=== PATIENT | male | born 1970 | race Caucasian/White ===

== ENCOUNTER 2016-08-21 10:51 | Emergency (ER) | payer BC ==
[~2016-08-21] VITALS: Ht 182.9 cm; Wt 85.3 kg
[~2016-08-21 10:51] MED LIST: CYCL5TAB PO
[2016-08-21 10:57] VITALS: TEMP 36.9; Ht 182.9 cm; Wt 85.3 kg
[2016-08-21] MEDS ORDERED: DiphenhydrAMINE HCL 50 MG/ML VIAL IV STA (11:17)
[2016-08-21] MEDS ORDERED: PROCHLORPERAZINE 5 MG/ML 2 ML VIAL IV STA (11:17)
[2016-08-21] MEDS ORDERED: KETOROLAC TROMETHAMINE 30 MG/ML VIAL IV STA (11:17)
[2016-08-21] MEDS ORDERED: SODIUM CHLORIDE 0.9% 1000ML 1,000 ML IV STA (11:17)
--- NOTE | 2016-08-21 11:20 | EMERGENCY ROOM VISIT NOTE ---
History Report prepared by Jeseibdeepika: Lindsay Garcia Under the Supervision of: Dr. Douglas Sethi M.D. First contact with patient: 11:06 Chief Complaint: HEADACHE Stated Complaint: HEADACHE, DIZZY History of Present Illness The patient is a 45 year old male who presents to the Emergency Room with complaints of a persistent headache that began yesterday. He currently rates his discomfort as a 5/10 in severity. The patient states that last evening he developed a mild headache. He states that this morning he woke feeling okay, but still noted the headache. The patient additionally associates dizziness with his symptoms today. He states that he tried drinking caffeine and water and tried ibuprofen all without relief of his symptoms. The patient denies ever having a headache like this in the past and states that he typically doesn' t get headaches. He states that the headache is located to his temples. The patient denies any neck pain, recent illness, or abdominal pain. He denies seeing any recent tick bites. The patient states that he is a smoker, stating that he smokes 1/2-3/4 a pack per day. Source of History: patient Onset: yesterday Position: head Symptom Intensity: 5/10 Quality: ache Timing: other (persistent) Associated Symptoms: No abdominal pain, No neck pain Note: Associated Symptoms: dizziness Review of Systems See HPI for pertinent positives & negatives. A total of 10 systems reviewed and were otherwise negative. Past Medical & Surgical Medical Problems: (1) No active medical problems Family History Patient reports no known family medical history. Social History Smoking Status: Current Every Day Smoker Alcohol Use: occasionally Marital Status: Housing Status: lives with significant other Occupation Status: employed Current/Historical Medications No Active Prescriptions or Reported Meds Allergies Coded Allergies: No Known Allergies (Unverified , 03/14/16) Physical Exam Vital Signs Date Time Temp Pulse Resp B/P Pulse Ox O2 Delivery O2 Flow Rate FiO2 08/21/16 12:51 73 18 113/71 96 Room Air 08/21/16 11:16 84 08/21/16 10:57 36.9 83 18 134/95 97 Room Air Physical Exam GENERAL: Patient is a healthy-appearing well-nourished HEAD: Normocephalic atraumatic EYES: Ocular movements intact pupils equal and react to light OROPHARYNX mucous membranes are moist no exudates present no erythema or edema present NECK: Supple no nuchal rigidity. No evidence of meningitis or encephalitis on exam. CHEST: Good equal expansion LUNGS: Clear and equal to auscultation CARDIAC: Normal S1 and S2 ABDOMEN: Soft nontender no guarding BACK: No CVA tenderness EXTREMITIES: No pain upon palpation normal muscle strength in all groups no clubbing cyanosis or edema NEURO: Patient is following commands is answering questions appropriately. Alert and oriented x3 Cranial Nerves 2-12 grossly intact Medical Decision & Procedures ER Provider Diagnostic Interpretation: CT results as stated below per my review and radiologist interpretation: HEAD CT NONCONTRAST CT DOSE: 537.48 mGy.cm HISTORY: Pt c/o headache TECHNIQUE: Multiaxial CT images of the head were performed without the use of intravenous contrast. Automated exposure control was utilized for this study. Comparison: None. Findings: The paranasal sinuses and mastoid air cells are clear. The calvarium and skull base are intact. The ventricles and sulci are within normal limits. There is no mass, hematoma, midline shift, or acute infarct. Impression: No acute intracranial abnormality. Electronically signed by: Dean Fernandez M.D. 08/21/2016 11:58 AM Dictated Date/Time: 08/21/2016 11:56 AM Laboratory Results 08/21/16 11:30 Red Blood Count 4.59, Mean Corpuscular Volume 91.1, Mean Corpuscular Hemoglobin 31.2, Mean Corpuscular Hemoglobin Concent 34.2, Mean Platelet Volume 10.1, Neutrophils (%) (Auto) 64.5, Lymphocytes (%) (Auto) 25.4, Monocytes (%) (Auto) 5.7, Eosinophils (%) (Auto) 3.4, Basophils (%) (Auto) 0.6, Neutrophils # (Auto) 8.10, Lymphocytes # (Auto) 3.19, Monocytes # (Auto) 0.72, Eosinophils # (Auto) 0.43, Basophils # (Auto) 0.08 08/21/16 11:30 Test 08/21/16 11:30 White Blood Count 12.57 K/uL (4.8-10.8) Red Blood Count 4.59 M/uL (4.7-6.1) Hemoglobin 14.3 g/dL (14.0-18.0) Hematocrit 41.8 % (42-52) Mean Corpuscular Volume 91.1 fL (80-100) Mean Corpuscular Hemoglobin 31.2 pg (25-34) Mean Corpuscular Hemoglobin Concent 34.2 g/dl (32-36) Platelet Count 316 K/uL (130-400) Mean Platelet Volume 10.1 fL (7.4-10.4) Neutrophils (%) (Auto) 64.5 % Lymphocytes (%) (Auto) 25.4 % Monocytes (%) (Auto) 5.7 % Eosinophils (%) (Auto) 3.4 % Basophils (%) (Auto) 0.6 % Neutrophils # (Auto) 8.10 K/uL (1.4-6.5) Lymphocytes # (Auto) 3.19 K/uL (1.2-3.4) Monocytes # (Auto) 0.72 K/uL (0.11-0.59) Eosinophils # (Auto) 0.43 K/uL (0-0.5) Basophils # (Auto) 0.08 K/uL (0-0.2) RDW Standard Deviation 45.5 fL (36.4-46.3) RDW Coefficient of Variation 13.8 % (11.5-14.5) Immature Granulocyte % (Auto) 0.4 % Immature Granulocyte # (Auto) 0.05 K/uL (0.00-0.02) Anion Gap 7.0 mmol/L (3-11) Est Creatinine Clear Calc Drug Dose 85.3 ml/min Estimated GFR () 84.1 Estimated GFR (Non- 72.6 BUN/Creatinine Ratio 17.5 (10-20) Calcium Level 9.6 mg/dl (8.5-10.1) Total Bilirubin 0.3 mg/dl (0.2-1) Direct Bilirubin < 0.1 mg/dl (0-0.2) Aspartate Amino Transf (AST/SGOT) 20 U/L (15-37) Alanine Aminotransferase (ALT/SGPT) 29 U/L (12-78) Alkaline Phosphatase 78 U/L (45-117) Total Protein 7.8 gm/dl (6.4-8.2) Albumin 4.0 gm/dl (3.4-5.0) Lipase 68 U/L (73-393) Lyme Disease IgG Antibody NEG (NEG) Lyme Disease IgM Antibody NEG (NEG) Labs reviewed by ED physician. Medications Administered Medications (Trade) Dose Ordered Sig/Ra Route Start Time Stop Time Status Last Admin Dose Admin Sodium Chloride (Nss 1000ml) 1,000 ml @ 999 mls/hr Q1H1M STAT IV 08/21/16 11:17 08/21/16 12:17 DC 08/21/16 11:36 999 MLS/HR Prochlorperazine Edisylate (Compazine Inj) 10 mg NOW STAT IV 08/21/16 11:17 08/21/16 11:19 DC 08/21/16 11:37 10 MG Diphenhydramine HCl (Benadryl Inj) 50 mg NOW STAT IV 08/21/16 11:17 08/21/16 11:20 DC 08/21/16 11:36 50 MG Ketorolac Tromethamine (Toradol Inj) 30 mg NOW STAT IV 08/21/16 11:17 08/21/16 11:20 DC 08/21/16 11:36 30 MG Dexamethasone Sodium Phosphate (Decadron Inj) 10 mg NOW ONCE IV 08/21/16 11:30 08/21/16 11:31 DC 08/21/16 11:37 10 MG ECG Indication: other (dizzy) Rate (beats per minute): 92 Rhythm: normal sinus Findings: RBBB, no acute ischemic change, no ectopy ED Course 1109: Past medical records reviewed. The patient was evaluated in room C8. A complete history and physical examination was performed. 1117: Ordered Toradol Inj 30 mg IV, Benadryl Inj 50 mg IV, Compazine Inj 10 mg IV, Sodium Chloride 1000 ml @ 999 mls/hr IV. 1130: Ordered Decadron Inj 10 mg IV. 1230: I reevaluated the patient and he is resting comfortably. I discussed the exam findings with him and I discussed the treatment plan. He verbalized complete understanding and agreement. He is ready to go home. Medical Decision Differential diagnosis: Etiologies such as migraine headache, meningitis, sinusitis, CO exposure, ICH, SAH, infection, tumor, headache, sinus thrombosis, arterial dissection, as well as others were entertained. This is a 45-year-old male who presents emergency department complaining of headache. The patient has no evidence of meningitis encephalitis on examination. He was given a CT of the head as he is had no had imaging in the past. Addition IV was established, patient given normal saline bolus, Toradol, Compazine, Benadryl. Repeat examination revealed improvement patient's symptoms. I do feel that the patient as well as to be discharged home however I stressed the need to return to the emergency department if he develops severe headache and neck pain. Impression Primary Impression: Headache Scribe Attestation The scribe's documentation has been prepared under my direction and personally reviewed by me in its entirety. I confirm that the note above accurately reflects all work, treatment, procedures, and medical decision making performed by me. Departure Information Dispostion Home / Self-Care Prescriptions No Active Prescriptions or Reported Meds Referrals iGgi Scott M.D. (PCP) Forms HOME CARE DOCUMENTATION FORM, IMPORTANT VISIT INFORMATION, School Instructions, Work Instructions Patient Instructions Headaches Self Care, Headaches Tension, My [facility] Additional Instructions You have been examined and treated today on an emergency basis only. This is not a substitute for, or an effort to provide, complete comprehensive medical care. It is impossible to recognize and treat all injuries or illnesses in a single emergency department visit. It is therefore important that you follow up closely with Dr Scott. Call as soon as possible for an appointment. Thank you for your time and consideration. I look forward to speaking with you again soon. Please don't hesitate to call us if you have any questions. Problem Qualifiers Primary Impression: Headache Headache type: unspecified Headache chronicity pattern: acute headache Intractability: not intractable Qualified Codes: R51 - Headache
[2016-08-21] MEDS ORDERED: DEXAMETHASONE SOD INJ 10 MG/ML VIAL IV ONE (11:30)
[2016-08-21 11:47] LABS: BASO % 0.6 %; BASO ABS # 0.08 K/uL (0-0.2); COMPLETE YES; EOS % 3.4 %; HEMATOCRIT 41.8 % (42-52); IG% 0.4 %; LYMPH % 25.4 %; LYMPH ABS # 3.19 K/uL (1.2-3.4); MEAN CELL VOLUME 91.1 fL (80-100); MEAN CORPUSCULAR HEMOGLOBIN 31.2 pg (25-34); MEAN CORPUSCULAR HGB CONC 34.2 g/dl (32-36); MEAN PLATELET VOLUME 10.1 fL (7.4-10.4); MONO % 5.7 %; NEUT % 64.5 %; PLATELET COUNT 316 K/uL (130-400); RED BLOOD COUNT 4.59 M/uL (4.7-6.1); WHITE BLOOD COUNT 12.57 K/uL (4.8-10.8)
--- NOTE | 2016-08-21 11:59 | DIAGNOSTIC IMAGING REPORT ---
HEAD CT NONCONTRAST CT DOSE: 537.48 mGy.cm HISTORY: Pt c/o headache TECHNIQUE: Multiaxial CT images of the head were performed without the use of intravenous contrast. Automated exposure control was utilized for this study. Comparison: None. Findings: The paranasal sinuses and mastoid air cells are clear. The calvarium and skull base are intact. The ventricles and sulci are within normal limits. There is no mass, hematoma, midline shift, or acute infarct. Impression: No acute intracranial abnormality. Electronically signed by: Dean Fernandez M.D. 08/21/2016 11:58 AM Dictated Date/Time: 08/21/2016 11:56 AM
[2016-08-21 12:03] LABS: BLOOD UREA NITROGEN 21 mg/dl (7-18); BUN/CREATININE RATIO 17.5 (10-20); CALCIUM 9.6 mg/dl (8.5-10.1); CARBON DIOXIDE 27 mmol/L (21-32); CHLORIDE 107 mmol/L (98-107); GLUCOSE 96 mg/dl (70-99); SODIUM 141 mmol/L (136-145)
[2016-08-21 12:12] LABS: ALKALINE PHOSPHATASE 78 U/L (45-117); ALT/SGPT 29 U/L (12-78); AST/SGOT 20 U/L (15-37)
[2016-08-21 12:51] VITALS: BP 113/71; PULSE 73; O2SAT 96
[2016-08-21 13:20] LABS: LYME DISEASE AB IGG NEG (NEG)
[2016-08-21 13:23] LABS: LYME DISEASE AB IGM NEG (NEG)
== END 2016-08-21 12:52 | disposition home or self-care (01) ==
LOC: C.EDB 10:52 → C.EDC 12:52
DX: R51 Headache (principal); F17.200 Nicotine dependence, unspecified, uncomplicated

== ENCOUNTER 2024-03-16 20:45 | Inpatient (IN) ==
[2024-03-16] MEDS: SODIUM CHLORIDE 0.9% 500 ML IV ONE (21:05)
--- NOTE | 2024-03-16 21:08 | Emergency Department Note ---
Impression & Plan Headache, AMS (altered mental status), Pneumonia ED Provider Note HISTORY OF PRESENT ILLNESS: Patient is a 53-year-old male presenting with headache and nausea. History is difficult to obtain from patient, secondary to him falling asleep through the exam and trailing off midsentence. He was seen recently in the emergency department for headache and back pain. He denies any back pain at this time. He recently had a laminectomy performed 2 weeks ago. He states that his headache started 5 days ago. He was seen in the emergency department and the headache initially improved, but then came back worse. He currently rates his pain a 9 out of 10. He states that he took two 5 mg oxycodone prior to calling 911. He reports nausea. Locates pain diffusely across his head. He states he has had a fever but is unable to say when his fever was. He denies any chest pain or shortness of breath. Denies any changes in vision, numbness or tingling or weakness in his extremities. Denies any abdominal pain. He denies any recent sick contact exposures. He has not taken any Tylenol or Motrin today. presents later (around 21:15) and supplies more history. States that the patient has been acting confused and "doing weird things" throughout the day today, which had her concerned. Reports that he took oxycodone at around 1400. States that he has not had a fever, despite the patient stating he had. States that the patient is having excessive clear drainage from the wound in his lower lumbar region. Reports that they have been soaking through dressings and he has been having to put hand towels back there to collect the excess fluid. reports that there has been no drainage today. ROS: as above PHYSICAL EXAM: Constitutional: Patient appears in no acute distress. HENT: Head: Normocephalic and atraumatic. Eyes: EOMI, PERRL Mouth/Throat: Mucous membranes moist. Neck: Trachea midline. Neck supple. Full range of motion of the neck without meningismus. Cardiovascular: RRR, No murmurs, rubs or gallops. Intact distal pulses. Pulmonary/Chest: No respiratory distress. Breath sounds clear and equal bilaterally. No wheezes or rales. Abdominal: Abdomen soft, no tenderness, rebound or guarding. Back: Lower lumbar surgical incision with steri strips in place. Incision is clean/dry/intact. No drainage expressed from wound with palpation. No tenderness reproduced with palpation and no appreciable fluctuance. Musculoskeletal: No edema, tenderness or deformity noted. Skin: Warm and dry. No rash, erythema, pallor or cyanosis Neurological: Alert and keenly responsive. CN II-XII grossly intact, moving all extremities equally and fully. Patient is alert and oriented x 3. He does trail off mid-sentence but arouses to physical and verbal stimuli. He answers yes/no questions appropriately. MDM: - Vitals signs showed hypertension and tachycardia. - History obtained via patient. History as above. - Chronic conditions affecting care: none - Differential diagnoses include, but are not limited to: encephalopathy; meningitis; UTI; pneumonia; viral syndrome; intracranial hemorrhage; CVA - Order placed for continuous cardiac monitoring. At this time, monitor showed rate of 91 bpm with normal sinus rhythm, per my interpretation. - External medical records reviewed. - Laboratory workup interpreted by myself showed leukocytosis (WBC 15.40); slight hyponatremia (Na 134); hypomagnesemia (Mg 1.5); normal lactate; normal procalcitonin - Blood cultures obtained - Patient given 500 cc NS and 4 mg IV zofran. Given 1g IV tylenol for pain control. - CT head wo contrast negative for acute pathology - Patient given IV rocephin for empiric coverage for any intracranial infection. - CXR showed what looks like a right sided opacity, per my interpretation. Radiology notes questionable mild bibasilar pneumonia. - PO doxycycline added to antibiotic regimen. On reassessment, the does not report the patient having any cough. Bio fire was also added to workup. - Given 1g IV magnesium for electrolyte replacement. - Considered possible meningitis as source for patient's headache and confusion, patient has no meningeal findings on physical examination. Considered obtaining a lumbar puncture, but given patient's recent lumbar spinal surgery, will defer LP at this time. Patient empirically covered with rocephin. - Discussion was had with case specialist about patient's case and need for admission - Hospitalist, Dr. Ross, consulted for admission - [facility] ASSESSMENT AND PLAN: Diagnosis: headache; altered mental status; pneumonia Plan: admit Past Med/Surg History Problem List (Updated 03/16/24 @ 23:26 by Yamileth Hinton MD) Pneumonia (Acute) AMS (altered mental status) (Acute) Seroma of musculoskeletal structure after musculoskeletal system procedure (Acute) Headache (Acute) Low back pain (Acute) Medical History Low back pain Social History Smoking Status: Current every day smoker Tobacco Type: Cigarettes Preferred Language: Sinhala Feels Safe at Home: Yes Allergies Allergies Allergy/AdvReac Type Severity Reaction Status Date / Time No Known Allergies Allergy Unverified 03/14/16 15:10 Home Meds Home Medications Medication Instructions Recorded Confirmed diazepam 5 mg tablet 5 mg PO Q8 PRN DIRECTED 03/16/24 03/16/24 hydrocodone 5 mg-acetaminophen 325 1 tab PO .EVERY 6-8 HOURS PRN POST 03/16/24 03/16/24 mg tablet OP PAIN methocarbamol 750 mg tablet 1,500 mg PO Q8 PRN MUSCLE SPASM 03/16/24 03/16/24 AFTER SURGERY pantoprazole 40 mg tablet,delayed 40 mg PO DAILY 03/16/24 03/16/24 release Results & Data (ED) Vital Signs Vital Signs - 24 hr 03/16/24 20:49 03/16/24 20:54 03/16/24 20:58 Temperature 36.8 C Temperature Source Oral Pulse Rate 94 H 87 94 H Pulse Rate [Apical] Pulse Rate from SpO2 Sensor Respiratory Rate 16 18 Respiratory Effort / Characteristics Non-Labored Spontaneous Respiratory Depth Normal Respiratory Pattern Regular Blood Pressure 159/75 H Blood Pressure [Right Arm] Blood Pressure Mean 103 Blood Pressure Mean [Right Arm] Blood Pressure Position Lying Blood Pressure Position [Right Arm] Pulse Oximetry 95 94 Oxygen Delivery Method Room Air Room Air Sepsis Recent Fever Within 48 Hours No Sepsis New/Unexplained Change in Mental Status N/A Sepsis Action Taken by Nursing No Action Required 03/16/24 21:00 03/16/24 21:00 03/16/24 22:00 Temperature Temperature Source Pulse Rate 86 Pulse Rate [Apical] Pulse Rate from SpO2 Sensor Respiratory Rate 19 Respiratory Effort / Characteristics Respiratory Depth Respiratory Pattern Blood Pressure 154/76 H 125/71 Blood Pressure [Right Arm] Blood Pressure Mean 92 101 Blood Pressure Mean [Right Arm] Blood Pressure Position Blood Pressure Position [Right Arm] Pulse Oximetry Oxygen Delivery Method Sepsis Recent Fever Within 48 Hours Sepsis New/Unexplained Change in Mental Status Sepsis Action Taken by Nursing 03/16/24 22:09 03/16/24 22:35 Temperature Temperature Source Pulse Rate 92 H Pulse Rate [Apical] 91 H Pulse Rate from SpO2 Sensor 93 H Respiratory Rate 17 16 Respiratory Effort / Characteristics Non-Labored Spontaneous Respiratory Depth Normal Respiratory Pattern Regular Blood Pressure Blood Pressure [Right Arm] 124/75 Blood Pressure Mean Blood Pressure Mean [Right Arm] 91 Blood Pressure Position Blood Pressure Position [Right Arm] Lying Pulse Oximetry 91 92 Oxygen Delivery Method Room Air Room Air Sepsis Recent Fever Within 48 Hours Sepsis New/Unexplained Change in Mental Status Sepsis Action Taken by Nursing Laboratory Data 03/16/24 20:56 03/16/24 20:56 Lab Results 03/16/24 03/16/24 Range/Units 20:56 22:22 WBC 15.40 H (4.8-10.8) K/ul RBC 4.84 (4.70-6.10) M/uL Hgb 14.9 (14.0-18.0) g/dl Hct 44.0 (42.0-52.0) % MCV 90.9 (80.0-100.0) fL MCH 30.8 (25.0-34.0) pg MCHC 33.9 (32.0-36.0) g/dL RDW Std Deviation 43.5 (36.4-46.3) fL RDW Coeff of Ning 13.1 (11.5-14.5) % Plt Count 313 (130-400) K/uL MPV 10.3 (9.4-12.4) fL Immature Gran % (Auto) 0.5 % Neut % (Auto) 87.6 % Lymph % (Auto) 5.5 % [place] % (Auto) 5.8 % Eos % (Auto) 0.2 % Baso % (Auto) 0.4 % Neut # (Auto) 13.50 H (1.40-6.50) K/uL Lymph # (Auto) 0.84 L (1.20-3.40) K/uL [place] # (Auto) 0.90 H (0.11-0.59) K/uL Eos # (Auto) 0.03 (0.00-0.50) K/uL Baso # (Auto) 0.06 (0.00-0.20) K/uL Immature Gran # (Auto) 0.07 (0.01-0.20) K/uL Sodium 134 L (136-145) mmol/L Potassium 3.9 (3.5-5.1) mmol/L Chloride 103 (98-107) mmol/L Carbon Dioxide 23 (21-32) mmol/L Anion Gap 8 (3-11) BUN 19 (6-23) mg/dl Creatinine 1.07 (0.6-1.4) mg/dl Est Cr Clr Drug Dosing 87.6 ml/min eGFR 82.98 BUN/Creatinine Ratio 17.8 (10-20) Glucose 124 H (70-99(Fasting)) mg/dl Lactate 0.7 (0.4-2.0) mmol/L Calcium 10.0 (8.6-10.3) mg/dl Magnesium 1.5 L (1.7-2.4) mg/dl Total Bilirubin 0.7 (0.2-1.0) mg/dl AST 15 (13-39) U/L ALT 16 (7-52) U/L Alkaline Phosphatase 71 (34-104) U/L Total Protein 7.6 (6.0-8.3) gm/dl Albumin 4.4 (3.4-5.0) gm/dl Globulin 3.2 (2.5-4.0) gm/dl Albumin/Globulin Ratio 1.4 (0.9-2) Procalcitonin 0.11 (0-0.5) ng/ml Administered Medications Magnesium Sulfate/Dextrose (Magnesium Sulfate / D5w) 1 gm in 100 mls @ 50 mls/hr IV Q2H [facility] Stop: 03/17/24 03:14 Last Admin: 03/16/24 23:19 Dose: 50 mls/hr Documented By: Discontinued Medications Azithromycin (Azithromycin 250 Mg Tab) 500 mg PO NOW ONE Stop: 03/16/24 23:01 Last Admin: 03/16/24 23:11 Dose: Not Given Documented By: Diphenhydramine HCl (Diphenhydramine 50 Mg/Ml Vial) 50 mg IV NOW STA Stop: 03/16/24 20:54 Last Admin: 03/16/24 21:38 Dose: Not Given Documented By: Sodium Chloride (Nss) 500 mls @ 999 mls/hr IV .Q31M ONE Stop: 03/16/24 21:23 Last Infusion: 03/16/24 21:37 Dose: Infused Documented By: Admin: 03/16/24 21:05 Dose: 999 mls/hr Documented By: Prochlorperazine (Compazine) 2 mls @ 1 mls/min IV ONE ONE Stop: 03/16/24 20:54 Last Admin: 03/16/24 21:37 Dose: Not Given Documented By: Acetaminophen (Ofirmev) 1,000 mg in 100 mls @ 400 mls/hr IV NOW STA Stop: 03/16/24 21:20 Last Infusion: 03/16/24 21:58 Dose: Infused Documented By: Admin: 03/16/24 21:36 Dose: 400 mls/hr Documented By: Ceftriaxone Sodium (Rocephin) 2,000 mg in 50 mls @ 100 mls/hr IV NOW STA Stop: 03/16/24 22:06 Last Infusion: 03/16/24 23:12 Dose: Infused Documented By: Admin: 03/16/24 22:06 Dose: 100 mls/hr Documented By: Ioversol (Optiray 320 100ml) 94 ml IV ONCE ONE Stop: 03/16/24 21:53 Last Admin: 03/16/24 21:52 Dose: 94 ml Documented By: ALYCIA Ondansetron HCl (Ondansetron Inj 2 Mg/Ml 2 Ml Vial) 4 mg IV NOW STA Stop: 03/16/24 21:07 Last Admin: 03/16/24 21:33 Dose: 4 mg Documented By: Imaging Data Radiologist's Impression: Head CT 03/16/24 20:53 Exam(s): CT HEAD Without Contrast EXAM: CT Head Without Intravenous Contrast CLINICAL HISTORY: Reason for exam: headache. TECHNIQUE: Axial computed tomography images of the head/brain without intravenous contrast. CTDI is 36 mGy and DLP is 546 mGy-cm. Automated exposure control was utilized for the study. A dose lowering technique was utilized adhering to the principles of ALARA. COMPARISON: Head CT 03/14/24. FINDINGS: Brain: No mass effect or acute infarct. No acute hemorrhage. No abnormal density in the brain parenchyma. No significant interval change. Ventricles: No hydrocephalus or midline shift. Bones/joints: No skull fracture. Soft tissues: No scalp hematoma. Visualized Sinuses: Clear. Mastoid air cells: No mastoid effusion. IMPRESSION: 1. No acute intracranial abnormality, and no change. Electronically signed by: Mabel Hernández M.D. 03/16/24 21:47 PM Chest X-Ray 03/16/24 20:54 Exam(s): XR CXR 1 VIEW EXAM: XR Chest, 1 View CLINICAL HISTORY: Reason for exam: fever. TECHNIQUE: Frontal view of the chest. Mild low lung volumes, patient rotation and motion. COMPARISON: Chest x-ray 04/15/23. FINDINGS: Lungs: New, mild bibasilar atelectasis or infiltrate, nonspecific, cannot rule out pneumonia. No consolidation. Pleural space: No pneumothorax. Heart: Stable, mild to moderate cardiomegaly. Mediastinum: Unremarkable. Bones/Soft Tissues: No acute abnormality. IMPRESSION: 1. Question mild bibasilar pneumonia. Electronically signed by: Mabel Hernández M.D. 03/16/24 22:[address] 03/16/24 21:37 Exam(s): CT L SPINE With Contrast IV Amt: optiray 320 94ml EXAM: CT Lumbar Spine With Intravenous Contrast CLINICAL HISTORY: Reason for exam: drainage from surgical incision; AMS. TECHNIQUE: Axial computed tomography images of the lumbar spine with intravenous contrast. CTDI is 37.47 mGy and DLP is 1059.7 mGy-cm. Automated exposure control was utilized for the study. A dose lowering technique was utilized adhering to the principles of ALARA. CONTRAST: Patient received optiray 320 94ml of IV contrast COMPARISON: None. FINDINGS: Vertebrae: Bilateral L4 laminectomy. No acute fracture. Discs/spinal canal/neural foramina: Moderate degenerative disc disease L4-5 and L5-S1. Soft tissues: Postoperative change L4-5 with hypodensity in the subcutaneous fat into the laminectomy bed. No abnormal enhancement. IMPRESSION: 1. Degenerative and postsurgical change L4-5. 2. No abnormal enhancement, fracture or acute bony abnormality. Electronically signed by: Mabel Hernández M.D. 03/16/24 22:23 PM Discharge Plan Visit Data Chief Complaint: Headache Stated Complaint: Headache, Nausea, Recent Surgery ED Provider: Yamileth Hinton Discharge Problem: Headache, AMS (altered mental status), Pneumonia Forms Stand Alone Forms: [facility] Prescriptions Prescriptions: No Action hydrocodone-acetaminophen 5-325 mg tablet 1 tab PO .EVERY 6-8 HOURS PRN (Reason: POST OP PAIN) pantoprazole 40 mg tablet,delayed release (DR/EC) 40 mg PO DAILY diazepam 5 mg tablet 5 mg PO Q8 PRN (Reason: DIRECTED) methocarbamol 750 mg tablet 1,500 mg PO Q8 PRN (Reason: MUSCLE SPASM AFTER SURGERY) Referrals Referrals: Melissa Fritz DO [Primary Care Provider] -
[2024-03-16 21:21] LABS: Basophils # (auto) 0.06 K/uL (0.00-0.20); Basophils % (auto) 0.4 %; Eosinophils # (auto) 0.03 K/uL (0.00-0.50); Eosinophils % (auto) 0.2 %; Hemoglobin 14.9 g/dl (14.0-18.0); Immature Granulocytes # (auto) 0.07 K/uL (0.01-0.20); Immature Granulocytes % (auto) 0.5 %; Lymphocytes # (auto) 0.84 K/uL (1.20-3.40); Lymphocytes % (auto) 5.5 %; Mean Corpuscular Hemoglobin 30.8 pg (25.0-34.0); Mean Corpuscular Hgb Conc 33.9 g/dL (32.0-36.0); Mean Corpuscular Volume 90.9 fL (80.0-100.0); Mean Platelet Volume 10.3 fL (9.4-12.4); Monocytes % (auto) 5.8 %; Neutrophils % (auto) 87.6 %; Platelet Count 313 K/uL (130-400); RDW Coefficient of Variation 13.1 % (11.5-14.5); RDW Standard Deviation 43.5 fL (36.4-46.3); Red Blood Count 4.84 M/uL (4.70-6.10)
[2024-03-16 21:29] LABS: Albumin Globulin Ratio 1.4 (0.9-2); Albumin Level 4.4 gm/dl (3.4-5.0); BUN Creatinine Ratio 17.8 (10-20); Bilirubin,Total 0.7 mg/dl (0.2-1.0); Creatinine Clr Calc Pharmacy 87.6 ml/min; Globulin 3.2 gm/dl (2.5-4.0); Magnesium 1.5 mg/dl (1.7-2.4); Potassium 3.9 mmol/L (3.5-5.1); Total Protein 7.6 gm/dl (6.0-8.3)
[2024-03-16] MEDS: ONDANSETRON INJ 2 MG/ML 2 ML VIAL IV STA (21:33)
[2024-03-16] MEDS: ACETAMINOPHEN 1,000 MG/100 ML VIAL IV STA (21:36)
[2024-03-16] MEDS: PROCHLORPERAZINE 2 ML IV ONE (21:37)
[2024-03-16] MEDS: diphenhydrAMINE 50 MG/ML VIAL IV STA (21:38)
--- NOTE | 2024-03-16 21:48 | CT Scan Report ---
Exam(s): CT HEAD Without Contrast EXAM: CT Head Without Intravenous Contrast CLINICAL HISTORY: Reason for exam: headache. TECHNIQUE: Axial computed tomography images of the head/brain without intravenous contrast. CTDI is 36 mGy and DLP is 546 mGy-cm. Automated exposure control was utilized for the study. A dose lowering technique was utilized adhering to the principles of ALARA. COMPARISON: Head CT 03/14/24. FINDINGS: Brain: No mass effect or acute infarct. No acute hemorrhage. No abnormal density in the brain parenchyma. No significant interval change. Ventricles: No hydrocephalus or midline shift. Bones/joints: No skull fracture. Soft tissues: No scalp hematoma. Visualized Sinuses: Clear. Mastoid air cells: No mastoid effusion. IMPRESSION: 1. No acute intracranial abnormality, and no change. Electronically signed by: Mabel Hernández M.D. 03/16/24 21:47 PM
[2024-03-16] MEDS: OPTIRAY 320 100ml IV ONE (21:52)
[2024-03-16] MEDS: cefTRIAXone SODIUM 2,000 MG/50 ML BAG IV STA (22:06)
--- NOTE | 2024-03-16 22:25 | CT Scan Report ---
Exam(s): CT L SPINE With Contrast IV Amt: optiray 320 94ml EXAM: CT Lumbar Spine With Intravenous Contrast CLINICAL HISTORY: Reason for exam: drainage from surgical incision; AMS. TECHNIQUE: Axial computed tomography images of the lumbar spine with intravenous contrast. CTDI is 37.47 mGy and DLP is 1059.7 mGy-cm. Automated exposure control was utilized for the study. A dose lowering technique was utilized adhering to the principles of ALARA. CONTRAST: Patient received optiray 320 94ml of IV contrast COMPARISON: None. FINDINGS: Vertebrae: Bilateral L4 laminectomy. No acute fracture. Discs/spinal canal/neural foramina: Moderate degenerative disc disease L4-5 and L5-S1. Soft tissues: Postoperative change L4-5 with hypodensity in the subcutaneous fat into the laminectomy bed. No abnormal enhancement. IMPRESSION: 1. Degenerative and postsurgical change L4-5. 2. No abnormal enhancement, fracture or acute bony abnormality. Electronically signed by: Mabel Hernández M.D. 03/16/24 22:23 PM
--- NOTE | 2024-03-16 22:51 | XRay Report ---
Exam(s): XR CXR 1 VIEW EXAM: XR Chest, 1 View CLINICAL HISTORY: Reason for exam: fever. TECHNIQUE: Frontal view of the chest. Mild low lung volumes, patient rotation and motion. COMPARISON: Chest x-ray 04/15/23. FINDINGS: Lungs: New, mild bibasilar atelectasis or infiltrate, nonspecific, cannot rule out pneumonia. No consolidation. Pleural space: No pneumothorax. Heart: Stable, mild to moderate cardiomegaly. Mediastinum: Unremarkable. Bones/Soft Tissues: No acute abnormality. IMPRESSION: 1. Question mild bibasilar pneumonia. Electronically signed by: Mabel Hernández M.D. 03/16/24 22:51 PM
[2024-03-16] MEDS: AZITHROMYCIN 250 MG TAB PO ONE (23:11)
--- NOTE | 2024-03-16 23:16 | History & Physical Report ---
Date of Service March 16, 2024 Assessment & Plan (1) Encephalopathy: Plan: Encephalopathy Marked improvement following initial intervention at the ER Multifactorial: Muscle relaxants, home narcotics Mild dehydration Headache, possible spinal headache, recent lumbar decompression surgery at [facility] (rule out brain abscess, postop back abscess given fluid collection on recent MRI) Atypical pneumonia, patient not septic Hypomagnesemia Hyperglycemia, hemoglobin A1c of 5.5 from February 2024 GERD on PPI ongoing tobacco abuse Medical telemetry Hold parameters for muscle relaxants and narcotics for sedation confusion IVF Doxycycline for possible atypical pneumonia MRI brain, MRI lumbar spine Replace electrolytes Nicotine patch as needed DVT prophylaxis. SCDs re: recent back procedure Full code Patient requesting updates providers. Ms. Yakelin Hawk, contact #[phone]. Text document was generated using [employer] voice recognition software. It may contain grammatical or spelling errors. Kindly contact undersigned for clarification of any documentation item in question. History of Present Illness Chief Complaint: Headache, confusion Primary Care Provider: Melissa Fritz DO History obtained from patient, family, and records. Medical history significant for lumbar radiculopathy status post recent laminectomy/decompression surgery, GERD, ongoing tobacco abuse. Patient underwent elective lumbar decompression surgery/laminectomy at [facility] same-day surgery in [place] 2 weeks ago. Clear postop drainage from back wound after procedure. No fever, no chills. Patient told on follow-up visit with surgeon last week that drainage was normal postprocedure. Achy headache symptoms 5 days ago. Does not seem related to position as per patient. No neck pain, no fever, no chills. No chest pain, no SOB, no cough symptoms. Back pain not as bad with fluid drainage from the back. Patient consulted [facility] ER 2 days ago. Clear fluid drainage noted from surgical site without erythema. CT head: No abnormality Lumbar spine MRI: 1. L4-L5 laminectomy with non-enhancing extra thecal seroma. L4 surgical site skin and subcutaneous fluid collection with enhancement indicating possible infection/inflammation advised lab and clinical evaluation. 2. Suspected non-enhancing well-coapted sinus tract connecting the previously mentioned fluid collections. 3. L4-L5 central and right paracentral disc protrusion/fibrosis indenting the thecal sac and causing the narrowing of the right neural exit foramina. 4. L5-S1 diffuse disc bulge causing bilateral mild to moderate stenosis of the neural exit. 5. There is a suspected faintly enhancing granulation tissue seen at the lower end of the L4 vertebral body encroaching upon the L4-L5 left neural exit foramen compressing the thecal sac and causing mild narrowing of the neural exit foramina and central canal. Advised follow-up if clinically warranted. 6. No evidence of acute abscess formation or intraspinal extension of the inflammatory process. Patient discharged home from the ER. Worsening headache symptoms at home with some confusion. No fever, no chills. Nausea symptoms without abdominal pain, poor appetite. Postop clear drainage actually improving as per . IVF, ceftriaxone administered at the ER. Patient mentation back to baseline after initial intervention at the ER as per . 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 Allergies Allergy/AdvReac Type Severity Reaction Status Date / Time No Known Allergies Allergy Unverified 03/14/16 15:10 Home Medications Medication Instructions Recorded Confirmed Type diazepam 5 mg tablet 5 mg PO Q8 PRN DIRECTED 03/16/24 03/16/24 History hydrocodone 5 mg-acetaminophen 325 1 tab PO .EVERY 6-8 HOURS PRN POST 03/16/24 03/16/24 History mg tablet OP PAIN methocarbamol 750 mg tablet 1,500 mg PO Q8 PRN MUSCLE SPASM 03/16/24 03/16/24 History AFTER SURGERY pantoprazole 40 mg tablet,delayed 40 mg PO DAILY 03/16/24 03/16/24 History release Past Med/Surg History Problem List (Updated 03/17/24 @ 06:05 by Morris Ross MD) Encephalopathy Pneumonia (Acute) AMS (altered mental status) (Acute) Seroma of musculoskeletal structure after musculoskeletal system procedure (Acute) Headache (Acute) Low back pain (Acute) Medical History Low back pain Social History Smoking Status: Current every day smoker Tobacco Type: Cigarettes Cigarettes Per Day: 1/2 pack; Second Hand Exposure: Yes; Do You Dip or Chew Tobacco: No; Hx Alcohol Use: Yes Hx Substance Use: Yes Last Used Substance: Hours (ago) Substance Use Type Other:: prescribed after back surgery Preferred Language: Kazakh Communication Ability: Effective Lining Feller Blindstitch Required: No Beliefs That Will Affect Care: None Current Living Situation: Family Current Living Situation Comment: lives at home with and daughter Feels Safe at Home: Yes Assistive Devices: Cane Review of Systems Review of Systems: As per HPI, all other systems reviewed and negative Physical Exam Physical Exam: GENERAL: Comfortable, pleasant, no respiratory distress SKIN: Normal color, warm HEENT: [place] palpebral conjunctivae, no ptosis, dry buccal mucosa NECK : Supple, no tenderness CHEST : Decreased breath sounds, no tenderness HEART : RRR, no obvious murmurs ABDOMEN: Some distention, nontender BACK : Dressing over low back with minimal tenderness, negative straight leg raise test EXTREMITIES : No LE swelling/tenderness, no other conspicuous deformities noted NEUROLOGIC : Coherent, no facial asymmetry, no other gross focality Results & Data Results & Data Vital Signs (Past 12 Hours) Vital Signs Temp Pulse Pulse Resp BP BP Pulse Ox 03/16/24 22:35 91 H 16 124/75 92 03/16/24 22:09 92 H 17 91 03/16/24 22:00 125/71 03/16/24 21:00 154/76 H 03/16/24 21:00 86 19 03/16/24 20:58 94 H 18 94 03/16/24 20:54 87 03/16/24 20:49 36.8 C 94 H 16 159/75 H 95 O2 Del Method 03/16/24 22:35 Room Air 03/16/24 22:09 Room Air 03/16/24 22:00 03/16/24 21:00 03/16/24 21:00 03/16/24 20:58 Room Air 03/16/24 20:54 03/16/24 20:49 Room Air Laboratory Results Laboratory Results WBC 15.40 K/ul (4.8-10.8) H 03/16/24 20:56 RBC 4.84 M/uL (4.70-6.10) 03/16/24 20:56 Hgb 14.9 g/dl (14.0-18.0) 03/16/24 20:56 Hct 44.0 % (42.0-52.0) 03/16/24 20:56 MCV 90.9 fL (80.0-100.0) 03/16/24 20:56 MCH 30.8 pg (25.0-34.0) 03/16/24 20:56 MCHC 33.9 g/dL (32.0-36.0) 03/16/24 20:56 RDW Std Deviation 43.5 fL (36.4-46.3) 03/16/24 20:56 RDW Coeff of Ning 13.1 % (11.5-14.5) 03/16/24 20:56 Plt Count 313 K/uL (130-400) 03/16/24 20:56 MPV 10.3 fL (9.4-12.4) 03/16/24 20:56 Immature Gran % (Auto) 0.5 % 03/16/24 20:56 Neut % (Auto) 87.6 % 03/16/24 20:56 Lymph % (Auto) 5.5 % 03/16/24 20:56 [place] % (Auto) 5.8 % 03/16/24 20:56 Eos % (Auto) 0.2 % 03/16/24 20:56 Baso % (Auto) 0.4 % 03/16/24 20:56 Neut # (Auto) 13.50 K/uL (1.40-6.50) H 03/16/24 20:56 Lymph # (Auto) 0.84 K/uL (1.20-3.40) L 03/16/24 20:56 [place] # (Auto) 0.90 K/uL (0.11-0.59) H 03/16/24 20:56 Eos # (Auto) 0.03 K/uL (0.00-0.50) 03/16/24 20:56 Baso # (Auto) 0.06 K/uL (0.00-0.20) 03/16/24 20:56 Immature Gran # (Auto) 0.07 K/uL (0.01-0.20) 03/16/24 20:56 Sodium 134 mmol/L (136-145) L 03/16/24 20:56 Potassium 3.9 mmol/L (3.5-5.1) 03/16/24 20:56 Chloride 103 mmol/L (98-107) 03/16/24 20:56 Carbon Dioxide 23 mmol/L (21-32) 03/16/24 20:56 Anion Gap 8 (3-11) 03/16/24 20:56 BUN 19 mg/dl (6-23) 03/16/24 20:56 Creatinine 1.07 mg/dl (0.6-1.4) 03/16/24 20:56 Est Cr Clr Drug Dosing 87.6 ml/min 03/16/24 20:56 eGFR 82.98 03/16/24 20:56 BUN/Creatinine Ratio 17.8 (10-20) 03/16/24 20:56 Glucose 124 mg/dl (70-99(Fasting)) H 03/16/24 20:56 Lactate 0.7 mmol/L (0.4-2.0) 03/16/24 22:22 Calcium 10.0 mg/dl (8.6-10.3) 03/16/24 20:56 Magnesium 1.5 mg/dl (1.7-2.4) L 03/16/24 20:56 Total Bilirubin 0.7 mg/dl (0.2-1.0) 03/16/24 20:56 AST 15 U/L (13-39) 03/16/24 20:56 ALT 16 U/L (7-52) 03/16/24 20:56 Alkaline Phosphatase 71 U/L (34-104) 03/16/24 20:56 Total Protein 7.6 gm/dl (6.0-8.3) 03/16/24 20:56 Albumin 4.4 gm/dl (3.4-5.0) 03/16/24 20:56 Globulin 3.2 gm/dl (2.5-4.0) 03/16/24 20:56 Albumin/Globulin Ratio 1.4 (0.9-2) 03/16/24 20:56 Procalcitonin 0.11 ng/ml (0-0.5) 03/16/24 22:[address] 03/16/24 20:53 Exam(s): CT HEAD Without Contrast EXAM: CT Head Without Intravenous Contrast CLINICAL HISTORY: Reason for exam: headache. TECHNIQUE: Axial computed tomography images of the head/brain without intravenous contrast. CTDI is 36 mGy and DLP is 546 mGy-cm. Automated exposure control was utilized for the study. A dose lowering technique was utilized adhering to the principles of ALARA. COMPARISON: Head CT 03/14/24. FINDINGS: Brain: No mass effect or acute infarct. No acute hemorrhage. No abnormal density in the brain parenchyma. No significant interval change. Ventricles: No hydrocephalus or midline shift. Bones/joints: No skull fracture. Soft tissues: No scalp hematoma. Visualized Sinuses: Clear. Mastoid air cells: No mastoid effusion. IMPRESSION: 1. No acute intracranial abnormality, and no change. Electronically signed by: Mabel Hernández M.D. 03/16/24 21:47 PM Chest X-Ray 03/16/24 20:54 Exam(s): XR CXR 1 VIEW EXAM: XR Chest, 1 View CLINICAL HISTORY: Reason for exam: fever. TECHNIQUE: Frontal view of the chest. Mild low lung volumes, patient rotation and motion. COMPARISON: Chest x-ray 04/15/23. FINDINGS: Lungs: New, mild bibasilar atelectasis or infiltrate, nonspecific, cannot rule out pneumonia. No consolidation. Pleural space: No pneumothorax. Heart: Stable, mild to moderate cardiomegaly. Mediastinum: Unremarkable. Bones/Soft Tissues: No acute abnormality. IMPRESSION: 1. Question mild bibasilar pneumonia. Electronically signed by: Mabel Hernández M.D. 03/16/24 22:[address] 03/16/24 21:37 Exam(s): CT L SPINE With Contrast IV Amt: optiray 320 94ml EXAM: CT Lumbar Spine With Intravenous Contrast CLINICAL HISTORY: Reason for exam: drainage from surgical incision; AMS. TECHNIQUE: Axial computed tomography images of the lumbar spine with intravenous contrast. CTDI is 37.47 mGy and DLP is 1059.7 mGy-cm. Automated exposure control was utilized for the study. A dose lowering technique was utilized adhering to the principles of ALARA. CONTRAST: Patient received optiray 320 94ml of IV contrast COMPARISON: None. FINDINGS: Vertebrae: Bilateral L4 laminectomy. No acute fracture. Discs/spinal canal/neural foramina: Moderate degenerative disc disease L4-5 and L5-S1. Soft tissues: Postoperative change L4-5 with hypodensity in the subcutaneous fat into the laminectomy bed. No abnormal enhancement. IMPRESSION: 1. Degenerative and postsurgical change L4-5. 2. No abnormal enhancement, fracture or acute bony abnormality. Electronically signed by: Mabel Hernández M.D. 03/16/24 22:23 PM
[2024-03-16] MEDS: MAGNESIUM SULFATE / D5W 1 GM/100 ML BAG IV SCH (23:19)
[2024-03-16] MEDS: DOXYCYCLINE HYCLATE 100 MG in DEXTROSE 5% MINI-B 100 ML IV STA (23:52)
[2024-03-17 00:23] LABS: Adenovirus PCR Not Detected (NotDetected); Bordetella parapertussis PCR Not Detected (NotDetected); Bordetella pertussis PCR Not Detected (NotDetected); Chlamydia pneumoniae PCR Not Detected (NotDetected); Coronavirus 229E PCR Not Detected (NotDetected); Coronavirus CoV-2 (COVID19)PCR Not Detected (NotDetected); Coronavirus HKU1 PCR Not Detected (NotDetected); Coronavirus NL63 PCR Not Detected (NotDetected); Coronavirus OC43PCR Not Detected (NotDetected); Human Metapneumovirus PCR Not Detected (NotDetected); Influenza A PCR Not Detected (NotDetected); Influenza B PCR Not Detected (NotDetected); Mycoplasma pneumoniae PCR Not Detected (NotDetected); Parainfluenza Virus 1 PCR Not Detected (NotDetected); Parainfluenza Virus 2 PCR Not Detected (NotDetected); Parainfluenza Virus 3 PCR Not Detected (NotDetected); Parainfluenza Virus 4 PCR Not Detected (NotDetected); Respiratory Syncytial VirusPCR Not Detected (NotDetected); Rhinovirus/Enterovirus PCR Not Detected (NotDetected)
[2024-03-17] MEDS: KETOROLAC TROMETHAMINE 15 MG/ML VIAL IV STA (00:57)
[2024-03-17] MEDS ORDERED: ONDANSETRON INJ 2 MG/ML 2 ML VIAL IV PRN (01:02)
[2024-03-17 01:18] LABS: Appearance Urine Clear (Clear); Bacteria Urine Automated None Seen (None Seen); Bilirubin Urine Negative (Negative); Blood Urine 1+ (Negative); Cast Urine Automated 0-2 /lpf (0-2); Color Urine Yellow; Epithelial Cell Urine Auto 0-2 /hpf (0-2); Glucose Urine UA Negative (Negative); Ketones Urine Negative (Negative); Leukocyte Esterase Urine Negative (Negative); Nitrite Urine Negative (Negative); Protein Urine Negative (Negative); RBC Urine Automated 0-2 /hpf (0-2); Specific Gravity Urine > 1.045 (1.000-1.030); Urobilinogen Urine Negative (Negative); WBC Urine Automated 0-5 /hpf (0-5)
[2024-03-17 01:40] LABS: Amphetamines+Metham, Urine Neg (Neg); Barbiturates, Urine Neg (Neg); Benzodiazepine, Urine Pos (Neg); Cocaine, Urine Neg (Neg); Fentanyl, Urine Neg (Neg); MDMA (Ecstacy), Urine Neg (Neg); Marijuana, Urine Neg (Neg); Methadone, Urine Neg (Neg); Opiate, Urine Pos (Neg); Phencyclidine, Urine Neg (Neg)
[2024-03-17] MEDS: GADOBUTROL 10ML VIAL IV ONE (02:36)
[2024-03-17] MEDS: NSS + 20MEQ KCL 20 MEQ/1,000 ML BAG IV ONE (03:05)
--- NOTE | 2024-03-17 03:58 | Magnetic Resonance Report ---
EXAM: MR brain wo/w con CLINICAL HISTORY: headache. nausea. denies back pain at this time. lumbar decompression the day before Thanksgi. states patient was acting strangely on 03/16. used propeller scans to compensate for patient motion. injected 9cc gadavist through existing iv left arm uneventful at 0230. room 262-2. MRI lumbar spine 03/14/24. CT head 03/14/24 and 03/16/24. TECHNIQUE: Multisequential and multiplanar images of the brain were submitted for review without and with contrast. COMPARISON: None. FINDINGS: The brain shows normal morphology, signal intensity, and volume for age. No focal parenchymal lesions are seen. No intracranial hemorrhage, mass effect, midline shift, extra-axial collection, or hydrocephalus is identified. Ventricles, sulci, and basal cisterns are symmetric and normal in size and configuration. Diffusion-weighted sequences show no evidence of acute ischemic infarction.Midline structures including the pituitary gland, corpus callosum, pineal region, and brainstem are unremarkable. The craniovertebral junction is within normal limits. No calvarial abnormalities are identified. The paranasal sinuses and mastoid air cells are clear. Right inferior turbinate hypertrophy noted. Orbital structures are unremarkable. 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 Appropriate flow voids are present in the rest of the visualized intracranial vessels. IMPRESSION: 1. No acute ischemia, space occupying mass, or other acute intracranial pathology is demonstrated. Electronically signed by Jos Dorsey 03-17-2024 03:57 AM
--- NOTE | 2024-03-17 04:12 | Magnetic Resonance Report ---
EXAM: MR lumbar spine wo/w con CLINICAL HISTORY: headache. nausea. denies back pain at this time. lumbar decompression the day before Thanksgiving. states patient was acting strangely on 03/16. injected 9cc gadavist through existing iv left arm uneventful at 0230. room 262-2. MRI lumbar spine 03/14/24. CT head 03/14/24 and 03/16/24. images 167 TECHNIQUE: Multisequential and multiplanar images of the lumbar spine were submitted for review without and with contrast. COMPARISON: 03/14/2024 14:37:41 ANCHOR TACK PULLER FINDINGS: The conus terminates at approximately L1. Alignment of the lumbar spine is normal. Rest of the bone marrow signal is normal. No evidence of compression fracture. SI joints are within normal limits. Limited evaluation of the sacrum is normal. The visualized paravertebral soft tissues are unremarkable. T11-T12: Evaluated on sagittal images only. No disc bulge, canal stenosis or neuroforaminal narrowing. Subarticular recesses are patent. T12-L1: Evaluated on sagittal images only. No disc bulge, canal stenosis or neuroforaminal narrowing. Subarticular recesses are patent. L1-L2: No disc bulge, canal stenosis or neuroforaminal narrowing. Subarticular recesses are patent. L2-L3: No disc bulge, canal stenosis or neuroforaminal narrowing. Subarticular recesses are patent. L3-L4: No disc bulge, canal stenosis or neuroforaminal narrowing. Subarticular recesses are patent. L4-L5: Post decompression changes noted. CSF intensity collection is noted at the postoperative site measuring 58 x 34 x 56 mm which is extending till the level of subcutaneous plane and abutting the skin. Type I modic endplate changes noted. Moderate subcutaneous post contrast enhancement. L5-S1: Mild diffuse disc bulge, bilateral facet arthropathy is noted causing mild canal and bilateral mild neural foraminal narrowing with indentation of bilateral exiting nerve roots. Type II modic endplate changes noted. Mild marrow edema is noted at endplate of L4 vertebra with post-contrast enhancement IMPRESSION: 1. Post decompression changes at L4-L5 with CSF intensity collection at the postoperative site - likely postoperative collection / possibility of pseudomeningocele cannot be excluded - new finding as compared to previous study 2. Mild marrow edema at endplate of L4 vertebra with post-contrast enhancement - likely postoperative change/modic endplate changes - unlikely to be infective etiology - suggested follow up/clinical correlation. Electronically signed by Jos Dorsey 03-17-2024 04:11 AM
--- NOTE | 2024-03-17 07:21 | Communication Note ---
Date of Service: March 17, 2024 Brain MRI 1. No acute ischemia, space occupying mass, or other acute intracranial pathology is demonstrated. Lumbar spine MRI 1. Post decompression changes at L4-L5 with CSF intensity collection at the postoperative site - likely postoperative collection / possibility of pseudomeningocele cannot be excluded - new finding as compared to previous study 2. Mild marrow edema at endplate of L4 vertebra with post-contrast enhancement - likely postoperative change/modic endplate changes - unlikely to be infective etiology - suggested follow up/clinical correlation. 7 AM Concern for dural tear as per discussion with Dr. Triana (Orthopedics spine). He recommends transfer to [facility] for management of postop compli cation. Transfer center notified of request Awaiting callback from patient's surgeon (Dr. Hallman). 740 AM Patient noted to be febrile, 38.8. 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 N.p.o. for now 9 AM Awaiting callback from [facility]. [facility] (Dr[facility] Greene[facility] and Orthopedics spine service to discuss disposition and will get back to [facility] transfer center..
[2024-03-17] MEDS: ACETAMINOPHEN 325 MG TAB PO PRN (07:22)
[2024-03-17 07:49] LABS: Basophils # (auto) 0.05 K/uL (0.00-0.20); Basophils % (auto) 0.4 %; Eosinophils # (auto) 0.05 K/uL (0.00-0.50); Eosinophils % (auto) 0.4 %; Hematocrit (blood only) 39.5 % (42.0-52.0); Hemoglobin 13.5 g/dl (14.0-18.0); Immature Granulocytes # (auto) 0.05 K/uL (0.01-0.20); Immature Granulocytes % (auto) 0.4 %; Lymphocytes # (auto) 0.52 K/uL (1.20-3.40); Lymphocytes % (auto) 4.3 %; Mean Corpuscular Hemoglobin 31.1 pg (25.0-34.0); Mean Corpuscular Hgb Conc 34.2 g/dL (32.0-36.0); Mean Platelet Volume 10.6 fL (9.4-12.4); Monocytes % (auto) 7.4 %; Neutrophils # (auto) 10.66 K/uL (1.40-6.50); Neutrophils % (auto) 87.1 %; Platelet Count 278 K/uL (130-400); RDW Standard Deviation 43.8 fL (36.4-46.3); Red Blood Count 4.34 M/uL (4.70-6.10); White Blood Count 12.23 K/ul (4.8-10.8)
[2024-03-17] MEDS: PANTOprazole 40 MG TAB PO SCH (08:00)
[2024-03-17] MEDS ORDERED: VANCOMYCIN HCL 1,000 MG/270 ML BAG IV ONE (08:01)
[2024-03-17] MEDS ORDERED: VANCOMYCIN CONSULT ACTIVE PRN (08:01)
[2024-03-17] MEDS ORDERED: VANCOMYCIN CONSULT ACTIVE STA (08:01)
[2024-03-17 08:04] LABS: BUN Creatinine Ratio 19.2 (10-20); Calcium 9.3 mg/dl (8.6-10.3); Creatinine Clr Calc Pharmacy 93.6 ml/min; Magnesium 1.9 mg/dl (1.7-2.4); Potassium 3.7 mmol/L (3.5-5.1)
[2024-03-17] MEDS: oxyCODONE HCL IR 5 MG TAB (IMMEDIATE RELEASE) PO PRN (09:00)
[2024-03-17] MEDS: tiZANidine HCL 4 MG TABLET PO PRN (09:00)
[2024-03-17] MEDS: VANCOMYCIN HCL 2,250 MG in SODIUM CHLORIDE 0.9% 500 ML IV ONE (09:01)
[2024-03-17] MEDS: CEFEPIME 2000MG 2,000 MG/20 ML SYR IV SCH (09:49)
[2024-03-17] MEDS ORDERED: oxyCODONE HCL IR 5 MG TAB (IMMEDIATE RELEASE) PO PRN (10:09)
[2024-03-17] MEDS: KETOROLAC TROMETHAMINE 15 MG/ML VIAL IV PRN (10:19)
[2024-03-17] MEDS: MoRPHine SULFATE 4 MG/ML 1 ML CARP\\VIAL IV STA (10:20)
--- NOTE | 2024-03-17 10:21 | Discharge Summary ---
Discharge Summary Date of Service March 17, 2024 Principal Dx & Hospital Course #1 = Principal Diagnosis (1) Severe sepsis with acute organ dysfunction: Suspect due to infected lumbar seroma from recent surgery (2) Acute metabolic encephalopathy: (3) Deep incisional surgical site infection: (4) Lumbar surgical wound fluid collection: (5) Bilateral pneumonia: Suspect more likely atelectasis bibasilar due to poor inspiration due to pain (6) Status post lumbar spine surgery for decompression of spinal cord: Plan Patient is a 53-year-old gentleman who underwent elective lumbar decompressive surgery at [facility] in [place] approximately 2 weeks ago. At his postop visit chan were removed but did have some clear serous drainage from the wound which he was told is to be expected. However the last 24 hours patient had severe increase in his back pain. He is also getting quite confused and disoriented. Came to the emergency room for evaluation. In the emergency room noted to have an elevated white blood cell count. Imaging revealed a continued fluid collection at the surgical site. On exam and also was in severe amounts of pain and had evidence of encephalopathy. Imaging also question some bilateral lower lobe pneumonia versus atelectasis. While here in the hospital being treated he spiked a fever 101.8. His pain was difficult to control. He was referred to our service for further care and evaluation. We recommended evaluation in the spine surgeon. Our spine surgeon reviewed his case and images and recommended the patient be transferred back to the surgeon who performed the initial surgery and transfer to [facility]. Transfer center was contacted. Conversations ensued with Dr. Maldonado and the hospital medicine team there. After coordinating between their services patient was accepted to Dr. Maldonado service for ongoing care and evaluation. While here at [facility] patient received cefepime and vancomycin for concern of surgical site wound infection and his sepsis. Also received various medications for his pain control. His confusion wax and wane. His is at the bedside throughout his entire stay and has been in conversation with the primary surgeons office as well. Both the patient and are agreement to transfer understand the need for transfer to have continuity care with the surgeon of record for his back surgery. Patient reports that his last bowel movement was on Sunday. Last time he urinated was late last night. Believes he can use the urinal at the time of my exam. Notes For Next Care Provider Medication Changes From Visit Cefepime and vancomycin for sepsis Morphine and oxycodone for pain control Admission HPI Per Admitting Provider History obtained from patient, family, and records. Medical history significant for lumbar radiculopathy status post recent laminectomy/decompression surgery, GERD, ongoing tobacco abuse. Patient underwent elective lumbar decompression surgery/laminectomy at [facility] same-day surgery in [place] 2 weeks ago. Clear postop drainage from back wound after procedure. No fever, no chills. Patient told on follow-up visit with surgeon last week that drainage was normal postprocedure. Achy headache symptoms 5 days ago. Does not seem related to position as per patient. No neck pain, no fever, no chills. No chest pain, no SOB, no cough symptoms. Back pain not as bad with fluid drainage from the back. Patient consulted [facility] ER 2 days ago. Clear fluid drainage noted from surgical site without erythema. CT head: No abnormality Lumbar spine MRI: 1. L4-L5 laminectomy with non-enhancing extra thecal seroma. L4 surgical site skin and subcutaneous fluid collection with enhancement indicating possible infection/inflammation advised lab and clinical evaluation. 2. Suspected non-enhancing well-coapted sinus tract connecting the previously mentioned fluid collections. 3. L4-L5 central and right paracentral disc protrusion/fibrosis indenting the thecal sac and causing the narrowing of the right neural exit foramina. 4. L5-S1 diffuse disc bulge causing bilateral mild to moderate stenosis of the neural exit. 5. There is a suspected faintly enhancing granulation tissue seen at the lower end of the L4 vertebral body encroaching upon the L4-L5 left neural exit foramen compressing the thecal sac and causing mild narrowing of the neural exit foramina and central canal. Advised follow-up if clinically warranted. 6. No evidence of acute abscess formation or intraspinal extension of the inflammatory process. Patient discharged home from the ER. Worsening headache symptoms at home with some confusion. No fever, no chills. Nausea symptoms without abdominal pain, poor appetite. Postop clear drainage actually improving as per . IVF, ceftriaxone administered at the ER. Patient mentation back to baseline after initial intervention at the ER as per . 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 Lungs: Decreased breath sounds at bases with few crackles CV: S1-S2, regular, no murmur Abdomen: Soft, normal active bowel sounds, cannot appreciate an overly distended bladder Extremities: No significant edema Neuro: No focal deficits, moving all 4 extremities. Psych: Cooperative, extremely anxious, intermittently confused Updated Medication List Medication Instructions Recorded Confirmed Type diazepam 5 mg tablet 5 mg PO Q8 PRN DIRECTED 03/16/24 03/16/24 History hydrocodone 5 mg-acetaminophen 325 1 tab PO .EVERY 6-8 HOURS PRN POST 03/16/24 03/16/24 History mg tablet OP PAIN methocarbamol 750 mg tablet 1,500 mg PO Q8 PRN MUSCLE SPASM 03/16/24 03/16/24 History AFTER SURGERY pantoprazole 40 mg tablet,delayed 40 mg PO DAILY 03/16/24 03/16/24 History release Hospital Stay Data Consultations 03/16/24 23:07 ED Decision to Admit Stat 03/17/24 06:19 Consult Orthopedic Spine Surgery Routine 03/17/24 10:03 Burn CD for patient Routine Diagnostic Imagining Performed 03/16/24 20:53 CT head/brain wo con Stat 03/16/24 21:37 CT lumbar spine w con Stat 03/17/24 00:51 MRI Brain [MR brain wo/w con] Routine MRI Lumbar Spine [MR lumbar spine wo/w con] Routine Reviewed imaging, laboratory and diagnostic studies. Pertinent findings as below. WBCs 12.2 Hemoglobin 13.5 Platelets 278 Neutrophils 10.6 Sodium 134 Potassium 3.7 Chloride 104 Bicarb 22 BUN 20 Creatinine 1.04 Lactate 0.7 LFTs within normal range Procalcitonin 0.11 Urinalysis unremarkable for infection Respiratory viral panel negative Lumbar spine MRI shows decompressive changes L4-L5 with CSF intensity collection at the postoperative site Brain MRI shows no acute ischemia or space-occupying lesion or other acute findings Chest x-ray is questioning mild bibasilar pneumonia, suspect more consistent with atelectasis due to poor inspiration due to pain Blood cultures pending Pending Results Patient Have Any Pending Studies at Discharge: Yes Discharge Instructions Given to Patient (Per Discharging Provider) You are being transferred to [facility] where you can be evaluated by the surgeon who performed your back surgery Dr. Maldonado. Total Time Total Time Spent Total Time Spent (In Minutes): 62
--- NOTE | 2024-03-17 10:28 | Pharmacy Report ---
Pharmacy PK ABX Note - Date of Service March 17, 2024 - Assessment and Plan Assessment 53 year old M receiving VANCOMYCIN for treatment of meningitis. Plan Vancomycin * Loading dose: 2250 mg IV x 1 * Maintenance dose: 1250 mg IV every 12 hours * Regimen is predicted to achieve target AUC/PROSPER of 400-600 mg/L.hr * patient might be transferred to another hospital. Pharmacy will continue to follow and will adjust dose/frequency as necessary. Thank you. Pharmacy has transitioned to AUC monitoring for vancomycin. AUC/PROSPER is the preferred PK/PD target and is associated with decreased risk of nephrotoxicity compared to traditional trough targets.
--- NOTE | 2024-03-17 11:27 | Orthopedic Consultation ---
Date of Service March 17, 2024 Assessment & Plan (1) Lumbar surgical wound fluid collection: Plan I discussed the fluid findings with the patient and his , concerned that he has had a dural tear during his surgery with subsequent postop CSF leak. He has had 1 episode of an elevated temperature here, he and his report that there has been no recent drainage from the incision site for the last day or so. Elevated white count. Given the recent elevated temperature I agree with starting broad spectrum antibiotics to cover for possible postoperative wound infection, there was also some concern of possible pneumonia on admission however possible atelectasis as well. Overall the patient is stable, he is alert and able to answer questions appropriately, transfer has already been arranged to his treating surgeon Dr. Maldonado. Other than elevated temperature his vital signs are within normal limits, no hypotension. Cover with broad-spectrum antibiotics, would recommend evaluation by infectious disease and his treating surgeon. Unsure if he had a dural tear during his surgery however if he would require revision repair this is not something I would be comfortable doing here as we do not have any neurosurgery assistance if revision of dura is required. Should he become unstable could consider emergent wound washout however at this time his symptoms have been relatively stable for several days and he has already scheduled for transfer to his treating surgeon. History of Present Illness Reason for Consultation: Postop drainage Attending Physician: Dylon Murray DO Patient was admitted overnight for headaches status post spinal surgery. Patient recently had spinal surgery in the form of a lumbar decompression with Dr. Maldonado near [place]. He was discharged, he was evaluated in the office several days ago for clear fluid draining from his wound and headaches. Apparently he was told this was a normal finding. I discussed with the patient today and he reports that the drainage has stopped 1 or 2 days ago now, continues with headaches when he stands. He also does describe back pain which has become slightly worse overnight. Allergies Allergy/AdvReac Type Severity Reaction Status Date / Time No Known Allergies Allergy Unverified 03/14/16 15:10 Home Medications Medication Instructions Recorded Confirmed Type diazepam 5 mg tablet 5 mg PO Q8 PRN DIRECTED 03/16/24 03/16/24 History hydrocodone 5 mg-acetaminophen 325 1 tab PO .EVERY 6-8 HOURS PRN POST 03/16/24 03/16/24 History mg tablet OP PAIN methocarbamol 750 mg tablet 1,500 mg PO Q8 PRN MUSCLE SPASM 03/16/24 03/16/24 History AFTER SURGERY pantoprazole 40 mg tablet,delayed 40 mg PO DAILY 03/16/24 03/16/24 History release Past Med/Surg History Problem List (Updated 03/17/24 @ 11:19 by Adalid Triana MD) Lumbar surgical wound fluid collection Status post lumbar spine surgery for decompression of spinal cord Bilateral pneumonia Deep incisional surgical site infection Acute metabolic encephalopathy Severe sepsis with acute organ dysfunction Encephalopathy Pneumonia (Acute) AMS (altered mental status) (Acute) Seroma of musculoskeletal structure after musculoskeletal system procedure (Acute) Headache (Acute) Low back pain (Acute) Medical History Low back pain Social History Smoking Status: Current every day smoker Tobacco Type: Cigarettes Cigarettes Per Day: 1/2 pack; Second Hand Exposure: Yes; Do You Dip or Chew Tobacco: No; Hx Alcohol Use: Yes Hx Substance Use: Yes Last Used Substance: Hours (ago) Substance Use Type Other:: prescribed after back surgery Preferred Language: Vietnamese Communication Ability: Effective Clinical Laboratory Aides Teacher Required: No Beliefs That Will Affect Care: None Current Living Situation: Family Current Living Situation Comment: lives at home with and daughter Feels Safe at Home: Yes Assistive Devices: Walker Review of Systems All systems reviewed & are unremarkable except as noted in HPI & below. Physical Exam Patient is alert and oriented, he is able to answer questions appropriately No drainage on bandage, patient reports this stopped 1 or 2 days ago Neurologically no deficits, able to move bilateral lower extremities quadriceps hip flexors tibialis anterior gastrocsoleus Results & Data Results & Data Laboratory Results . Diagnostic Findings Signs of recent laminectomy at L4, postoperative fluid collection overlying the L4 disc space, does not appear to be any opening into the skin on MRI, no definitive signs of abscess on contrast views, fluid is isointense with spinal fluid PG Care Time/CCT Total # of Minutes Spent Total Time Spent with Patient: Total time spent is greater than 50% in coordination of care (as documented) at patient's floor/unit and/or counseling patient: Coding Level of Care Code 81393 IN/OBS CONSULT LVL 3,45M Diagnoses Lumbar surgical wound fluid collection, initial encounter T81.89XA Encounter type: initial encounter (1) Lumbar surgical wound fluid collection Encounter type: initial encounter Qualified Code(s): T81.89XA - Other complications of procedures, not elsewhere classified, initial encounter
[2024-03-17 12:19] VITALS: BP 116/64; RESP 20; TEMP 99.5; O2SAT 97
[2024-03-17 12:37] LABS: A calco-baum cmplx NotReported Not Detected (NotDetected); Bact fragilis Not Reported Not Detected (NotDetected); Blood Culture Id Panel See PCR Comment (NotDetected); C auris Not Reported Not Detected (NotDetected); Calbicans Not Reported Not Detected (NotDetected); Candida glabrata Not Reported Not Detected (NotDetected); Candida krusei Not Reported Not Detected (NotDetected); Cneoformans/gatti Not Reported Not Detected (NotDetected); Cparapsilosis Not Reported Not Detected (NotDetected); E cloacae compx Not Reported Not Detected (NotDetected); Efaecalis Not Reported Not Detected (NotDetected); Efaecium Not Reported Not Detected (NotDetected); Enterobacterales Not Reported Not Detected (NotDetected); Escherichia coli Not Reported Not Detected (NotDetected); H influenzae Not Reported Not Detected (NotDetected); K aerogenes Not Reported Not Detected (NotDetected); Koxytoca Not Reported Not Detected (NotDetected); Kpneumoniae grp Not Reported Not Detected (NotDetected); Lmonocyt Not Reported Not Detected (NotDetected); N meningitidis Not Reported Not Detected (NotDetected); P aeruginosa Not Reported Not Detected (NotDetected); Proteus spp Not Reported Not Detected (NotDetected); Salmonella spp Not Reported Not Detected (NotDetected); Staph lugdunensis Not Reported Not Detected (NotDetected); Staph spp. Not Reported DETECTED (NotDetected); Staphaureus Not Reported DETECTED (NotDetected); Staphepi Not Reported Not Detected (NotDetected); Stenmaltophilia Not Reported Not Detected (NotDetected); Strep agal(GrpB) Not Reported Not Detected (NotDetected); Strep pneum Not Reported Not Detected (NotDetected); Strep pyog (GrpA) Not Reported Not Detected (NotDetected); Strep spp Not Reported Not Detected (NotDetected)
[2024-03-17 13:27] VITALS: PULSE 91
[2024-03-17] MEDS: MoRPHine SULFATE 4 MG/ML 1 ML CARP\\VIAL ONE (13:47)
[2024-03-17] MEDS: MoRPHine SULFATE 10 MG/ML CARP/VIAL IV ONE (13:47)
[2024-03-17] MEDS: SODIUM CHLORIDE 0.9% 1,000 ML IV SCH (13:47)
[2024-03-17 13:52] LABS: Staphylococcus spp. DETECTED (NotDetected); mecAC+MREJ Resistant Gene MRSA DETECTED (NotDetected)
[2024-03-17] MEDS ORDERED: VANCOMYCIN HCL 1,250 MG in SODIUM CHLORIDE 0.9% 250 ML IV SCH (21:00)
[2024-03-17] MEDS ORDERED: DOXYCYCLINE HYCLATE 100 MG CAP PO SCH (21:00)
[2024-03-21 15:23] LABS: 7-Aminoclonaz, Confirm NEGATIVE ng/mL (<25); Codeine Urine NEGATIVE ng/mL (<50); Hydro-Alp Ur, GC/MS NEGATIVE ng/mL (<25); Hydrocodone Urine 647 ng/mL (<50); Hydromor Urine 551 ng/mL (<50); Hydroxyethylflurazepam, Conf NEGATIVE ng/mL (<50); Hydroxymidazolam Ur, GC/MS NEGATIVE ng/mL (<50); Hydroxytriazolam NEGATIVE ng/mL (<50); Lorazepam, Ur GC/MS NEGATIVE ng/mL (<50); Morphine Urine NEGATIVE ng/mL (<50); Nordiazepam, Confirm 236 ng/mL (<50); Norhydrocodone Conf Ur 1610 ng/mL (<50); Noroxycodone Urine NEGATIVE ng/mL (<50); Oxazepam Ur, GC/MS 477 ng/mL (<50); Oxycodone Urine NEGATIVE ng/mL (<50); Oxymorph Urine NEGATIVE ng/mL (<50); Temazepam, Confirm 340 ng/mL (<50)
== END 2024-03-17 14:43 | disposition short-term general hospital (02) | DRG 862 ==
LOC: ED 20:45 → 2W 23:17

== ENCOUNTER 2024-03-31 12:12 | Inpatient (IN) ==
[2024-03-31 12:38] LABS: Basophils # (auto) 0.17 K/uL (0.00-0.20); Basophils % (auto) 1.3 %; Eosinophils # (auto) 0.22 K/uL (0.00-0.50); Eosinophils % (auto) 1.7 %; Hematocrit (blood only) 43.8 % (42.0-52.0); Immature Granulocytes # (auto) 0.05 K/uL (0.01-0.20); Immature Granulocytes % (auto) 0.4 %; Lymphocytes # (auto) 3.17 K/uL (1.20-3.40); Lymphocytes % (auto) 24.1 %; Mean Corpuscular Hemoglobin 30.2 pg (25.0-34.0); Mean Corpuscular Hgb Conc 34.2 g/dL (32.0-36.0); Mean Corpuscular Volume 88.3 fL (80.0-100.0); Mean Platelet Volume 9.8 fL (9.4-12.4); Monocytes # (auto) 0.84 K/uL (0.11-0.59); Monocytes % (auto) 6.4 %; Neutrophils # (auto) 8.72 K/uL (1.40-6.50); Neutrophils % (auto) 66.1 %; Platelet Count 395 K/uL (130-400); RDW Coefficient of Variation 12.9 % (11.5-14.5); RDW Standard Deviation 41.8 fL (36.4-46.3); Red Blood Count 4.96 M/uL (4.70-6.10); White Blood Count 13.17 K/ul (4.8-10.8)
[2024-03-31 13:18] LABS: Partial Thromboplastin Time 28 Seconds (21-31); Prothrombin Time 10.9 Seconds (9.0-12.0)
[2024-03-31 13:20] LABS: Albumin Level 4.3 gm/dl (3.4-5.0); BUN Creatinine Ratio 24.1 (10-20); Bilirubin,Total 0.6 mg/dl (0.2-1.0); Calcium 10.3 mg/dl (8.6-10.3); Globulin 4.5 gm/dl (2.5-4.0); Total Protein 8.8 gm/dl (6.0-8.3)
--- NOTE | 2024-03-31 16:09 | Emergency Department Note ---
Impression & Plan Cerebrospinal fluid leak due to lumbar surgery, Positional headache, Leukocytosis, Hx MRSA infection ED Provider Note NAME: JACOBO HERNANDEZ AGE: 53 SEX: Male INFORMANT: Patient and ED PROVIDER(S): Hilario August MD CHIEF COMPLAINT: Headache PLAN: Disposition: Admitting pending transfer Outpatient prescription management: none [facility] MEDICAL DECISION MAKING: Patient presented to the emergency department because of headache that was positional since having spinal surgery. He clinically has findings consistent with a spinal leak as he has no headache or symptoms laying flat but then becomes symptomatic with standing up. He has a slight leukocytosis on CBC which is improved from prior. Chemistry panel was unremarkable. Patient has no neurologic deficits at this time. He and were initially not pleased with his care at [facility] and requested transfer elsewhere. [facility], and spoke with her system triage officer Dr. Garcia. Unfortunately [facility] had no bed availability and recommended pursuing another facility. and patient were amenable to [facility]. I did call and consult with Dr. Salgado. He would not accept the patient for transfer and recommended sending him back to his original facility. After discussion with the patient and again they asked for a consult/transfer to [facility]. I did discuss the case with the on-call neurosurgery PA Ebony and after reviewing the situation she did consult with the attending staff. Patient was declined for transfer. I did discuss this with the patient and again. Given the difficult situation we went through multiple options. Patient was due for his afternoon daptomycin dose. I did discuss with the ED pharmacist and this was administered. Patient was reassessed frequently as we are trying to figure out a disposition. Patient states that his did contact [facility]. I also contacted the [facility] to discuss the situation. The medical education coordinator noted that the on- call orthopedic PA would not speak with me regarding this patient as he had already spoke with the patient's and has no need to further discuss the situation. [facility] also noted to my licensed real estate broker that they do not have any bed availability. The patient, his and I discussed the situation. The patient's states that she was told by the on-call PA for the group that he would not be accepted for transfer. The patient and are very frustrated the situation. I did offer to contact [facility] again to see if they can provide any assistance as there original surgical group cannot assist in the situation. I was able to speak with Dr. Menjivar of [facility] neurosurgery. Case was discussed and diagnostics were reviewed. I outlined the patient's surgical course and events leading up to tonight. He agreed the patient needs help and graciously accepted the case with the utmost professionalism. Unfortunately, they do not have bed availability at this time. The patient will be admitted here prior to his transfer. [facility] medical command was done by me. Patient did consent to transfer. Patient and his were extremely pleased with the outcome of this situation. Patient did request his evening Flexeril and this was done. Patient was reassessed multiple times in between each subsequent attempt at transfer. He remained hemodynamically stable without any neurologic complaints. In fact, the patient had no pain medication requirement and was asymptomatic as long as he was lying flat. Patient was maintained in the bed. I gave my usual and customary discussion regarding this issue. Consultation was made with Dr. Ender Wolfe of the [facility] service. Patient was evaluated in the ER for further management. Care/management discussed with: mri manager, ED licensed real estate broker, medical education coordinator at [facility], [facility]. Level of care consideration(s): After review of the information above and other included data, I feel the patient requires escalation of care to admission and subsequent transfer Triage Nursing notes: reviewed and agree them. Vital Signs: reviewed and remarkable for no significant abnormalities Additional History obtained from: Patient's regarding his postsurgical care and their interactions with their outside providers. Chronic Medical/Social Conditions affecting care: Postoperative infection Prior/ Outside/ External records reviewed: Hospital admission and discharge summary as well as orthopedic consultation reviewed from admission here on . Differential Diagnosis: CSF leak, migraine headache, meningitis, sinusitis, ICH, SAH, infection, tumor, headache, sinus thrombosis, arterial dissection, as well as other pathologies. Diagnostics, independently interpreted by me: ECG: none Cardiac Monitoring: None. Medical decision rules: none Imaging studies: Deferred HPI: 53 year old Male arrives for evaluation of positional headache. This started 5 days ago and is persisting. It resolves completely with lying down. No fevers or neck stiffness. The patient also notes the following associated symptoms, drainage from his lumbar wound. Originally had a L4-L5 decompression discectomy by Dr. Maldonado at [facility] on February 27, 2024. Patient states he had chan removed on March 10. He presented to department here on March 14 and again on March 16. He was admitted. He was transferred to [facility] on March 17. Patient states that he had repeat surgery on March 18 and there was found to have a dural tear this was repaired. Patient states he was discharged home on March 24. The patient has used occasional hydrocodone for relieving factors. Current pain is rated as 0/10. Pain with standing is 7/10. Pt also getting daptomycin due to MRSA wound infection. Pt denies LOC, headache, fevers, chills, diaphoresis, visual changes, neck pain, chest pain, breathing difficulties, nausea, vomiting, abdominal pain, back pain, melena, hematochezia, saddle anesthesia, urinary symptoms, numbness, weakness, lymphadenopathy, rash, or other complaints. PAST MEDICAL HISTORY: See Below, lumbar back pain PAST SURGICAL HISTORY: See Below, lumbar decompression SOCIAL HISTORY: See Below, HOME MEDICATIONS: See Below ALLERGIES: See Below VITALS: See Below PHYSICAL EXAMINATION: GENERAL: Awake, alert, well-appearing, in no distress HENT: Normocephalic, atraumatic. Oropharynx unremarkable. EYES: Normal conjunctiva. Sclera non-icteric. NECK: Inspection normal. Non-tender. Supple. No nuchal rigidity. FROM. No masses. RESPIRATORY: Clear to auscultation. No wheezes. No rales. Normal respiratory effort. CARDIAC: Normal rate. Normal rhythm. No murmurs. No rubs. Extremities warm and well perfused. Pulses equal. No JVD. GI: Soft, non-distended. No tenderness to palpation. No rebound or guarding. No masses. RECTAL: Deferred. MUSCULOSKELETAL: Atraumatic. Chest examination reveals no tenderness. The back is symmetrical on inspection without obvious abnormality. There is no CVA tenderness to palpation. No joint edema. There is no significant erythema or drainage at this time from the surgical incision. Surgical chan are in place. No fluctuance or crepitus. LOWER EXTREMITIES: Calves are equal size bilaterally and non-tender. No edema. NEURO: Normal sensorium. No sensory or motor deficits noted. No saddle anesthesia SKIN: No rash or jaundice noted. PROCEDURES: none CRITICAL CARE: I have personally spent 60 minutes of critical care time in the direct management of this patient. This includes bedside care, interpretation of diagnostic studies, and testing, discussion with consultants, patient, and family members, coordination of transfer, interfacility medical command, and other required patient management activities. These minutes are in excess of all separately billable procedures. OBSERVATION NOTE: none Past Med/Surg History Problem List (Updated 04/01/24 @ 00:22 by Hilario August MD) Hx MRSA infection (Acute) Leukocytosis (Acute) Cerebrospinal fluid leak due to lumbar surgery (Acute) Positional headache (Acute) Lumbar surgical wound fluid collection Status post lumbar spine surgery for decompression of spinal cord Bilateral pneumonia Deep incisional surgical site infection Acute metabolic encephalopathy Severe sepsis with acute organ dysfunction Encephalopathy Pneumonia (Acute) AMS (altered mental status) (Acute) Headache (Acute) Low back pain (Acute) Medical History (Updated 04/01/24 @ 00:22 by Hilario August MD) Frequent headaches Surgical History History of lumbar surgery Social History Smoking Status: Former smoker Tobacco Type: Cigarettes Cigarettes Per Day: 1/2 pack; Second Hand Exposure: Yes; Do You Dip or Chew Tobacco: No; Hx Alcohol Use: Yes Hx Substance Use: Yes Last Used Substance: Hours (ago) Substance Use Type Other:: prescribed after back surgery Preferred Language: Malay Communication Ability: Effective Senior Product Consultant Required: No Beliefs That Will Affect Care: None Current Living Situation: Family Current Living Situation Comment: lives at home with and daughter Feels Safe at Home: Yes Assistive Devices: Walker Allergies Allergies Allergy/AdvReac Type Severity Reaction Status Date / Time No Known Allergies Allergy Verified 03/29/24 08:41 Home Meds Home Medications Medication Instructions Recorded Confirmed pantoprazole 40 mg tablet,delayed 40 mg PO DAILY 03/16/24 03/31/24 release cyclobenzaprine 10 mg tablet 10 mg PO TID PRN Muscle Spasm 03/31/24 03/31/24 Results & Data (ED) Vital Signs Vital Signs - 24 hr 03/31/24 12:15 03/31/24 15:54 03/31/24 17:27 Temperature 36.5 C Temperature Source Oral Pulse Rate 78 75 Pulse Rate [Finger] 75 Respiratory Rate 18 18 Respiratory Effort / Characteristics Non-Labored Spontaneous Respiratory Depth Normal Blood Pressure 140/76 Blood Pressure [Left Arm] 132/88 Blood Pressure Mean 97 Blood Pressure Mean [Left Arm] 102 Blood Pressure Position [Left Arm] Lying Pulse Oximetry 98 95 Oxygen Delivery Method Room Air Room Air Sepsis Recent Fever Within 48 Hours No Sepsis New/Unexplained Change in Mental Status No Sepsis Action Taken by Nursing No Action Required 03/31/24 19:00 03/31/24 20:00 03/31/24 21:00 Temperature Temperature Source Pulse Rate Pulse Rate [Finger] 72 80 78 Respiratory Rate 14 16 16 Respiratory Effort / Characteristics Respiratory Depth Blood Pressure Blood Pressure [Left Arm] 132/86 133/83 128/93 Blood Pressure Mean Blood Pressure Mean [Left Arm] 101 99 104 Blood Pressure Position [Left Arm] Pulse Oximetry 95 98 97 Oxygen Delivery Method Room Air Room Air Room Air Sepsis Recent Fever Within 48 Hours Sepsis New/Unexplained Change in Mental Status Sepsis Action Taken by Nursing 03/31/24 21:20 03/31/24 22:09 Temperature Temperature Source Pulse Rate 78 87 Pulse Rate [Finger] Respiratory Rate 23 Respiratory Effort / Characteristics Respiratory Depth Blood Pressure Blood Pressure [Left Arm] Blood Pressure Mean Blood Pressure Mean [Left Arm] Blood Pressure Position [Left Arm] Pulse Oximetry Oxygen Delivery Method Sepsis Recent Fever Within 48 Hours Sepsis New/Unexplained Change in Mental Status Sepsis Action Taken by Nursing Laboratory Data 03/31/24 12:20 03/31/24 12:20 Lab Results 03/31/24 Range/Units 12:20 WBC 13.17 H (4.8-10.8) K/ul RBC 4.96 (4.70-6.10) M/uL Hgb 15.0 (14.0-18.0) g/dl Hct 43.8 (42.0-52.0) % MCV 88.3 (80.0-100.0) fL MCH 30.2 (25.0-34.0) pg MCHC 34.2 (32.0-36.0) g/dL RDW Std Deviation 41.8 (36.4-46.3) fL RDW Coeff of Ning 12.9 (11.5-14.5) % Plt Count 395 (130-400) K/uL MPV 9.8 (9.4-12.4) fL Immature Gran % (Auto) 0.4 % Neut % (Auto) 66.1 % Lymph % (Auto) 24.1 % Zavala % (Auto) 6.4 % Eos % (Auto) 1.7 % Baso % (Auto) 1.3 % Neut # (Auto) 8.72 H (1.40-6.50) K/uL Lymph # (Auto) 3.17 (1.20-3.40) K/uL Zavala # (Auto) 0.84 H (0.11-0.59) K/uL Eos # (Auto) 0.22 (0.00-0.50) K/uL Baso # (Auto) 0.17 (0.00-0.20) K/uL Immature Gran # (Auto) 0.05 (0.01-0.20) K/uL PT 10.9 (9.0-12.0) Seconds INR 1.0 (0.9-1.1) APTT 28 (21-31) Seconds PTT Ratio 1.0 Sodium 137 (136-145) mmol/L Potassium 4.0 (3.5-5.1) mmol/L Chloride 105 (98-107) mmol/L Carbon Dioxide 20 L (21-32) mmol/L Anion Gap 12 H (3-11) BUN 28 H (6-23) mg/dl Creatinine 1.16 (0.6-1.4) mg/dl Est Cr Clr Drug Dosing 76.0 ml/min eGFR 75.31 BUN/Creatinine Ratio 24.1 H (10-20) Glucose 118 H (70-99(Fasting)) mg/dl Calcium 10.3 (8.6-10.3) mg/dl Total Bilirubin 0.6 (0.2-1.0) mg/dl AST 18 (13-39) U/L ALT 35 (7-52) U/L Alkaline Phosphatase 71 (34-104) U/L Total Protein 8.8 H (6.0-8.3) gm/dl Albumin 4.3 (3.4-5.0) gm/dl Globulin 4.5 H (2.5-4.0) gm/dl Albumin/Globulin Ratio 1.0 (0.9-2) Administered Medications Discontinued Medications Daptomycin 700 mg/ Syringe 14 mls @ 7 mls/min IV NOW ONE; Protocol Stop: 03/31/24 17:01 Last Admin: 03/31/24 17:03 Dose: 7 mls/min Documented By: TNK Discharge Plan Visit Data Chief Complaint: Headache Stated Complaint: HEADACHES FROM SURGERY/2WKS AGO ED Provider: Hilario August Discharge Problem: Cerebrospinal fluid leak due to lumbar surgery, Positional headache, Leukocytosis, Hx MRSA infection Forms Stand Alone Forms: [facility] Prescriptions Prescriptions: No Action pantoprazole 40 mg tablet,delayed release (DR/EC) 40 mg PO DAILY cyclobenzaprine 10 mg tablet 10 mg PO TID PRN (Reason: Muscle Spasm) Referrals Referrals: Melissa Fritz DO [Primary Care Provider] -
[2024-03-31] MEDS: DAPTOmycin 700 MG in SYRINGE 0 ML IV ONE (17:03)
--- OUTSIDE RECORDS SUMMARY | 2024-03-31 17:10 | External Medical Summary | Summary of Care ---
Author Name Unknown Organization [facility] Address [address] [place] [address] Phone [phone] Care Team Providers Care Sports Instructor Name Role Phone Melissa Fritz DO Primary Care Provider [phone] Reason for Visit * Reason Onset Date Comments Advice 03/21/2024 Encounter Details Date Type Department Care Team (Late st Contact Info) Description 03/21/2024 Telephone Family Practice [facility] [address] [place] [address] Melissa Fritz DO [address] [place] [address] Advice Allergies No known active allergiesdocumented as of this encounter (statuses as of 03/21/2024) Medications Meclizine HCl 25 MG Oral Tablet (Antivert) ONLY NEEDED 4 Active Pantoprazole Sodium 40 MG Oral Tablet Delayed Release (Protonix) Take 1 Tablet by mouth every evening. 4 Active Cyclobenzaprine HCl 5 MG Oral Tablet (Flexeril) Take 1 Tablet by mouth in the morning and 1 Tablet at noon and 1 Tablet before bedtime. NEEDED . Active Celecoxib 100 MG Oral Capsule (CeleBREX)Indic ations:DDD (degenerative disc disease), lumbar,Chronic radicular lumbar pain Take 1-2 capsules by mouth daily as needed for pain. Take lowest dose necessary for relief of pain. Take WF and water. 60 Capsule 2 Active Ibuprofen 600 MG Oral Tablet (Motrin) Take 1 Tablet by mouth every 6 hours as needed. Active Hospital, Clinic, or Other Facility Administered Medication Ordered Dose Route Frequency Start Date End Date Status Albuterol Sulfate (Proventil) (2.5 MG/3ML) 0.083% inhalation solution 2.5 mgIndications:Tobacco abuse 2.5 mg NEBULIZER ONCE PRN 09/13/2023 09/12/2024 Active documented as of this encounter (statuses as of 03/21/2024) Active Problems No known active problems documented as of this encounter (statuses as of 03/21/2024) Immunizations Name Administration Dates Next Due Seasonal Influenza Virus Vac cine, Unspecified Formulation 02/13/2022,01/01/2020 TDAP, Age 7 and older, IM (Adacel) 04/18/2017 Zoster Vaccine Recombinant (Shingrix) 04/11/2021 ,10/23/2020 documented as of this encounter Social History Tobacco Use Types Packs/Day Years Used Date Smoking Tobacco: Every Day Cigarettes 1 30.5 Started: 09/18/1993 Smokeless Tobacco: Never Comments:Currently 1/2 ppd. Alcohol Use Standard Drinks/Week Comments Yes 0 (1 standard drink = 0.6 oz pur e alcohol) rarely Sex and Gender Information Value Date Recorded Sex Assigned at Male 07/21/2023 5:19 PM EDT Legal Sex Male 5:04 AM EST Gender Identity Male 07/21/2023 5:19 PM EDT Sexual Orientation Straight 07/21/2023 5: 19 PM EDT documented as of this encounter Miscellaneous Notes * Telephone Encounter - Ayala Uribe OSA - 03/21/2024 1:57 PM EST Reason for patient's call: Returning dropped call Caller was transferred to [facility] at the nurse line. * Telephone Encounter - Debbie Boyle OSA - 03/21/2024 1:54 PM EST Reason for patient's call: return Caller was transferred to /A at the nurse line. Tried transferring call dropped * Telephone Encounter - Keli Montero LPN - 03/21/2024 1:37 PM EST Left message on vm to return call. * Telephone Encounter - Steve Ramirez OSA - 03/21/2024 1:13 PM EST Pts called in stating that post op recovery and treatment for infection is needed for the pt. Looking for doctor to accept transfer back to [facility]. Currently in [place] 3 hours away, pt is away from home care. Please call back logan: documented in this encounter Plan of Treatment Upcoming Encounters Date Type Department Care Team (Late st Contact Info) Description 04/14/2024 11:20 AM EST Office Visit [facility] [address] [place] [address] Lindsay Wen CRNP [address] [place] [address] Scheduled Procedures Name Priority Associated Diagnoses Date/Ti me COLONOSCOPY FLEXIBLE PROXIMA L DIAGNOSTIC Recall History of colonic polyps Health Maintenance Due Date Last Done Comments Depression Screening 1982 HIV Screening 1985 Hepatitis C Screening 1988 Hepatitis B Vaccine (1 of 3 - 19+ 3-dose series) 1989 Pneumococcal Vaccine: Pediatrics (0 to 5 Years) and At-Risk Patients (6 to 64 Years) (1 of 2 - PCV) 1989 Cologuard 10/16/2015 Fecal Occult Blood Test 10/16/2015 Sigmoidoscopy 10/16/2015 Lung Cancer Screening 2020 Influenza Vaccine (FLU shot) (#1) 2023 02/13/2022, 01/01/2020 Colonoscopy 02/05/2027 02/06/2024, 02/06/2024 Colorectal Cancer Screening 02/05/2027 Diabetes Screening 02/07/2027 02/08/2024, 1 , 09/07/2023, Additional history exists DTap/Tdap Vaccines (2 - Td or Tdap) 04/18/2027 04/18/2017 Lipid Panel 09/06/2028 09/07/2023 COVID-19 Vaccine Discontinued 03/19/2021, 09/2020, 06/16/2020 Zoster Vaccines Completed 04/11/2021, 10/23/2020 HPV (Gardasil) Vaccine Aged Out No lo nger eligible based on patient's age to complete this topic MENINGOCOCCAL (MENACTRA/MENVEO) Aged Out No longer eligible based on patient's age to complete this topic documented as of this encounter Medical Devices Not on filedocumented as of this encounter Care Teams Sports Instructor Relationship Specialty Start Date End Date Melissa Fritz DO [address] [place] [address] PCP - General Family Medicine 07/18/23 documented as of this encounter
--- OUTSIDE RECORDS SUMMARY | 2024-03-31 17:10 | External Medical Summary | Summary of Care ---
Author Name Unknown Organization [facility] Address [address] [place] [address] Phone [phone] Care Team Providers Care Academic Coach Name Role Phone Melissa Fritz DO Primary Care Provider [phone] Reason for Visit * Reason Onset Date Comments Advice 03/21/2024 Encounter Details Date Type Department Care Team (Late st Contact Info) Description 03/21/2024 Telephone Family Practice [facility] [address] [place] [address] Melissa Fritz DO [address] [place] [address] Advice Allergies No known active allergiesdocumented as [...] Take WF and water. 60 Capsule 2 4 Active Ibuprofen 600 MG Oral Tablet (Motrin) [...] encounter Miscellaneous Notes * Telephone Encounter - Olive Miller RN - 03/21/2024 3:01 PM EST Provider to address: Reason for Call: Advice Contact: Telephone Call Contact Type: Advice Provider In-Basket: Yes Outcome: Spoke with patients spouse and patient in the background, relayed that communication to transfer patients care to a more local hospital would need coordinated within and between those facilities and that our OP providers do not have these ordering privileges. I suggested they ask for a upper caser while at the [facility] to try to coordinate any transfer to a different facility- also mentioned they can ask for a hospital liasion at the facility they are at if they have further concerns/feel as if they aren't getting the care/help needed. discussed rehab hospital such as [facility] may be helpful as well. Yakelin verbalized understanding and will ask for a CM at facility to try to help facilitate transfer. Face to face time spent with Patient (minutes): 0 Total Time including non face to face (minutes): 10 * Telephone Encounter - Nupur Coughlin CRNP - 03/21/2024 2:36 PM EST Inboxologist Covering Provider COVERING FOR KATELYNN- THAT WOULD NEED TO BE DIRECT TRANSFER BACK TO [facility] All replies or additional communication must be routed to the PCP * Telephone Encounter - Mirta Yo LPN - 03/21/2024 1:59 PM EST Patients is calling. Her had decomp[facility] of the [facility] cord [facility] [place] [facility]. He developed severe headaches and back pain Sunday patient became confused. They sent him to [facility] by ambulance. They admitted him and was treating him for infection. They transferred him back to [facility] in [place] Sunday afternoon. He had surgery Sunday night. He had a 1 mm dural tear. He has MRSA He is 3 hours away. They want to bring him home. The need a doctor in place to take over his care at [facility]. They want to know if his doctor will take over his care so they can bring him home? He is done with all the surgery and is recovering. Please advise. Records from [facility] on 03/17/24 scanned into chart. 1) severe sepsis with acute organ dysfunction: Suspect due to infected lumbar seroma from recent surgery. 2) acute metabolic encephalopathy 3) Deep incisional surgical site infection: 4) Lumbar surgical wound fluid collection: 5) bilateral pneumonia: suspect more likely atelectasis bibasilar due to poor inspiration due to pain 6) Status post lumbar spine surgery for decompression of spinal cord. * Telephone Encounter - Ayala Uribe OSA - 03/21/2024 1:57 PM EST Reason for patient's call: Returning dropped call Caller was transferred to [place] at the nurse line. * Telephone Encounter - Debbie Boyle OSA - 03/21/2024 1:54 PM EST Reason for patient's call: return Caller was transferred to N/A at the nurse line. Tried transferring call [...] for doctor to accept transfer back to [facility]. Currently in [place] 3 hours away, pt is away from home care. Please call back logan: documented in this encounter Plan of Treatment Upcoming Encounters Date Type Department Care Team (Late st Contact Info) Description 04/14/2024 11:20 AM EST Office Visit [facility] [address] [facility] [place] [address] Lindsay Wen CRNP [address] [place] [address] Scheduled Procedures Name Priority Associated Diagnoses Date/Ti [...] filedocumented as of this encounter Care Teams Academic Coach Relationship Specialty Start Date End Date Melissa Fritz DO [address] [place] [address] PCP - General Family Medicine 07/18/23 documented as of this encounter
--- OUTSIDE RECORDS SUMMARY | 2024-03-31 17:10 | External Medical Summary | Summary of Care ---
Author Name Unknown Organization [facility] Address [address] [place] [address] Phone [phone] Care Team Providers Care Objects Conservator Name Role Phone Melissa Fritz DO Primary Care Provider [phone] Reason for Visit * Reason Onset Date Comments Advice 03/21/2024 Encounter Details Date Type Department Care Team (Late st Contact Info) Description 03/21/2024 Telephone Family Practice [facility] [address] [place] [address] Melissa Fritz DO [address] [place] [address] Advice Allergies No known active allergiesdocumented as [...] encounter Miscellaneous Notes * Telephone Encounter - Nupur Coughlin CRNP - 03/21/2024 2:36 PM EST Inboxologist Covering Provider COVERING FOR KATELYNN- THAT WOULD NEED TO BE DIRECT TRANSFER BACK TO [facility] All replies or additional communication must be routed to the PCP * Telephone Encounter - Mirta Yo LPN - 03/21/2024 1:59 PM EST Patients is calling. Her had decompression of the spinal cord right after Thanksgiving in [place] at [facility]. He developed severe headaches and back pain Sunday patient became confused. They sent him to [facility] by ambulance. They admitted him and was treating him for infection. They transferred him back to [facility] in [place] Sunday afternoon. He had surgery Sunday night. He had a 1 mm dural tear. He has MRSA He is 3 hours away. They want to bring him home. The need a doctor in place to take over his care at [facility]. They want to know if his doctor will take over his care so they can bring him home? He is done with all the surgery and is recovering. Please advise. Records from [facility] on 03/17/24 scanned into chart. 1) severe [...] Returning dropped call Caller was transferred to [facility] at the nurse line. * Telephone Encounter - Debbie Boyle OSA - 03/21/2024 1:54 PM EST Reason for patient's call: return Caller was transferred to N/A at the nurse line. Tried transferring call dropped * Telephone Encounter - Keli Montero LPN - 03/21/2024 1:37 PM EST Left message on to return call. * Telephone Encounter - Steve Ramirez OSA - 03/21/2024 1:13 PM EST Pts called in stating that post op recovery and treatment for infection is needed for the pt. Looking for doctor to accept transfer back to [facility]. Currently in [place] 3 hours away, pt is away from home care. Please call back logan: documented in this encounter Plan of Treatment Upcoming Encounters Date Type Department Care Team (Late st Contact Info) Description 04/14/2024 11:20 AM EST Office Visit Family Practice [facility] [address] [place] [address] Lindsay Wen CRNP [address] [place] [address] Scheduled Procedures Name Priority Associated Diagnoses Date/Ti [...] filedocumented as of this encounter Care Teams Objects Conservator Relationship Specialty Start Date End Date Melissa Fritz DO [address] [place] [address] PCP - General Family Medicine 07/18/23 documented as of this encounter
--- OUTSIDE RECORDS SUMMARY | 2024-03-31 17:10 | External Medical Summary | Summary of Care ---
Author Name Unknown Organization [facility] Address [address] [place] [address] Phone [phone] Care Team Providers Care Copy Editor Name Role Phone Melissa Fritz DO Primary Care Provider [phone] Reason for Visit * Reason Onset Date Comments Advice 03/21/2024 Encounter Details Date Type Department Care Team (Late st Contact Info) Description 03/21/2024 Telephone Family Practice [facility] [address] [place] [address] Melissa Fritz DO [address] [place] [address] Advice Allergies No known active allergiesdocumented as [...] encounter Miscellaneous Notes * Telephone Encounter - Mirta Yo LPN - 03/21/2024 1:59 PM EST Patients is calling. Her had decompression of the spinal cord right after Thanksgiving in [place] at [facility]. He developed severe headaches and back pain Sunday patient became confused. They sent him to [facility] by ambulance. They admitted him and was treating him for infection. They transferred him back to [facility] in [place] Sunday afternoon. He had surgery Sunday night. He had a 1 mm dural tear. He has MRSA He is 3 hours away. They want to bring him home. The need a doctor in place to take over his care at [facility]. They want to know if his doctor will take over his care so they can bring him home? He is done with all the surgery and is recovering. Please advise. Records from [facility] on 03/17/24 scanned into chart. 1) severe [...] Returning dropped call Caller was transferred to [facility] at the nurse line. * Telephone Encounter [...] for doctor to accept transfer back to [facility]. Currently in [place] 3 hours away, pt is away from home care. Please call back logan: documented in this encounter Plan of Treatment Upcoming Encounters Date Type Department Care Team (Late st Contact Info) Description 04/14/2024 11:20 AM EST Office Visit Family [facility] [address] [place] [address] Lindsay Wen CRNP [address] [place] [address] Scheduled Procedures Name Priority Associated Diagnoses Date/Ti [...] filedocumented as of this encounter Care Teams Copy Editor Relationship Specialty Start Date End Date Melissa Fritz DO [address] [place] [address] PCP - General Family Medicine 07/18/23 documented as of this encounter
--- OUTSIDE RECORDS SUMMARY | 2024-03-31 17:10 | External Medical Summary | Summary of Care ---
Author Name Unknown Organization [facility] Address [address] [place] [address] Phone [phone] Care Team Providers Care Production Grip Name Role Phone Melissa Fritz DO Primary Care Provider [phone] Reason for Visit * Reason Onset Date Comments Advice 03/21/2024 Encounter Details Date Type Department Care Team (Late st Contact Info) Description 03/21/2024 Telephone Family Practice [facility] [address] [place] [address] Melissa Fritz DO [address] [place] [address] Advice Allergies No known active allergiesdocumented as [...] for doctor to accept transfer back to [facility]. Currently in [place] 3 hours away, pt is away from home care. Please call back logan: documented in this encounter Plan of Treatment Upcoming Encounters Date Type Department Care Team (Late st Contact Info) Description 04/14/2024 11:20 AM EST Office Visit Family [facility] [address] [facility] [place] [address] Lindsay Wen CRNP [address] [place] [address] Scheduled Procedures Name Priority Associated Diagnoses Date/Ti [...] filedocumented as of this encounter Care Teams Production Grip Relationship Specialty Start Date End Date Melissa Fritz DO [address] [place] [address] PCP - General Family Medicine 07/18/23 documented as of this encounter
[2024-04-01] MEDS: CYCLOBENZAPRINE HCL 10 MG TAB PO STA (00:16)
--- NOTE | 2024-04-01 01:58 | History & Physical Report ---
Date of Service April 01, 2024 Assessment & Plan (1) Cerebrospinal fluid leak due to lumbar surgery: Plan: Persistent postop CSF leak MRSA postop infection/dural tear/CSF leak status postsurgery ongoing daptomycin Rx ([facility], 03/2024) hx lumbar radiculopathy status post recent laminectomy/decompression surgery ([facility], 02/2024) GERD on PPI ongoing tobacco abuse [facility] transfer for spine surgery evaluation once bed available. (Patient kindly accepted for transfer by Dr. Smith. No other recommendations from surgeon other than continuing daily IV daptomycin while waiting for transfer as per ED provider. Transfer paperwork already completed at the ER by ED provider.) Retrieve records of recent admission at [facility] and incorporate in discharge packet if available at time of transfer. Nicotine patch as needed DVT prophylaxis. SCDs re: possible procedure Full code Patient requesting updates providers. Ms. Yakelin Hawk, contact #[phone]. Text document was generated using [employer] voice recognition software. It may contain grammatical or spelling errors. Kindly contact undersigned for clarification of any documentation item in question. History of Present Illness Chief Complaint: Headache, persistent fluid drainage from back operation Primary Care Provider: Melissa Fritz DO History obtained from patient and records. Medical history significant for lumbar radiculopathy status post recent laminectomy/decompression surgery (02/2024), MRSA postop infection/dural tear/CSF leak status postsurgery ongoing daptomycin Rx (03/2024), GERD, ongoing tobacco abuse. 02/26 Patient underwent elective lumbar decompression surgery/laminectomy (same-day surgery) at [facility] in [place]. 03/16-03/17 Overnight [facility] confinement for her persistent headache and postop back drainage postprocedure. MRSA septicemia from possible infected postop lumbar seroma secondary to CSF leak from dural tear. IV daptomycin initiated during confinement. Brain MRI negative for lesions. Lumbar MRI showed 1. Post decompression changes at L4-L5 with CSF intensity collection at the postoperative site - likely postoperative collection / possibility of pseudomeningocele cannot be excluded - new finding as compared to previous study 2. Mild marrow edema at endplate of L4 vertebra with post-contrast enhancement - likely postoperative change/modic endplate changes - unlikely to be infective etiology - suggested follow up/clinical correlation. Patient transferred to [facility]. 03/17-03/24 Patient underwent another procedure by surgeon. Headache symptoms resolved postprocedure. Patient told persistent drainage from the back was normal and would get better. Patient discharged with the instructions to complete 8-week course of daptomycin. Patient achy headache symptoms similar to episode from few weeks ago recurred at home a few days later. Persistent clear fluid drainage from the back. Back pain about the same. No unusual weakness in the legs. Some chills. Denies cough, chest pain, SOB. Patient instructed by outpatient provider to go to [facility] ER for evaluation. Patient and refused to transfer back to [facility]. Requesting for another opinion from another tertiary center. Patient accepted for transfer by [facility] pending bed availability. 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 Allergies Allergy/AdvReac Type Severity Reaction Status Date / Time No Known Allergies Allergy Verified 03/29/24 08:41 Home Medications Medication Instructions Recorded Confirmed Type pantoprazole 40 mg tablet,delayed 40 mg PO DAILY 03/16/24 03/31/24 History release cyclobenzaprine 10 mg tablet 10 mg PO TID PRN Muscle Spasm 03/31/24 03/31/24 History Past Med/Surg History Problem List (Updated 04/01/24 @ 00:22 by Hilario August MD) Hx MRSA infection (Acute) Leukocytosis (Acute) Cerebrospinal fluid leak due to lumbar surgery (Acute) Positional headache (Acute) Lumbar surgical wound fluid collection Status post lumbar spine surgery for decompression of spinal cord Bilateral pneumonia Deep incisional surgical site infection Acute metabolic encephalopathy Severe sepsis with acute organ dysfunction Encephalopathy Pneumonia (Acute) AMS (altered mental status) (Acute) Headache (Acute) Low back pain (Acute) Medical History (Updated 04/01/24 @ 00:22 by Hilario August MD) Frequent headaches Surgical History History of lumbar surgery Social History Smoking Status: Former smoker Tobacco Type: Cigarettes Cigarettes Per Day: 1/2 pack; Second Hand Exposure: Yes; Do You Dip or Chew Tobacco: No; Hx Alcohol Use: Yes Alcohol type: beer, wine and hard liquor Hx Substance Use: No Preferred Language: Tunisian Communication Ability: Effective Hospital Product Specialist Required: No Beliefs That Will Affect Care: None Current Living Situation: Spouse Current Living Situation Comment: lives at home with and daughter Feels Safe at Home: Yes Assistive Devices: Walker Review of Systems Review of Systems: As per HPI, all other systems reviewed and negative Physical Exam Physical Exam: GENERAL: Comfortable, pleasant, no respiratory distress SKIN: Normal color, warm HEENT: [place] palpebral conjunctivae, no ptosis, dry buccal mucosa NECK : Supple, no nuchal rigidity, no tenderness CHEST : Decreased breath sounds, no tenderness HEART : RRR, no obvious murmurs ABDOMEN: Some distention, nontender BACK : Dressing over low back with minimal tenderness, negative straight leg raise test EXTREMITIES : No LE swelling/tenderness, no other conspicuous deformities noted NEUROLOGIC : Coherent, no facial asymmetry, no other gross focality Results & Data Results & Data Vital Signs (Past 12 Hours) Vital Signs Pulse Pulse Resp BP Pulse Ox O2 Del Method 04/01/24 01:08 68 04/01/24 00:18 86 18 130/94 97 Room Air 03/31/24 22:09 87 23 03/31/24 21:20 78 03/31/24 21:00 78 16 128/93 97 Room Air 03/31/24 20:00 80 16 133/83 98 Room Air 03/31/24 19:00 72 14 132/86 95 Room Air 03/31/24 17:27 75 03/31/24 15:54 75 18 132/88 95 Room Air Laboratory Results Laboratory Results WBC 13.17 K/ul (4.8-10.8) H 03/31/24 12:20 RBC 4.96 M/uL (4.70-6.10) 03/31/24 12:20 Hgb 15.0 g/dl (14.0-18.0) 03/31/24 12:20 Hct 43.8 % (42.0-52.0) 03/31/24 12:20 MCV 88.3 fL (80.0-100.0) 03/31/24 12:20 MCH 30.2 pg (25.0-34.0) 03/31/24 12:20 MCHC 34.2 g/dL (32.0-36.0) 03/31/24 12:20 RDW Std Deviation 41.8 fL (36.4-46.3) 03/31/24 12:20 RDW Coeff of Ning 12.9 % (11.5-14.5) 03/31/24 12:20 Plt Count 395 K/uL (130-400) 03/31/24 12:20 MPV 9.8 fL (9.4-12.4) 03/31/24 12:20 Immature Gran % (Auto) 0.4 % 03/31/24 12:20 Neut % (Auto) 66.1 % 03/31/24 12:20 Lymph % (Auto) 24.1 % 03/31/24 12:20 [place] % (Auto) 6.4 % 03/31/24 12:20 Eos % (Auto) 1.7 % 03/31/24 12:20 Baso % (Auto) 1.3 % 03/31/24 12:20 Neut # (Auto) 8.72 K/uL (1.40-6.50) H 03/31/24 12:20 Lymph # (Auto) 3.17 K/uL (1.20-3.40) 03/31/24 12:20 [place] # (Auto) 0.84 K/uL (0.11-0.59) H 03/31/24 12:20 Eos # (Auto) 0.22 K/uL (0.00-0.50) 03/31/24 12:20 Baso # (Auto) 0.17 K/uL (0.00-0.20) 03/31/24 12:20 Immature Gran # (Auto) 0.05 K/uL (0.01-0.20) 03/31/24 12:20 PT 10.9 Seconds (9.0-12.0) 03/31/24 12:20 INR 1.0 (0.9-1.1) 03/31/24 12:20 APTT 28 Seconds (21-31) 03/31/24 12:20 PTT Ratio 1.0 03/31/24 12:20 Sodium 137 mmol/L (136-145) 03/31/24 12:20 Potassium 4.0 mmol/L (3.5-5.1) 03/31/24 12:20 Chloride 105 mmol/L (98-107) 03/31/24 12:20 Carbon Dioxide 20 mmol/L (21-32) L 03/31/24 12:20 Anion Gap 12 (3-11) H 03/31/24 12:20 BUN 28 mg/dl (6-23) H 03/31/24 12:20 Creatinine 1.16 mg/dl (0.6-1.4) 03/31/24 12:20 Est Cr Clr Drug Dosing 76.0 ml/min 03/31/24 12:20 eGFR 75.31 03/31/24 12:20 BUN/Creatinine Ratio 24.1 (10-20) H 03/31/24 12:20 Glucose 118 mg/dl (70-99(Fasting)) H 03/31/24 12:20 Calcium 10.3 mg/dl (8.6-10.3) 03/31/24 12:20 Total Bilirubin 0.6 mg/dl (0.2-1.0) 03/31/24 12:20 AST 18 U/L (13-39) 03/31/24 12:20 ALT 35 U/L (7-52) 03/31/24 12:20 Alkaline Phosphatase 71 U/L (34-104) 03/31/24 12:20 Total Protein 8.8 gm/dl (6.0-8.3) H 03/31/24 12:20 Albumin 4.3 gm/dl (3.4-5.0) 03/31/24 12:20 Globulin 4.5 gm/dl (2.5-4.0) H 03/31/24 12:20 Albumin/Globulin Ratio 1.0 (0.9-2) 03/31/24 12:20
[2024-04-01] MEDS ORDERED: KETOROLAC TROMETHAMINE 15 MG/ML VIAL IV PRN (02:23)
[2024-04-01] MEDS ORDERED: LORazepam 0.5 MG TAB PO PRN (02:23)
[2024-04-01] MEDS ORDERED: PROMETHAZINE 6.25 MG/50.25 ML BAG IV PRN (02:23)
[2024-04-01 04:05] LABS: HCO3 VBG 26 mmol/L; Oxygen Saturation VBG 92.6 %; PCO2 VBG 36 mmHg (38-50); PO2 VBG 63 mmHg; pH VBG 7.46 (7.36-7.41)
[2024-04-01 04:10] LABS: Basophils # (auto) 0.15 K/uL (0.00-0.20); Basophils % (auto) 1.5 %; Eosinophils # (auto) 0.21 K/uL (0.00-0.50); Eosinophils % (auto) 2.1 %; Hematocrit (blood only) 41.3 % (42.0-52.0); Hemoglobin 14.1 g/dl (14.0-18.0); Immature Granulocytes # (auto) 0.04 K/uL (0.01-0.20); Immature Granulocytes % (auto) 0.4 %; Lymphocytes # (auto) 2.52 K/uL (1.20-3.40); Lymphocytes % (auto) 25.5 %; Mean Corpuscular Hemoglobin 30.3 pg (25.0-34.0); Mean Corpuscular Hgb Conc 34.1 g/dL (32.0-36.0); Mean Corpuscular Volume 88.6 fL (80.0-100.0); Mean Platelet Volume 9.5 fL (9.4-12.4); Monocytes # (auto) 0.77 K/uL (0.11-0.59); Monocytes % (auto) 7.8 %; Neutrophils # (auto) 6.21 K/uL (1.40-6.50); Neutrophils % (auto) 62.7 %; Platelet Count 336 K/uL (130-400); RDW Coefficient of Variation 12.7 % (11.5-14.5); RDW Standard Deviation 41.7 fL (36.4-46.3); Red Blood Count 4.66 M/uL (4.70-6.10)
[2024-04-01 04:26] LABS: BUN Creatinine Ratio 28.7 (10-20); Calcium 10.4 mg/dl (8.6-10.3); Creatinine Clr Calc Pharmacy 81.7 ml/min; Potassium 3.8 mmol/L (3.5-5.1)
[2024-04-01] MEDS: PLASMA-LYTE A 1,000 ML IV ONE (06:30)
[2024-04-01] MEDS: PANTOprazole 40 MG TAB PO SCH (08:54)
--- NOTE | 2024-04-01 13:40 | Discharge Summary ---
Discharge Summary Date of Service April 01, 2024 Principal Dx & Hospital Course #1 = Principal Diagnosis (1) Cerebrospinal fluid leak due to lumbar surgery: (2) Headache due to low cerebrospinal fluid pressure: (3) Hx MRSA infection: On IV daptomycin (4) Deep incisional surgical site infection: (5) Status post lumbar spine surgery for decompression of spinal cord: Plan Patient presented to the emergency room after recent be being discharged from [facility] in [place] for deep incisional wound infection and MRSA bacteremia. He was home for approximately 3 days when he started experiencing severe headache. He presented to the emergency room for evaluation. Patient's headache was definitively positional and consistent with a CSF leak. Extensive efforts were made by the ED physician to coordinate a transfer to higher level of care. Patient did not want to return to [facility]. Ultimately patient was accepted by [facility] in [place] and accepted by Dr. Menjivar, neurosurgery. While here at [facility], patient continued to receive his IV daptomycin for his MRSA bacteremia and wound infection. Also his pain was managed and controlled. He will be discharged to [facility] when a bed is available. Notes For Next Care Provider Continue daptomycin at previous dosing throughout his hospitalization and postdischarge Medication Changes From Visit None Admission HPI Per Admitting Provider History obtained from patient and records. Medical history significant for lumbar radiculopathy status post recent laminectomy/decompression surgery (02/2024), MRSA postop infection/dural tear/CSF leak status postsurgery ongoing daptomycin Rx (03/2024), GERD, ongoing tobacco abuse. 02/26 Patient underwent elective lumbar decompression surgery/laminectomy (same-day surgery) at [facility] in [place]. 03/16-03/17 Overnight [facility] confinement for her persistent headache and postop back drainage postprocedure. MRSA septicemia from possible infected postop lumbar seroma secondary to CSF leak from dural tear. IV daptomycin initiated during confinement. Brain MRI negative for lesions. Lumbar MRI showed 1. Post decompression changes at L4-L5 with CSF intensity collection at the postoperative site - likely postoperative collection / possibility of pseudomeningocele cannot be excluded - new finding as compared to previous study 2. Mild marrow edema at endplate of L4 vertebra with post-contrast enhancement - likely postoperative change/modic endplate changes - unlikely to be infective etiology - suggested follow up/clinical correlation. Patient transferred to [facility]. 03/17-03/24 Patient underwent another procedure by surgeon. Headache symptoms resolved postprocedure. Patient told persistent drainage from the back was normal and would get better. Patient discharged with the instructions to complete 8-week course of daptomycin. Patient achy headache symptoms similar to episode from few weeks ago recurred at home a few days later. Persistent clear fluid drainage from the back. Back pain about the same. No unusual weakness in the legs. Some chills. Denies cough, chest pain, SOB. Patient instructed by outpatient provider to go to [facility] ER for evaluation. Patient and refused to transfer back to [facility]. Requesting for another opinion from another tertiary center. Patient accepted for transfer by [facility] pending bed availability. 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 Lungs: Clear to auscultation, decreased, no wheezes rales or rhonchi CV: S1-S2, regular Abdomen: Soft, nontender, nondistended Extremities: No significant edema Neuro: No focal deficits Psych: Cooperative, normal mood Updated Medication List Medication Instructions Recorded Confirmed Type pantoprazole 40 mg tablet,delayed 40 mg PO DAILY 03/16/24 03/31/24 History release cyclobenzaprine 10 mg tablet 10 mg PO TID PRN Muscle Spasm 03/31/24 03/31/24 History Hospital Stay Data Consultations 03/31/24 23:42 ED Decision to Admit Stat 04/01/24 08:43 HIM [Consult Health Information Management] Stat Diagnostic Imagining Performed Reviewed imaging, laboratory and diagnostic studies. Pertinent findings as below. WBCs 9.9 Hemoglobin 14.1 Electrolytes stable and within normal range Creatinine 1.0 Pending Results Patient Have Any Pending Studies at Discharge: No Discharge Instructions Given to Patient (Per Discharging Provider) You will be transferred to [facility] for specialty surgical evaluation Continue daptomycin as previously ordered Total Time Total Time Spent Total Time Spent (In Minutes): 25
[2024-04-01] MEDS: DAPTOmycin 450 MG in SYRINGE 0 ML IV SCH (18:11)
[2024-04-01] MEDS: CYCLOBENZAPRINE HCL 10 MG TAB PO PRN (21:17)
[2024-04-02] MEDS: ACETAMINOPHEN 325 MG TAB PO PRN (11:31)
--- NOTE | 2024-04-02 19:30 | Hospitalist Progress Note ---
Date of Service April 02, 2024 Assessment & Plan (1) Cerebrospinal fluid leak due to lumbar surgery: (2) Headache due to low cerebrospinal fluid pressure: (3) Hx MRSA infection: Plan: On IV daptomycin (4) Deep incisional surgical site infection: (5) Status post lumbar spine surgery for decompression of spinal cord: Plan Patient presented to the emergency room after recent be being discharged from [facility] in [place] for deep incisional wound infection and MRSA bacteremia. He was home for approximately 3 days when he started experiencing severe headache. He presented to the emergency room for evaluation. Patient's headache was definitively positional and consistent with a CSF leak. Extensive efforts were made by the ED physician to coordinate a transfer to higher level of care. Patient did not want to return to [facility]. Ultimately patient was accepted by [facility] in [place] and accepted by Dr. Menjivar, neurosurgery. While here at [facility], patient continued to receive his IV daptomycin for his MRSA bacteremia and wound infection. Also his pain was managed and controlled. He will be discharged to [facility] when a bed is available. Admission and Anticipated Discharge Date Admission Date: April 01, 2024 Subjective Pt seen in follow up, CSF leak - plan to transfer to [facility] however beds not available yet Per RN, a lot of leakage, changed pt's dressings Pt is laying in bed i n NAD, pt's present at the bedside Continues to have headache No fever, chills, chest pain, shortness of breath Review of Systems 2 Review of Systems: All systems reviewed & are unremarkable except as noted in Subjective Physical Exam Physical Exam: Constitutional: Alert, nontoxic HEENT: Mucous membranes moist. Lungs: Clear to auscultation, decreased, no wheezes rales or rhonchi CV: S1-S2, regular Abdomen: Soft, nontender, nondistended Extremities: No significant edema Neuro: No focal deficits Psych: Cooperative, normal mood Results & Data Results & Data Vital Signs (Past 12 Hours) Vital Signs Temp Pulse Pulse Resp BP BP Pulse Ox 04/02/24 19:20 36.8 C 73 16 120/76 98 04/02/24 14:23 36.7 C 70 16 120/84 99 04/02/24 13:17 72 10 L 110/79 97 04/02/24 11:00 36.9 C 73 16 134/97 100 01/01/25 10:03 91 H 17 98 04/02/24 09:03 66 5 L 98 04/02/24 08:03 62 19 113/64 96 O2 Del Method 04/02/24 19:20 Room Air 04/02/24 14:23 Room Air 04/02/24 13:17 Room Air 04/02/24 11:00 Room Air 04/02/24 10:03 04/02/24 09:03 04/02/24 08:03 Room Air Medications Administered Current Inpatient Medications Acetaminophen (Acetaminophen 325 Mg Tab) 650 mg PO QID PRN PRN Reason: pain/fever Stop: 05/01/24 02:22 Last Admin: 04/02/24 11:31 Dose: 650 mg Cyclobenzaprine HCl (Cyclobenzaprine Hcl 10 Mg Tab) 10 mg PO TID PRN PRN Reason: Muscle Spasm Stop: 05/01/24 02:20 Last Admin: 04/01/24 21:17 Dose: 10 mg Heparin Sodium (Beef Lung) (Heparin 10 Unit/Ml 5 Ml Flush) 5 ml FLUSH PRN PRN PRN Reason: Flush Stop: 05/02/24 14:44 Last Admin: 04/02/24 15:18 Dose: 5 ml Daptomycin 450 mg/ Syringe 9 mls @ 4.5 mls/min IV Q24H [facility]; Protocol Stop: 04/11/24 16:59 Last Admin: 04/02/24 17:54 Dose: 4.5 mls/min Promethazine HCl (Phenergan) 6.25 mg in 50.25 mls @ 201 mls/hr IV Q6H PRN PRN Reason: Nausea And Vomiting Stop: 05/01/24 02:22 Ketorolac Tromethamine (Ketorolac Tromethamine 15 Mg/Ml Vial) 15 mg IV Q6H PRN PRN Reason: Pain Stop: 04/06/24 02:22 Lorazepam (Lorazepam 0.5 Mg Tab) 0.5 mg PO TID PRN PRN Reason: Anxiety Stop: 05/01/24 02:22 Oxycodone HCl (Oxycodone Hcl Ir 5 Mg Tab (Immediate Release)) 5 mg PO Q4H PRN PRN Reason: Pain Stop: 04/15/24 02:22 Pantoprazole Sodium (Pantoprazole 40 Mg Tab) 40 mg PO DAILY KRYSTIN Stop: 05/01/24 08:59 Last Admin: 04/02/24 08:56 Dose: 40 mg
[2024-04-03 06:38] LABS: Hematocrit (blood only) 40.9 % (42.0-52.0); Hemoglobin 13.9 g/dl (14.0-18.0); Mean Corpuscular Hemoglobin 30.3 pg (25.0-34.0); Mean Corpuscular Volume 89.3 fL (80.0-100.0); Mean Platelet Volume 10.2 fL (9.4-12.4); Platelet Count 341 K/uL (130-400); RDW Coefficient of Variation 12.6 % (11.5-14.5); RDW Standard Deviation 41.3 fL (36.4-46.3); Red Blood Count 4.58 M/uL (4.70-6.10); White Blood Count 8.23 K/ul (4.8-10.8)
[2024-04-03 07:00] VITALS: TEMP 97.9
[2024-04-03 07:01] LABS: Calcium 9.7 mg/dl (8.6-10.3); Creatinine Clr Calc Pharmacy 80.2 ml/min; Magnesium 2.2 mg/dl (1.7-2.4); Phosphorus 4.1 mg/dl (2.5-4.9)
[2024-04-03] MEDS: oxyCODONE HCL IR 5 MG TAB (IMMEDIATE RELEASE) PO PRN (09:20)
--- NOTE | 2024-04-03 14:39 | Hospitalist Progress Note ---
Date of Service April 03, 2024 Assessment & Plan (1) Cerebrospinal fluid leak due to lumbar surgery: (2) Headache due to low cerebrospinal fluid pressure: (3) Hx MRSA infection: Plan: On IV daptomycin (4) Deep incisional surgical site infection: (5) Status post lumbar spine surgery for decompression of spinal cord: Plan Patient presented to the emergency room after recently being discharged from [facility] in [place] for deep incisional wound infection and MRSA bacteremia. He was home for approximately 3 days when he started experiencing severe headache. He presented to the emergency room for evaluation. Patient's headache was positional and consistent with a CSF leak. Extensive efforts were made by the ED physician to coordinate a transfer to higher level of care. Ultimately patient was accepted by [facility] in [place] and accepted by Dr. Menjivar, neurosurgery. While here at [facility], patient continued to receive his IV daptomycin for his MRSA bacteremia and wound infection. Also his pain was managed and controlled. He will be discharged to [facility] when a bed is available. Admission and Anticipated Discharge Date Admission Date: April 01, 2024 Subjective Pt seen in follow up, CSF leak - plan to transfer to [facility] however beds not available yet Pt is laying in bed in [facility], pt's present at the bedside + headache No fever, chills, chest pain, shortness of breath Review of Systems Review of Systems: All systems reviewed & are unremarkable except as noted in Subjective Physical Exam Physical Exam: Constitutional: WD/WN M in NAD HEENT: Mucous membranes moist. Lungs: Clear to auscultation, decreased, no wheezes rales or rhonchi CV: regular Abdomen: Soft, nontender, nondistended Extremities: No significant edema Neuro: awake, alert, oriented, answers appropriately, no facial asymmetry, speech fluent, moves extremities Results & Data Results & Data Vital Signs (Past 12 Hours) Vital Signs Temp Pulse Resp BP Pulse Ox O2 Del Method 04/03/24 06:59 36.6 C 65 16 114/74 97 Room Air Laboratory Results 04/03/24 Range/Units 05:56 WBC 8.23 (4.8-10.8) K/ul RBC 4.58 L (4.70-6.10) M/uL Hgb 13.9 L (14.0-18.0) g/dl Hct 40.9 L (42.0-52.0) % MCV 89.3 (80.0-100.0) fL MCH 30.3 (25.0-34.0) pg MCHC 34.0 (32.0-36.0) g/dL RDW Std Deviation 41.3 (36.4-46.3) fL RDW Coeff of Ning 12.6 (11.5-14.5) % Plt Count 341 (130-400) K/uL MPV 10.2 (9.4-12.4) fL Sodium 138 (136-145) mmol/L Potassium 4.0 (3.5-5.1) mmol/L Chloride 105 (98-107) mmol/L Carbon Dioxide 24 (21-32) mmol/L Anion Gap 9 (3-11) BUN 22 (6-23) mg/dl Creatinine 1.10 (0.6-1.4) mg/dl Est Cr Clr Drug Dosing 80.2 ml/min eGFR 80.27 BUN/Creatinine Ratio 20.0 (10-20) Glucose 99 (70-99(Fasting)) mg/dl Calcium 9.7 (8.6-10.3) mg/dl Phosphorus 4.1 (2.5-4.9) mg/dl Magnesium 2.2 (1.7-2.4) mg/dl Medications Administered Current Inpatient Medications Acetaminophen (Acetaminophen 325 Mg Tab) 650 mg PO QID PRN PRN Reason: pain/fever Stop: 05/01/24 02:22 Last Admin: 04/02/24 11:31 Dose: 650 mg Cyclobenzaprine HCl (Cyclobenzaprine Hcl 10 Mg Tab) 10 mg PO TID PRN PRN Reason: Muscle Spasm Stop: 05/01/24 02:20 Last Admin: 04/02/24 21:01 Dose: 10 mg Heparin Sodium (Beef Lung) (Heparin 10 Unit/Ml 5 Ml Flush) 5 ml FLUSH PRN PRN PRN Reason: Flush Stop: 05/02/24 14:44 Last Admin: 04/02/24 15:18 Dose: 5 ml Daptomycin 450 mg/ Syringe 9 mls @ 4.5 mls/min IV Q24H [facility]RYSTIN; Protocol Stop: 04/11/24 16:59 Last Admin: 04/02/24 17:54 Dose: 4.5 mls/min Promethazine HCl (Phenergan) 6.25 mg in 50.25 mls @ 201 mls/hr IV Q6H PRN PRN Reason: Nausea And Vomiting Stop: 05/01/24 02:22 Ketorolac Tromethamine (Ketorolac Tromethamine 15 Mg/Ml Vial) 15 mg IV Q6H PRN PRN Reason: Pain Stop: 04/06/24 02:22 Lorazepam (Lorazepam 0.5 Mg Tab) 0.5 mg PO TID PRN PRN Reason: Anxiety Stop: 05/01/24 02:22 Oxycodone HCl (Oxycodone Hcl Ir 5 Mg Tab (Immediate Release)) 5 mg PO Q4H PRN PRN Reason: Pain Stop: 04/15/24 02:22 Last Admin: 04/03/24 09:20 Dose: 5 mg Pantoprazole Sodium (Pantoprazole 40 Mg Tab) 40 mg PO DAILY KRYSTIN Stop: 05/01/24 08:59 Last Admin: 04/03/24 07:41 Dose: 40 mg
[2024-04-03 19:42] VITALS: BP 116/71; PULSE 80; RESP 20; O2SAT 97
--- NOTE | 2024-04-07 10:27 | Communication Note ---
Pt transferred on 04/04/2023 to [facility], when bed became available. Pls refer to DC Summary already done - no changes while pt was here waiting for bed. Randall Dumont MD
== END 2024-04-04 04:13 | disposition short-term general hospital (02) | DRG 92 ==
LOC: ED 12:12 → EDINP 04-01 01:59 → SUATTDRO 04-01 01:59 → EDINP 04-01 03:13 → 3E 04-02 14:18

== ENCOUNTER 2024-05-23 12:46 | Inpatient (IN) ==
--- NOTE | 2024-05-23 13:06 | ED Triage Note ---
Date of Service May 23, 2024 Provider in Triage Author: Enrique Lainez History of Present Illness This patient was briefly evaluated while in triage. An abbreviated physical exam was performed. This patient is a 53-year-old Male who presents to the ED for evaluation of an i nfection. The patient has a history of MRSA and sepsis after spinal surgery with PICC line in place for IV antibiotics. He did not have any fevers at that time either. Now has headache and chills. Feels like he might have a fever, but no measured fever. There is some redness around where the PICC line was recently removed on the right side. He was sent by his PCP to evaluate for possible infection of the PICC line site or sepsis. Physical Exam GENERAL: Non-toxic and in no acute distress. HEENT: Pupils equal. No obvious scleral icterus. HEART: Regular rate and rhythm. LUNGS: Clear to auscultation. No accessory muscle use. ABDOMEN: Soft, non-tender to palpation NEURO: Alert and oriented. No obvious neurological deficits on quick neuro exam. MUSCULOSKELETAL/SKIN: Tender to palpation around the previous PICC line site in the right upper arm. There is surrounding erythema as well. No fluctuance. Initial orders for labs and / or imaging were placed and patient was placed in the waiting area until a bed is available. Please see further documentation for the full ED course. MDM / Impression Impression Impression: Cellulitis Impression: Cellulitis Qualifiers: Site of cellulitis: extremity Site of cellulitis of extremity: upper extremity Laterality: right Qualified Code(s): L03.113 - Cellulitis of right upper limb
--- NOTE | 2024-05-23 13:52 | CT Scan Report ---
CT head/brain wo con CLINICAL HISTORY: Headache, infectious symptoms. TECHNIQUE: Multiple axial CT images of the head were obtained without contrast. Sagittal and coronal reconstructions were done. A dose lowering technique was utilized adhering to the principles of GEOVANNI Vleásquez. CT DOSE: 625.8 mGy.cm COMPARISON: 03/16/2024 FINDINGS: CT findings are stable. There continues to be no intra-axial or extra-axial fluid collectio n, hemorrhage, or mass. The ventricles and sulci are age-appropriate with no midline shift. Bone wind ows are negative. IMPRESSION: Stable exam; no acute intracranial process identified. ACT 112: Negative or not required by law. The above report was generated using voice recognition software. It may contain grammatical, syntax o r spelling errors. Electronically signed by: Lillie Rao M.D. 05/23/2024 1:51 PM
[2024-05-23] MEDS: SODIUM CHLORIDE 0.9% 1,000 ML IV ONE (14:09)
[2024-05-23] MEDS: ACETAMINOPHEN 1,000 MG/100 ML VIAL IV STA (14:09)
[2024-05-23 14:12] LABS: Basophils # (auto) 0.09 K/uL (0.00-0.20); Basophils % (auto) 0.5 %; Eosinophils # (auto) 0.29 K/uL (0.00-0.50); Eosinophils % (auto) 1.6 %; Hemoglobin 13.5 g/dl (14.0-18.0); Immature Granulocytes # (auto) 0.09 K/uL (0.01-0.20); Immature Granulocytes % (auto) 0.5 %; Lymphocytes # (auto) 2.79 K/uL (1.20-3.40); Lymphocytes % (auto) 15.9 %; Mean Corpuscular Hemoglobin 29.5 pg (25.0-34.0); Mean Corpuscular Hgb Conc 33.8 g/dL (32.0-36.0); Mean Corpuscular Volume 87.5 fL (80.0-100.0); Mean Platelet Volume 10.1 fL (9.4-12.4); Monocytes # (auto) 1.07 K/uL (0.11-0.59); Monocytes % (auto) 6.1 %; Neutrophils # (auto) 13.25 K/uL (1.40-6.50); Neutrophils % (auto) 75.4 %; Platelet Count 342 K/uL (130-400); RDW Coefficient of Variation 14.1 % (11.5-14.5); RDW Standard Deviation 44.9 fL (36.4-46.3); Red Blood Count 4.57 M/uL (4.70-6.10); White Blood Count 17.58 K/ul (4.8-10.8)
[2024-05-23 14:17] LABS: Albumin Globulin Ratio 1.1 (0.9-2); Albumin Level 4.6 gm/dl (3.4-5.0); BUN Creatinine Ratio 16.8 (10-20); Bilirubin,Total 0.7 mg/dl (0.2-1.0); Calcium 10.9 mg/dl (8.6-10.3); Creatinine Clr Calc Pharmacy 64.4 ml/min; Magnesium 1.7 mg/dl (1.7-2.4); Total Protein 8.6 gm/dl (6.0-8.3)
[2024-05-23 14:18] LABS: INR 0.9 (0.9-1.1); Partial Thromboplastin Time 28 Seconds (21-31); Prothrombin Time 10.2 Seconds (9.0-12.0)
[2024-05-23 14:23] LABS: Troponin I High Sensitivity 5.1 pg/ml (0-20)
[2024-05-23 14:26] LABS: Adenovirus PCR Not Detected (NotDetected); Bordetella parapertussis PCR Not Detected (NotDetected); Bordetella pertussis PCR Not Detected (NotDetected); Chlamydia pneumoniae PCR Not Detected (NotDetected); Coronavirus 229E PCR Not Detected (NotDetected); Coronavirus CoV-2 (COVID19)PCR Not Detected (NotDetected); Coronavirus HKU1 PCR Not Detected (NotDetected); Coronavirus NL63 PCR Not Detected (NotDetected); Coronavirus OC43PCR Not Detected (NotDetected); Human Metapneumovirus PCR Not Detected (NotDetected); Influenza A PCR Not Detected (NotDetected); Influenza B PCR Not Detected (NotDetected); Mycoplasma pneumoniae PCR Not Detected (NotDetected); Parainfluenza Virus 1 PCR Not Detected (NotDetected); Parainfluenza Virus 2 PCR Not Detected (NotDetected); Parainfluenza Virus 3 PCR Not Detected (NotDetected); Parainfluenza Virus 4 PCR Not Detected (NotDetected); Respiratory Syncytial VirusPCR Not Detected (NotDetected); Rhinovirus/Enterovirus PCR Not Detected (NotDetected)
--- NOTE | 2024-05-23 14:26 | XRay Report ---
XR chest 1V not portable CLINICAL HISTORY: Infectious symptoms COMPARISON STUDY: 03/16/2024 FINDINGS: Single view chest demonstrates no acute cardiopulmonary process. There is no airspace opaci ty or pleural effusion. Heart and pulmonary vascularity are unremarkable. IMPRESSION: No acute process ACT 112: Negative or not required by law. Electronically signed by: Lillie Rao M.D. 05/23/2024 2:24 PM
--- NOTE | 2024-05-23 15:21 | Ultrasound Report ---
ULTRASOUND RIGHT UPPER EXTREMITY VENOUS CLINICAL HISTORY: Right medial arm pain; history of prior PICC line. COMPARISON STUDY: None. TECHNIQUE: Real-time, grayscale, and color Doppler sonography of the deep veins of the right upper ex tremity is performed. Compression and augmentation were utilized. FINDINGS: There is no evidence of DVT in the right upper extremity. The major deep venous channels ar e patent and compressible with one exception and that is the basilic vein which has thick tony and i s noncompressible. However, there is flow identified within the basilic vein. IMPRESSION: No evidence of DVT. Probable reactive phlebitis in the basilic vein. ACT 112: Negative or not required by law. Electronically signed by: Lillie Rao M.D. 05/23/2024 3:20 PM
--- NOTE | 2024-05-23 15:29 | Emergency Department Note ---
Impression & Plan Cellulitis ED Provider Note NAME: JACOBO HERNANDEZ AGE: 53 SEX: M : 1970 ARRIVES VIA: Walk-In INFORMANT: Patient, ED PROVIDER(S): Gigi Grewal DO CHIEF COMPLAINT: Arm swelling HPI: The patient is a 53-year-old male who recently had a PICC line removed from his right arm. He was recently treated for bacteremia with MRSA. The patient noticed redness and streaking in his right arm. The patient was seen by his primary care physician and sent to the emergency department for further evaluation. ROS: See above HPI for pertinent positives & negatives. A total of 10 systems reviewed and were otherwise negative. PAST MEDICAL HISTORY: See Below PAST SURGICAL HISTORY: See Below FAMILY HISTORY: See Below SOCIAL HISTORY: See Below HOME MEDICATIONS: See Below ALLERGIES: See Below VITALS: See Below PHYSICAL EXAMINATION: GENERAL: Patient is awake alert in no acute distress patient is resting comfortably and showing no signs of anxiety EYES: The conjunctivae are clear. The pupils are round and reactive. EARS, NOSE, MOUTH AND THROAT: The nose is without any evidence of any deformity. NECK: The neck is nontender and supple. RESPIRATORY: Normal respiratory effort is noted there is no evidence of wheezing rhonchi or rales CARDIOVASCULAR: Regular rate and rhythm noted there no murmurs rubs or gallops normal S1 normal S2. GASTROINTESTINAL: The abdomen is soft. Abdomen is nontender. MUSCULOSKELETAL/EXTREMITIES: There is no evidence of gross deformity full range of motion is noted in the hips and shoulders. SKIN: There was a previous PICC line site noted in the right inner arm. There is streaking and swelling noted. There is no drainage or discharge NEUROLOGIC: Patient is awake alert and oriented x3 MEDICAL DECISION MAKING: The patient is a 53-year-old male who presented to the emergency department for an evaluation of right upper extremity swelling. He recently had a PICC line removed. Follow-up the patient was sent to the emergency department because of erythema in the arm. The patient was treated with IV antibiotics. Patient has a history of MRSA bacteremia. I discussed patient's laboratory and radiographic studies with him. I discussed his condition with the on-call [facility] Triage Nursing notes reviewed. Prior medical records reviewed Vital Signs: reviewed and remarkable for no significant abnormalities Differential diagnosis: Cellulitis, abscess, MRSA infection, DVT, necrotizing fasciitis, dermatitis, drug eruption, allergic reaction, as well as other pathologies. ER treatment provided: See below Diagnostics interpreted by me: ECG: EKG was obtained in the emergency department. My interpretation is sinus rhythm at 126 bpm. There were no PVCs noted. There is no acute ST segment abnormalities noted. This was compared to a tracing from April 15, 2023. Increase in rate otherwise no changes Cardiac Monitoring: An order was placed for continuous cardiac monitoring. The monitor shows a rate of 102 bpm with sinus rhythm Laboratory studies: As stated above and show below. Imaging studies: See below. Radiographic imaging was reviewed by myself Consultation(s): Discussed this case with Dr Dumont Past Med/Surg History Problem List (Updated 05/23/24 @ 19:54 by Gigi Grewal DO) Cellulitis (Acute) GERD (gastroesophageal reflux disease) Depression Cellulitis of right upper extremity Headache due to low cerebrospinal fluid pressure Hx MRSA infection (Acute) Leukocytosis (Acute) Cerebrospinal fluid leak due to lumbar surgery (Acute) Positional headache (Acute) Lumbar surgical wound fluid collection Status post lumbar spine surgery for decompression of spinal cord Bilateral pneumonia Deep incisional surgical site infection Acute metabolic encephalopathy Severe sepsis with acute organ dysfunction Encephalopathy Pneumonia (Acute) AMS (altered mental status) (Acute) Headache (Acute) Low back pain (Acute) Medical History Frequent headaches Surgical History History of lumbar surgery Social History Smoking Status: Former smoker Tobacco Type: Cigarettes Cigarettes Per Day: 1/2 pack; Second Hand Exposure: Yes; Do You Dip or Chew Tobacco: No; Hx Alcohol Use: Yes Alcohol type: beer, wine and hard liquor Hx Substance Use: No Preferred Language: Fijian Communication Ability: Effective [employer]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 Beliefs That Will Affect Care: None Current Living Situation: Spouse Current Living Situation Comment: lives at home with and daughter Feels Safe at Home: Yes Assistive Devices: Walker Allergies Allergies Allergy/AdvReac Type Severity Reaction Status Date / Time No Known Allergies Allergy Verified 05/23/24 15:48 Home Meds Home Medications Medication Instructions Recorded Confirmed pantoprazole 40 mg tablet,delayed 40 mg PO QAM 03/16/24 05/23/24 release cyclobenzaprine 10 mg tablet 10 mg PO TID PRN Muscle Spasm 03/31/24 05/23/24 oxycodone 5 mg tablet 5 mg PO Q4H PRN Pain 04/24/24 05/23/24 acetaminophen 500 mg tablet 1,000 mg PO Q6H PRN Pain 05/23/24 05/23/24 multivitamin with minerals-folic 1 tab PO QAM 05/23/24 05/23/24 acid 200 mcg chewable tablet (Multivitamin Gummies) venlafaxine 75 mg capsule,extended 75 mg PO QAM 05/23/24 05/23/24 release 24 hr Results & Data (ED) Vital Signs Vital Signs - 24 hr 05/23/24 13:02 05/23/24 14:28 05/23/24 14:28 Temperature 36.3 C L Temperature Source Temporal Artery Scan Pulse Rate 115 H 97 H Pulse Rate [Apical] 98 H Respiratory Rate 18 14 15 Respiratory Effort / Characteristics Non-Labored Spontaneous Non-Labored Spontaneous Respiratory Depth Normal Normal Respiratory Pattern Regular Regular Blood Pressure 143/88 H Blood Pressure [Right Arm] 158/105 H Blood Pressure Mean 106 Blood Pressure Mean [Right Arm] 122 Blood Pressure Position [Right Arm] Semi-fowlers Pulse Oximetry 98 99 99 Oxygen Delivery Method Room Air Room Air Room Air Sepsis Recent Fever Within 48 Hours No Sepsis New/Unexplained Change in Mental Status N/A Sepsis Action Taken by Nursing No Action Required 05/23/24 15:34 05/23/24 16:21 05/23/24 17:00 Temperature 37.1 C Temperature Source Oral Pulse Rate 92 H Pulse Rate [Apical] 91 H 87 Respiratory Rate 15 22 Respiratory Effort / Characteristics Non-Labored Spontaneous Non-Labored Spontaneous Respiratory Depth Normal Normal Respiratory Pattern Regular Blood Pressure Blood Pressure [Right Arm] 129/87 118/75 Blood Pressure Mean Blood Pressure Mean [Right Arm] 101 89 Blood Pressure Position [Right Arm] Semi-fowlers Pulse Oximetry 97 99 Oxygen Delivery Method Room Air Room Air Sepsis Recent Fever Within 48 Hours Sepsis New/Unexplained Change in Mental Status Sepsis Action Taken by Nursing 05/23/24 18:56 Temperature Temperature Source Pulse Rate Pulse Rate [Apical] 102 H Respiratory Rate 19 Respiratory Effort / Characteristics Non-Labored Spontaneous Respiratory Depth Normal Respiratory Pattern Regular Blood Pressure Blood Pressure [Right Arm] 122/75 Blood Pressure Mean Blood Pressure Mean [Right Arm] 90 Blood Pressure Position [Right Arm] Semi-fowlers Pulse Oximetry 98 Oxygen Delivery Method Room Air Sepsis Recent Fever Within 48 Hours Sepsis New/Unexplained Change in Mental Status Sepsis Action Taken by [facility] Medications Current Medication List: was personally reviewed by me Laboratory Data Attestation: I reviewed the patient's lab results. 05/23/24 13:26 05/23/24 13: Lab Results 05/23/24 05/23/24 Range/Units 13: 16:03 WBC 17.58 H (4.8-10.8) K/ul RBC 4.57 L (4.70-6.10) M/uL Hgb 13.5 L (14.0-18.0) g/dl Hct 40.0 L (42.0-52.0) % MCV 87.5 (80.0-100.0) fL MCH 29.5 (25.0-34.0) pg MCHC 33.8 (32.0-36.0) g/dL RDW Std Deviation 44.9 (36.4-46.3) fL RDW Coeff of Ning 14.1 (11.5-14.5) % Plt Count 342 (130-400) K/uL MPV 10.1 (9.4-12.4) fL Immature Gran % (Auto) 0.5 % Neut % (Auto) 75.4 % Lymph % (Auto) 15.9 % Forrest % (Auto) 6.1 % Eos % (Auto) 1.6 % Baso % (Auto) 0.5 % Neut # (Auto) 13.25 H (1.40-6.50) K/uL Lymph # (Auto) 2.79 (1.20-3.40) K/uL Forrest # (Auto) 1.07 H (0.11-0.59) K/uL Eos # (Auto) 0.29 (0.00-0.50) K/uL Baso # (Auto) 0.09 (0.00-0.20) K/uL Immature Gran # (Auto) 0.09 (0.01-0.20) K/uL PT 10.2 (9.0-12.0) Seconds INR 0.9 (0.9-1.1) APTT 28 (21-31) Seconds PTT Ratio 1.0 Sodium 135 L (136-145) mmol/L Potassium 4.0 (3.5-5.1) mmol/L Chloride 105 (98-107) mmol/L Carbon Dioxide 21 (21-32) mmol/L Anion Gap 9 (3-11) BUN 23 (6-23) mg/dl Creatinine 1.37 (0.6-1.4) mg/dl Est Cr Clr Drug Dosing 64.4 ml/min eGFR 61.68 BUN/Creatinine Ratio 16.8 (10-20) Glucose 112 H (70-99(Fasting)) mg/dl Lactate 1.7 (0.4-2.0) mmol/L Calcium 10.9 H (8.6-10.3) mg/dl Magnesium 1.7 (1.7-2.4) mg/dl Total Bilirubin 0.7 (0.2-1.0) mg/dl AST 20 (13-39) U/L ALT 33 (7-52) U/L Alkaline Phosphatase 69 (34-104) U/L Troponin I High Sens 5.1 (0-20) pg/ml Total Protein 8.6 H (6.0-8.3) gm/dl Albumin 4.6 (3.4-5.0) gm/dl Globulin 4.0 (2.5-4.0) gm/dl Albumin/Globulin Ratio 1.1 (0.9-2) Lipase 6 L (11-82) U/L Procalcitonin 0.21 (0-0.5) ng/ml Urine Color Yellow Urine Appearance Clear (Clear) Urine pH 5.5 (4.5-7.5) Ur Specific [place] 1.013 (1.000-1.030) Urine Protein Negative (Negative) Urine Glucose (UA) Negative (Negative) Urine Ketones Negative (Negative) Urine Blood Negative (Negative) Urine Nitrite Negative (Negative) Urine Bilirubin Negative (Negative) Urine Urobilinogen Negative (Negative) Ur Leukocyte Esterase Negative (Negative) Adenovirus (PCR) Not Detected (NotDetected) B. pertussis DNA (PCR) Not Detected (NotDetected) B.parapertussis DNA PCR Not Detected (NotDetected) C. pneumoniae DNA (PCR) Not Detected (NotDetected) Coronavirus OC43 (PCR) Not Detected (NotDetected) Coronavirus HKU1 (PCR) Not Detected (NotDetected) Coronavirus 229E (PCR) Not Detected (NotDetected) SARS-CoV-2 (PCR) Not Detected (NotDetected) Coronavirus NL63 (PCR) Not Detected (NotDetected) Human Metapneumovir PCR Not Detected (NotDetected) Influenza Type A (PCR) Not Detected (NotDetected) Influenza Type B (PCR) Not Detected (NotDetected) M. pneumoniae (PCR) Not Detected (NotDetected) Parainfluenza 1 (PCR) Not Detected (NotDetected) Parainfluenza 2 (PCR) Not Detected (NotDetected) Parainfluenza 3 (PCR) Not Detected (NotDetected) Parainfluenza 4 (PCR) Not Detected (NotDetected) RSV (PCR) Not Detected (NotDetected) Entero/Rhino (PCR) Not Detected (NotDetected) Administered Medications Discontinued Medications Sodium Chloride (Nss) 1,000 mls @ 999 mls/hr IV .Q1H1M ONE Stop: 05/23/24 14:06 Last Infusion: 05/23/24 15:36 Dose: Infused Documented By: Admin: 05/23/24 14:09 Dose: 999 mls/hr Documented By: MANPREET Acetaminophen (Ofirmev) 1,000 mg in 100 mls @ 400 mls/hr IV NOW STA Stop: 05/23/24 13:20 Last Infusion: 05/23/24 15:33 Dose: Infused Documented By: Admin: 05/23/24 14:09 Dose: 400 mls/hr Documented By: MANPREET Ceftriaxone Sodium (Rocephin) 2,000 mg in 50 mls @ 100 mls/hr IV NOW STA Stop: 05/23/24 15:40 Last Infusion: 05/23/24 16:11 Dose: Infused Documented By: Admin: 05/23/24 15:34 Dose: 100 mls/hr Documented By: NIMISHA Daptomycin 475 mg/ Syringe 9.5 mls @ 4.75 mls/min IV ONE ONE; Protocol Stop: 05/23/24 15:13 Last Admin: 05/23/24 16:13 Dose: 4.75 mls/min Documented By: NIMISHA Imaging Data Attestation: I personally reviewed and interpreted this imaging study as follows: My Impression: 1 view chest x-ray was obtained department. My interpretation is no free air or definite x-ray, final report Radiologist's Impression: Chest X-Ray 05/23/24 13:06 XR chest 1V not portable CLINICAL HISTORY: Infectious symptoms COMPARISON STUDY: 03/16/2024 FINDINGS: Single view chest demonstrates no acute cardiopulmonary process. There is no airspace opacity or pleural effusion. Heart and pulmonary vascularity are unremarkable. IMPRESSION: No acute process ACT 112: Negative or not required by law. Electronically signed by: Lillie Rao M.D. 05/23/2024 2:[address] 05/23/24 13:06 CT head/brain wo con CLINICAL HISTORY: Headache, infectious symptoms. TECHNIQUE: Multiple axial CT images of the head were obtained without contrast. Sagittal and coronal reconstructions were done. A dose lowering technique was utilized adhering to the principles of ALARA. CT DOSE: 625.8 mGy.cm COMPARISON: 03/16/2024 FINDINGS: CT findings are stable. There continues to be no intra-axial or extra- axial fluid collection, hemorrhage, or mass. The ventricles and sulci are age- appropriate with no midline shift. Bone windows are negative. IMPRESSION: Stable exam; no acute intracranial process identified. ACT 112: Negative or not required by law. The above report was generated using voice recognition software. It may contain grammatical, syntax or spelling errors. Electronically signed by: Lillie Rao M.D. 05/23/2024 1:51 PM Venous Doppler Study 05/23/24 13:09 ULTRASOUND RIGHT UPPER EXTREMITY VENOUS CLINICAL HISTORY: Right medial arm pain; history of prior PICC line. COMPARISON STUDY: None. TECHNIQUE: Real-time, grayscale, and color Doppler sonography of the deep veins of the right upper extremity is performed. Compression and augmentation were utilized. FINDINGS: There is no evidence of DVT in the right upper extremity. The major deep venous channels are patent and compressible with one exception and that is the basilic vein which has thick tony and is noncompressible. However, there is flow identified within the basilic vein. IMPRESSION: No evidence of DVT. Probable reactive phlebitis in the basilic vein. ACT 112: Negative or not required by law. Electronically signed by: Lillie Rao M.D. 05/23/2024 3:20 PM Discharge Plan Visit Data Chief Complaint: Infection Stated Complaint: INFECTION CONCERNS ED Provider: Gigi Grewal Discharge Problem: Cellulitis Patient Disposition: Being Evaluated by Hospitalist Forms Stand Alone Forms: [facility] Prescriptions Prescriptions: No Action pantoprazole 40 mg tablet,delayed release (DR/EC) 40 mg PO QAM cyclobenzaprine 10 mg tablet 10 mg PO TID PRN (Reason: Muscle Spasm) oxycodone 5 mg Tablet 5 mg PO Q4H PRN (Reason: Pain) venlafaxine 75 mg capsule,extended release 24hr 75 mg PO QAM acetaminophen [Tylenol Ex Str Rapid Release] 500 mg Tablet 1,000 mg PO Q6H PRN (Reason: Pain) multivit with min-folic acid [Multivitamin Gummies] 200 mcg Tablet,Chewable 1 tab PO QAM Referrals Referrals: Melissa Fritz DO [Primary Care Provider] - Discharge Problem: Cellulitis Qualifiers: Site of cellulitis: extremity Site of cellulitis of extremity: upper extremity Laterality: right Qualified Code(s): L03.113 - Cellulitis of right upper limb
[2024-05-23] MEDS: cefTRIAXone SODIUM 2,000 MG/50 ML BAG IV STA (15:34)
--- NOTE | 2024-05-23 15:54 | History & Physical Report ---
Date of Service May 23, 2024 Assessment & Plan (1) Cellulitis of right upper extremity: Plan: Kris Celaya is a 53y/o M with PMH significant for GERD, depression, tobacco use disorder and MRSA bacteremia 2/2 deep incisional wound infection s/p L4-L5 microdiscectomy in February 2024 who presented to the ED for evaluation via recommendation by his PCP as he has developed erythema around the site where his PICC line was recently removed on 05/18/24. History obtained from the patient, at bedside, discussion with ED provider and associated chart review. Patient seen at bedside in ED with Dr. Dumont. Underwent L4-L5 microdiscectomy on 02/27/24 with an orthopedic spinal surgeon down in [place] at [facility]. This was complicated by the development of a CSF leak. Then underwent another spinal procedure back at [facility] in early March 2024 after being transferred from [facility]. This was complicated by MSRA bacteremia 2/2 deep incisional wound infection. Patient was then seen and evaluated by our service back in late March 2024 before ultimately being transferred to [facility] for further evaluation and management. Was admitted at [facility] from 04/04/24 to 04/11/2024. Underwent wound exploration on 04/05/[address] Сергей Curtis [neurosurgery]. Procedure entailed wound washout, L4 laminectomy, L5 laminectomy, L5 medial cystectomy, dural repair and placement of a lumbar drain. Lumbar drain removed prior to discharge. Completed full antibiotic course including po linezolid and IV daptomycin on 05/18/24. PICC line removed on 05/18/24. Now patient coming in with erythema surrounding the site where his PICC line was recently removed from the inner aspect of his RUE. S/p IV daptomycin + IV Rocephin and 1L NSS in ED. CXR negative. Head CT negative. No evidence of DVT on RUE venous Doppler ultrasound; probable reactive phlebitis in the basilic vein. ED labs reviewed. WBC 17.58k. Differential with neutrophilic predominance. Procalcitonin negative. Hgb stable. UA/respiratory BioFire negative. Had resting echo done 04/07/24 with LVEF of 55 to 59% and no overt evidence of valvular vegetations or perivalvular abscesses. Continue IV daptomycin + IV Rocephin for now. Probiotic added on. ID consult pending. Blood cultures pending. Can apply warm compresses to RUE PRN for suspected reactive phlebitis as per above. Continue PRN pain control for back pain/spasms and headaches. (2) Depression: Plan: Chronic, stable. Continue venlafaxine. (3) GERD (gastroesophageal reflux disease): Plan: Chronic, stable. Continue PPI. DVT Prophylaxis: SQ Heparin Code Status: FULL CODE PCP: Melissa Fritz DO Disposition: Admit to Med/Telemetry for further inpatient evaluation and management. Patient seen in collaboration with Dr. Dumont. Please see addendum. I spent a total of 60 minutes coordinating, documenting, and providing care for this patient excluding time spent in the performance of separately billed services or time spent by another provider/QHP. This included personally reviewing all current laboratories and imaging studies, medical reconciliation, outpatient chart review and discussion with specialists. This chart was completed in part utilizing Speech Voice Recognition Software. Grammatical errors, random word insertions, pronoun errors, and incomplete sentences are an occasional consequence of this system due to software limitations, ambient noise, and hardware issues. Any formal questions or concerns about the content, text, or information contained within the body of this dictation should be directly addressed to the provider for clarification. History of Present Illness Chief Complaint: Right Arm Redness/Streaking, Recent Removal of PICC Line 2/2 MRSA Bacteremia Primary Care Provider: Melissa Fritz DO Kris Celaya is a 53y/o M with PMH significant for GERD, depression, tobacco use disorder and MRSA bacteremia 2/2 deep incisional wound infection s/p L4-L5 microdiscectomy in February 2024 who presented to the ED for evaluation via recommendation by his PCP as he has developed erythema around the site where his PICC line was recently removed on 05/18/24. History obtained from the patient, at bedside, discussion with ED provider and associated chart review. Patient seen at bedside in ED with Dr. Dumont. Underwent L4-L5 microdiscectomy on 02/27/24 with an orthopedic spinal surgeon down in [place] at [facility]. This was complicated by the development of a CSF leak. Then underwent another spinal procedure back at [facility] in early March 2024 after being transferred from [facility]. This was complicated by MSRA bacteremia 2/2 deep incisional wound infection. Patient was then seen and evaluated by our service back in late March 2024 before ultimately being transferred to [facility] for further evaluation and management. Was admitted at [facility] from 04/04/24 to 04/11/2024. Underwent wound exploration on 04/05/[address] Сергей Curtis [neurosurgery]. Procedure entailed wound washout, L4 laminectomy, L5 laminectomy, L5 medial cystectomy, dural repair and placement of a lumbar drain. Lumbar drain removed prior to discharge. Completed full antibiotic course including po linezolid and IV daptomycin on 05/18/24. PICC line removed on 05/18/24. Now patient coming in with erythema surrounding the site where his PICC line was recently removed from the inner aspect of his RUE. No reported fevers. Does endorse chills. Noted some erythematous streaking down the inferior portion of his RUE below his PICC line site. No drainage from the area where his PICC line was inserted. Did have Tegaderm over this area as well as bandages however it has been openly exposed for over 24 hours now. Has been applying Vaseline to this area but nothing else. Has not noticed that this area is warm to touch but does endorse tenderness with palpation of the region. Also with intermittent headaches however they are much milder than the ones he experienced with his CSF leak as per above. Rates headache pain 2 out of 10 on evaluation. Allergies Allergy/AdvReac Type Severity Reaction Status Date / Time No Known Allergies Allergy Verified 05/23/24 15:48 Home Medications Medication Instructions Recorded Confirmed Type pantoprazole 40 mg tablet,delayed 40 mg PO QAM 03/16/24 05/23/24 History release cyclobenzaprine 10 mg tablet 10 mg PO TID PRN Muscle Spasm 03/31/24 05/23/24 History oxycodone 5 mg tablet 5 mg PO Q4H PRN Pain 04/24/24 05/23/24 History acetaminophen 500 mg tablet 1,000 mg PO Q6H PRN Pain 05/23/24 05/23/24 History multivitamin with minerals-folic 1 tab PO QAM 05/23/24 05/23/24 History acid 200 mcg chewable tablet (Multivitamin Gummies) venlafaxine 75 mg capsule,extended 75 mg PO QAM 05/23/24 05/23/24 History release 24 hr Past Med/Surg History Problem List (Updated 05/23/24 @ 19:54 by Gigi Grewal DO) Cellulitis (Acute) GERD (gastroesophageal reflux disease) Depression Cellulitis of right upper extremity Headache due to low cerebrospinal fluid pressure Hx MRSA infection (Acute) Leukocytosis (Acute) Cerebrospinal fluid leak due to lumbar surgery (Acute) Positional headache (Acute) Lumbar surgical wound fluid collection Status post lumbar spine surgery for decompression of spinal cord Bilateral pneumonia Deep incisional surgical site infection Acute metabolic encephalopathy Severe sepsis with acute organ dysfunction Encephalopathy Pneumonia (Acute) AMS (altered mental status) (Acute) Headache (Acute) Low back pain (Acute) Medical History Frequent headaches Surgical History History of lumbar surgery Social History Smoking Status: Former smoker Tobacco Type: Cigarettes Cigarettes Per Day: 1/2 pack; Second Hand Exposure: Yes; Do You Dip or Chew Tobacco: No; Hx Alcohol Use: Yes Alcohol type: beer, wine and hard liquor Hx Substance Use: No Preferred Language: Hungarian Communication Ability: Effective Identification Officer Required: No Beliefs That Will Affect Care: None Current Living Situation: Spouse Current Living Situation Comment: lives at home with and daughter Feels Safe at Home: Yes Assistive Devices: Walker Review of Systems 2 Review of Systems: At least ten systems reviewed and negative, except as noted in the HPI. Physical Exam 2 Physical Exam: Please refer to Dr. Dumont's addendum for additional exam findings. RUE where PICC line was removed on 05/18/24: Results & Data Results & Data Vital Signs (Past 12 Hours) Vital Signs Temp Pulse Pulse Resp BP BP Pulse Ox 05/23/24 15:34 37.1 C 91 H 15 129/87 97 05/23/24 14:28 97 H 15 99 05/23/24 14:28 98 H 14 158/105 H 99 05/23/24 13:02 36.3 C L 115 H 18 143/88 H 98 O2 Del Method 05/23/24 15:34 Room Air 05/23/24 14:28 Room Air 05/23/24 14:28 Room Air 05/23/24 13:02 Room Air Laboratory Results Short CBC 05/23/24 Range/Units 13:26 WBC 17.58 H (4.8-10.8) K/ul Hgb 13.5 L (14.0-18.0) g/dl Hct 40.0 L (42.0-52.0) % Plt Count 342 (130-400) K/uL BMP 05/23/24 13:26 Sodium 135 L Potassium 4.0 Chloride 105 Carbon Dioxide 21 BUN 23 Creatinine 1.37 Glucose 112 H Calcium 10.9 H Liver Function 05/23/24 Range/Units 13:26 Total Bilirubin 0.7 (0.2-1.0) mg/dl AST 20 (13-39) U/L ALT 33 (7-52) U/L Alkaline Phosphatase 69 (34-104) U/L Albumin 4.6 (3.4-5.0) gm/dl Diagnostic Findings Chest X-Ray 05/23/24 13:06 XR chest 1V not portable CLINICAL HISTORY: Infectious symptoms COMPARISON STUDY: 03/16/2024 FINDINGS: Single view chest demonstrates no acute cardiopulmonary process. There is no airspace opacity or pleural effusion. Heart and pulmonary vascularity are unremarkable. IMPRESSION: No acute process ACT 112: Negative or not required by law. Electronically signed by: Lillie Rao M.D. 05/23/2024 2:[address] 05/23/24 13:06 CT head/brain wo con CLINICAL HISTORY: Headache, infectious symptoms. TECHNIQUE: Multiple axial CT images of the head were obtained without contrast. Sagittal and coronal reconstructions were done. A dose lowering technique was utilized adhering to the principles of ALARA. CT DOSE: 625.8 mGy.cm COMPARISON: 03/16/2024 FINDINGS: CT findings are stable. There continues to be no intra-axial or extra- axial fluid collection, hemorrhage, or mass. The ventricles and sulci are age- appropriate with no midline shift. Bone windows are negative. IMPRESSION: Stable exam; no acute intracranial process identified. ACT 112: Negative or not required by law. The above report was generated using voice recognition software. It may contain grammatical, syntax or spelling errors. Electronically signed by: Lillie Rao M.D. 05/23/2024 1:51 PM Venous Doppler Study 05/23/24 13:09 ULTRASOUND RIGHT UPPER EXTREMITY VENOUS CLINICAL HISTORY: Right medial arm pain; history of prior PICC line. COMPARISON STUDY: None. TECHNIQUE: Real-time, grayscale, and color Doppler sonography of the deep veins of the right upper extremity is performed. Compression and augmentation were utilized. FINDINGS: There is no evidence of DVT in the right upper extremity. The major deep venous channels are patent and compressible with one exception and that is the basilic vein which has thick tony and is noncompressible. However, there is flow identified within the basilic vein. IMPRESSION: No evidence of DVT. Probable reactive phlebitis in the basilic vein. ACT 112: Negative or not required by law. Electronically signed by: Lillie Rao M.D. 05/23/2024 3:20 PM Medications Administered Discontinued Medications Sodium Chloride (Nss) 1,000 mls @ 999 mls/hr IV .Q1H1M ONE Stop: 05/23/24 14:06 Last Infusion: 05/23/24 15:36 Dose: Infused Documented By: Admin: 05/23/24 14:09 Dose: 999 mls/hr Documented By: MANPREET Acetaminophen (Ofirmev) 1,000 mg in 100 mls @ 400 mls/hr IV NOW STA Stop: 05/23/24 13:20 Last Infusion: 05/23/24 15:33 Dose: Infused Documented By: Admin: 05/23/24 14:09 Dose: 400 mls/hr Documented By: MANPREET Ceftriaxone Sodium (Rocephin) 2,000 mg in 50 mls @ 100 mls/hr IV NOW STA Stop: 05/23/24 15:40 Last Admin: 05/23/24 15:34 Dose: 100 mls/hr Documented By: NIMISHA Code Status & VTE Plan Code Status FULL CODE Supervising Physician Co-Signing Physician Notes Pt seen and examined by me, care coordinated w/ PAKristinaC, as above, pls refer to her note for further detail. 53y/o M with hx of MRSA bacteremia secondary to deep incisional wound infection s/p L4-L5 microdiscectomy in February 2024 who presented w/ erythema around the site where his PICC line was recently removed on 05/18/24. Pt 's hx significant for - L4-L5 microdiscectomy on 02/27/24 with an orthopedic spinal surgeon down in [place] at [facility]. This was complicated by the development of a CSF leak. Then underwent another spinal procedure back at [facility] in early March 2024 after being transferred from [facility]. This was complicated by MSRA bacteremia 2/2 deep incisional wound infection. Patient was then admitted at [facility] in March 2024 before ultimately being transferred to [facility] for further evaluation and management. Was admitted at [facility] from 04/04/24 to 04/11/2024. Underwent wound exploration on 04/05/[address] Сергей Curtis [neurosurgery]. Procedure entailed wound washout, L4 laminectomy, L5 laminectomy, L5 medial cystectomy, dural repair. Completed full antibiotic course including po linezolid and IV daptomycin on 05/18/24. PICC line removed on 05/18/24. Now patient coming in with erythema surrounding the site where his PICC line was recently removed from (RUE). No reported fevers. Does endorse chills. Noted some erythematous streaking down the inferior portion of his RUE below his PICC line site. No drainage from the area where his PICC line was inserted. Pt is alert oriented, answers appropriately. Lungs are CTAB, hearts sounds regular. Abdomen soft, nontender. Scar on pt's back looks well healed, nontender, nonedematous, without any drainage, no significant erythema noted. pt is moving extremities. Skin is warm and dry. Blood cultures were obtained in the ED. Pt was started on Daptomycin and Rocephin, will cont. for now, and will further discuss w/ ID. Mindi ID consulted. Pt reports he missed scheduled follow up appointment w/ [facility] neurosurgery d/t bad weather. MD Tim I spent a total of 25 minutes coordinating, documenting, and providing care for this patient excluding time spend in the performance of separately billed services or time spent by another provider / QHP. (2) Depression Depression Type: unspecified Qualified Code(s): F32.A - Depression, unspecified (3) GERD (gastroesophageal reflux disease) Esophagitis presence: esophagitis presence not specified Qualified Code(s): K 21.9 - Gastro-esophageal reflux disease without esophagitis
[2024-05-23] MEDS: DAPTOmycin 475 MG in SYRINGE 0 ML IV ONE (16:13)
[2024-05-23 16:26] LABS: Appearance Urine Clear (Clear); Bilirubin Urine Negative (Negative); Blood Urine Negative (Negative); Color Urine Yellow; Glucose Urine UA Negative (Negative); Ketones Urine Negative (Negative); Leukocyte Esterase Urine Negative (Negative); Nitrite Urine Negative (Negative); Protein Urine Negative (Negative); Specific Gravity Urine 1.013 (1.000-1.030); Urobilinogen Urine Negative (Negative); pH Urine 5.5 (4.5-7.5)
--- OUTSIDE RECORDS SUMMARY | 2024-05-23 17:43 | External Medical Summary | Summary of Care ---
Author Name Unknown Organization [facility] Address [address] [place] [facility] [place] [address] Phone [phone] Care Team Providers Care Systems Test Engineer Name Role Phone Melissa Escudero DO Primary Care Provider [phone] Reason for Visit * Reason Onset Date Comments Home Health 04/07/2024 Encounter Details Date Type Department Care Team (Late st Contact Info) Description 04/07/[address] [facility] [address] [facility] [place] [id number] Melissa Escudero DO [address] [facility] [place] [id number] Home Health Allergies No known active allergiesdocumented as of this encounter (statuses as of 05/15/2024) Medications Pantoprazole Sodium 40 MG Oral Tablet Delayed Release (Protonix) Take 1 Tablet by mouth every evening. 06/11/2023 Active documented as of this encounter (statuses as of 05/15/2024) Active Problems Problem Noted Date Diagnosed Date MRSA bacteremia 04/07/2024 Deep incisional surgical site infection 04/07/19 25 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 documented as of this encounter (statuses as of 05/15/2024) Immunizations Name Administration Dates Next Due Seasonal Influenza Virus Vac cine, Unspecified Formulation 02/13/2022,01/01/2020 TDAP, Age 7 and older, IM (Adacel) 04/18/2017 Zoster Vaccine Recombinant (Shingrix) 04/11/2021 ,10/23/2020 documented as of this encounter Social History Tobacco Use Types Packs/Day Years Used Date Smoking Tobacco: Former Cigarettes 1 30.7 S tarted: 09/18/1993 Smokeless Tobacco: Never Comments:Currently 1/2 ppd. Alcohol Use Standard Drinks/Week Comments Yes 0 (1 standard drink = 0.6 oz pur e alcohol) rarely Personal Safety Answer Date Recorded Do you feel unsafe or have concerns for your saf ety? No 04/04/2024 Do you have concerns for you r family's safety? (Household - for ages 0-17 years) Not on file 04/04/2024 Utilities Answer Date Recorded Do you have trouble paying y our heating, water, or electric bill? No 04/04/2024 Is your family able to pay t he heat, water, or electric bill? (Household - for ages 0-17 years) Not on file 04/04/2024 Does your family have access to good internet? (Household - for ages 0-17 years) Not on file 04/04/2024 Transportation Needs Answer Date Record ed Do you have trouble getting a ride to medical visits or work? (Adult - for ages 18 years and over) Not on file 04/04/2024 Does your family have a hard time getting a ride to doctors visits? (Household - for ages 0-17 years) Not on file 04/04/2024 Has lack of transportation k ept you from medical appointments, meetings, work, or from getting things needed for daily living? Check all that apply. No 04/04/2024 Do you (or your family) have trouble finding or paying for a ride (transportation)? (Household - for ages 0-17 years) Not on file 04/04/2024 Housing Stability Answer Date Recorded Do you currently live in a s helter or have no steady place to sleep at night? (Adult - for ages 18 years and over) Not on file 04/04/2024 Do you think you are at risk of becoming homeless? (Adult - for ages 18 years and over) Not on file 04/04/2024 Does your family worry about paying for your home or becoming homeless? (Household - for ages 0-17 years) Not on file 0 04/04/2024 Are you homeless or worried that you might be in the future? No 04/04/2024 Are you (or your family) sarah eless or worried that you might be in the future? (Household - for ages 0-17 years) Not on file Food Insecurity Answer Date Recorded Do you need food for this week? No 04/04/2024 Are you able to get enough f ood for your family? (Household - for ages 0-17 years) Not on file 04/04/2024 Does your family need food t his week? (Household - for ages 0-17 years) Not on file 04/04/2024 Do you always have enough fo od for your family? (Household - for ages 0-17 years) Not on file 04/04/2024 Food Insecurity Answer Date Recorded Worried About Running Out of Food in the Last Ye ar Not on file 04/04/2024 Ran Out of Food in the Last Year Not on file 04/04/2024 Do you need food for this week? No 04/04/2024 Sex and Gender Information Value Date Recorded Sex Assigned at Male 07/21/2023 5:19 PM EDT Legal Sex Male 5:04 AM EST Gender Identity Male 07/21/2023 5:19 PM EDT Sexual Orientation Straight 07/21/2023 5: 19 PM EDT documented as of this encounter Functional Status * Are you deaf or do you have serious difficulty hearing? Answer Date of Assessment Author No 04/04/2024 5:36 AM Ashley Bell RN * Are you blind or do you have serious difficulty seeing, even when wearing glasses? Answer Date of Assessment Author No 04/04/2024 5:36 AM Ashley Bell RN * Do you have serious difficulty walking or climbing stairs? (5 years old or older) Answer Date of Assessment Author Yes 04/04/2024 5:36 AM Ashley Bell RN * Do you have difficulty dressing or bathing? (5 years old or older) Answer Date of Assessment Author Yes 04/04/2024 5:36 AM Ashley Bell RN * Because of a physical, mental, or emotional condition, do you have difficulty doing errands alone such as visiting a doctors office or shopping? (15 years old or older) Answer Date of Assessment Author Yes 04/04/2024 5:36 AM Ashley Bell RN documented as of this encounter Mental Status * Because of a physical, mental, or emotional condition, do you have serious difficulty concentrating, remembering, or making decisions? (5 years old or older) Answer Entry Date Author No 04/04/2024 5:36 AM Ashley Bell RN documented in this encounter Miscellaneous Notes * Telephone Encounter - Nupur Coughlin CRNP - 04/11/2024 1:28 PM EST Inboxologist Covering Provider Please schedule hospital follow up All replies or additional communication must be routed to the PCP * Telephone Encounter - Sintia Flowers LPN - 04/07/2024 11:24 AM EST Admission/Start of Care Admission/Start of Care: Kae Calling from: Christ[facility] Patient was Admitted to: [facility] , for: CSF Leak from 04/04 to present Referral ordered by: [facility] Referral received for: Alf Planned start of care date:Yes, Date within 48 hours of discharge Start of care completed on: NA They will call with any updates or additional concerns from the upcoming HH visit. Last Office Visit: 01/28/2024 Has patient been scheduled or seen in the office for a follow up visit: Needs contacted to schedulefollow up Advised that orders will be signed by Melissa Escudero DO and to fax to the office for signature. [facility] documented in this encounter Plan of Treatment Upcoming Encounters Date Type Department Care Team (Late st Contact Info) Description 05/27/2024 10:20 AM EST Office Visit [address] [place] [address] Lindsay Wen CRNP [address] [place] [address] 05/29/2024 10:20 AM EST Telemedicine Infectious Disease, [address] [place] [address] Beena Yadav MD [address] [place] [address] Scheduled Procedures Name Priority Associated Diagnoses Date/Ti me COLONOSCOPY FLEXIBLE PROXIMA L DIAGNOSTIC Recall History of colonic polyps Health Maintenance Due Date Last Done Comments Depression Screening 1982 HIV Screening 1985 Hepatitis C Screening 1988 Hepatitis B Vaccine (1 of 3 - 19+ 3-dose series) 1989 Pneumococcal Vaccine: 50+ Years (1 of 2 - PCV) 1989 Cologuard 10/16/2015 Fecal Occult Blood Test 10/16/2015 Sigmoidoscopy 10/16/2015 Influenza Vaccine (FLU shot) (#1) 2023 02/13/2022, 01/01/2020 Colonoscopy 02/05/2027 02/06/2024, 02/06/2024 Colorectal Cancer Screening 02/05/2027 DTap/Tdap Vaccines (2 - Td or Tdap) 04/18/2027 04/18/2017 Diabetes Screening 04/19/2027 04/19/2024, 0 04/17/2024, 04/12/2024, Additional history exists Lipid Panel 09/06/2028 09/07/2023 COVID-19 Vaccine Discontinued 03/19/2021, 09/2020, 06/16/2020 Zoster Vaccines Completed 04/11/2021, 10/23/2020 HPV (Gardasil) Vaccine Aged Out No lo nger eligible based on patient's age to complete this topic MENINGOCOCCAL (MENACTRA/MENVEO) Aged Out No longer eligible based on patient's age to complete this topic documented as of this encounter Medical Devices Implanted Type Area Certified Orthoptist Device Identifier Shelf Expiration Date Model / Serial / Lot Duragen Plus 3x3 Dp 1033 Min5 - [id number] - [id number] Implanted:Qty : 1 on 04/05/2024 by Сергей Curtis MD at OR [facility] N/A: Spine Lumbar [employer] [id number] 11/30/2025 DP-1033 / [id number] / [id number] documented as of this encounter Advance Directives * Full Code (Latest Code Status on File) Date Activated Date Inactivated Comments 04/04/2024 7:10 AM 04/11/2024 3:50 PM This order re flects the patients wishes and were consensually agreed upon. Question Answer Comments Discussion of Advance Direct iona occurred with: Not Discussed due to patient's condition Care Teams Systems Test Engineer Relationship Specialty Start Date End Date Melissa Escudero DO [address] [place] [id number] PCP - General Family Medicine 07/18/23 documented as of this encounter
--- OUTSIDE RECORDS SUMMARY | 2024-05-23 17:43 | External Medical Summary | Summary of Care ---
Author Name Unknown Organization [facility] Address [address] [place] [address] Phone [phone] Care Team Providers Care Acct Exec Name Role Phone Melissa Fritz DO Primary Care Provider [phone] Encounter Details Date Type Department Care Team (Late st Contact Info) Description 05/20/2024 Telephone Infectious Disease, [place] [address], [place] [address] Valente Braun MD [address] [place], [place] [phone] Allergies No known active allergiesdocumented as of this encounter (statuses as of 05/20/2024) Medications Pantoprazole Sodium 40 MG Oral Tablet Delayed Release (Protonix) Take 1 Tablet by mouth every evening. 06/11/2023 Active oxyCODONE HCl 5 MG Oral Tablet (Oxy IR) Take 1 Tablet by mouth every 4 hours as needed for Pain, Moderate. 50 Tablet 04/11/2024 Active HYDROcodone-Acet aminophen 5-325 MG Oral Tablet Take 1 Tablet by mouth every 6 hours as needed for Pain, Mild. Active Cyclobenzaprine HCl 10 MG Oral Tablet (Flexeril) Take 1 Tablet by mouth in the morning and 1 Tablet at noon and 1 Tablet before bedtime. 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 Do not cut, crush or chew. 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 documented in this encounter Plan of Treatment Upcoming Encounters Date Type Department Care Team (Late st Contact Info) Description 05/27/2024 10:20 AM EST Office Visit Family Practice [facility] [address] [place] [address] Lindsay Wen CRNP [address] [place] [address] 05/29/2024 10:20 AM EST Telemedicine Infectious Disease, [address] [id number] Beena Yadav MD [address] [place] [address] Scheduled Procedures Name Priority Associated [...] on patient's age to complete this topic Meningitis B Vaccine (Bexsero/Trumemba) Aged Out No longer eligible based on patient's age to complete this topic documented as of this encounter Medical Devices Implanted Type Area Real Estate Economist Device Identifier Shelf Expiration Date Model / Serial / Lot Duragen Plus 3x3 Dp 1033 Min5 - [id number] - [id number] Implanted:Qty : 1 on 04/05/2024 by Сергей Curtis MD at OR [facility] N/A: Spine Lumbar [employer] PAIGE [id number] 11/30/2025 DP-1033 / [id number] / [id number] documented as of this encounter Advance Directives * Full Code (Latest Code Status on File) Date Activated Date Inactivated Comments 04/04/2024 7:10 AM 04/11/2024 3:50 PM This order re flects the patients wishes and were consensually agreed upon. Question Answer Comments Discussion of Advance Direct iona occurred with: Not Discussed due to patient's condition Care Teams Acct Exec Relationship Specialty Start Date End Date Melissa Fritz DO [address] [place] [address] PCP - General Family Medicine 07/18/23 documented as of this encounter
--- OUTSIDE RECORDS SUMMARY | 2024-05-23 17:44 | External Medical Summary | Summary of Care ---
Author Name Unknown Organization [facility] Address [address] [place] [address] Phone [phone] Care Team Providers Care Industrial Painter Name Role Phone Lam Jasmine Lary KAMARA Primary Care Provider [phone] Reason for Visit * Reason Onset Date Comments Hospital Follow-Up 04/09/2024 4-6wk hd/fu a ppt needed thanks Addie Encounter Details Date Type Department Care Team (Late st Contact Info) Description 04/09/2024 Telephone Infectious Disease, [place] [address] [place] [address] Specified, Case No Resource [address] [place] [address] Hospital Follow-Up (4-6wk hd/fu appt neede... Allergies No known active allergiesdocumented as of this encounter (statuses as of 04/18/2024) Medications Pantoprazole Sodium 40 MG Oral Tablet Delayed Release (Protonix) Take 1 Tablet by mouth every evening. 06/11/19 24 Active Meclizine HCl 25 MG Oral Tablet (Antivert) ONLY NEEDED 04/15/19 24 025 Discontinued Cyclobenzaprin e HCl 5 MG Oral Tablet (Flexeril) Take 1 Tablet by mouth in the morning and 1 Tablet at noon and 1 Tablet before bedtime. NEEDED . 025 Discontinued Celecoxib 100 MG Oral Capsule (CeleBREX)Ev cations:DDD (degenerative disc disease), lumbar,Chronic radicular lumbar pain Take 1-2 capsules by mouth daily as needed for pain. Take lowest dose necessary for relief of pain. Take WF and water. 60 Capsule 2 07/26/19 24 025 Discontinued Ibuprofen 600 MG Oral Tablet (Motrin) Take 1 Tablet by mouth every 6 hours as needed. 025 Discontinued documented as of this encounter (statuses as of 04/18/2024) Active Problems Problem Noted Date Diagnosed Date MRSA bacteremia 04/07/2024 Deep incisional surgical site infection 04/07/19 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 documented as of this encounter (statuses as of 04/18/2024) Immunizations Name Administration Dates Next Due Seasonal Influenza Virus Vac cine, Unspecified Formulation 02/13/2022,01/01/2020 TDAP, Age 7 and older, IM (Adacel) 04/18/2017 Zoster Vaccine Recombinant (Shingrix) 04/11/2021 ,10/23/2020 documented as of this encounter Social History Tobacco Use Types Packs/Day Years Used Date Smoking Tobacco: Former Cigarettes 1 30.6 S tarted: 09/18/1993 Smokeless Tobacco: Never Comments:Currently [...] ages 0-17 years) Not on file 04/04/2024 Sex and Gender Information Value Date [...] encounter Miscellaneous Notes * Telephone Encounter - Addie Mckenzie OSA - 04/09/2024 6:02 AM EST Order RETURN APPT [IP355] (Order [id number]) Kris Hernandez 04/04/2024 5:35 AM Admission Description: 53 year old male Department: AP4 IP [facility] Message Patient Name: KRIS HERNANDEZ([id number]) Sex: Male : 1970 PCP: JASMINE PACE Center: [facility] Types of orders made on 04/08/2024: IP Post Discharge , Lab, Medications Order Date:04/08/2024 Ordering User:HELDER WILSON [[id number]] Attending Provider:Saul Menjivar MD [[id number]] Authorizing Provider: Helder Wilson MD [[id number]] Department:AP4 IP [facility][[id number]] Order Specific Information Order: RETURN APPT [CUSTOM: [id number]] Order #: [id number]: [id number] Priority: Routine Class: Nursing Unit Comment:Or Dr. Dubon Department (Single Entry) -> Infectious Disease Appt Needed Within: (Specify # of Days, Weeks, Months) Cmt: 4-6wks Provider -> HELDER WILSON Released on: 04/08/2024 5:06 PM Priority: Routine Class: Nursing Unit Comment:Or Dr. Dubon Department (Single Entry) -> Infectious Disease Appt Needed Within: (Specify # of Days, Weeks, Months) Cmt: 4-6wks Provider -> HELDER WILSON Released on: 04/08/2024 5:06 PM Order Information documented in this encounter Plan of Treatment Upcoming Encounters Date Type Department Care Team (Late st Contact Info) Description 04/22/2024 1:00 PM EST Telemedicine [facility] [address] [place] [address] Сергей Curtis MD [address], [place] [phone] Scheduled Procedures Name Priority Associated Diagnoses Date/Ti [...] 02/06/2024 Colorectal Cancer Screening 02/05/2027 Diabetes Screening 04/17/2027 04/17/2024, 0 04/12/2024, 04/11/2024, Additional history exists DTap/Tdap Vaccines (2 - [...] this encounter Medical Devices Implanted Type Area Head Tennis Coach Device Identifier Shelf Expiration Date Model / Serial / Lot Duragen Plus 3x3 Dp 1033 Min5 - [id number] - [id number] Implanted:Qty : 1 on 04/05/2024 by Сергей Curtis MD at OR [facility] N/A: Spine Lumbar [employer] PAIGE [id number] 11/30/2025 DP-1033 / [id number] / [id number] documented as of this encounter Advance Directives * Full Code (Latest Code Status on File) Date Activated Date Inactivated Comments 04/04/2024 7:10 AM 04/11/2024 3:50 PM This order re flects the patients wishes and were consensually agreed upon. Question Answer Comments Discussion of Advance Direct iona occurred with: Not Discussed due to patient's condition Care Teams Industrial Painter Relationship Specialty Start Date End Date Jasmine Pace DO [address] [place] [address] PCP - General Family Medicine 07/18/23 documented as of this encounter
--- OUTSIDE RECORDS SUMMARY | 2024-05-23 17:44 | External Medical Summary | Summary of Care ---
Author Name Unknown Organization [facility] Address [address] [place] [address] Phone [phone] Care Team Providers Care Business Development Assistant Name Role Phone Melissa Fritz DO Primary Care Provider [phone] Encounter Details Date Type Department Care Team (Late st Contact Info) Description 04/23/2024 Telephone Infectious Disease, [place] [address] [place], [place] [phone] Valente Braun MD [address] [place], [place] [phone] Allergies No known active allergiesdocumented as of this encounter (statuses as of 04/23/2024) Medications Pantoprazole Sodium 40 MG Oral Tablet Delayed Release (Protonix) Take 1 Tablet by mouth every evening. 06/11/2023 Active oxyCODONE HCl 5 MG Oral Tablet (Oxy IR) Take 1 Tablet by mouth every 4 hours as needed for Pain, Moderate. 50 Tablet 04/11/2024 Active tiZANidine HCl 4 MG Oral Tablet (Zanaflex) Take 1 Tablet by mouth every 6 hours as needed for Muscle spasms. 50 Tablet 1 04/11/2024 Active HYDROcodone-Acet aminophen 5-325 MG Oral Tablet Take 1 Tablet by mouth every 6 hours as needed for Pain, Mild. Active Hospital, Clinic, or Other Facility Administered Medication Ordered Dose Route Frequency Start Date End Date Status Albuterol Sulfate (Proventil) (2.5 MG/3ML) 0.083% inhalation solution 2.5 mgIndications:Tobacco abuse 2.5 mg NEBULIZER ONCE PRN 09/13/2023 09/12/2024 Active documented as of this encounter (statuses as of 04/23/2024) Active Problems Problem Noted Date Diagnosed Date MRSA bacteremia 04/07/2024 Deep incisional surgical site infection 04/07/19 25 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 documented as of this encounter (statuses as of 04/23/2024) Immunizations Name Administration Dates Next Due Seasonal [...] encounter Miscellaneous Notes * Telephone Encounter - Angela Hooper LPN - 04/23/2024 1:54 PM EST I spoke with Pt to verify he is set up to begin Dapto. He will be going to [facility] daily for infusion and they will draw his labs and care for his line. I sent a TT to [facility] clinical group verifying they had all the orders and they do. Angela Hooper LPN Nurse Navigator ID documented in this encounter Plan of Treatment Upcoming Encounters Date Type Department Care Team (Late st Contact Info) Description 05/29/2024 10:20 AM EST Telemedicine Infectious Disease, [address] [phone] Beena Yadav MD [address] [place] [address] Scheduled Procedures Name Priority Associated [...] this encounter Medical Devices Implanted Type Area Appliquer Device Identifier Shelf Expiration Date Model / Serial / Lot Duragen Plus 3x3 Dp 1033 Min5 - [id number] - [id number] Implanted:Qty : 1 on 04/05/2024 by Сергей Curtis MD at [place] [facility] [place] [facility] N/A: Spine Lumbar [employer] PAIGE [id number] 11/30/2025 DP-1033 / [id number] / [id number] documented as of this encounter Advance Directives * Full Code (Latest Code Status on File) Date Activated Date Inactivated Comments 04/04/2024 7:10 AM 04/11/2024 3:50 PM This order re flects the patients wishes and were consensually agreed upon. Question Answer Comments Discussion of Advance Direct inoa occurred with: Not Discussed due to patient's condition Care Teams Business Development Assistant Relationship Specialty Start Date End Date Melissa Fritz DO [address] [facility] [place] [address] PCP - General Family Medicine 07/18/23 documented as of this encounter
--- OUTSIDE RECORDS SUMMARY | 2024-05-23 17:44 | External Medical Summary | Summary of Care ---
Author Name Unknown Organization [facility] Address [address] [place] [address] Phone [phone] Care Team Providers Care Manufacturing Technician Name Role Phone Lam Melissa Lary KAMARA Primary Care Provider [phone] Reason for Visit * Reason Comments Post-Op Encounter Details Date Type Department Care Team (Late st Contact Info) Description 04/22/2024 1:00 PM EST [facility] [address] [place], [place] [phone] Сергей Curtis MD [address] [place] [address] CSF leak* Allergies No known active allergiesdocumented as of this encounter (statuses as of 04/22/2024) Medications Pantoprazole Sodium 40 MG Oral Tablet [...] as of this encounter (statuses as of 04/22/2024) Active Problems Problem Noted Date Diagnosed Date MRSA bacteremia 04/07/2024 Deep incisional surgical site infection 04/07/19 25 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 documented as of this encounter (statuses as of 04/22/2024) Immunizations Name Administration Dates Next Due Seasonal [...] Assessment Author No 04/04/2024 5:36 AM Ashley Bell, DESTIN * Are you blind or do you [...] Ashley Bell RN documented in this encounter Progress Notes * Сергей Curtis MD - 04/22/2024 4:14 PM EST NEUROSURGERY ROUTINE FOLLOW-UP CLINIC NOTE Kris Celaya [id number] 04/22/2024 4:15 PM SURGERY DATE: 04/05/2024 As per patient preference, connection with the patient via audio only occurred. The patient was informed this was a phone call only visit and was identified by name and date of . The patient agreed to participate. Total call duration was 30 minutes. CC: Dural repair after spine surgery at [facility]SH HPI: Kris Celaya is a 53 year old male who returns to neurosurgery clinic after undergoing a dural repair 2024. He reports no fluid drainage from the wound, no evidence of dehiscence, andno purulent drainage from the wound. He does have significant right-sided musculoskeletal back painsince the surgery. He returns to Neurosurgery clinic for a routine postoperative visit. ROS: A review of ten systems was discussed and any positive findings are noted in the above HPI. The patient describes: No fevers or chills No nausea or vomiting No headache No blurred vision or double vision No weakness No numbness or tingling in the extremities No difficulty swallowing No chest pain No shortness of breath No constipation or loose stools No pain on urination and no difficulty urinating PHYSICAL EXAM (This was limited as it was a telephone visit) There were no vitals taken for this visit. General: Patient is awake and alert and conversant Pulm: Breathing unlabored COUNSELING: I spent a total of 30 minutes on the date of service in preparation, delivery, and documentation of the care provided to the patient, excluding any time spent on the performance of any procedure or separately billable services. ASSESSMENT AND PLAN: Patient Active Problem List Diagnosis CSF leak MRSA bacteremia Deep incisional surgical site infection This patient is a 53-year-old male who returns to Neurosurgery clinic after undergoing primary repair of a dural tear approximately 17 days ago. He reports no positional headaches and no drainage from his wound and is very happy with the results. We talked a bit about his right-sided low back pain and I believe this is most likely musculoskeletal in nature. We also talked a bit about the mechanics of the surgery and I explained to him that we take multiple efforts to minimize recurrence of thisdural leak. He would like to follow up with us in clinic in four weeks and I am happy to do that ananswer any other questions that he or his has about the surgery. -return to Neurosurgery clinic in four weeks Сергей Curtis MD Neurosurgery, [place] [address] 04/22/2024 4:15 PM documented in this encounter Plan of Treatment Scheduled Procedures Name Priority Associated Diagnoses Date/Ti [...] this encounter Medical Devices Implanted Type Area Printed Circuit Board Panels Developer Device Identifier Shelf Expiration Date Model / Serial / Lot Duragen Plus 3x3 Dp 1033 Min5 - [id number] - [id number] Implanted:Qty : 1 on 04/05/2024 by Сергей Curtis MD [place] [facility]A: Spine Lumbar [employer] PAIEG [id number] 11/30/2025 DP-1033 / [id number] / [id number] documented as of this encounter Visit Diagnoses Diagnosis CSF leak- Primary Other specified disorder of nervous system documented in this encounter Advance Directives * Full Code (Latest Code Status on File) Date Activated Date Inactivated Comments 04/04/2024 7:10 AM 04/11/2024 3:50 PM This order re flects the patients wishes and were consensually agreed upon. Question Answer Comments Discussion of Advance Direct iona occurred with: Not Discussed due to patient's condition Care Teams Manufacturing Technician Relationship Specialty Start Date End Date Melissa Fritz DO [address] [place] [address] PCP - General Family Medicine 07/18/23 documented as of this encounter
--- OUTSIDE RECORDS SUMMARY | 2024-05-23 17:44 | External Medical Summary | Summary of Care ---
Author Name Unknown Organization [facility] Address [address] [place] [address] Phone [phone] Care Team Providers Care Office Secretary Name Role Phone Melissa Fritz DO Primary Care Provider [phone] Reason for Visit * Reason Comments Hospital Follow-Up In patient rehab dis charge. Encounter Details Date Type Department Care Team (Late st Contact Info) Description 04/28/2024 10:00 AM EST Office Visit Family Practice [facility] [place] [address] Lindsay Wen CRNP [address] [place] [address] Hospital discharge follow-up*; Adjustment disorder with mixed disturbance of emotions and conduct; Hematuria, unspecified type; Family history of prostate cancer; CSF leak; Back pain with history of spinal surgery; MATTY (acute kidney injury) (HCC) Allergies No known active allergiesdocumented as of this encounter (statuses as of 05/15/2024) Medications Pantoprazole Sodium 40 MG Oral Tablet Delayed Release (Protonix) Take 1 Tablet by mouth every evening. 4 Active oxyCODONE HCl 5 MG Oral Tablet (Oxy IR) Take 1 Tablet by mouth every 4 hours as needed for Pain, Moderate. 50 Tablet 5 Active HYDROcodone-Acet aminophen 5-325 MG Oral Tablet Take 1 Tablet by mouth every 6 hours as needed for Pain, Mild. Active Cyclobenzaprine HCl 10 MG Oral Tablet (Flexeril) Take 1 Tablet by mouth in the morning and 1 Tablet at noon and 1 Tablet before bedtime. 4 Active tiZANidine HCl 4 MG Oral Tablet (Zanaflex) Take 1 Tablet by mouth every 6 hours as needed for Muscle spasms. 50 Tablet 1 5 04/28/19 25 Discontinu ed(Medicat ion List Clean Up) Venlafaxine HCl ER 37.5 MG Oral Capsule Extended Release 24 Hour (Effexor XR)Indications:A djustment disorder with mixed disturbance of emotions and conduct Take 1 Capsule by mouth in the morning. Do not cut, crush or chew. After two weeks, can increase to two capsules by mouth daily.. 30 Capsule 5 5 04/29/19 25 Discontinu ed(Refill) Hospital, Clinic, or Other Facility Administered Medication [...] PM EDT documented as of this encounter Last Filed Vital Signs Vital Sign Reading Time Taken Comments Blood Pressure 124/90 04/28/2024 10:09 AM EST Pulse 108 04/28/2024 10:10 AM EST Temperature 36.8 C (98.3 F) 04/28/2024 10:[address] Respiratory Rate - - Oxygen Saturation 98% 04/28/2024 10:09 AM EST Inhaled Oxygen Concentration - - Weight 85.4 kg (188 lb 4.8 oz) 04/28/2024 10:09 AM EST Height 177.8 cm (5' 10") 04/28/2024 10:09 AM EST Body Mass Index 27.02 04/28/2024 10:09 AM EST documented in this encounter Functional Status * Are you [...] documented in this encounter Progress Notes * Lindsay Wen CRNP - 04/28/2024 10:20 AM EST Images from the original note were not included. Subjective Kris Celaya is a 53 year old male that presents for Hospital Follow-Up (In patient rehab discharge. ) History of Present Illness The patient, with a history of three back surgeries, presents for hospital discharge follow up after experiencing CSF leak. Dates of hospitalization 04/04/24 to 04/11/24. He underwent his fourth dural repair on 04/05/24. He has had 2 other admissions since his initial surgery in December. Was discharged from his rehab facility 04/22/24 ([facility] - records not available for review at time of visit). Reviewed hospital records - admission HPI reads "Hx of recent spine surgery L4-5 microdiscectomy 02/26 from orthopedic spine surgeon in [place] c/b CSF leak. Per pt, leak started about 2 weeks after surgery. Pt had attempted to get this fixed by his primary spine surgeon, though was unfortunately removed from their practice reportedly. Pt is now transferred here to seek care for this CSF leak. MRI from 03/17 demonstrates this. He has positional headaches worse when sitting up/standing. He isreportedly on daptomycin for 8 weeks for MRSA bacteremia with a PICC line". His discharge summary reports "underwent the below mentioned procedure. He had a benign post operative course. After meeting criteria and his lumbar drain was removed, he was discharged to rehab in satisfactory condition. he will follow up in 2 weeks for a recheck. He will stay on the linezolid until 04/20/24, then restart daptomycin at that time until 05/18/24. Weekly labs and then f/u with ID Exploration of wound Wound washout L4 laminectomy L5 laminectomy L5 medial facetectomy Dural repair Harvesting of fat autograft Implantation of harvested fat autograft Use of c-arm and interpretation Placement of lumbar drain Complex multi-layered closure using overlapping muscle and fascial flaps" He complains of persistent headaches, high blood pressure, and lower back pain. He believes the headaches are a side effect of his current medications, which include hydrocodone, oxycodone, daptomycin, and Flexeril. The headaches are described as dull and constant, primarily located in the foreheadand more prominent on the left side. They are not associated with nausea or light sensitivity. He has discussed them with his neurosurgery team. The patient's blood pressure has been consistently high, with readings as high as 166/133. He has been monitoring his blood pressure at home and has noticed a correlation between his pain levels and blood pressure readings. The patient also reports lower back pain, particularly on the right side. The pain does not radiatedown the hip or leg but is localized to the lower back and hip area. The pain intensifies when the patient sits up or stands, and he reports feeling weak. In addition to these physical symptoms, the patient has been dealing with depression. He has been feeling down for the past couple of months and is interested in starting an antidepressant, specifically Zoloft. The patient also has a family history of prostate cancer, with his biological father recently undergoing surgery for stage three prostate cancer. The patient's preoperative testing showed blood in his urine, and he is concerned about his own risk. Objective Vitals: 04/28/24 1009 04/28/24 1010 Temp: 98.3 F (36.8 C) Pulse: 128 108 SpO2: 98% BP: 124/90 BMI: 27.02 Physical Exam VITALS: BP- 166/133, BP- 127/?, BP- 166/?, BP- 127/? MEASUREMENTS: WT- 210, Ht- 5'10" NEUROLOGICAL: Coordination during sxgike-fq-yxed test intact. Visual fajardo intact bilaterally. Cranial nerves II through XII grossly intact. No facial asymmetry. Indian Nanny strength normal bilaterally. Noevidence of foot drop. Presents in wheelchair Physical Exam Vitals reviewed. Constitutional: General: He is not in acute distress. Cardiovascular: Rate and Rhythm: Normal rate and regular rhythm. Heart sounds: Normal heart sounds. Pulmonary: Effort: No respiratory distress. Breath sounds: Normal breath sounds. Musculoskeletal: Right lower leg: No edema. Left lower leg: No edema. Skin: Capillary Refill: Capillary refill takes less than 2 seconds. Neurological: Mental Status: He is alert. Psychiatric: Behavior: Behavior normal. Thought Content: Thought content normal. I have reviewed the following results: Results LABS Creatinine: 2.5 (04/12/2024) Creatinine: 2.2 (04/17/2024) Creatinine: 1.9 (04/19/2024) Assessment and Plan Assessment & Plan Post-operative complications from back surgery History of multiple back surgeries with complications including CSF leaks and MRSA infection. Currently on Daptomycin via PICC line for MRSA. No current signs of infection or CSF leak. -Continue Daptomycin as prescribed. -Monitor PICC line site for signs of infection. Headaches Reports of non-positional headaches, possibly related to medication side effects or elevated blood pressure. No signs of neurological deficits on examination. -Start Effexor 37.5mg daily for potential dual benefit on depression and headaches. -Advise patient to monitor blood pressure at home, particularly during headache episodes. -Consider consultation with neurology for further management if headaches persist. Hypertension Reports of elevated blood pressure readings, possibly related to Daptomycin use. -Advise patient to monitor blood pressure at home daily. -Consider adjustment of antihypertensive regimen if consistently above 140/90. Depression Patient reports feeling depressed, possibly related to recent health issues and chronic pain. -Start Effexor 37.5mg daily. -Schedule follow-up in 4-6 weeks to assess response and adjust treatment as necessary. Chronic back pain Reports of persistent back pain following surgeries. Pain is localized to the back and does not radiate to the legs. -Continue current pain management regimen. -Consider physical therapy or other non-pharmacological interventions for pain management. Family history of prostate cancer Biological father recently diagnosed with stage 3 prostate cancer. Patient has no current urinary symptoms. -Consider PSA screening given family history. -Advise patient to report any changes in urinary symptoms. Impaired renal function Recent increase in creatinine, possibly related to Daptomycin use. -Continue to monitor renal function with regular blood draws. -Encourage hydration to support kidney function. General Health Maintenance -Encourage hydration and consider addition of B vitamin complex and magnesium supplement for potential benefit on headaches. -Consider urine sample to investigate presence of blood. -Advise patient to report any changes in urinary symptoms or signs of infection at PICC line site. Hospital discharge follow-up (Primary) Adjustment disorder with mixed disturbance of emotions and conduct Hematuria, unspecified type - URINALYSIS WITH MICROSCOPIC EXAM; Future; Expected date: 04/28/2024 Family history of prostate cancer CSF leak Back pain with history of spinal surgery MATTY (acute kidney injury) ([facility]) Wrap-Up Follow-up: Return in about 4 weeks (around 05/26/2024). | Check-out note: Recheck mood Video visit ok Time: I spent a total of 40-54 minutes (exact time 40 mins) on the date of service in preparation, delivery, and documentation of the care provided to Kris Celaya excluding any time spent in the performance of separately billed services. Text in this note was generated using an ambient documentation service. I discussed the use of a device to record and summarize our discussion today. All persons present during the encounter consented to its use. documented in this encounter Nursing Notes * Taniya Berrios LPN - 04/28/2024 10:02 AM EST The patient has been properly identified by confirmation of name and date of . Chief Complaint Patient presents with Hospital Follow-Up In patient rehab discharge. Pt states he had L4-L5 discectomy, contracted MRSA, curial tear (CSF leak). Ended up in the ER 3 weeks after and admitted to [facility] in [place] (03/16-03/24). Was home for 5 days. Endedup back in the [place] from a continual CSF leak, transferred to [place], then transferred to [facility] and stayed there for 11 days. Pt has constant headaches-- every pain he has been taking the side effect is h/a. Pt taking tylenolfor the h/a, helps some. Is looking for any pain med that can help his pain and not have a headache. documented in this encounter Plan of Treatment Upcoming Encounters Date Type Department Care Team (Late st Contact Info) Description 05/27/2024 10:20 AM EST Office Visit Family [facility] [address] [place] [address] Lindsay Wen CRNP [address] [place] [address] 05/29/2024 10:20 AM EST Telemedicine Infectious Disease, [address] [address] Beena Yadav MD [address] [place] [address] Scheduled Procedures Name Priority Associated [...] this encounter Medical Devices Implanted Type Area Psychiatric Clinician Device Identifier Shelf Expiration Date Model / Serial / Lot Duragen Plus 3x3 Dp 1033 Min5 - [id number] - [id number] Implanted:Qty : 1 on 04/05/2024 by Сергей Curtis MD at OR [facility] N/A: Spine Lumbar [employer] PAIGE [id number] 11/30/2025 DP-1033 / [id number] / [id number] documented as of this encounter Visit Diagnoses Diagnosis Hospital discharge follow-up- Primary Other follow-up examination Adjustment disorder with mixed disturbance of emotions and conduct Hematuria, unspecified type Family history of prostate cancer Family history of malignant neoplasm of prostate CSF leak Other specified disorder of nervous system Back pain with history of spinal surgery MATTY (acute kidney injury) (HCC) Acute kidney failure, unspecified documented in this encounter Advance Directives * Full Code (Latest Code Status on File) Date Activated Date Inactivated Comments 04/04/2024 7:10 AM 04/11/2024 3:50 PM This order re flects the patients wishes and were consensually agreed upon. Question Answer Comments Discussion of Advance Direct iona occurred with: Not Discussed due to patient's condition Care Teams Office Secretary Relationship Specialty Start Date End Date Melissa Fritz DO [address] [place] [address] PCP - General Family Medicine 07/18/23 documented as of this encounter
--- OUTSIDE RECORDS SUMMARY | 2024-05-23 17:44 | External Medical Summary ---
Author Name Unknown Address Unknown Organization K[address] [place] [address] Laboratory Report Ordering Provider Test Date Status GERALD CORONA 04/17/2024 05:33:12 Final Observation Date Value Abnormality Reference (Units ) Status SYNC LEUKOCYTES IN BLOOD BY AUTOMATED COUNT 04/17/2024 05:33:12 7.55 4.00-10.80 (K/uL) Final Segs 04/17/2024 05:33:12 51.9 40.0-75.0 (%) Final Lymphs % 04/17/2024 05:33:12 33.6 18.0-42.0 (%) Final Monos 04/17/2024 05:33:12 8.5 1.0-11.0 (%) Final Eosinophils 04/17/2024 05:33:12 4.4 0.0-6.0 (%) Final Basos 04/17/2024 05:33:12 1.6 0.0-2.0 (%) Final Absolute Segs 04/17/2024 05:33:12 3.92 1.80-7.70 (K/uL) Final Lymphs, absolute 04/17/2024 05:33:12 2.54 1.00-4.80 (K/ul) Final Monos, Abs 04/17/2024 05:33:12 0.64 0.00-1.10 (K/uL) Final Eos, Abs 04/17/2024 05:33:12 0.33 0.00-0.70 (K/uL) Final Basos, Abs 04/17/2024 05:33:12 0.12 0.00-0.20 (K/uL) Final Performing Location [place] [address]
--- OUTSIDE RECORDS SUMMARY | 2024-05-23 17:44 | External Medical Summary | Summary of Care ---
Author Name Unknown Organization [facility] Address [address] [place] [address] Phone [phone] Care Team Providers Care Manager Quality Name Role Phone Melissa Fritz DO Primary Care Provider [phone] Reason for Visit * Reason Onset Date Comments Follow Up 05/01/2024 Encounter Details Date Type Department Care Team (Late st Contact Info) Description 05/01/2024 Telephone Neurosurgery, [place] [address] [place] [address] [facility], [facility] [address] [place] [address] Follow Up Allergies No known active allergiesdocumented as of this encounter (statuses as of 05/01/2024) Medications Pantoprazole Sodium 40 MG Oral Tablet [...] as of this encounter (statuses as of 05/01/2024) Active Problems Problem Noted Date Diagnosed Date MRSA bacteremia 04/07/2024 Deep incisional surgical site infection 04/07/19 25 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 documented as of this encounter (statuses as of 05/01/2024) Immunizations Name Administration Dates Next Due Seasonal [...] encounter Miscellaneous Notes * Telephone Encounter - Shawna Fernández LPN - 05/01/2024 2:39 PM EST Spoke with Yakelin Sometime last night he started with pain describes like a hollow sharp pain across his back Left side of incision it looks like he has some fluid, it goes away with his brace and then comes back when its off Denies temp, nausea or chills They will send a picture of his incision. * Telephone Encounter - Sandra Soares OSA - 05/01/2024 11:24 AM EST Neuroscience Phone Call Form- Requested Information from caller: Who is calling patient Provider patient is established with: Dr Curtis What is the concern or issue they are having: swelling to the left of incision and pain in the middle of his back How long has the issue been going on: over night Any additional details to add: no Phone number for nurse to call back: [phone] Are forms needed? no Medication Refill? no Verify Pharmacy information is correct. Form to be used for established patients only (not new patients) Clinic has 24-48 hours to respond to caller. If caller is calling back before timeframe with any changes in condition/issues reported, update TEand re-route to appropriate pool If caller is calling back before timeframe- update TE- no need to re-route [facility] Neurology Pool- [facility] Neuro Psychology Fellow- [id number] (All messages get sent to the [facility]) Neurology Pool Numbers- Michael and [facility] patients - follow normal process Ops req [facility] Neurology ([place])- [id number] Ops req [place] Neurology ([place] [place] and [facility] clinics Only)- [id number] Neurosurgery Pool Numbers- [place] patients- follow normal process Ops req Neurosurgery [facility] ([place])- [id number] Ops req Neurosurgery [place] ([place] Only) [id number] documented in this encounter Plan of Treatment Upcoming Encounters Date Type Department Care Team (Late st Contact Info) Description 05/27/2024 10:20 AM EST [facility] [place] [address] Lindsay Wen CRNP [address] [place] [address] 05/29/2024 10:20 AM EST Telemedicine [address]ious Disease, [address] [id number] Beena Yadav MD [address] [facility] [place] [address] Scheduled Procedures Name Priority Associated Diagnoses [...] this encounter Medical Devices Implanted Type Area Finisher Plate Device Identifier Shelf Expiration Date Model / Serial / Lot Duragen Plus 3x3 Dp 1033 Min5 - [id number] - [id number] Implanted:Qty : 1 on 04/05/2024 by Сергей Curtis MD at OR [facility] N/A: Spine Lumbar [employer] PAIGE [id number] 11/30/2025 DP-1033 / [id number] / [id number] documented as of this encounter Advance Directives * Full Code (Latest Code Status on File) Date Activated Date Inactivated Comments 04/04/2024 7:10 AM 04/11/2024 3:50 PM This order re flects the patients wishes and were consensually agreed upon. Question Answer Comments Discussion of Advance Direct iona occurred with: Not Discussed due to patient's condition Care Teams Manager Quality Relationship Specialty Start Date End Date Melissa Fritz DO [address] [place] [address] PCP - General Family Medicine 07/18/23 documented as of this encounter
--- OUTSIDE RECORDS SUMMARY | 2024-05-23 17:44 | External Medical Summary | Summary of Care ---
Author Name Unknown Organization [facility] Address [address] [place] [address] Phone [phone] Care Team Providers Care Director Safety Name Role Phone Melissa Fritz DO Primary Care Provider [phone] Reason for Visit * Reason Onset Date Comments Follow Up 05/01/2024 Encounter Details Date Type Department Care Team (Late st Contact Info) Description 05/01/2024 Telephone Neurosurgery, [place] [address] [place] [address] Services, [facility] [address] [place] [address] Follow Up Allergies No known active allergiesdocumented as of this encounter (statuses as of 05/02/2024) Medications Pantoprazole Sodium 40 MG Oral Tablet [...] as of this encounter (statuses as of 05/02/2024) Active Problems Problem Noted Date Diagnosed Date MRSA bacteremia 04/07/2024 Deep incisional surgical site infection 04/07/19 25 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 documented as of this encounter (statuses as of 05/02/2024) Immunizations Name Administration Dates Next Due Seasonal [...] encounter Miscellaneous Notes * Telephone Encounter - Shantel Pepper PA-C - 05/02/2024 10:06 AM EST Spoke w patient and spouse on speaker phone. Reviewed the incision images sent to us via [employer]. Kris notices waxing/waning of left side of incision swelling especially when not in the LSO. The spouse, Yakelin, describes as "seems like a fluid pocket." He is also describing pain with the swellingover the past 2-days, although, notes also he has had musculoskeletal pain since surgery >on right. There is no dehiscence or drainage appreciated. The images of incision look good wo signs of leaking or erythema, edema or drainage. He has no fever, chills, N/V, illness, new radicular sxs, B/B changes, gait changes. He has no positional HAs. We discussed red flags; they are well-verse as this is 3rd surgical repair from an OSH initial surgery w dural rent. The patient will monitor. We have arranged an in-person follow up appt, and encouraged them to contact us PEG if worsening. He remainson Daptomycin IV PICC therapy, so we reviewed likelihood of fulminate infection remains remote. Recommended lying down if anything worsens as they have done this in the past. We discussed possibilities of imaging if indicated. They are knowledgeable and will keep us updated. Patient/spouse expressed understanding. Shantel Pepper PA-C 05/02/2024 10:15 AM * Telephone Encounter - Shawna Fernández LPN [...] Phone number for nurse to call back: [phone] Are forms needed? no Medication Refill? no Verify Pharmacy information is correct. Form to be used for established patients only (not new patients) Clinic has 24-48 hours to respond to caller. If caller is calling back before timeframe with any changes in condition/issues reported, update TEand re-route to appropriate pool If caller is calling back before timeframe- update TE- no need to re-route Peds Neurology Pool- [facility] Neuro Quarter Seamer- [phone] (All messages get sent to the [facility]) Neurology Pool Numbers- [place] and [place] patients - follow normal process Ops req [facility] Neurology ([place])- [id number] Ops req [place] Neurology ([place] Only)- [id number] Neurosurgery Pool Numbers- [place] patients- follow normal process Ops req Neurosurgery [facility] ([place])- [id number] Ops req Neurosurgery [facility] ([place] Only) [id number] documented in this encounter Plan of Treatment Upcoming Encounters Date Type Department Care Team (Late st Contact Info) Description 05/14/2024 10:00 AM EST [facility] [address] [place] [address] Сергей Curtis MD [address] [place] [address] 05/27/2024 10:20 AM EST Office Visit Family [facility] [address] [place] [address] Lindsay Wen CRNP [address] [place] [address] 05/29/2024 10:20 AM EST Telemedicine Infectious Disease, [address] [phone] Beena Yadav MD [address] [place] [address] Scheduled Procedures Name Priority Associated Diagnoses Date/Ti [...] this encounter Medical Devices Implanted Type Area Cooker Casing Device Identifier Shelf Expiration Date Model / Serial / Lot Duragen Plus 3x3 Dp 1033 Min5 - [id number] - [id number] Implanted:Qty : 1 on 04/05/2024 by Сергей Curtis MD at [place] [facility] N/A: Spine Lumbar [employer] PAIGE [id number] 11/30/2025 DP-1033 / [id number] / [id number] documented as of this encounter Advance Directives * Full Code (Latest Code Status on File) Date Activated Date Inactivated Comments 04/04/2024 7:10 AM 04/11/2024 3:50 PM This order re flects the patients wishes and were consensually agreed upon. Question Answer Comments Discussion of Advance Direct iona occurred with: Not Discussed due to patient's condition Care Teams Director Safety Relationship Specialty Start Date End Date Melissa Fritz DO [address] [address] PCP - General Family Medicine 07/18/23 documented as of this encounter
--- OUTSIDE RECORDS SUMMARY | 2024-05-23 17:44 | External Medical Summary | Summary of Care ---
Author Name Unknown Organization [facility] Address [address] [place] [address] Phone [phone] Care Team Providers Care Courtesy Driver Name Role Phone Lam Jasmine Lary KAMARA Primary Care Provider [phone] Reason for Visit * Reason Onset Date Comments Hospital Follow-Up 04/09/2024 4-6wk hd/fu a ppt needed thanks Addie Encounter Details Date Type Department Care Team (Late st Contact Info) Description 04/09/2024 Telephone Infectious Disease, [place] [address] [place] [address] Specified, Case No Resource [address] [place] [address] Hospital Follow-Up (4-6wk hd/fu appt [...] encounter Miscellaneous Notes * Telephone Encounter - Lissa Bahena OSA - 04/23/2024 1:22 PM EST Offer first available and fast pass * Telephone Encounter - Lissa Bahena OSA - 04/18/2024 2:12 PM EST There is nothing within the time frame of when you wanted to patient back to be seen? Can you please advise a date and time you want this patient seen for a hospital discharge? * Telephone Encounter - Lissa Bahena OSA - 04/18/2024 1:01 PM EST Please advise date and time for HD? * Telephone Encounter - Addie Mckenzie OSA - 04/09/2024 6:02 AM EST Order RETURN APPT [IP355] (Order [id number]) Kris Hernandez 04/04/2024 5:35 AM Admission Description: 53 year old male Department: AP4 [facility] Message Patient Name: KRIS HERNANDEZ([id number]) Sex: Male : 1970 PCP: JASMINE PACE Center: [facility] Types of orders made on 04/08/2024: IP Post Discharge , Lab, Medications Order Date:04/08/2024 Ordering User:HELDER WILSON [[id number]] Attending Provider:Saul Menjivar MD [[id number]] Authorizing Provider: Helder Wilson MD [[id number]] Department:AP4 [facility][[id number]] Order Specific Information Order: RETURN APPT [CUSTOM: IP355] Order #: [id number]: [id number] Priority: Routine Class: Nursing Unit Comment:Or [...] this encounter Medical Devices Implanted Type Area Oil House Attendant Device Identifier Shelf Expiration Date Model / Serial / Lot Duragen Plus 3x3 Dp 1033 Min5 - [id number] - [id number] Implanted:Qty : 1 on 04/05/2024 by С[place]гей Curtis [place] [facility] [place] Spine Lumbar [employer] LIF[employer]anga Media PAIGE [id number] 11/30/2025 DP-1033 / [id number] / [id number] documented as of this encounter Advance Directives * Full Code (Latest Code Status on File) Date Activated Date Inactivated Comments 04/04/2024 7:10 AM 04/11/2024 3:50 PM This order r eflects the patients wishes and were consensually agreed upon. Question Answer Comments Discussion of Advance Direct iona occurred with: Not Discussed due to patient's condition Care Teams Courtesy Driver Relationship Specialty Start Date End Date Jasmine Pace DO [address] [place] [address] PCP - General Family Medicine 07/18/23 documented as of this encounter
--- OUTSIDE RECORDS SUMMARY | 2024-05-23 17:44 | External Medical Summary ---
Author Name Unknown Address Unknown Organization K09[facility] [place] [address] Laboratory Report Ordering Provider Test Date Status GERALD CORONA 04/17/2024 05:33:12 Final Observation Date Value Abnormality Reference (Units ) Status Nucleated erythrocytes/100 leukocytes [Ratio] in Blood by Automated count 04/17/2024 05:33:12 Final Performing Location [place] [address]
--- OUTSIDE RECORDS SUMMARY | 2024-05-23 17:44 | External Medical Summary | Summary of Care ---
Author Name Unknown Organization [facility] Address [address] [place] [address] Phone [phone] Care Team Providers Care Signal System Testing Maintainer Name Role Phone Lam Jasmine Lary KAMARA Primary Care Provider [phone] Reason for Visit * Reason Onset Date Comments Hospital Follow-Up 04/09/2024 4-6wk hd/fu a ppt needed thanks Addie Encounter Details Date Type Department Care Team (Late st Contact Info) Description 04/09/2024 Telephone Infectious Disease, [place] [address] [place] [address] Specified, Case No Resource [address] [place] [address] Hospital Follow-Up (4-6wk hd/fu appt [...] Encounter - Lissa Bahena OSA - 04/23/2024 1:54 PM EST Appt scheduled * Telephone Encounter - Lissa Bahena OSA [...] AM EST Order RETURN APPT [IP355] (Order [id number]) Kris Hernandez 04/04/2024 5:35 AM Admission Description: 53 year old male Department[place] [facility] [place] Patient Name: KRIS HERNANDEZ([id number]) Sex: Male : 1970 PCP: JASMINE PACE Center: [facility] Types of orders made on 04/08/2024: IP Post Discharge , Lab, Medications Order Date:04/08/2024 Ordering User:HELDER WILSON [[id number]] Attending Provider:Saul Menjivar MD [[id number]] Authorizing Provider: Helder Wilson MD [[id number]] Department:[facility]4 [facility] [place][id number]] Order Specific Information Order: RETURN APPT [CUSTOM: IP355] Order #: [id number]: [id number] Priority: Routine Class: Nursing Unit Comment:Or [...] 05/29/2024 10:20 AM EST Telemedicine Infectious Disease, [address] [address] Beena Yadav MD [address] [place] [address] Scheduled Procedures Name Priority Associated [...] this encounter Medical Devices Implanted Type Area Hobbing Press Operator Device Identifier Shelf Expiration Date Model / Serial / Lot Duragen Plus 3x3 Dp 1033 Min5 - [id number] - [id number] Implanted:Qty : 1 on 04/05/2024 by Сергей Curtis [place] [facility] [place]: Spine Lumbar [employer] PAIGE [id number] 11/30/2025 DP-1033 / [id number] / [id number] documented as of this encounter Advance Directives * Full Code (Latest Code Status on File) Date Activated Date Inactivated Comments 04/04/2024 7:10 AM 04/11/2024 3:50 PM This order re flects the patients wishes and were consensually agreed upon. Question Answer Comments Discussion of Advance Direct iona occurred with: Not Discussed due to patient's condition Care Teams Signal System Testing Maintainer Relationship Specialty Start Date End Date Jasmine Pace DO [address] [place] [address] PCP - General Family Medicine 07/18/23 documented as of this encounter
--- OUTSIDE RECORDS SUMMARY | 2024-05-23 17:44 | External Medical Summary | Summary of Care ---
Author Name Unknown Organization [facility] Address [address] [place] [address] Phone [phone] Care Team Providers Care Mold Holder Name Role Phone Lam Jasmine Lary KAMARA Primary Care Provider [phone] Reason for Visit * Reason Onset Date Comments Hospital Follow-Up 04/09/2024 4-6wk hd/fu a ppt needed thanks Addie Encounter Details Date Type Department Care Team (Late st Contact Info) Description 04/09/2024 Telephone Infectious Disease, [place] [address] [place] [address] Specified, Case No Resource [address] [place] [address] Hospital Follow-Up (4-6wk hd/fu appt [...] AM EST Order RETURN APPT [IP355] (Order [id number]) Kris Hernandez 04/04/2024 5:35 AM Admission Description: 53 year old male Department: AP4 IP [facility] Message Patient Name: KRIS HERNANDEZ([id number]) Sex: Male : 1970 PCP: JASMINE PACE Center: [facility] Types of orders made on 04/08/2024: IP Post Discharge , Lab, Medications Order Date:04/08/2024 Ordering User:HELDER WILSON [[id number]] Attending Provider:Saul Menjivar MD [[id number]] Authorizing Provider: Helder Wilson MD [[id number]] Department:AP4 [facility][[id number]] Order Specific Information Order: RETURN APPT [CUSTOM: IP355] Order #: [id number]: [id number] Priority: Routine Class: Nursing Unit Comment:Or [...] Info) Description 04/22/2024 1:00 PM EST Telemedicine Neurosurgery, [place] [address] [place] [address] Сергей Curtis MD [address] [place], [place] [id number] Scheduled Procedures Name Priority Associated Diagnoses Date/Ti [...] this encounter Medical Devices Implanted Type Area Electronics Instructor Device Identifier Shelf Expiration Date Model / Serial / Lot Duragen Plus 3x3 Dp 1033 Min5 - [id number] - [id number] Implanted:Qty : 1 on 04/05/2024 by Сергей Curtis MD at [place] [facility] [place] N/A: Spine Lumbar [employer] IMRICOR MEDICAL SYSTEMSCIHansen Medical PAIGE [id number] 11/30/2025 DP-1033 / [id number] / [id number] documented as of this encounter Advance Directives * Full Code (Latest Code Status on File) Date Activated Date Inactivated Comments 04/04/2024 7:10 AM 04/11/2024 3:50 PM This order re flects the patients wishes and were consensually agreed upon. Question Answer Comments Discussion of Advance Direct iona occurred with: Not Discussed due to patient's condition Care Teams Mold Holder Relationship Specialty Start Date End Date Jasmine Pace DO [address] [place] [address] PCP - General Family Medicine 07/18/23 documented as of this encounter
--- OUTSIDE RECORDS SUMMARY | 2024-05-23 17:44 | External Medical Summary ---
Author Name Unknown Address Unknown Organization K09[facility] [address] [place] [address] Laboratory Report Ordering Provider Test Date Status GEM STAUFFER 04/29/2024 09:23:55 Final Observation Date Value Abnormality Reference (Units ) Status Color of Urine by Auto 04/29/2024 09:23:55 Yellow Light Yellow, Yellow, Dark Yellow Final Clarity, Urine 04/29/2024 09:23:55 Clear Clear Final Glucose [Mass/volume] in Urine by Automated test strip 04/29/2024 09:23:55 Negative Negative (mg/dL) Final Bilirubin.total [Presence] in Urine by Automated test strip 04/29/2024 09:23:55 Negative Negative Final Ketones [Mass/volume] in Urine by Automated test strip 04/29/2024 09:23:55 Negative Negative (mg/dL) Final Specific gravity, Urine 04/29/2024 09:23:55 1.020 1.003-1.030 Final Hemoglobin [Presence] in Urine by Automated test strip 04/29/2024 09:23:55 Negative Negative Final pH, Urine 04/29/2024 09:23:55 6.5 5.0-7.5 (Units) Final Protein [Mass/volume] in Urine by Automated test strip 04/29/2024 09:23:55 Negative Negative (mg/dL) Final Urobilinogen [Mass/volume] in Urine by Automated test strip 04/29/2024 09:23:55 0.2 0.2, 1.0 (mg/dL) Final Nitrite [Presence] in Urine by Automated test strip 04/29/2024 09:23:55 Negative Negative Final Leukocyte esterase [Presence] in Urine by Automated test strip 04/29/2024 09:23:55 Negative Negative Final RBC, Urine 04/29/2024 09:23:55 0-2 0-2 (/HPF) Final WBC, Urine 04/29/2024 09:23:55 0-2 0-2 (/HPF) Final Bacteria [#/area] in Urine sediment by Microscopy high power field 04/29/2024 09:23:55 0-25 0-25 (/HPF) Final Performing Location [facility] [place] [address]
--- OUTSIDE RECORDS SUMMARY | 2024-05-23 17:44 | External Medical Summary | Summary of Care ---
Author Name Unknown Organization [facility] Address [address] [place] [address] Phone [phone] Care Team Providers Care Zinc Miner Name Role Phone Lam Jasmine Lary KAMARA Primary Care Provider [phone] Reason for Visit * Reason Onset Date Comments Hospital Follow-Up 04/09/2024 4-6wk hd/fu a ppt needed thanks Addie Encounter Details Date Type Department Care Team (Late st Contact Info) Description 04/09/2024 Telephone Infectious Disease, [place] [address] [place] [address] Specified, Case No Resource [address] [place] [address] Hospital Follow-Up (4-6wk hd/fu appt [...] AM EST Order RETURN APPT [IP355] (Order [id number]) Kris Hernandez 04/04/2024 5:35 AM Admission Description: 53 year old male Department: AP4 IP [facility] Message Patient Name: KRIS HERNANDEZ([id number]) Sex: Male : 1970 PCP: JASMINE PACE Center: [facility] Types of orders made on 04/08/2024: IP Post Discharge , Lab, Medications Order Date:04/08/2024 Ordering User:HELDER WILSON [[id number]] Attending Provider:Saul Menjivar MD [[id number]] Authorizing Provider: Helder Wilson MD [[id number]] Department:AP4 IP [facility][[id number]] Order Specific Information Order: RETURN APPT [CUSTOM: IP355] Order #: [id number]: [id number] Priority: Routine Class: Nursing Unit Comment:Or [...] Info) Description 04/22/2024 1:00 PM EST Telemedicine [facility], [place] [address] [place] [address] Сергей Curtis MD [address] [place] [address] Scheduled Procedures Name Priority Associated Diagnoses Date/Ti [...] this encounter Medical Devices Implanted Type Area Community Relations Liaison Device Identifier Shelf Expiration Date Model / Serial / Lot Duragen Plus 3x3 Dp 1033 Min5 - [id number] - [id number] Implanted:Qty : 1 on 04/05/2024 by Сергей Curtis MD at OR [facility] N/A: Spine Lumbar [employer] PAIGE [id number] 11/30/2025 DP-1033 / [id number] / [id number] documented as of this encounter Advance Directives * Full Code (Latest Code Status on File) Date Activated Date Inactivated Comments 04/04/2024 7:10 AM 04/11/2024 3:50 PM This order re flects the patients wishes and were consensually agreed upon. Question Answer Comments Discussion of Advance Direct iona occurred with: Not Discussed due to patient's condition Care Teams Zinc Miner Relationship Specialty Start Date End Date Jasmine Pace DO [address] [place] [address] PCP - General Family Medicine 07/18/23 documented as of this encounter
--- OUTSIDE RECORDS SUMMARY | 2024-05-23 17:44 | External Medical Summary ---
Author Name Unknown Address Unknown Organization K0G:[facility] [address] [place] [address] Laboratory Report Ordering Provider Test Date Status DIANE CUELLAR 04/19/2024 05:25:00 Final Observation Date Value Abnormality Reference (Units ) Status BUN 04/19/2024 05:25:00 25 Above high normal 6-20 (mg/dL) Final Creatinine 04/19/2024 05:25:00 1.9 Above high normal 0.6-1.2 (mg/dL) Final Glomerular filtration rate/1.73 sq M.predicted [Volume Rate/Area] in Serum, Plasma or Blood by Creatinine-based formula (CKD-EPI) 04/19/2024 05:25:00 41 Below low normal >=60 (mL/min) Final eGFR is calculated based on the CKD-EPI 2020 equation. Sodium 04/19/2024 05:25:00 140 135-146 (m mol/L) Final Potassium 04/19/2024 05:25:00 4.6 3.5-5.1 (m mol/L) Final Cl 04/19/2024 05:25:00 102 98-107 (mm ol/L) Final CO2 04/19/2024 05:25:00 22 22-32 (mmo l/L) Final Anion gap 04/19/2024 05:25:00 16 Above high normal 7- 15 (mmol/L) Final Glucose 04/19/2024 05:25:00 93 70-120 (mg /dL) Final Calcium 04/19/2024 05:25:00 10.1 8.4-10.2 ( mg/dL) Final Performing [facility] [place] [address]
--- OUTSIDE RECORDS SUMMARY | 2024-05-23 17:44 | External Medical Summary ---
Author Name Unknown Address Unknown Organization K0G:[facility] [address] [place] [address] Laboratory Report Ordering Provider Test Date Status DIANE CUELLAR 04/19/2024 05:25:00 Final Observation Date Value Abnormality Reference (Units ) Status WBC, Total 04/19/2024 05:25:00 7.76 4.00-10.8 0 (K/uL) Final RBC 04/19/2024 05:25:00 4.08 4.50-5.25 (M/uL) Final Hemoglobin 04/19/2024 05:25:00 12.2 Below low normal 14 .0-16.8 (g/dL) Final HCT 04/19/2024 05:25:00 37.9 Below low normal 40. 0-48.4 (%) Final MCV 04/19/2024 05:25:00 92.9 82.0-99.5 (fL) Final MCH 04/19/2024 05:25:00 29.9 27.0-34.0 (pg) Final MCHC 04/19/2024 05:25:00 32.2 32.0-36.0 (g/dL) Final RDW 04/19/2024 05:25:00 13.3 11.5-15.5 (%) Final Platelets 04/19/2024 05:25:00 345 140-400 (K /uL) Final MPV 04/19/2024 05:25:00 9.9 6.6-11.1 ( fL) Final Performing Location [facility] [place] [address] [place] [address]
--- OUTSIDE RECORDS SUMMARY | 2024-05-23 17:45 | External Medical Summary ---
Author Name Unknown Address Unknown Organization K0G:[facility] [address] [place] [address] Laboratory Report Ordering Provider Test Date Status DIANE CUELLAR 04/12/2024 05:51:24 Final Observation Date Value Abnormality Reference (Units ) Status WBC, Total 04/12/2024 05:51:24 8.50 4.00-10.8 0 (K/uL) Final RBC 04/12/2024 05:51:24 4.17 4.50-5.25 (M/uL) Final Hemoglobin 04/12/2024 05:51:24 12.5 Below low normal 14 .0-16.8 (g/dL) Final HCT 04/12/2024 05:51:24 38.2 Below low normal 40. 0-48.4 (%) Final MCV 04/12/2024 05:51:24 91.6 82.0-99.5 (fL) Final MCH 04/12/2024 05:51:24 30.0 27.0-34.0 (pg) Final MCHC 04/12/2024 05:51:24 32.7 32.0-36.0 (g/dL) Final RDW 04/12/2024 05:51:24 13.1 11.5-15.5 (%) Final Platelets 04/12/2024 05:51:24 297 140-400 (K /uL) Final MPV 04/12/2024 05:51:24 10.5 6.6-11.1 ( fL) Final Performing Location [facility] [place] [address] [place] [address]
--- OUTSIDE RECORDS SUMMARY | 2024-05-23 17:45 | External Medical Summary | Summary of Care ---
Author Name Unknown Organization [facility] Address [address] [place] [address] Phone [phone] Care Team Providers Care Knife Setter Assembler Name Role Phone LamJasmine cabalelro Primary Care Provider [phone] Reason for Visit * Reason Onset Date Comments Hospital Follow-Up 04/11/2024 2wk hd/fu w/ Kirsten appt needed thanks rachell Encounter Details Date Type Department Care Team (Late st Contact Info) Description 04/11/2024 Telephone [facility] [place] [address] [place] [address] Kenneth Lee MD [address] [place] [address] Hospital Follow-Up (2wk hd/fu w/ Ferrone a... Allergies No known active allergiesdocumented as of this encounter (statuses as of 04/11/2024) Medications oxyCODONE HCl 5 MG Oral Tablet (Oxy IR) Take 1 Tablet by mouth every 4 hours as needed for Pain, Moderate. 50 Tablet 5 Active tiZANidine HCl 4 MG Oral Tablet (Zanaflex) Take 1 Tablet by mouth every 6 hours as needed for Muscle spasms. 50 Tablet 1 5 Active Linezolid 600 MG Oral Tablet (Zyvox) Take 1 Tablet by mouth in the morning and 1 Tablet before bedtime. Do all this for 9 days. 18 Tablet 5 04/20/19 25 Active Pantoprazole Sodium 40 MG Oral Tablet Delayed Release (Protonix) Take 1 Tablet by mouth every evening. 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 documented as of this encounter (statuses as of 04/11/2024) Immunizations Name Administration Dates Next Due Seasonal [...] encounter Miscellaneous Notes * Telephone Encounter - Rachell Mckenzie, SHREYAS - 04/11/2024 10:16 AM EST Order RETURN APPT [IP355] (Order [id number]) Kris Hernandez 04/04/2024 5:35 AM Admission Description: 53 year old male Department: AP4 [facility][NOTE 3] Message Patient Name: KRIS HERNANDEZ([id number]) Sex: Male : 1970 PCP: JASMINE PACE Center: [facility] Types of orders made on 04/11/2024: Communication, IP Discharge, IP Post Discharge , Lab, Medications Order Date:04/11/2024 Ordering User:KIM CAMPBELL [[id number]] Attending Provider:Saul Menjivar MD [[id number]] Authorizing Provider: Kim Campbell PA-C [[id number]] Department:AP4 [facility][NOTE 3][[id number]] Order Specific Information Order: RETURN APPT [CUSTOM: IP355] Order #: [id number]: [id number] Priority: Routine Class: Nursing Unit Appt Needed Within: (Specify # of Days, Weeks, Months) -> 2 Wks Provider -> KENNETH LEE Released on: 04/11/2024 10:14 AM Priority: Routine Class: Nursing Unit Appt Needed Within: (Specify # of Days, Weeks, Months) -> 2 Wks Provider -> KENNETH LEE Released on: 04/11/2024 10:14 AM documented in this encounter Plan of Treatment [...] 02/06/2024 Colorectal Cancer Screening 02/05/2027 Diabetes Screening 04/11/2027 04/11/2024, 0 04/10/2024, 04/09/2024, Additional history exists DTap/Tdap Vaccines (2 - [...] this encounter Medical Devices Implanted Type Area Chief Airline Radio Operator Device Identifier Shelf Expiration Date Model / Serial / Lot Duragen Plus 3x3 Dp 1033 Min5 - [id number] - [id number] Implanted:Qty : 1 on 04/05/2024 by Kenneth Lee MD [place] [facility] [place]/A: Spine Lumbar [employer] [id number] 11/30/2025 DP-1033 / [id number] / [id number] documented as of this encounter Advance Directives * Full Code (Latest Code Status on File) Date Activated Date Inactivated Comments 04/04/2024 7:10 AM This order refl ects the patients wishes and were consensually agreed upon. Question Answer Comments Discussion of Advance Direct iona occurred with: Not Discussed due to patient's condition Care Teams Knife Setter Assembler Relationship Specialty Start Date End Date Jasmine Pace DO [address] [place] [address] PCP - General Family Medicine 07/18/23 documented as of this encounter
--- OUTSIDE RECORDS SUMMARY | 2024-05-23 17:45 | External Medical Summary | Summary of Care ---
Author Name Unknown Organization [facility] Address [address] [place] [address] Phone [phone] Care Team Providers Care Scale And Skip Car Operator Name Role Phone Lam Melissaagatha Barth DO Primary Care Provider [phone] Reason for Visit * Reason Onset Date Comments Appointment 01/07/2024 Encounter Details Date Type Department Care Team (Late st Contact Info) Description 01/07/2024 Telephone [facility], [facility] [address] [place] [address] Khalif Brunson MD [address] [place] [id number] Appointment Allergies No known active allergiesdocumented as of this encounter (statuses as of 04/07/2024) Medications Meclizine HCl 25 MG Oral Tablet (Antivert) ONLY NEEDED 4 Suspended Pantoprazole Sodium 40 MG Oral Tablet Delayed Release (Protonix) Take 1 Tablet by mouth every evening. 4 Suspended Cyclobenzaprine HCl 5 MG Oral Tablet (Flexeril) Take 1 Tablet by mouth in the morning and 1 Tablet at noon and 1 Tablet before bedtime. NEEDED . Suspended Celecoxib 100 MG Oral Capsule (CeleBREX)Indic ations:DDD (degenerative disc disease), lumbar,Chronic radicular lumbar pain Take 1-2 capsules by mouth daily as needed for pain. Take lowest dose necessary for relief of pain. Take WF and water. 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 documented as of this encounter (statuses as of 04/07/2024) Immunizations Name Administration Dates Next Due Seasonal Influenza Virus Vac cine, Unspecified Formulation 02/13/2022,01/01/2020 TDAP, Age 7 and older, IM (Adacel) 04/18/2017 Zoster Vaccine Recombinant (Shingrix) 04/11/2021 ,10/23/2020 documented as of this encounter Social History Tobacco Use Types Packs/Day Years Used Date Smoking Tobacco: Every Day Cigarettes 1 30.6 Started: 09/18/1993 Smokeless Tobacco: Never Comments:Currently 1/2 [...] encounter Miscellaneous Notes * Telephone Encounter - Alyssa Frost OSA - 01/07/2024 10:55 AM EDT Patient calling requesting to cancel completely procedure with Dr Dhesi as he was informed by that it would interfere documented in this encounter Plan of Treatment [...] 02/06/2024 Colorectal Cancer Screening 02/05/2027 Diabetes Screening 04/05/2027 04/05/2024, 0 04/05/2024, 04/04/2024, Additional history exists DTap/Tdap Vaccines (2 - [...] this encounter Medical Devices Implanted Type Area Pants Maker Device Identifier Shelf Expiration Date Model / Serial / Lot Duragen Plus 3x3 Dp 1033 Min5 - [id number] - [id number] Implanted:Qty : 1 on 04/05/2024 by Сергей Curtis MD at [place] [facility] [place]A: Spine Lumbar FitlyA [employer] PAIGE [id number] 11/30/2025 DP-1033 / [id number] / [id number] documented as of this encounter Advance Directives * Full Code (Latest Code Status on File) Date Activated Date Inactivated Comments 04/04/2024 7:10 AM This order refl ects the patients wishes and were consensually agreed upon. Question Answer Comments Discussion of Advance Direct iona occurred with: Not Discussed due to patient's condition Care Teams Scale And Skip Car Operator Relationship Specialty Start Date End Date Melissa Fritz DO [address] [place] [address] PCP - General Family Medicine 07/18/23 documented as of this encounter
--- OUTSIDE RECORDS SUMMARY | 2024-05-23 17:45 | External Medical Summary ---
Author Name Unknown Address Unknown Organization [id number][place] [place] [address] [place] [address] Laboratory Report Ordering Provider Test Date Status HUMPHREY DUARTE 04/11/2024 07:17:00 Final Observation Date Value Abnormality Reference (Units ) Status BUN 04/11/2024 07:17:00 25 Above high normal 6-20 (mg/dL) Final Creatinine 04/11/2024 07:17:00 2.5 Above high normal 0.6-1.2 (mg/dL) Final Glomerular filtration rate/1.73 sq M.predicted [Volume Rate/Area] in Serum, Plasma or Blood by Creatinine-based formula (CKD-EPI) 04/11/2024 07:17:00 30 Below low normal >=60 (mL/min) Final eGFR is calculated based on the CKD-EPI 2020 equation. Sodium 04/11/2024 07:17:00 139 135-146 (m mol/L) Final Potassium 04/11/2024 07:17:00 3.8 3.5-5.1 (m mol/L) Final Cl 04/11/2024 07:17:00 103 98-107 (mm ol/L) Final CO2 04/11/2024 07:17:00 22 22-32 (mmo l/L) Final Anion gap 04/11/2024 07:17:00 14 7-15 (mmol /L) Final Glucose 04/11/2024 07:17:00 107 70-120 (mg /dL) Final Calcium 04/11/2024 07:17:00 9.9 8.4-10.2 ( mg/dL) Final Performing Location [facility] [place] [address] [place] [address]
--- OUTSIDE RECORDS SUMMARY | 2024-05-23 17:45 | External Medical Summary | Summary of Care ---
Author Name Unknown Organization [facility] Address [address] [place] [address] Phone [phone] Care Team Providers Care Jack Frame Tender Name Role Phone Jasmine Fritz DO Primary Care Provider [phone] Reason for Referral * Home Infusion Service Request (Within 3 days (urgent)) - Authorized Specialty Diagnoses / Procedures Referred By Contjairon t Referred To Contact Home Infusion and Injection Services Diagnoses CSF leak Deep incisional surgical site infection MRSA bacteremia Mike Cervantes PA-C [address] [place] [address] Phone: tel: fax: Referral ID Status Reason Start Date Expiration Date Visits Requested Visits Authorized [id number] Authorized Episode Based Medications 04/09/2024 999 [id number] Question Answer Type of service requested: [facility] [place] [facility] Order Reason for referral: Anti-infective Does the Outpatient Antimicrobial Therapy Note contain all the clinical information? Yes Requesting [facility] nursing services? Yes Comments By my signature, I understand that my patient will have their medication therapy managed by the [facility] ([facility]) per established policies, procedures, and protocols. I also certify that this referral may serve as an initiation of service for the management of drug therapy in the above noted patient. Do you agree: I Agree IS provider will be responsible for scheduling patient visits, obtaining appropriate laboratory studies, and adjusting medication management therapy per patient's needs, in addition to those roles spelled out in the [facility] policies, procedures, and drug management protocols. Do you agree: I Agree I understand that the service provided by the [facility] is voluntary and have informed the patient that they can refuse the service at their discretion. I authorize [facility] to order and administer emergency medications and catheter maintenance per [facility] protocol. I am aware that the [facility] will provide me with a copy of the patient encounter [facility]. I authorize the [facility] to carry out these activities on my behalf. I consider this program to be a necessary part of the patient's medical care Do you agree: I Agree [facility] Toll-Free Referral Hotline Option 3 Discharge Order Reason for Visit * Auth/Cert Specialty Diagnoses / Procedures Referred By Vu victoria Referred To Contact Diagnoses CSF leak Saul Menjivar MD [address] [place] [address] Phone: tel: fax: [facility], [facility] [place] [place] [address] [place] [address] Referral ID Status Reason Start Date Expiration Date Visits Re quested Visits Authorized [id number] Encounter Details Date Type Department Care Team (Latest Contact Info) Description 04/04/2024 5:35 AM EST - 04/11/2024 11:50 AM EST Hospital Encounter [id number] [facility] [place] [place], [facility] [address] FLO[address], [place] [id number] Saul Menjivar MD [address], [place] [id number] Сергей Curtis MD [address], [place] [id number] Discharge Disposition: IP Rehab Allergies No known active allergiesdocumented as of this encounter (statuses as of 04/11/2024) Medications Pantoprazole Sodium 40 MG Oral Tablet Delayed Release (Protonix) Take 1 Tablet by mouth every evening. 06/11/19 24 Active oxyCODONE HCl 5 MG Oral Tablet (Oxy IR) Take 1 Tablet by mouth every 4 hours as needed for Pain, Moderate. 50 Tablet 04/11/19 Active tiZANidine HCl 4 MG Oral Tablet (Zanaflex) Take 1 Tablet by mouth every 6 hours as needed for Muscle spasms. 50 Tablet 1 04/11/19 25 Active Linezolid 600 MG Oral Tablet (Zyvox) Take 1 Tablet by mouth in the morning and 1 Tablet before bedtime. Do all this for 9 days. 18 Tablet 04/11/19 25 025 Active HYDROcodone-Ac etaminophen 5-325 MG Oral Tablet Take 1 Tablet by mouth every 6 hours as needed for Pain, Mild. Active Meclizine HCl 25 MG Oral Tablet [...] every 6 hours as needed. 025 Discontinued Linezolid 600 MG Oral Tablet (Zyvox) Take 1 Tablet by mouth in the morning and 1 Tablet before bedtime. 74 Tablet 04/11/19 25 025 Discontinued documented as of this encounter [...] 30.6 S tarted: 09/18/1993 Smokeless Tobacco: Never Tobacco Cessation:Counseling Given: Not Answered Comments:Currently 1/2 ppd. Alcohol Use Standard Drinks/Week [...] Sign Reading Time Taken Comments Blood Pressure 125/79 04/11/2024 10:39 AM EST Pulse 92 04/11/2024 10:39 AM EST Temperature 36.4 C (97.5 F) 04/11/2024 1 0:39 AM EST Respiratory Rate 18 04/11/2024 10:3 9 AM EST Oxygen Saturation 95% 04/11/2024 10: 39 AM EST Inhaled Oxygen Concentration - - Weight 84.7 kg (186 lb 11.7 oz) 04/06/2024 6:45 AM EST Height 177.8 cm (5' 10") 04/04/2024 5:36 AM EST Body Mass Index 26.79 04/04/2024 5:36 AM EST documented in this encounter Functional Status * Are you deaf or do you have serious difficulty hearing? Answer Date of Assessment Author No 04/04/2024 5:36 AM EST Ashley Mai RN * Are you blind or do you have serious difficulty seeing, even when wearing glasses? Answer Date of Assessment Author No 04/04/2024 5:36 AM EST Ashley Mai RN * Do you have serious difficulty [...] Ashley Bell RN documented in this encounter Discharge Instructions * Discharge Instr - AVS* Duane Campbell PA-C - 04/05/2024 2:35 PM EST Discharge Date: 04/11/2024 You may call Doctor Curtis of the department of neurosurgery at [phone] during business hours for any questions or test results. For after-hours emergencies call [phone] and have your doctor paged. The information below provides you with the instructions and the list of medications you need to betaking following discharge from the hospital. If you have any questions, please ask before leaving.Please carry this letter with you when you see your doctor in the clinic. If you have questions, you can reach us at the numbers above. Brief summary of your inpatient care: you were admitted with CSF leak from prior lumbar surgery. You underwent exploration of the area and surgical revision. You were discharged to home with for antibiotic administration (vancomycin set to complete 05/18/24) Your doctors during this hospitalization included: Dr. Curtis Your primary diagnosis at discharge was CSF leak from prior lumbar surgery Inpatient test results pending: None Operations & Procedures: Exploration of wound Wound washout L4 laminectomy L5 laminectomy L5 medial facetectomy Dural repair Harvesting of fat autograft Implantation of harvested fat autograft Use of c-arm and interpretation Placement of lumbar drain Complex multi-layered closure using overlapping muscle and fascial flaps Complications: none applicable Advance Directive Documented: Advance Directive Does the Patient have an Advance Directive? No Diet: Normal diet, Previous diet Activity: No strenuous activity for 4 weeks and No lifting or pushing or pulling more than 10 lbs for 4 weeks Driving: Do not drive. Date you may return to work or school: N/A See your primary care physician (Jasmine Fritz DO) as scheduled. Special Instructions: Shower daily Wash back daily; let mild warm soapy water gently cascade over wound, rinse gently; pat dry. Leave open to air Use a clean wash cloth and towel every day Do not touch pets or let pets lick any wounds. Do not sleep with pets. Wash hands often Protect incision from sun using shade only Do not pants rub on wound You can use heat or ice on the wound, whichever feels better at this point Keep active throughout the day and night No cowart, tubs, lakes, pools x 6 weeks FINAL IMPRESSION AND RECOMMENDATIONS: Syndrome Meningitis Microbiology MRSA Antibiotic Linezolid 600 mg p.o. 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 Microbiology MRSA Antibiotic Daptomycin 10 milligrams/kilogram (800mg) IV daily End Date Start 04/20, ending 05/18 Vascular access: Remove intravascular access after completion of antibiotics Recommended followup imaging studies: Not applicable LABORATORY MONITORING: Lab Test Frequency End Date CBC with diff CMP CPK Q week 05/18/2024 Lab Test Frequency End Date CRP Q 2 weeks 05/18/2024 PROVIDERS: Following ID Physician ID clinic follow-up date Benedict Dubon Leach, William, and Krish Fry 4-6 weeks DISCHARGE INSTRUCTIONS FOLLOWING LUMBAR SPINE SURGERY Hygiene Keep the incision open to the air after the cover dressing is removed. You may shower on the second post-operative day, as well. Do not direct water onto the incision. Donot sit in a tub of water and soak the incision. Pat the incision dry after showering. Do not apply any creams, powder or oils near the incision. Diet Same as before your surgery. Activities No heavy lifting (greater than 5-10 pounds). No strenuous activity. You may go up and down stairs twice a day. You may want to inquire about renting a commode if you have to climb the stairs to use the bathroom more frequently. It is advisable to take short frequent walks. Walks outside are fine, weather permitting. Start with a 5 minute walk and gradually increase the length as you are able to tolerate. Your walking shouldnot increase your back pain or cause leg pain. If the pain increases, then stop to rest and decrease the distance/time on the next walk. You may sit for brief periods of time. You may sit for only 2-3 times each day, and only for 15-20 minutes each. Use this time for eating meals. Sitting increases the stress on your incision and the muscle spasms in your back. It is better to walk or lie down to rest. Choose a firm, hard-backed chair on which to sit. Continue to logroll while in bed. Continue to getout of bed by first turning onto your side, then pushing up onto your elbow while lowering your feet over the side of the bed. When you sleep, avoid lying on your stomach for incisional comfort. Do not bend over at the waist. If you must bend, do so at the knees and keep your back straight while stooping and straightening up. You may ride home in a car and return to your post-op office visit by car. If possible, partially recline the car seat to avoid sitting at an acute upright angle. No driving. Avoid heavy house and garden work (lifting laundry, running the vacuum, digging, shoveling etc.) These activity restrictions are designed to give your back and spinal nerves the best chance to recover and heal. Your activity progression will be evaluated at your first post-op office visit. Only do the following exercises while lying on your back in bed. Do at least 3 sets of each per daystarting one-week after surgery: Quad sets - Tighten the muscles in the front of your thigh. Hold for 3 seconds and then relax. Repeat 5 times and work up to 10 times. Abdominals - Tighten your stomach muscles. Hold for 3 seconds and then relax. Repeat 5 times and work up to 10 times. Ankle pumps - With straight knees pull your toes back toward your head as you feel your calf muscle stretch, then point your toes down toward the floor. Repeat 10 times and work up to 20 times. Medications Medications have been prescribed for you in order to relieve your pain. If you need them, please use them. If you have no pain, it is not necessary to take the medication. Your discomfort should gradually lessen over the first 7-10 days. Some pain medications may cause constipation. The use of [id number]-cdy-kqtlmnh laxatives is safe (Ex-lax, Correctol, Colace, Milk of Magnesia). See your hospital discharge form regarding additional medication instructions. When to call the Neurosurgeon's office: Please call your doctors office at [phone] if you notice any of the following symptoms: Redness, swelling, warmth, drainage from your incision or increased tenderness at the operative site. Worsening numbness, tingling or change in sensation or strength of your legs. Difficulty in controlling your bladder or bowels. Body temperature over 100O F for more than 2 days. Follow-up: Instructions for your first post-operative appointment are either given to you on your hospital discharge form or they will be mailed to you soon. If you do not hear from my office within a week, please contact me for follow-up arrangements. If you have any specific questions not covered in these instructions, please feel free to call the office and check with the doctor or physician assistant director of nursing. If you have an urgent question/issue after normal business hours, please call the office number andask for the neurosurgeon transfer iron operator. documented in this encounter Progress Notes * Valente Braun MD - 04/10/2024 1:11 PM EST DISCHARGE PROGRESS NOTE - Infectious Disease [facility] [place] [place]-[address] [address] Name: Kris Celaya Location: [facility] [place] [place] A468/A Date: 04/10/2024 Time: 1:11 PM SUBJECTIVE: Patient developing MATTY while on IV vancomycin. We will opt to change treatment plan to finish 2 weeks of therapy for MRSA meningitis with p.o. linezolid transitioned to IV daptomycin for remainder of the 6 week course from 04/06 through 05/18. The use of linezolid is pending the change from cyclobenzaprine to tizanidine for treatment of his muscle spasms. This is due to the concern for serotonin syndrome. OBJECTIVE: Most Recent Vital Signs: BP: 116 mmHg/74 mmHg (04/10/24 1020) Pulse: 95 (04/10/24 1020) Resp: 18 (04/10/24 1020) Temp: 37.5 C (04/10/24 1020) Temp Summary: Temp Min: 36.3 C (97.3 F) Max: 37.5 C (99.5 F) SpO2: 95 % (04/10/24 1020) O2 flow rate: 0 L/MIN (04/09/24 0800) Supplemental O2 Delivery: Room Air, None (04/10/24 1020) Vital Signs Last 24 Hours: Systolic BP: Most Recent Systolic BP Av mmHg Min: 113 mmHg Max: 125 mmHg Temperature: Most Recent Temperature Av C Min: 36.28 C Max: 37.5 C Pulse: Pulse Av.7 Min: 86 Max: 107 Respirations: Resp Av Min: 18 Max: 18 SpO2: SpO2 Av.2 % Min: 92 % Max: 96 % FINAL IMPRESSION AND RECOMMENDATIONS: Syndrome Meningitis Microbiology MRSA Antibiotic Linezolid 600 mg p.o. 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 Microbiology MRSA Antibiotic Daptomycin 10 milligrams/kilogram (800mg) IV daily End Date Start 04/20, ending 05/18 Vascular access: Remove intravascular access after completion of antibiotics Recommended followup imaging studies: Not applicable LABORATORY MONITORING: Lab Test Frequency End Date CBC with diff CMP CPK Q week 05/18/2024 Lab Test Frequency End Date CRP Q 2 weeks 05/18/2024 PROVIDERS: Following ID Physician ID clinic follow-up date Benedict Dubon, Valente Braun, and Krish Fry 4-6 weeks Cosigned by Krish Fry II, DO at 04/10/2024 1:45 PM EST Associated attestation - Krish Fry II, DO - 04/10/2024 1:45 PM EST I did not see the patient, but I have reviewed the resident/fellow physician documentation and was readily available on date of service. * Dilshad Styles, [facility] - 04/09/2024 3:01 PM EST PHARMACY PHARMACOKINETIC CONSULT [facility] [place] [place]-[address] [address] Name: Kris Celaya Location: [facility] [place] [place] A468/A Date: 04/09/2024 Time: 2:49 PM Requesting service: Neurosurgery Bacteria being treated: MRSA Source of infection: Meningitis Medication(s) being managed: Vancomycin Pharmacokinetic calculations will be performed without utilizing RevstrRx software due to meeting exclusion criteria (JENNIFER Stage 2 or 3 MATTY, or receiving renal replacement therapy [iHD, CRRT, PD]). Lab information: Lab Results Component Value Date/Time WBC 12.17 (H) 04/09/2024 06:43 AM WBC 13.94 (H) 04/08/2024 07:20 AM WBC 11.93 (H) 04/04/2024 07:19 AM WBC 9.93 01/28/2024 10:35 AM WBC 11.06 (H) 10/03/2023 09:20 AM Lab Results Component Value Date/Time BUN 20 04/09/2024 06:43 AM BUN 19 04/08/2024 07:20 AM BUN 18 04/04/2024 07:19 AM BUN 16 01/28/2024 10:35 AM BUN 22 (H) 09/07/2023 08:02 AM Lab Results Component Value Date/Time CREAT 2.4 (H) 04/09/2024 06:43 AM CREAT 2.0 (H) 04/08/2024 07:20 AM CREAT 1.2 04/04/2024 07:19 AM CREAT 1.1 01/28/2024 10:35 AM CREAT 1.1 09/07/2023 08:02 AM ANTIMICROBIALS GIVEN (last 96 hours) Date/Time Action Medication Dose Rate 04/09/24 0928 New Bag Vancomycin (Vancocin) 1,250 mg in NSS 250 mL ivpb 1,250 mg 178.33 mL/hr 04/08/24 1535 New Bag Vancomycin (Vancocin) 1000 mg in NSS 250 mL ivpb LOCKED DOSE 1,000 mg 255 mL/hr 04/08/24 0304 New Bag Vancomycin (Vancocin) 1000 mg in NSS 250 mL ivpb LOCKED DOSE 1,000 mg 255 mL/hr 04/07/24 1506 New Bag Vancomycin (Vancocin) 2,000 mg in NSS 500 mL ivpb 2,000 mg 265 mL/hr Wt Readings from Last 1 Encounters: 04/06/24 84.7 kg (186 lb 11.7 oz) Vancomycin dosing weight: use actual body weight. For patients who are >140% of their ideal bodyweight AND >100kg, use obesity dosing parameters. Dosing and levels to date: Lab Results Component Value Date/Time VANCOPEAK 23.5 (L) 04/09/2024 12:39 PM VANCORANDOM 15.9 04/09/2024 06:43 AM VANCORANDOM 17.5 04/08/2024 11:53 AM Assessment and Plan: Patient's vancomycin clearance is not in concordance with his renal function. His serum creatinine is increasing, indicating that he should be clearing vancomycin slowly, however his levels have all come back on the lower side. It is entirely possible that patient previously had an MATTY and is recovering from it, as he is making good urine and clearing vancomycin quickly, as serum creatinine oftenlags behind other markers of renal clearance (urine output, vancomycin clearance). Administer one-time dose of vancomycin tonight at 2100. Obtain random level tomorrow morning w/ AM labs . Pharmacy will continue to follow and dose as appropriate by renal function, culture results, infectious disease input, and overall clinical status. Contact the Pharmacy at extension [phone] if there are any questions. * Supriya Arteaga RPh - 04/08/2024 3:06 PM EST PHARMACY PHARMACOKINETIC CONSULT [facility] [place] [place]-[address] [address] Name: Kris Celaya Location: [facility] [place] [place] A468/A Date: 04/08/2024 Time: 3:00 PM Requesting Service: Neurosurgery Bacteria being treated: Empiric Source of infection: Empiric - concern for bacterial meningitis Medication(s) being managed: Vancomycin Pharmacokinetic calculations will be performed without utilizing RevstrRx software due to meeting exclusion criteria (JENNIFER Stage 2 or 3 MATTY, or receiving renal replacement therapy [iHD, CRRT, PD]). Lab information: Lab Results Component Value Date/Time WBC 13.94 (H) 04/08/2024 07:20 AM WBC 11.93 (H) 04/04/2024 07:19 AM WBC 9.93 01/28/2024 10:35 AM WBC 11.06 (H) 10/03/2023 09:20 AM WBC 15.55 (H) 09/07/2023 08:02 AM Lab Results Component Value Date/Time BUN 19 04/08/2024 07:20 AM BUN 18 04/04/2024 07:19 AM BUN 16 01/28/2024 10:35 AM BUN 22 (H) 09/07/2023 08:02 AM BUN 20 07/26/2023 01:51 PM Lab Results Component Value Date/Time CREAT 2.0 (H) 04/08/2024 07:20 AM CREAT 1.2 04/04/2024 07:19 AM CREAT 1.1 01/28/2024 10:35 AM CREAT 1.1 09/07/2023 08:02 AM CREAT 1.1 07/26/2023 01:51 PM ANTIMICROBIALS GIVEN (last 96 hours) Date/Time Action Medication Dose Rate 04/08/24 0304 New Bag Vancomycin (Vancocin) 1000 mg in NSS 250 mL ivpb LOCKED DOSE 1,000 mg 255 mL/hr 04/07/24 1506 New Bag Vancomycin (Vancocin) 2,000 mg in NSS 500 mL ivpb 2,000 mg 265 mL/hr 04/05/24 1302 Given vancomycin 1,000 mg in sodium chloride IR 0.9 % 1,000 mL irrigation 1,000 mL Wt Readings from Last 1 Encounters: 04/06/24 84.7 kg (186 lb 11.7 oz) Dosing and levels to date: Lab Results Component Value Date/Time VANCORANDOM 17.5 04/08/2024 11:53 AM Day of Therapy Date Dose Admin Time Level (mcg/mL) Collected Time Notes/Comment 1 04/07/24 2000 mg x 1 dose (LD) 1506 17.5 @ 1153 Switch to dose by level 2 04/08/24 1000 mg x 1 dose Impression: 53 year old male being treating empirically for suspected bacterial meningitis. He was initiated on a maintenance therapy on 04/07/24 but given his rise in Scr (2.0 today from 1.2 on 04/04/24) a random level was obtained today which was 17.5 (approximately ~9 hours since his last dose of vancomycin). We will continue with dose by level for today and reassess his Scr tomorrow to see if we are able to continue a maintenance therapy. Obtain next level with AM labs on 04/09. Plan/Recommendations: Administer 1000 mg IV Vancomycin followed by no maintenance regimen due to renal function. Obtain random level 04/09 AM labs . Pharmacy will continue to follow and dose as appropriate by renal function, culture results, infectious disease input, and overall clinical status. * Dilshad Styles RP - 04/07/2024 3:18 PM EST PHARMACY PHARMACOKINETIC CONSULT [facility] [place] [place]-[address] [address] Name: Kris Celaya Location: [facility]/A Date: 04/07/2024 Time: 3:16 PM Requesting Service: Neurosurgery Bacteria being treated: Empiric Source of infection: Empiric - concern for bacterial meningitis Medication(s) being managed: Vancomycin Pharmacokinetic calculations will be performed utilizing [employer] software. Lab information: Lab Results Component Value Date/Time WBC 11.93 (H) 04/04/2024 07:19 AM WBC 9.93 01/28/2024 10:35 AM WBC 11.06 (H) 10/03/2023 09:20 AM WBC 15.55 (H) 09/07/2023 08:02 AM Lab Results Component Value Date/Time BUN 18 04/04/2024 07:19 AM BUN 16 01/28/2024 10:35 AM BUN 22 (H) 09/07/2023 08:02 AM BUN 20 07/26/2023 01:51 PM Lab Results Component Value Date/Time CREAT 1.2 04/04/2024 07:19 AM CREAT 1.1 01/28/2024 10:35 AM CREAT 1.1 09/07/2023 08:02 AM CREAT 1.1 07/26/2023 01:51 PM ANTIMICROBIALS GIVEN (last 96 hours) Date/Time Action Medication Dose Rate 04/07/24 1506 New Bag Vancomycin (Vancocin) 2,000 mg in NSS 500 mL ivpb 2,000 mg 265 mL/hr 04/05/24 1302 Given vancomycin 1,000 mg in sodium chloride IR 0.9 % 1,000 mL irrigation 1,000 mL Wt Readings from Last 1 Encounters: 04/06/24 84.7 kg (186 lb 11.7 oz) Levels to date: No results found for: "VANCO", "VANCOPEAK", "VANCORANDOM", "VANCOTROUGH", "GENTPEAK", "GENTRANDOM","GENTTROUGH", "TOBRAPEAK", "TOBRARANDOM", "TOBRATROUGH", "AMIKAPEAK", "AMIKARANDOM", "AMIKATROUGH" Impression: Kris Celaya is a/an 53 year old male receiving vancomycin therapy. The pharmacokinetic target for therapy is AUC24,SS (range) 400-600mg/L.hr Assessment and Plan: [employer] Pharmacokinetics Note Drug: Vancomycin Pharmacokinetic target: AUC24 (range) 400-600 mg/L.hr Kris Celaya is a 53 year old male initiating Vancomycin for empiric coverage of bacterial meningitis Recent measured serum creatinine values: 04/04/2024 07:19 1.2 mg/dL Assessment: Analysis using [employer] gives the following patient-specific pharmacokinetic parameters: CL: 3.32 L/hr V: 57.2 L T1/2: 12.3 hours At this time we recommend a regimen of 1000 mg IV every 12 hours, which is predicted to result in asteady-state trough of 17.1 mg/L and AUC24 of 566 mg/L.hr. Recommendations: - Vancomycin 1000 mg IV every 12 hours - Obtain Vancomycin trough 04/09 @1430 - Continue to monitor serum creatinine Pharmacy will continue to follow and dose as appropriate by renal function, culture results, infectious disease input, and overall clinical status. Contact the Pharmacy at extension [phone] if there are any questions. Dilshad Styles RPh documented in this encounter Consult Notes * Mike Hernandez OTR/Noelle - 04/07/2024 3:11 PM ESTAssociated Order(s): ADULT OCCUPATIONAL THERAPY CONSULT IP GENERAL EVALUATION - Occupational Therapy [address] [address] Name: Kris Celaya Location: [facility] [place] [place] A468/A Date: 04/07/2024 Time: 3:15 PM Kris Celaya is a 53 year old male. Patient Status: Inpatient Insurance: Payor: [employer] [place] Plan: [place] BLUE [place] Product Type: *No Product type* Patient Seen: at bedside, nursing cleared patient for therapy Patient Identified By: Name, ID Band and Date Diagnosis: CSF leak (04/07/24 143) Status of treatment: Evaluation completed (04/07/241432) Orders: OT evaluation and treatment (04/07/241432) Weight Bearing Status: Weight bearing as tolerated (04/07/24 143) Precautions: Alarms;Falls;Safety;Spine Precautions (lumbar drain) (04/07/24 143) Total Treatment Time: 26 (04/07/24 143) Past Medical History: No past medical history on file. Past Surgical History: Past Surgical History: Procedure Laterality Date COLONOSCOPY, DIAGNOSTIC (RECTUM) 02/06/2024 diverticulosis/hemorrhoids/biopsies show adenomatous polyps/recall 3 years/COLONOSCOPY FLEXIBLE PROXIMAL DIAGNOSTIC performed by Isidro Duran MD at ENDOSCOPY [facility] EXPLORATION OF SPINAL FUSION N/A 04/05/2024 EXPLORATION OF POSTERIOR SPINAL FUSION performed by Сергей Curtis MD at OR [facility] [place] [place] INJECT DX/THER SUBSTANCE INTERLAMINAR LUMBAR/SACRAL W IMAGE GUIDE 10/08/2023 INJECTION SPINE LUMBAR OR SACRAL performed by Asael Howell DO at OR [facility] Social History/Disposition Lives with: Spouse;Family (04/07/24 1502) Assistance available: Yes (04/07/24 1502) Dwelling type: Multi-story home (04/07/24 1502) Entry steps: 2 (04/07/24 1502) Inside steps: (5 steps down, 7 steps up) (04/07/24 1502) Bedroom location: 1st floor (04/07/24 1502) Bath location: 2nd floor full bath (04/07/24 1502) Prior Level of Function Reported by: Patient (04/07/24 143) Ambulation: Ambulatory without device;Ambulatory with device (04/07/24 143) Ambulatory Device: Cane (as needed) (04/07/24 143) Grooming: Independent (04/07/24 143) Bathing: Independent (04/07/24 143) Dressing: Independent (04/07/24 143) Feeding: Independent (04/07/24 143) Toileting: Independent (04/07/24 143) Meal Prep: Independent (04/07/24 143) Driving: Yes (04/07/24 143) Durable Medical Equipment at home: Straight cane;Rolling walker (lift chair) (04/07/24 143) Subjective: Pt supine in bed, agreeable to OT session. Pain: Patient has complaints of pain. Pain located at low back, rated 7/10 with spasms, at rest 0/10. Nursing aware. Observations Consciousness: Alert (04/07/241432) Orientation: Oriented times 4 (04/07/241432) Psychosocial: Patient can communicate basic needs;Patient can converse in a social setting (04/07/241432) Sitting posture: Forward head;Rounded shoulders (04/07/241432) Standing posture: Forward head;Rounded shoulders (04/07/241432) Safety awareness: The Patient verbalizes insight of current deficits.;The Patient demonstrates carryover of insight during functional tasks. (04/07/241432) Other Findings Endurance: Sitting tolerance;Standing tolerance;Fair;Functional activity;Poor (04/07/241432) Light touch sensation: LUE;RUE;Intact (04/07/241432) Coordination: LUE;RUE;Intact (04/07/241432) Current Functional Status: Bilateral Upper Extremity Range of Motion: WFL (04/07/241432) Strength Assessment: (BUE 4/5 throughout) (04/07/241432) Self Care Grooming: Supervision (Please comment) (wash face) (04/07/241432) Dressing Upper Body: Minimal Assistance (to doff gown) (04/07/241432) Functional Ambulation Assistive Device: Rolling walker (04/07/241432) Distance in feet:: 15 (+15) (04/07/241432) Level of Assistance: Contact Guard (04/07/241432) Bed Mobility Roll (Left): Contact Guard (04/07/241432) Sit - Sidelying: Contact Guard (04/07/241432) Sidelying - Sit: Contact Guard (04/07/241432) OT Transfers Sit-Stand: Contact Guard (04/07/241432) Stand-Sit: Contact Guard (04/07/241432) Toilet: Contact Guard (with raised toilet seat) (04/07/241432) Balance Sit (Static): Fair (04/07/241432) Sit (Dynamic): Fair (-) (04/07/241432) Stand (Static): Fair (to fair-) (04/07/241432) Stand (Dynamic): Fair (-) (04/07/241432) Alarm Status Patient positioned in: Bed (04/07/241432) With: Bed alarm intact and functioning and call cordova in reach (04/07/241432) Patient and Family Goals: to get well and to return home Patient Education Education Topic: Role of OT;Plan of care goals (04/07/241432) Review of Precautions: Safety;Spine Precautions;Fall (04/07/241432) Method of Education: Verbalized to patient (04/07/241432) Education Provided to: Patient (04/07/241432) Response to Education: Receptive and agreeable to education (04/07/241432) Barriers to learning: Medical status (04/07/241432) Preferred learning method: Combination (04/07/241432) Treatment Provided: Therapeutic Activity: 9 minutes Evaluation Moderate Complexity 17 minutes - 41615: Patient was cooperative during treatment session. Moderate complexity evaluation performed and 3-5 activity limitations were identified, including ADL deficit, functional mobility deficit, bed mobility deficit, decreased strength, decreased endurance, and impaired balance. Minimal or moderate modification of the functional task was necessary to complete the evaluation. Deficits Requiring O.T. Treatment: Deficits requiring O.T. treatment needs: ADL/self-care;Balance;Endurance;Functional mobility;Safety;Upper extremity strength (04/07/241432) Assessment: Patient was admitted to [facility] [place] [place] on 04/04/24 for CSF leak now s/p exploration, CSF leak repair with multilayer closure. Patient was cooperative and agreeable to participate in OT evaluation this date. Prior to admission patient was independent with ADLs/IADLs and mobility, but would use caneas needed. During session patient able to roll in bed and perform side-lying>sit with contact guard. With bed mobility patient utilized cane for leverage (as he does this at home). He does experience spasm in low back/buttocks area which increases pain and limits movement. At this time assistance is needed for LB dressing 2/2 decreased functional reach/flexibility due to pain. UB dressing and grooming tasks completed with Clare-supervision. Sit/stand transfer from bedside completed with contact guard and use of walker. Bed height elevated to assist in transfer. Functional mobility then performed with contact guard and use of walker. Patient requiring additional time for mobility due to pain. Toilet transfer completed for practice with contact guard however patient unable to tolerate sitting due to increased pain and therefore stood and completed mobility back to bed. Declined chair atthis time due to same. Following session pt in bed with all needs met. Currently, patients presentswith deficits in ADLs, functional transfers and mobility, as well as decreased strength, endurance, balance and safety which is all limited 2/2 pain/back spasms. Patient would benefit from continued OT services to improve independence in ADLs and functional mobility. When medically appropriate, Please consider post-acute care services which may include home health, longterm, outpatient therapy or inpatient rehabilitation. The level of care will be determined in collaboration with patient, family/caregiver and care team members. Goals: Demonstrates Self-Care at: UB Bathing: modified independent LB Bathing: modified independent UB Dressing: modified independent to don gown/robe/shirt LB Dressing: modified independent to don socks/shoes/pants Grooming: independent Toileting: modified independent Demonstrates Bed Mobility at: Supine to sit: modified independent Sit to supine: modified independent Rolling left/right: modified independent Side-lying<>sit: modified independent Demonstrates balance at: Dynamic/Static Sitting balance: Fair+ Dynamic/Static Standing balance: Fair+ Transfers: Sit to Stand: modified independent Stand to Sit: modified independent Toilet: modified independent Functional Ambulation at modified independent with AD PRN Demonstrates standing/activity endurance at 15 minutes to increase participation in functional mobility and ADL tasks Increase Strength of B UEs 1/2 muscle grade Goal Time Frame: 8 visits Treatment Plan: Safety, Bed mobility training, Functional Ambulation, Transfer Training, Upper extremity strengthening, Balance activities, ADL training and Endurance Anticipated Frequency (on eval): 3 to 5 times per week (04/07/241432) AM-PAC Help From Another Person Eating Meals: None (04/07/241432) Help From Another Person Taking Care of Personal Grooming: A little (04/07/241432) Help From Another Person To Put On/Take Off Upper Body Clothing: A little (04/07/241432) Help From Another Person To Put On/Take Off Lower Body Clothing: A lot (04/07/241432) Help From Another Person Toileting: A little (04/07/241432) Help From Another Person Bathing: A lot (01/06/25 1433) OT AM-PAC Score: 17 (04/07/24 1433) OT AM-PAC t-Scale Score: 37.26 (04/07/24 1433) HLM (Highest Level of Mobility) Goal: Level 5 standing (1 or more minutes) (04/07/24 1502) A portion of this AM-PAC assessment not scored based on functional assessment; rather clinical decision making utilized based on current findings and/or prior level of function. Please refer to future AM-PAC calculations of functional ability as they become available. * Hailey Love PT - 04/07/2024 3:02 PM ESTAssociated Order(s): ADULT PHYSICAL THERAPY CONSULT IP GENERAL EVALUATION - Physical Therapy [address] [id number] Name: Kris Celaya Location: [facility] [place] [place] A468/A Date: 04/07/2024 Time: 1501 Kris Celaya is a/an 53 year old male. Patient Status: Inpatient Insurance: Payor: [employer] Plan: [employer] Product Type: *No Product type* Patient Seen: at bedside, nursing cleared patient for therapy Patient Identified By: Name, ID Band and Date Diagnosis: CSF leak (04/07/24 1502) Status of treatment: Evaluation completed (04/07/24 1502) Orders: PT evaluation and treatment;OOB (04/07/24 1502) Weight Bearing Status: Weight bearing as tolerated (04/07/24 1502) Precautions: Alarms;Falls;Safety (lumbar drain) (04/07/24 1502) Total Treatment Time--free text: 39 (04/07/24 1502) Past Medical History: No past medical history on file. Past Surgical History: Past Surgical History: Procedure Laterality Date COLONOSCOPY, DIAGNOSTIC (RECTUM) 02/06/2024 diverticulosis/hemorrhoids/biopsies show adenomatous polyps/recall 3 years/COLONOSCOPY FLEXIBLE PROXIMAL DIAGNOSTIC performed by Isidro Duran MD at ENDOSCOPY [facility] EXPLORATION OF SPINAL FUSION N/A 04/05/2024 EXPLORATION OF POSTERIOR SPINAL FUSION performed by Сергей Curtis MD at OR [facility] [place] [place] INJECT DX/THER SUBSTANCE INTERLAMINAR LUMBAR/SACRAL W IMAGE GUIDE 10/08/2023 INJECTION SPINE LUMBAR OR SACRAL performed by Asael Howell DO at OR [facility] Subjective: Pt awake in bed, agreeable to PT. Social History/Disposition Lives with: Spouse;Family (04/07/24 1502) Assistance available: Yes (04/07/24 1502) Dwelling type: Multi-story home (04/07/24 1502) Entry steps: 2 (04/07/24 1502) Inside steps: (5 steps down, 7 steps up) (04/07/24 1502) Bedroom location: 1st floor (04/07/24 1502) Bath location: 2nd floor full bath (04/07/24 1502) Prior Level of Function Reported by: Patient (04/07/24 1502) Ambulation: Ambulatory with device (04/07/24 1502) Ambulatory Device: Cane (04/07/24 1502) Devices at home: Straight cane (lift chair, and bariatric rolling walker) (04/07/24 1502) Observations Consciousness: Alert (04/07/24 1502) Orientation: Oriented times 4 (04/07/24 1502) Psychosocial: Patient can communicate basic needs;Patient can converse in a social setting (04/07/24 1502) Other Findings: Yes (04/07/24 1502) Findings: Light touch sensation (04/07/24 1502) Light Touch Sensation Results: Intact;LLE;RLE (04/07/24 1502) Sitting Posture: Forward head;Rounded shoulders (04/07/24 1502) Standing Posture: Forward head;Rounded shoulders (04/07/24 1502) Pain: Patient has complaints of pain and spasms in L side of back/proximal LLE with movements, 10/09, nursing aware. Range of Motion Range of Motion: WFL, except (limited LLE actively due to pain/spasms with certain movements) (04/07/24 1502) Strength Assessment Strength Assessment: Deficits noted (04/07/24 1502) WNL, except: LLE;RLE (04/07/24 1502) LLE: Hip;Knee;2+/5;Ankle;4/5 (at least, due to pain/spasms with certain movements) (04/07/24 1502) RLE: Hip;Knee;3+/5;Ankle;4/5 (at least, no resistance as pt concerned about spasms/apin) (04/07/24 1502) P.T. Bed Mobility Roll (Right): Contact Guard (04/07/24 1502) Roll (Left): Contact Guard (04/07/24 1502) Sidelying-Sit: Contact Guard (04/07/24 1502) Sit-Sidelying: Contact Guard (04/07/24 1502) Transfers Sit-Stand: Contact Guard (04/07/24 1502) Stand-Sit: Contact Guard (04/07/24 1502) Ambulation: Distance ambulated (feet): 15 ft + 15 ft Assistive Device: Rolling walker Assist: Contact Guard Balance Sit (Static): Fair (04/07/24 1502) Sit (Dynamic): Fair (04/07/24 1502) Stand (Static): Fair (-) (04/07/24 1502) Stand (Dynamic): Fair (-) (04/07/24 1502) Patient and or Family Goal(s): to get well and to return home Patient Education Review of Precautions: Safety;Fall (role of PT) (04/07/24 150) Review of Exercises: Pt Demonstrated Exercise;Verbal Exercises Provided (04/07/24 150) Safety Awareness: Patient can communicate basic needs (04/07/24 1502) Preferred learning method: Combination (04/07/24 1502) Barriers to learning: Medical Status (04/07/24 1502) Method of Education: Verbalized to patient;Patient demonstrated task (04/07/24 1502) Topic of Education: Safety with mobility, Goals/plan of care, Use of assistive device, and Fall prevention Method of Education: Verbal discussion and explanation provided to pt: verbalized understanding andor agreement of this information and demonstrated the exercise and or task Treatment Provided: Therapeutic Activities 10 minutes: bed mobility training transfer training Gait Training 10 minutes: gait training with rolling walker Evaluation Moderate Complexity 19 minutes - 23421: Patient was cooperative during treatment session. Moderate complexity evaluation performed and 1-2 personal factors or comorbidities were identifiedthat will impact plan of care, including high pain levels and multiple steps at home. Patient presents with limitations in strength, bed mobility, transfers, gait, elevations, balance, endurance, andsafety, which will impact plan of care. These limitations will be addressed by the goals set for this patient. Alarm Status Patient positioned in: Bed (04/07/24 1502) With: Bed alarm intact and functioning and call cordova in reach (04/07/24 1502) Treatment Status: Treatment at bedside (04/07/24 1502) Goals: Demonstrate Bed Mobility with: independent Demonstrate Sit to/from Stand Transfers with: modified independent Demonstrate Ambulation: least restrictive assistive device, 150 feet, modified independent Demonstrate Stairclimbing: Number of steps: 7 and modified independent Increase Strength of: B/L LE by 1 muscle grade Increase Balance: dynamic standing balance to fair+ Increase Safety: with all functional mobility Time Frame: 9-10 visits Assessment: Pt is 53 year old male presenting with CSF leak. Pt seen on this date for initial evaluation. Pt reports 7/10 pain with spasms of L side/back/proximal LLE, nursing aware. Prior to admission, pt reports living in 3-story house (2 steps to enter) with and daughter who are able to assist if needed. Pt reports ambulating with cane at baseline. During session, pt was cooperative. Uponinitial evaluation, pt required multiple attempts for bed mobility rolling and sidelying to/from sit due to getting spasms and increased pain, but was able to perform with contact guard each time. Ptperformed multiple sit to stand transfers from edge of bed with height of bed elevated and from toilet with seat riser and grab bar with contact guard. Pt ambulated 15 ft + 15 ft with rolling walker and contact guard. Pt with decreased step length/height and heavily relying on rolling walker. Pt required increased time for all activities due to pain and spasms with movements. Following session, pt positioned in bed with alarm and call cordova in reach. Pt presents with deficits in strength, endurance, mobility, ambulation, and balance, all of which are currently negatively impacting pt's qualityof life. Pt would continue to benefit from skilled PT services while inpatient at hospital to reachestablished goals and address deficits. Please consider post-acute care services which may include home health, longterm, outpatient therapy or inpatient rehabilitation. The level of care willbe determined in collaboration with patient, family/caregiver and care team members. All needs met. Deficits requiring P.T. treatment needs: Safety;Mobility;Balance;Weakness;Endurance;Lower extremitystrength (04/07/24 1502) Equipment Needs: Equipment needs: (TBD) (04/07/24 1502) Treatment Plan: Bed mobility training, Transfer training, Gait training, Elevation training, Strengthening exercises: B/L LE, Balance activities, and Educate on safety with functional mobility Anticipated Frequency (on eval): 3 to 5 times per week (04/07/24 1502) AM PAC Score with Stairs: 17 A portion of this AM-PAC assessment not scored based on functional assessment; rather clinical decision making utilized based on current findings and/or prior level of function. Please refer to future AM-PAC calculations of functional ability as they become available. * Valente Braun MD - 04/06/2024 9:47 AM ESTAssociated Order(s): INFECTIOUS DISEASE CONSULT IP CONSULT - Infectious Disease [address] [phone] Name: Kris Celaya Location: [facility] [place] [place] A468/A Date: 04/06/2024 Time: 9:48 AM CLINICAL TEAM: Infectious Diseases Team 1 REQUESTING SERVICE: medicine REASON FOR CONSULT: on daptomycin for post operative infection per OSH with plans to stop, would appreciate input as patient has had continued CSF leak just repaired yesterady PmHx: spine surgery L4-5 microdiscectomy 02/26 from orthopedic spine surgeon in [place] c/b CSF leak HPI: Patient is a 53 year old male admitted to the hospital on 04/04/2024. Pt underwent L4-5 microdiscectomy on 02/26 in [place] which was complicated by CSF leak which was discovered 2 weeks later. Pt presented to [facility] and 03/19 Bclx found to have MRSA bacteremia and placed on Daptomycin IV therapy. MRI at this admission showing evidence of L4 surgical laminectomy with an extraspinal-extracanalicukar fluid collection measuring 10.9 x 8.2 mm, surgical site subcutaneous tissue shows a faintly-enhancing fluid collection measuring 9 x 9 x [address] [facility] [address] [facility] [place] for patch of CSF leak. Appears that patient again returned to [facility] after this procedure due to persistent STAFFORD and further CSF leak from lumbar surgical site. Pt unable to be seen further by the [place] practice and was subsequently transferred to [facility] [place] [place]. He is now s/p / OR with Neurosurgery for L4-5 laminectomy, L5 medial facetectomy, washout and dura leak repair- of note there was a significant amount of CSK present on initial opening of the prior surgical site. Remains on Daptomycin at this time. No cultures or CSF has been sent for culture. ALLERGIES: Patient has no known allergies. PAST MEDICAL HISTORY: No past medical history on file. PAST SURGICAL HISTORY: Past Surgical History: Procedure Laterality Date COLONOSCOPY, DIAGNOSTIC (RECTUM) 02/06/2024 diverticulosis/hemorrhoids/biopsies show adenomatous polyps/recall 3 years/COLONOSCOPY FLEXIBLE PROXIMAL DIAGNOSTIC performed by Isidro Duran MD at ENDOSCOPY [facility] INJECT DX/THER SUBSTANCE INTERLAMINAR LUMBAR/SACRAL W IMAGE GUIDE 10/08/2023 INJECTION SPINE LUMBAR OR SACRAL performed by Asael Howell DO at OR [facility] SOCIAL HISTORY: Social History Tobacco Use Smoking status: Former Current packs/day: 1.00 Average packs/day: 1 pack/day for 30.5 years (30.5 ttl pk-yrs) Types: Cigarettes Start date: 09/18/1993 Smokeless tobacco: Never Tobacco comments: Currently 1/2 ppd. Vaping Use Vaping status: Former Substance Use Topics Alcohol use: Yes Comment: rarely Drug use: Never FAMILY HISTORY and FAMILY STATUS: No family history on file. No family status information on file. ROS: Constitutional: No current fever or chills Eyes: No vision change/sensitivity HENT: No ear pain/drainage, sinus infections, hearing loss Cardiovascular: No chest pain, palpitations Respiratory: No shortness of breath, wheezing, cough, sputum production Gastrointestinal: No abdominal pain, nausea/vomiting, indigestion/heartburn Skin: Drainage from lumbar surgical site-non purulent Neurological: Significant global STAFFORD, improving PHYSICAL EXAMINATION: Most Recent Vital Signs: BP: 121 mmHg/72 mmHg (04/06/2445) Pulse: 76 (04/06/2445) Resp: 16 (04/06/24644) Temp: 37.11 C (04/06/24 0645) Temp Summary: Temp Min: 36.3 C (97.3 F) Max: 37.1 C (98.8 F) SpO2: 98 % (04/06/24 0645) O2 flow rate: 0 L/MIN (04/05/24 1630) Supplemental O2 Delivery: Room Air, None (04/06/24 0800) Vital Signs Last 24 Hours: Systolic BP: Most Recent Systolic BP Av.3 mmHg Min: 110 mmHg Max: 131 mmHg Temperature: Most Recent Temperature Av.8 C Min: 36.28 C Max: 37.11 C Pulse: Pulse Av.7 Min: 66 Max: 87 Respirations: Resp Av.9 Min: 7 Max: 21 SpO2: SpO2 Av.4 % Min: 93 % Max: 100 % General: Appears in no acute distress laying in bed Eyes: Pupils equal Cardiovascular: S1/S2, no murmurs appreciated Respiratory: Equal air exchange bilaterally, no wheezing/rhonchi/rales Abdomen: Soft, nontender to palpation, non-distended Musculoskeletal: lumbar drain in place Skin: No rashes, lesions Neurological: AAOx3, clear speech, sensory intact, motor 5/5, no focality LABS: Labs reviewed as indicated below: Lab results within last 7 days (see chart for full results) Units 04/04/24 0719 WBC K/uL 11.93* CREATININE mg/dL 1.2 BUN mg/dL 18 EGFR mL/min 72 MICROBIOLOGY DATA: 03/16 BCLX 4.4 btls MRSA IMAGIN/13 MR lumbar spine Soft Tissues: Evidence of L4 surgical laminectomy with an extraspinal-extracanalicukar fluid collection measuring 10.9 x 8.2 mm of high signal on T2 WI and STIR with low signal on T1WI and no enhancement on sagittal postcontrast images indicating noninfected seroma, The surgical site subcutaneous tissue shows a faintly-enhancing fluid collection measuring 9 x 9 x 33 mm with possible surgical sutures seen within them with enhancement could be seen on the sagittal postcontrast images 12/17. The surgical site paravertebral muscle around L4 level shows faint enhancement indicating inflammation. A suspected sinus tract with the skin could be seen on axial T2WI 01/17 images. Impression 1. L4-L5 laminectomy with non-enhancing extra thecal seroma. L4 surgical site skin and subcutaneous fluid collection with enhancement indicating possible infection/inflammation advised lab and clinical evaluation. 2. Suspected non-enhancing well-coapted sinus tract connecting the previously mentioned fluid collections. 3. L4-L5 central and right paracentral disc protrusion/fibrosis indenting the thecal sac and causing the narrowing of the right neural exit foramina. 4. L5-S1 diffuse disc bulge causing bilateral mild to moderate stenosis of the neural exit. 5. There is a suspected faintly enhancing granulation tissue seen at the lower end of the L4 vertebral body encroaching upon the L4-L5 left neural exit foramen compressing the thecal sac and causing mild narrowing of the neural exit foramina and central canal. Advised follow-up if clinically warranted. 6. No evidence of acute abscess formation or intraspinal extension of the inflammatory process. IMPRESSION: 53M undergoing microdiscectomy in [place] c/b CSK leak and MRSA bacteremia now s/p leak repair on04/05 Lumbar Dural CSF leak 05/04 L4-5 microdiscectomy s/p repair 04/05 03/19 MRSA bacteremia on IV Daptomycin Possible superficial infected fluid collection at prior surgical site RECOMMENDATIONS: -Continue Daptomycin 10mg/kg IV qd for MRSA coverage and likely infection at original surgical sit,cannot r/o vertebral involvement -Please obtain 2D echo for evaluation for vegetations -Please send CSF for bacterial/fungal culture, cytology, glucose/protein, and differential -Will restart treatment clock at this time, patient will require at least 6 weeks of IV abx for presumed vertebral involvement in prior MRSA bacteremia -Please obtain XR of right hip when able as patient reporting pain at this site since being bacteremic -ID will continue to follow Case discussed with ID Attending Dr. Ling Braun MD Infectious Disease PGY-5 [facility] Cosigned by Benedict Dubon MD at 04/07/2024 10:18 PM EST Associated attestation - Benedict Dubon MD - 04/07/2024 10:18 PM EST Date of service: 04/06/2024 I have discussed the patient's management with the medical trainee and agree with the note. Please refer to the documented findings and plan of care. The patient's service consisted of an evaluation.I have seen and evaluated the patient. Benedict Dubon MD I spent a total of 65 minutes coordinating, documenting, and providing care for this patient excluding time spent in the performance of separately billed services or time spent by another provider/QHP. documented in this encounter Nursing Notes * Brock Leary RN - 04/05/2024 4:50 PM EST Dual Licensed Skin Assessment completed by Brock Leary RN and Carolyn Philippe RN. The patient is/has a N/A Skin Breakdown (includes non blanchable erythema): Yes - Surgical/Procedural changes only. * Michael Lewis NA/UDC - 04/05/2024 4:42 PM EST Post Anesthesia Care Unit Transport Note [address] [address] Dept. Kris Celaya Transported from PeriOp to : A4A Time: 1635 Care of patient transferred to: DESTIN Love Transported via: Bed Belongings with Patient: YES Pulse : 80 Temp : 36.8 BP : 128/84 Respirations : 16 Pulse Ox : 92 O2 : room air SCDS: On but not activated/no machine * Irina Faustin RN - 04/05/2024 4:18 PM EST PERIOP TO IP HANDOFF COMMUNICATION NOTE [address] [address] Name: Kris Celaya AGE: [age] year old Location: OR [facility] [place] [place] Date: 04/05/2024 Attention to: brock Leary Report from: Irina Faustin RN Patient arriving via: Bed Time of call: 4:19 PM Phone Ext: [phone] Reason for SBAR (Situation, Background, Assessment, Recommendation) handoff: OR Sending to: [id number] Emotional/Personal Events & Special Needs: n/a Prescriptions in chart: No Code Status: Full Code Safety Concerns: no safety concerns identified Allergies: Patient has no known allergies. PMH:No past medical history on file. PSH: Past Surgical History: Procedure Laterality Date COLONOSCOPY, DIAGNOSTIC (RECTUM) 02/06/2024 diverticulosis/hemorrhoids/biopsies show adenomatous polyps/recall 3 years/COLONOSCOPY FLEXIBLE PROXIMAL DIAGNOSTIC performed by Isidro Duran MD at ENDOSCOPY [facility] INJECT DX/THER SUBSTANCE INTERLAMINAR LUMBAR/SACRAL W IMAGE GUIDE 10/08/2023 INJECTION SPINE LUMBAR OR SACRAL performed by Asael Howell DO at OR [facility] Isolation: Isolation: Procedure: Exploration of wound Wound washout L4 laminectomy L5 laminectomy L5 medial facetectomy Dural repair Harvesting of fat autograft Implantation of harvested fat autograft Use of c-arm and interpretation Placement of lumbar drain Complex multi-layered closure using overlapping muscle and fascial flaps Type of Anesthesia: General endotracheal anesthesia Block: n/a IV intake: 1700 mL EBL: OR: 10 mL PACU: 0 mL Urine output: OR 175 mL PACU 20 mL IUBC (Liriano): Incision location: back Dressing location: back Time of last skin assessment: 1600 Pressure injuries or areas of concern: n/a Lines: Urethral Catheter Regular catheter (Active) Site Assessment Clean;Skin intact 04/05/24 1600 Securement Method Securing device (Describe) 04/05/24 1600 Catheter secured to leg? Yes 04/05/24 1600 Catheter bag below bladder? Yes 04/05/24 1600 Has IUBC been removed? (If yes, ensure the order is discontinued.) No, perioperative, or scheduled for return to OR within 48 hrs 04/05/24 1600 IUBC Tubing Disconnected This Shift? No 04/05/24 1600 Collection Container Standard drainage 04/05/24 1600 Urine Description Clear;Yellow 04/05/24 1600 Number of days: 0 Peripheral Line Left Hand 18 Gauge (Active) Status Flushes easily 04/05/24 1600 Tubing Changed No 04/05/24 1600 Phlebitis Scale 0 04/05/24 1600 Infiltration Scale 0 04/05/24 1600 Site Description (Other) Without redness, swelling or drainage 04/05/24 1600 Site Intervention Flushed 04/05/24 1600 Dressing Assessment Dressing clean, dry, and intact 04/05/24 1600 Dressing Intervention None required 04/05/24 1600 Number of days: 0 PICC-Single lumen Line Right;Upper Arm (Active) Status Alcohol disinfectant cap 04/05/24 1600 Tubing Changed N/A 04/05/241599 Site Description Without redness, swelling or drainage 04/05/24 1600 Site Intervention None required 04/05/24 1600 Dressing Assessment Dressing clean, dry, and intact 04/05/24 1600 Catheter Securement Device Intact 04/05/241599 Dressing Intervention None required 04/05/241599 Dressing Change Due 04/11/24 04/05/24 0938 Line Necessity Yes, meets criteria 04/04/241999 Number of days: Lumbar Lower Back (Active) Status Other - Describe 04/05/241599 Site Intervention None required 04/05/241599 Site Description Not visualized, dressing intact 04/05/24 1600 Dressing Assessment Dressing clean, dry, and intact 04/05/24 1600 Dressing Intervention None required 04/05/241599 Description of Output None 04/05/24 1600 Output (mL) 5 mL 04/05/241599 Number of days: 0 Vital Signs: BP: 129/80 (04/05/241614) Temp: 36.6 C (97.9 F) (04/05/241599) Pulse: 81 (04/05/241614) Resp: 21 (04/05/241614) SpO2: 98 % (04/05/241614) O2 flow rate: 0 L/MIN (04/05/241614) Time of last pain medication: 1555 Med: dilaudid Time of last antibiotic: 1238 Med: ancef Time of last antiemetic: 1426 Med: zofran [employer] MAINTENANCE MANAGER: no Drips: no Neurological: Neuro WNL: WNL - within normal limits (04/05/24857) Speech: Clear (04/05/241599) Level of Consciousness: Alert (04/05/241599) RUE Motor Strength: 5-Active movement with full resistance (04/05/241599) RLE Motor Strength: 5-Active movement with full resistance (04/05/241599) LUE Motor Strength: 5-Active movement with full resistance (04/05/241599) LLE Motor Strength: 5-Active movement with full resistance (04/05/241599) Right Pupil Size (mm): 3 (04/05/24 1600) Right Pupil Reaction: Reactive (04/05/241599) Left Pupil Size (mm): 3 (04/05/241599) Left Pupil Reaction: Reactive (04/05/241599) Coma Score: 15 (04/05/241599) Respiratory: Respiratory WNL: X - Exceptions to WNL as documented below (04/05/241599) Cough: None (04/05/241599) Depth/Rhythm: Regular (04/05/241599) Dyspnea Occurance: None (04/05/241599) Effort: Unlabored (04/05/241599) Oxygen therapy/ Mechanical vent Supplemental O2 Delivery: Room Air, None (04/05/241614) O2 flow rate: 0 L/MIN (04/05/24 161) Cardiac: Cardiovascular WNL: WNL - within normal limits (04/05/241599) Heart Sounds: S1;S2 (04/05/241599) Rhythm: Regular;NSR (04/05/241599) Extremities: +Sensation;Right;Left;Upper;Lower;Marston;Warm (04/05/241599) Pulses Right: Dorsalis Pedis + (04/05/241599) Pulses Left: Femoral - (04/05/241599) Edema Location: Both (04/05/24 1525) Capillary Refill: 3 seconds (04/05/241599) GI: GI WNL: WNL - within normal limits (04/05/241599) : WNL: X - Exceptions to WNL as documented below (04/05/241599) Urine Description: Yellow;Clear (04/05/241599) Urethral Catheter Regular catheter (Active) Site Assessment Clean;Skin intact 04/05/241599 Securement Method Securing device (Describe) (stat) 04/05/241599 Catheter secured to leg? Yes 04/05/241599 Catheter bag below bladder? Yes 04/05/241599 Has IUBC been removed? (If yes, ensure the order is discontinued.) No, perioperative, or scheduled for return to OR within 48 hrs 04/05/241599 IUBC Tubing Disconnected This Shift? No 04/05/241599 Collection Container Standard drainage 04/05/241599 Urine Description Clear;Yellow 04/05/241599 Number of days: 0 Due to Void: liriano Integumentary:Integumentary WNL: X - Exceptions to WNL as documented below (04/05/241599) Skin Description: Warm;Dry (04/05/241599) Skin Color: Flesh Tone (04/05/241599) Skin Variations: Other - Describe (see below) (04/05/24 1600) Paulie Score (auto-calculation): 20 (04/05/24 0858) Family updated on transfer: pt returning Additional Assessment Information: lumbar drain- 5cc drained at 1600- see orders for further instructions * Irina Faustin RN - 04/05/2024 3:52 PM EST Dual Licensed Skin Assessment completed by Irina Barbosa RN and Duane Knight RN. The patient is/has a N/A Skin Breakdown (includes non blanchable erythema): Yes - Surgical/Procedural changes only. * Abigail Pelayo RN - 04/05/2024 12:06 PM EST Dual Licensed Skin Assessment completed by lionel and Noni Butts. The patient is/has a N/A Skin Breakdown (includes non blanchable erythema): Yes. Wound Type: Other, location back, unable to assess under dressing Wound Ostomy Nurse Notified: No - wound ostomy not needed at this time Nursing interventions: per epic * Brock Leary RN - 04/05/2024 9:11 AM EST IP TO PERIOP HANDOFF COMMUNICATION NOTE [facility] [place], [place]-[address] [address] Name: Kris Celaya AGE: [age] year old Location: [facility] [place] [place] A468/A Date: 04/05/2024 Attention to: PACU Report from: Brock Leary RN Patient arriving via: Bed Time of Call: 9:11 AM Phone Ext.: [phone] Reason for SBAR handoff: OR Consent: Emotional/Personal Events & Special Needs: N/A Allergies: Patient has no known allergies. PMH:No past medical history on file. PSH: Past Surgical History: Procedure Laterality Date COLONOSCOPY, DIAGNOSTIC (RECTUM) 02/06/2024 diverticulosis/hemorrhoids/biopsies show adenomatous polyps/recall 3 years/COLONOSCOPY FLEXIBLE PROXIMAL DIAGNOSTIC performed by Isidro Duran MD at ENDOSCOPY [facility] INJECT DX/THER SUBSTANCE INTERLAMINAR LUMBAR/SACRAL W IMAGE GUIDE 10/08/2023 INJECTION SPINE LUMBAR OR SACRAL performed by Asael Howell DO at OR [facility] Isolation: Situation/Background Admission Date: 04/04/2024 Patient Service: Neurosurgery Attending: Сергей Curtis MD Level of Care: Med Surg [3] Assessment Vital Signs: BP: 111/70 (04/05/24653) Temp: 35.9 C (96.6 F) (04/05/24653) Pulse: 76 (04/05/24653) Resp: 18 (04/05/24653) SpO2: 96 % (04/05/24653) Lines: PICC-Single lumen Line Right;Upper Arm (Active) Status Flushes easily;Cap changed 04/05/24899 Tubing Changed N/A 04/05/24899 Site Description Without redness, swelling or drainage 04/05/24899 Site Intervention None required 04/05/24899 Dressing Assessment Dressing clean, dry, and intact 04/05/24899 Catheter Securement Device Intact 04/05/24899 Dressing Intervention None required 04/05/24899 Dressing Change Due 04/11/24 04/04/24919 Line Necessity Yes, meets criteria 04/04/241999 Number of days: Restraints: No orders of the defined types were placed in this encounter. Labs: Please see Lab Flowsheet for lab values. Lab Comments: N/A Diet: Orders Placed This Encounter Procedures NPO Except Meds - Advance As Tolerated NPO Except Meds NPO: Additional Diet Information: N/A Intake and Output: Intake/Output Summary (Last 24 hours) at 04/05/2024 0911 Last data filed at 04/05/2024 0000 Gross per 24 hour Intake -- Output 895 ml Net -895 ml Belongings Remaining with Patient: none What were AM meds taken with: sips of water Time of last pain medication: 04/04/23 0709 Med: Acetaminophen Time of last antibiotic: 04/05/24 at 0858 Med: Daptomycin Time of last skin assessment: 04/05/24 at 0900 Pressure injuries or areas of concern: N/A Neurological: Neuro WNL: WNL - within normal limits (04/05/24857) Coma Score: 15 (04/05/24857) Respiratory: Respiratory WNL: X - Exceptions to WNL as documented below (04/05/24857) Cough: None (04/05/24) Depth/Rhythm: Regular (04/05/24) Dyspnea Occurance: None (04/05/24) Effort: Unlabored (04/05/24) Oxygen therapy/ Mechanical vent Supplemental O2 Delivery: Room Air, None (04/05/24857) Cardiac: Cardiovascular WNL: WNL - within normal limits (04/05/24857) GI: GI WNL: WNL - within normal limits (04/05/24857) : WNL: WNL - within normal limits (04/05/24857) Integumentary: Integumentary WNL: X - Exceptions to WNL as documented below (04/05/24857) Skin Description: Dry;Warm (04/05/24) Skin Color: Flesh Tone (04/05/24) Skin Variations: Other - Describe (see documentation below) (04/05/24857) Paulie Score (auto-calculation): 20 (04/05/24857) Additional Assessment Information: N/A * Gaye Mai RN - 04/04/2024 5:48 AM EST Dual Licensed Skin Assessment completed by Gaye Carlos RN and Saul Javier RN. The patient is/has a N/A Skin Breakdown (includes non blanchable erythema): Yes - Surgical/Procedural changes only. -back incision, dressing C/D/I documented in this encounter OR Notes * OR Surgeon - Сергей Curtis MD - 04/05/2024 12:27 PM EST [facility] [place] [place] [address] [facility] [address] FULL OPERATIVE REPORT Name: Kris Celaya Date: 04/05/2024 Time: 12:28 PM Location: OR [facility] [place] [place] Service: Neurosurgery Date of Operation: 04/05/2024 Pre-op Diagnosis: Dural leak after spine surgery Post-op Diagnosis: Same Operation: Exploration of wound Wound washout L4 laminectomy L5 laminectomy L5 medial facetectomy Dural repair Harvesting of fat autograft Implantation of harvested fat autograft Use of c-arm and interpretation Placement of lumbar drain Complex multi-layered closure using overlapping muscle and fascial flaps Surgeon: Сергей Curtis MD Call Taker: Rico Felix MD Anesthesia: General endotracheal anesthesia Anesthesiologist: Jane Bailey MD JEWELRY SORTER: Kristina Smith CRNA ; Tana Coffman CRNA ; Zion Fong SRNA HPI: Kris Celaya is a 53 year old male with a history of recent L4-5 microdiscectomy performed on performed by an orthopedic spine surgeon in [place] that was complicated by a CSF leak. The patient noted a leak starting about 2 weeks after surgery. This was corroborated by an MRI scan of the lumbar spine done on March 17. He has positional headaches that are worse when sitting up/standing. 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 We discussed the risks and benefits of definitive repair of this CSF leak with the patient, including bleeding, infection (higher given the open wound), damage to nearby structures, stroke, or heart attack. We discussed alternatives to surgery, including doing nothing and medical management. After discussing the surgery with the patient, he agreed to proceed. Consent is signed and in the chart. Procedure: The patient was brought into the room and intubated and IV lines were established. We then transferred the patient to the Gerardo OR table from the stretcher by rotating him into a prone position. All bony prominences were well padded and the head was well supported with the foam head support. The C-arm was brought in for localization purposes and the lumbar spine levels of interest were identified and marked on the skin with a skin marker. Then the skin was prepped with iodine and then the patient was then draped. We then performed a time-out, identifying the patient, the procedure, antibiotic administration (2gcefazolin and ongoing daptomycin), and the details of the case. We then bluntly opened the previous midline incision and carried this down to the spinous processeswith bovie electrocautery. Upon opening of the incision there was a large collection of CSF. We took this opportunity to harvest a fat graft. We kept the wound open using first the wietlaner retractor and then the cerebellar retractors. We dissected out the fascial layer for better closure at the conclusion of the case. We identified the previous laminectomy and the attempted dural repair and there was egress of CSF from the dura. Then we dissected along the L4 and L5 lamina bilaterally. Then we removed the cerebellar and wietlaner retractors and placed an [place] retractor to hold the wound open. We identified the facet joints bilaterally at L4-L5. We used the matchstick bit and the kerrison rongeurs to perform a laminectomy at L4 and L5 to aid in the visualization. We also performed an L4 medial facetectomy to improve exposure. We then identified the exiting L4 nerve root and placed an instrument under the lamina of L4 and used the C-arm to confirm our location and considered this our second time-out. We identified the dural defect and closed this with multiple interrupted 5-0 GoreTex sutures. We implanted the previously harvested fat graft adjacent to the dural defect and secured it with the GoreTex suture as we tied it. We had the anesthesia team generate a valsalva maneuver and there was no leakage of CSF. We then sprayed a layer of duraseal and covered this with a piece of surgicel that had absorbed some blood. We then placed a layer of duragen and covered this with another layer of Duraseal. Then we focused on placing the lumbar drain. We accessed the L2-L3 interlaminar space by way of a Touhy needle through a left paramedian approach. Using fluoroscopic guidance, we identified its entryinto the canal and advanced a lumbar drain catheter through the needle before removing the needle and leaving behind the catheter. We then routed the lumbar drain catheter rostral and lateral to the wound exit the skin. Upon drawing back with the syringe, there was good flow of clear CSF. Then we washed out the would thoroughly and ensured that there was good hemostasis. Then we focusedon closure. We spent significant amount of time mobilizing the previously dissected muscle flaps and sutured these together in a layered overlapping fashion to ensure a watertight closure using 0 vicryl sutures in a simple interrupted fashion. Then we closed the fascia, first with 0 vicryl sutures in a simple interrupted fashion, followed by 1-0 Stratafix suture in a running fashion. Then we closed the deep dermal layer with 2-0 vicryl sutures in a buried interrupted fashion. We then closed theskin with 3-0 monocryl in a running fashion. This complex closure took additional time above and beyond a standard closure and was necessary to minimize the risk of continued CSF leak. We secured thedrain at the exit site from the skin using a 2-0 vicryl suture in a purse-string fashion. Then we cleaned up the wound and dressed it. The patient was then un-draped and transferred back to the stretcher. Once he was able to follow commands, he was extubated. All counts were correct at the conclusion of the procedure. Then we transferred the patient from the OR to the PACU in stable condition. I was present for the critical portions of the procedure. Drains: Lumbar drain Estimated Blood Loss: 10 mL IV Fluids: 1,700 mL Blood: None Urine Output: 175 mL Specimens/Disposition: None Apparent Intraoperative Complications: NONE Patient Condition: stable Complications: None Disposition: Post-anesthesia Care Unit Implants: Fat autograft, duragen, and duraseal Attestation: I was present and scrubbed for the critical portions of the procedure Сергей Curtis MD [facility] 04/05/2024 12:28 PM documented in this encounter Miscellaneous Notes * Ancillary Progress Note - Keli Degroot RN - 04/11/2024 9:47 AM EST CARE MANAGEMENT - ADULT DISCHARGE NOTE [facility] [place] [place]-[address] [address] Name: Kris Celaya Location: [facility] [place] [place] A468/A Date: 04/11/2024 Time: 9:47 AM The following coordination of care and discharge plan has been coordinated with the care team, patient, family and/or caregiver according to the patients needs and preferences. Discharge Discharge Second Notice Important Message from Medicare delivered: Not Applicable (04/11/24945) Was Caregiver/Family/Facility contacted regarding discharge: Yes (04/11/24945) Discharge Transportation: Family/Friends drive (04/11/24945) Date of scheduled discharge transportation: 04/11/24 (04/11/24945) Time of scheduled discharge transportation: 1100 (04/11/24945) Patient declined post-hospital transition of care recommendation: N/A (04/11/24945) Final Discharge Plan (Complete only at time of Discharge): IP Rehab (04/11/24945) Destination - Admitted Since 04/04/2024 Service Provider Services Address Phone Fax Patient Preferred Last Updated [facility] [address] [place] [id number] [phone] -- Keli Degroot RN 04/10/2024 1136 Narrative: Discharge destination time-out called during BOOST rounds, all parties agreeable with transition plan of care. Family to transport to [facility], facility updated. * Ancillary Progress Note - Keli Degroot RN - 04/10/2024 11:36 AM EST CARE MANAGEMENT - ADULT TRANSITION NOTE [facility] [place] [place]-[address] [address] Name: Kris Celaya Location: [facility] [place] [place] A468/A Date: 04/10/2024 Time: 11:36 AM Risk Stratification Risk Stratification Psycho Social / Medical Concerns Identified: None Identified (04/04/24 114) Accessed [facility] to connect patients to social care resources: No (04/04/24 114) Readmission Risk Score: 7.36 (04/10/24 0801) AM-PAC Score With Stairs : 20 (04/10/24 0800) Caregiver Information Emergency Contacts Name Relation Home Work Mobile duane hawk Spouse Other Contacts None on File Transition of Care Checklist Transition of Care Checklist (aka Readmission Risk Score) Discharge Disposition: Home w/Home Health (04/08/241131) Narrative: CM has been following Kris's hospital course. Discussed in IDT rounds. Kris is currently medically stable for discharge. [facility] has received auth, able to offer bed 04/11, Sunday after 1200. CM discussed transport withpatient, he is calling friends and family. CM will follow up. ID have changed abx rec's to Linzolid 600mg po Bid until 04/20. THEN begin Daptomycin 10mg/kg IV daily from 04/20 to 05/18. Sulema at [facility] was notified. He still needs IRF, [facility] did accept him prior to decision for acute rehab. Kris has PICC, this will need to be maintained until IV abx end 05/18. CM will continue to follow for additional discharge needs/plans. Anticipated Transportation at Discharge: family Patient/Family Expectations: [facility] Transition Planning Transition Planning Transition Plan/Considerations: Needs identified - Discharge planning services explained to patientfamily / caregiver - Choices offered;CM provided contact information and will update plan as needs arise (04/08/241131) Transition services explained and patient/family/caregiver agreeable: Home with Home Care (132) [facility] Quality Rating provided to patient: No (04/08/241131) Repisodic Choice provided to patient: No (04/08/241131) Transition plan discussed with - Enter name and phone #: IDT (04/08/241115) Insurance Considerations: N/A (04/08/24 111) Referral to Community Agency : N/A (04/08/241115) Post-Acute Care needs identified and Referrals Completed: N/A (04/08/241115) Additional Considerations: Care Management will continue to monitor and assist with discharge planning needs * Care Plan - Angela Drake RN - 04/10/2024 5:22 AM EST Clinical Goal(s): pt will have adequate pain control (04/09/24 1900) Possible barriers to meeting goal(s)/advancing plan of care: chronic back pain/post surgical Stability of the patient: Moderately stable - low risk of patient condition declining or worsening Summary regarding today's goal(s): Met: met Recommendations: encourage mobility as tolerated * Care Plan - Leatha Decker RN - 04/09/2024 5:22 PM EST Clinical Goal(s): pt will remain free from falls or injury during this shift (04/09/24 0700) Possible barriers to meeting goal(s)/advancing plan of care: weakness, pain, recent surgery Stability of the patient: Moderately stable - low risk of patient condition declining or worsening Summary regarding today's goal(s): Met: met Recommendations: continue purposeful hourly rounding and fall precautions * Ancillary Progress Note - Keli Degroot RN - 04/09/2024 12:48 PM EST CARE MANAGEMENT - ADULT TRANSITION NOTE [facility] [place] [place]-[address] [address] Name: Kris Celaya Location: [facility] [place] [place] A4/A Date: 04/09/2024 Time: 12:51 PM Risk Stratification Risk Stratification Psycho Social / Medical Concerns Identified: None Identified (04/04/24 114) [facility]ed [facility] to connect patients to social care resources: No (04/04/241148) Readmission Risk Score: 7.35 (04/09/24 1200) AM-PAC Score With Stairs : 17 (04/09/24 1134) Caregiver Information Emergency Contacts Name Relation Home Work Mobile duane hawk Spouse Other Contacts None on File Transition of Care Checklist Transition of Care Checklist (aka Readmission Risk Score) Discharge Disposition: Home w/Home Health (04/08/241131) Narrative: CM has been following Kris's hospital course. Discussed in IDT rounds. Kris is currently medically stable for discharge. Therapy recommends acute rehab, he was accepted to [facility] after agreeing to referral. Auth was started by Sulema. Anticipate decision in 2 days. Family to transport. CM will continue to follow for additional discharge needs/plans. Anticipated Transportation at Discharge: family Patient/Family Expectations: IRF Transition Planning Transition Planning Transition Plan/Considerations: Needs identified - Discharge planning services explained to patientfamily / caregiver - Choices offered;CM provided contact information and will update plan as needs arise (04/08/241131) Transition services explained and patient/family/caregiver agreeable: Home with Home Care () [facility] Quality Rating provided to patient: No (04/08/241131) Repisodic Choice provided to patient: No (04/08/241131) Transition plan discussed with - Enter name and phone #: IDT (04/08/241115) Insurance Considerations: N/A (04/08/241115) Referral to Community Agency : N/A (04/08/241115) Post-Acute Care needs identified and Referrals Completed: N/A (04/08/241115) Additional Considerations: Care Management will continue to monitor and assist with discharge planning needs * Ancillary Progress Note - Izzy Coombs RDN - 04/09/2024 12:44 PM EST CLINICAL NUTRITION ADULT RISK ASSESSMENT [address] [address] Name: Kris Celaya Location: [facility] [place] [place] A468/A Date: 04/09/2024 Time: 12:45 PM How patient was identified (select 2): Wristband and Name Kris Celaya is a 53 year old male being assessed for clinical nutrition risk related to follow-up Primary diagnosis: admitted with CSF leak S/p L 4-5 microdiscectomy on 02/27/24 reported CSF leak 2 weeks after surgery. 04/05/24: Exploration of wound and washout, L4&% Laminectomy, Other pertinent information: Patient reports dry mouth and constipation limiting his intake. He is attempting to eat at meals but limited from his normal. Has consumed boost/ensure type supplements in the past. Feels boost wouldbe helpful for him at this time. Patient calling to adjust meal orders to things he prefers. Anthropometrics Measurements Admission weight (for dietitians): 81 kg Height: 177.8 cm (5' 10") (04/04/24535) Weight: 84.7 kg (186 lb 11.7 oz) (04/06/24 0645) BMI: 25.71 (04/04/24535) Usual Body Weight: 89-92 kg per EHR Diet History: Previously followed diet: Regular Food Allergies/Intolerances: no known Current Diet/Supplements: Diet: Regular Oral Nutrition Supplement (ONS): none Pertinent medications/vitamins/minerals/supplements: Colace, Vancomycin, MOM, Senna RISK FACTORS: Adult Energy Intake: No significant decrease Interpretation of Weight Change: Greater than 5% weight loss in 1 month (Severe) Skin: Compromise without nutrition-related implications -Surgical incision back NUTRITION RISK CATEGORY: Nutrition Risk Category: Low/Moderate (0-1 factors) Clinical Nutrition Recommendations: Diet: Continue current nutrition plan NUTRITION INTERVENTION/PLAN: Orders: Oral nutrition supplement added Boost High Protein (1 cup provides 250 calories, 20 grams protein, 28 grams carbohydrate) daily Will follow and adjust nutritional plan as medical condition requires. Please contact for change(s)in patient condition requiring earlier intervention. Izzy BLEVINS [facility] Clinical Nutrition Services [place] Text / x [phone] * Ancillary Progress Note - Mae Suarez COTA/Noelle - 04/09/2024 10:41 AM EST PROGRESS NOTE - Occupational Therapy [facility] [place] [place]-[address] [address] Name: Kris Celaya Location: [facility] [place] [place] A468/A Date: 04/09/2024 Time: 10:41 Kris Celaya is a 53 year old male. Patient Status: Inpatient Insurance: Payor: [employer]) Plan: [place] Product Type: *No Product type* Patient Seen: at bedside, nursing cleared patient for therapy Patient Identified By: Name, ID Band and Date Diagnosis: CSF leak (04/09/241040) Status of treatment: Treatment completed (04/09/241040) Orders: OT evaluation and treatment (04/07/241432) Weight Bearing Status: Weight bearing as tolerated (04/09/241040) Precautions: Alarms;Falls;Safety;Spine Precautions (04/09/241040) Total Treatment Time: 38 (04/09/241040) Subjective: "My can't be with me all the time, I'd be open to rehab short-term." Pain: Patient has complaints of pain. Pain located lower back . Unable to rate pain Observations Consciousness: Alert (04/09/241040) Orientation: Oriented times 4 (04/09/241040) Psychosocial: Patient can communicate basic needs;Patient can converse in a social setting (04/07/241432) Sitting posture: Forward head;Rounded shoulders (04/07/241432) Standing posture: Forward head;Rounded shoulders (04/07/241432) Safety awareness: The Patient verbalizes insight of current deficits.;The Patient demonstrates carryover of insight during functional tasks. (04/07/241432) Current Functional Status: Activities of Daily Living: Self Care Grooming: Supervision (Please comment) (wash face, contact guard to stabilize standing at sink) (04/09/24 104) Toileting: Supervision (Please comment) (04/09/241040) Dressing Upper Body: Supervision (Please comment) (manage gown) (04/09/241040) Lower Body: Contact Guard (manage pants during toileting tasks) (04/09/241040) Functional Ambulation Assistive Device: Rolling walker;Cane (04/09/241040) Distance in feet:: 20 (x2 then 40 with chair follow for mobilty with walker, contact guard to min Afor mobility with cane) (04/09/241040) Level of Assistance: Contact Guard (to min A) (04/09/241040) Bed Mobility Roll (Right): Supervision (04/09/241040) Sidelying - Sit: Contact Guard (with use of bed rail and increased time) (04/09/241040) OT Transfers Sit-Stand: Contact Guard ((bed and toilet) regressing to min from chair) (04/09/241040) Stand-Sit: Contact Guard (04/09/241040) Toilet: Contact Guard (with BSC over top d/t lower surface) (04/09/241040) Balance Sit (Static): Fair (04/09/241040) Sit (Dynamic): Fair (-) (04/09/241040) Stand (Static): Fair (- to Poor +) (04/09/241040) Stand (Dynamic): Fair (- to poor +) (04/09/241040) Patient Education Education Topic: Role of OT;Plan of care goals (04/09/241040) Review of Precautions: Safety;Spine Precautions;Fall (04/09/241040) Method of Education: Verbalized to patient (04/09/241040) Education Provided to: Patient (04/09/241040) Response to Education: Receptive and agreeable to education (04/09/241040) Barriers to learning: Medical status (04/09/241040) Preferred learning method: Combination (04/09/241040) Alarm Status Patient positioned in: Chair (04/09/241040) With: Pressure pad alarm intact and functioning and call cordova in reach (04/09/241040) Following session patient seated OOB in chair with chair alarm activated and cord plugged into callbell system. Treatment Provided: Self Skilled Nursing Management Trainin minutes Therapeutic Activity: 18 minutes Deficits requiring O.T. treatment needs: ADL/self-care;Balance;Endurance;Fine motor coordination;Functional mobility;Safety;Upper extremity strength;Upper extremity range of motion;Weakness () Assessment: Patient lying supine in bed upon entry. He completed bed mobility via log roll after stating spinal precautions. Patient required increased time, cues and use of bed rail to sit on EOB. Once seated patient c/o dizziness to which he sat and rested prior to standing with use of cane. Oncein standing, no longer c/o of dizziness, and walked into bathroom while also furniture walking for stability from pain. Patient stated he would not be able to use a walker in certain areas of his home d/t limited space and would have to utilize his cane. He walked with use of cane into bathroom andwith placement of bedside commode over top of toilet d/t toilet being too low for him to utilize. Patient able to sit down onto toilet and complete toileting tasks, then stood utilizing grab bar on left side and use of cane, simulated posterior pericare, then walked to sink and stood to wash hands.He was unable to stand unsupported to wash both hands at once, requiring assist from one hand at a time for stability to lean on at sink, washing one hand at a time.Patient then continued to walk to recliner chair where he sat and took a rest break. Patient limited in mobility by fatigue and pain. He was then brought out into blackman where he was able to walk with use of rolling walker and chair follow, noted to require more assist when standing from chair in blackman vs standing from toilet bed in room. Patient would benefit from use of rolling walker for mobility as this is a safer option, patientis in agreement. He was left in recliner positioned comfortably, all needs met. Please consider post-acute care services which may include home health, longterm, outpatient therapy or inpatient rehabilitation. The level of care will be determined in collaboration with patient, family/caregiver and care team members. Plan: continue per plan of care Anticipated Frequency (on eval): 3 to 5 times per week (04/09/24 1040) Equipment Equipment used in Therapy: Rolling walker;Bedside commode (04/09/24 104) Equipment Needs Equipment needs: Rolling walker (04/09/24 104) AM-PAC Help From Another Person Eating Meals: None (04/09/241040) Help From Another Person Taking Care of Personal Grooming: A little (04/09/24 104) Help From Another Person To Put On/Take Off Upper Body Clothing: A little (04/09/241040) Help From Another Person To Put On/Take Off Lower Body Clothing: A lot (04/09/241040) Help From Another Person Toileting: A lot (04/09/24 104) Help From Another Person Bathing: A lot (04/09/241040) OT AM-PAC Score: 16 (04/09/241040) OT AM-PAC t-Scale Score: 35.96 (04/09/241040) HLM (Highest Level of Mobility) Goal: Level 5 standing (1 or more minutes) (04/07/24 1502) A portion of this AM-PAC assessment not scored based on functional assessment; rather clinical decision making utilized based on current findings and/or prior level of function. Please refer to future AM-PAC calculations of functional ability as they become available. * Ancillary Progress Note - Ana Meade PTA - 04/09/2024 10:02 AM EST PROGRESS NOTE - Physical Therapy [facility] [place] [place]-[address] [address] Name: Kris Celaya Location: [facility] [place] [place] A468/A Date: 04/09/2024 Time: 10:02 AM Kris Celaya is a/an 53 year old male. Patient Status: Inpatient Insurance: Payor: [employer] - [place]) Plan: [employer] Product Type: *No Product type* Patient Seen: at bedside, nursing cleared patient for therapy Patient Identified By: Name, ID Band and Date Diagnosis: CSF leak (04/09/24 1002) Status of treatment: Treatment completed (04/09/24 1002) Orders: PT evaluation and treatment (04/09/241001) Weight Bearing Status: Weight bearing as tolerated (04/09/241001) Precautions: Alarms;Falls;Safety;Spine precautions (04/09/241001) Total Treatment Time--free text: 42 (04/09/241001) Subjective: Patient was agreeable to work with physical therapy services. Pain: Patient has complaints of pain. Pain located in his lower back with mobility. Patient did notformally rate pain however pain limited mobility and primary nurse was made aware. P.T. Bed Mobility Roll (Right): Supervision (04/09/241001) Roll (Left): Supervision (04/09/241001) Sidelying-Sit: Contact Guard (04/09/241001) Sit-Sidelying: Contact Guard (04/09/241001) Transfers Sit-Stand: Contact Guard (minimal assisatnce) (04/09/241001) Stand-Sit: Contact Guard (minimal assisatnce) (04/09/241001) Ambulation: Distance ambulated (feet): 40 Assistive Device: Rolling walker Assist: Contact Guard Stair Training: Number of stairs: 3 Number of handrails: 1 (L) with single point cane on the R Level of Assistance: contact guard to minimal assistance Balance Sit (Static): (fair -) (04/09/241001) Sit (Dynamic): (fair -) (04/09/241001) Stand (Static): (fair -) (04/09/241001) Stand (Dynamic): (fair - to poor +) (04/09/241001) Patient and or Family Goal(s): to get well Topic of Education: Safety with mobility Method of Education: Verbal discussion and explanation provided to patient: verbalized understanding and or agreement of this information and demonstrated the exercise and or task Treatment Provided: Therapeutic Activities 27 minutes: bed mobility training transfer training toilet transfer training Gait Training 15 minutes: gait training with rolling walker stair training Alarm Status Patient positioned in: Chair (04/09/241001) With: Pressure pad alarm intact and functioning and call cordova in reach (04/09/241001) Following session patient seated OOB in chair with chair alarm activated and cord plugged into callbell system. Patient Education Review of Precautions: Safety;Fall (04/09/241001) Review of Exercises: Pt Demonstrated Exercise;Verbal Exercises Provided (04/07/24 1502) Safety Awareness: Patient verbalizes insight of current deficits;Patient demonstrates carryover of insight during functional tasks;Patient can communicate basic needs;Needs cueing supervision (04/09/24 1002) Preferred learning method: Combination (04/09/24 1002) Barriers to learning: Medical Status (04/09/24 1002) Method of Education: Verbalized to patient;Patient demonstrated task (04/09/24 1002) Assessment: Patient was seen supine in bed upon arrival and agreeable to work with physical therapyservices. Patient reported of increased pain throughout the session located in his lower back and primary nurse was already made aware however pain limited him throughout the session. Patient completed bed mobility with increased time/cues and a contact guard assistance then performed 4 st to standtransfers from the bed, chair, and toilet requiring initially a contact guard assistance however quickly regressed to minimal assistance when fatigued. Patient continued to ambulated 15 feet in the room fr 2 trials and [address] in [address] hallway using the cane in the room with a contact guard assist andrequiring the rolling walker and a contact guard assistance in the hallway due to increased pain and unsteadiness. Throughout ambulation patient decreased an antalgic gait with decreased step height/length, bilateral knee buckling when fatigues, heavy reliance on the rolling walker to decrease alfonzo, and mild unsteadiness all requiring increased verbal cues to correct. Patient ascended/descended 3steps using the L handrail and a single point cane on his R with initially a contact guard regressing to a minimal assistance with pain/fatigue. Patient required increased time/cues to complete mobility due to increase in pain this session and was limited by pain. Ended session with patient reclined in the chair with pillows for comfort, pressure pad alarm activated, and call cordova within reach. Patient continues to progress when working with physical therapy services by increasing ambulatory distances, however is slightly unsteady and limited by pain. Patient would continue to benefit from skilled physical therapy services to reach established goals and address deficits stated above. Pleaseconsider post-acute care services which may include home health, longterm, outpatient therapy or inpatient rehabilitation. The level of care will be determined in collaboration with patient, family/caregiver and care team members. Deficits requiring P.T. treatment needs: Safety;Mobility;Balance;Weakness;Endurance;Lower extremitystrength (04/09/24 1002) Plan: Continue with current treatment plan established on evaluation. AM PAC Score with Stairs: 18 A portion of this AM-PAC assessment not scored based on functional assessment; rather clinical decision making utilized based on current findings and/or prior level of function. Please refer to future AM-PAC calculations of functional ability as they become available. * Care Plan - Angela Drake, RN - 04/09/2024 7:17 AM EST Clinical Goal(s): pt will have adequate pain control (04/08/24 1930) Possible barriers to meeting goal(s)/advancing plan of care: post surgery, chronic pain Stability of the patient: Moderately stable - low risk of patient condition declining or worsening Summary regarding today's goal(s): Met: met Recommendations: cont current plan of care, assist with ambulation, maintain safety precautions * Ancillary Progress Note - Bella Swift RN - 04/08/2024 11:33 AM EST CARE MANAGEMENT - ADULT TRANSITION NOTE [facility] [place] [place]-[address] [address] Name: Kris Celaya Location: [facility] [place] [place] A468/A Date: 04/08/2024 Time: 11:33 AM Risk Stratification Risk Stratification Psycho Social / Medical Concerns Identified: None Identified (04/04/24 1149) Accessed [employer] to connect patients to social care resources: No (04/04/24 1149) Readmission Risk Score: 5.98 (04/08/24 0800) AM-PAC Score With Stairs : 17 (04/07/24 1502) Caregiver Information Emergency Contacts Name Relation Home Work Mobile duane hawk Spouse Other Contacts None on File Transition of Care Checklist Transition of Care Checklist (aka Readmission Risk Score) Discharge Disposition: Home w/Home Health (04/08/24 1132) Narrative: .CM has been following Kris's hospital course. Patient discussed in IDT rounds. They are not medically stable for discharge at this time. Final ID recs are not in at this time. Drain to be discontinued today. Call placed to [facility] to follow up on referral. Per Josephine she will review. Will continue to follow up on HH referrals. Discharge plan evolving - CM will continue to follow for discharge needs. 1204: Denisha from [facility] called to check on discharge information. Updated that we arestill awaiting final ID recs. [facility] is considering but will need final d/c info for scheduling before accepting. Anticipated Transportation at Discharge: family Patient/Family Expectations: home with home health. Transition Planning Transition Planning Transition Plan/Considerations: Needs identified - Discharge planning services explained to patientfamily / caregiver - Choices offered;CM provided contact information and will update plan as needs arise (04/08/241131) Transition services explained and patient/family/caregiver agreeable: Home with Home Care () [facility] Quality Rating provided to patient: No (04/08/241131) Repisodic Choice provided to patient: No (04/08/241131) Transition plan discussed with - Enter name and phone #: IDT (04/08/241115) Insurance Considerations: N/A (04/08/24 111) Referral to Community Agency : N/A (04/08/24 111) Post-Acute Care needs identified and Referrals Completed: N/A (04/08/241115) Additional Considerations: Care Management will continue to monitor and assist with discharge planning needs * Ancillary Progress Note - Bella Swift RN - 04/08/2024 11:23 AM EST HOME CARE REFERRAL FORM CARE MANAGEMENT [facility] [place] [place] [address] Referred By: Bella Swift RN Admission Date: 04/04/2024 Discharge Date: Discharge Time: Start Date: Agency Referred To: PATIENT INFORMATION: Name: Kris Celaya Address: [address] [place] [phone] : 1970 Phone: There is no home phone number on file. SSN: [id number] County: [place] Caregiver / Teachable Person: Duane Hawk Relationship: Emergency Contacts: Extended Emergency Contact Information Primary Emergency Contact: duane hawk Address: [address] [place] [address] Mobile Phone: Relation: Spouse MEDICAL INFORMATION: Principal Diagnosis: CSF leak Diet: As per discharge instructions. Allergies: Patient has no known allergies. Isolation Type: Activity Restrictions: As ordered Isolation For: None HOME CARE ORDERS: (Discipline and Frequency): Half-Way Assessment Disease Management and Teaching Medication Management and Teaching Lab work as indicated on discharge instructions Home Safety Evaluation PICC Line Care and Teaching - IV Antibiotics per Physician Orders and Teachable Caregiver Medications Dose, Frequency, & Route: As ordered Ordering Physician and Contact Information: Сергей Curtis MD Comments: PCP: PCP: JASMINE FRITZ [address] [place] [address] [place] [address] [phone] D/C Physician: Сергей Curtis MD Insurance: See attached facesheet. * Care Plan - Caden Brewster RN - 04/08/2024 10:38 AM EST Clinical Goal(s): pain control (04/08/24 0700) Possible barriers to meeting goal(s)/advancing plan of care: Lumbar/back pain Stability of the patient: Moderately stable - low risk of patient condition declining or worsening Summary regarding today's goal(s): Met: PRN pain medicine given. Recommendations: continue to monitor. * Care Plan - Garfield Walden RN - 04/08/2024 6:43 AM EST Clinical Goal(s): pt will remain free from falls (04/07/241999) Possible barriers to meeting goal(s)/advancing plan of care: pain Stability of the patient: Moderately stable - low risk of patient condition declining or worsening Summary regarding today's goal(s): Met: Patient remained free from falls Recommendations: Continue implementing fall precautions and purposeful hourly rounding. * Care Plan - Caden Brewster RN - 04/07/2024 12:56 PM EST Clinical Goal(s): pain control (04/07/24 0800) Possible barriers to meeting goal(s)/advancing plan of care: back pain Stability of the patient: Moderately stable - low risk of patient condition declining or worsening Summary regarding today's goal(s): Met: Pain medicine given. Recommendations: continue to monitor, hourly rounds. * Communication - Valente Braun MD - 04/07/2024 12:02 PM EST CSF studies reviewed. 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 No M/E panel is able to be obtained from an LP drain. Plan -Discontinue Daptomycin -Start Vancomycin dosed per pharmacy -Pending CSF culture -ID will continue to follow Case Discussed with ID Attending Dr. Ling Braun PGY-5 Infectious Disease Cosigned by Benedict Dubon MD at 04/07/2024 10:17 PM EST * Ancillary Progress Note - Hailey Love, PT - 04/07/2024 11:02 AM EST Kris Celaya [facility] [place] [place] A468/A [id number] Attempted to see pt for PT evaluation, however pt still with bedrest orders per nurse glenna. PT will continue to follow pt and complete evaluation as able/appropriate. Thank you. * Ancillary Progress Note - Keli Degroot RN - 04/07/2024 10:30 AM EST CARE MANAGEMENT - ADULT TRANSITION NOTE [facility] [place] [place] [address] Name: Kris Celaya Location: [facility] [place] [place] A468/A Date: 04/07/2024 Time: 10:30 AM Risk Stratification Risk Stratification Psycho Social / Medical Concerns Identified: None Identified (04/04/24 114) Accessed [employer] to connect patients to social care resources: No (04/04/24 1149) Readmission Risk Score: 5.63 (04/07/24 0801) AM-PAC Score With Stairs : 20 (04/06/241951) Caregiver Information Emergency Contacts Name Relation Home Work Mobile duane hawk Spouse Other Contacts None on File Transition of Care Checklist Narrative: CM has been following Kris's hospital course. Discussed in IDT rounds. Kris is not currently medically stable for discharge. He has PICC from prior admission/spine surgery in [place]. Previously had Q24 abx where he went to outpatient infusion center. CM will attempt to find agency for dressing changes, labs and wound care. Referrals sent. IS vs [facility] referral opened ID Rec's pending. Has Lumbar Drain. CM will continue to follow for additional discharge needs/plans. Anticipated Transportation at Discharge: family Patient/Family Expectations: home w services Transition Planning Transition Planning Transition Plan/Considerations: Needs uncertain at this time - Continue monitoring for needs;Discussed at Interdisciplinary Team / Boost Rounds (04/04/24 1150) Additional Considerations: Care Management will continue to monitor and assist with discharge planning needs * Care Plan - Vanna Scott RN - 04/07/2024 3:22 AM EST Clinical Goal(s): Pt will be safe during this shift. (04/06/241951) Possible barriers to meeting goal(s)/advancing plan of care: diagnosis Stability of the patient: Moderately stable - low risk of patient condition declining or worsening Summary regarding today's goal(s): Met: Pt remained safe. Recommendations: Continue with plan of care, hourly rounding, and safety precautins. * Care Plan - Brock Leary RN - 04/06/2024 2:32 PM EST Clinical Goal(s): Patient will remain free from falls this shift. (04/06/24 0700) Possible barriers to meeting goal(s)/advancing plan of care: Post-op Stability of the patient: Moderately stable - low risk of patient condition declining or worsening Summary regarding today's goal(s): Met: Patient remained free from falls this shift Recommendations: Purposeful hourly rounding, fall precautions * Care Plan - Saul Javier RN - 04/06/2024 4:51 AM EST Clinical Goal(s): Pt will remain free from falls during this shift (04/05/24 1900) Possible barriers to meeting goal(s)/advancing plan of care: weakness, post-op pain Stability of the patient: Moderately stable - low risk of patient condition declining or worsening Summary regarding today's goal(s): Met: Pt remained free from falls during this shift Recommendations: Continue fall precautions and purposeful hourly rounding * Care Plan - Brock Leary RN - 04/05/2024 4:52 PM EST Clinical Goal(s): Patient will remain free from falls this shift. (04/05/24 0700) Possible barriers to meeting goal(s)/advancing plan of care: Post-op Stability of the patient: Moderately stable - low risk of patient condition declining or worsening Summary regarding today's goal(s): Met: Patient will remain free from falls this shift Recommendations: Purposeful hourly rounding, fall precautions * Care Plan - Saul Javier RN - 04/05/2024 4:19 AM EST Clinical Goal(s): Pt will remain free from falls during this shift (04/04/24 2300) Possible barriers to meeting goal(s)/advancing plan of care: weakness, positional headaches Stability of the patient: Moderately stable - low risk of patient condition declining or worsening Summary regarding today's goal(s): Met: Pt remained free from falls during this shift Recommendations: Continue fall precautions and purposeful hourly rounding * Care Plan - Caden Brewster RN - 04/04/2024 12:18 PM EST Clinical Goal(s): patient will have no fall (04/04/24 0800) Possible barriers to meeting goal(s)/advancing plan of care: weakness Stability of the patient: Moderately stable - low risk of patient condition declining or worsening Summary regarding today's goal(s): Met: patient did not have a fall. Recommendations: Continue to monitor. * Ancillary Progress Note - Izzy Coombs RDN - 04/04/2024 11:54 AM EST CLINICAL NUTRITION ADULT RISK ASSESSMENT [address] [address] Name: Kris Celaya Location: [facility] [place] [place] A468/A Date: 04/04/2024 Time: 11:54 AM How patient was identified (select 2): Wristband and Name Kris Celaya is a 53 year old male being assessed for clinical nutrition risk related to reduceddietary intake and significant unintentional weight loss Primary diagnosis: admitted with CSF leak S/p L 4-5 microdiscectomy on 02/27/24 reported CSF leak 2 weeks after surgery. Other pertinent information: Weight hx reviewed for patient, admission weight down from other weights on file showing a 8.9% decline in the past month. Will continue to trend weights in admission. Currently patient is NPO will monitor intakes once diet able to advance. Anthropometrics Measurements Admission weight (for dietitians): 81 kg Height: 177.8 cm (5' 10") (04/04/24535) Weight: 81.3 kg (179 lb 3.2 oz) (04/04/24535) BMI: 25.71 (04/04/24535) Usual Body Weight: 89-92 kg per EHR Diet History: Previously followed diet: Regular Food Allergies/Intolerances: no known Current Diet/Supplements: Diet: NPO Oral Nutrition Supplement (ONS): none Pertinent medications/vitamins/minerals/supplements: Daptomycin, colace, senna, RISK FACTORS: Adult Energy Intake: Unable to obtain at present time Interpretation of Weight Change: Greater than 5% weight loss in 1 month (Severe) Skin: Compromise without nutrition-related implications -Surgical incision back NUTRITION RISK CATEGORY: Nutrition Risk Category: Low/Moderate (0-1 factors) Clinical Nutrition Recommendations: Diet: Continue current nutrition plan NUTRITION INTERVENTION/PLAN: Continue current care plan Will follow and adjust nutritional plan as medical condition requires. Please contact for change(s)in patient condition requiring earlier intervention. Izzy BLEVINS [facility] Clinical Nutrition Services [place] Text / x [phone] * Ancillary Progress Note - Melissa Sam RN - 04/04/2024 11:50 AM EST CARE MANAGEMENT - ADULT TRANSITION NOTE [facility] [place] [place] [address] Name: Kris Celaya Location: [facility] [place] [place] A468/A Date: 04/04/2024 Time: 11:50 AM Risk Stratification Risk Stratification Psycho Social / Medical Concerns Identified: None Identified (04/04/24 4360) Accessed [facility] to connect patients to social care resources: No (04/04/24 1149) Readmission Risk Score: 4.46 (04/04/24 0800) AM-PAC Score With Stairs : 20 (04/04/24 0536) Caregiver Information Emergency Contacts None on File Other Contacts Name Relation 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 Patient discussed in IDT rounds. They are not medically stable for discharge at this time because pt with hx of L4-5 surgery on 02/26 now with CSF leak may need possible surgery. Discharge plan evolving - CM will continue to follow for discharge needs. Anticipated Transportation at Discharge: Spouse Patient/Family Expectations: Home Transition Planning Transition Planning Transition Plan/Considerations: Needs uncertain at this time - Continue monitoring for needs;Discussed at Interdisciplinary Team / Boost Rounds (04/04/24 0649) Care Management will continue to monitor and assist with discharge planning needs documented in this encounter Plan of Treatment Upcoming Encounters Date Type Department Care Team (Late st Contact Info) Description 04/22/2024 1:00 PM EST [facility] [address] [place] [address] Сергей Curtis MD [address] [place] [address] Pending Results Name Type Priority Associated Diagnoses Date /Time CULTURE, CSF, AEROBIC AND ANAEROBIC Lab STAT 04/06/2024 11:36 PM EST Scheduled Orders Name Type Priority Associated Diagnoses Orde r Schedule CBC WITH WBC DIFFERENTIAL Lab Routine CSF leak MRSA bacteremia Every Week for 5 Occurrences starting 04/11/2024 until 04/11/2025 COMPREHENSIVE METABOLIC PANEL Lab Routine CSF leak MRSA bacteremia Every Week for 5 Occurrences starting 04/11/2024 until 04/11/2025 CK Lab Routine CSF leak MRSA bacteremia Every Week for 5 Occurrences starting 04/11/2024 until 04/11/2025 CRP (INFLAMMATORY MARKER) Lab Routine CSF leak MRSA bacteremia Every 2 Weeks for 3 Occurrences starting 04/11/2024 until 04/11/2025 Scheduled Procedures Name Priority Associated Diagnoses Date/Ti me COLONOSCOPY FLEXIBLE PROXIMA L DIAGNOSTIC Recall History of colonic polyps Scheduled Referrals Name Type Priority Associated Diagnoses Orde r Schedule [facility] NEW REFERRAL Referral Routine CSF leak Deep incisional surgical site infection MRSA bacteremia Ordered: 04/09/2024 Health Maintenance Due Date Last Done Comments [...] this encounter Medical Devices Implanted Type Area Chiropractic Care Device Identifier Shelf Expiration Date Model / Serial / Lot Duragen Plus 3x3 Dp 1033 Min5 - [id number] - [id number] Implanted:Qty : 1 on 04/05/2024 by Сергей Curtis MD at OR [facility] [place] [place] N/A: Spine Lumbar [employer] PAIGE [id number] 11/30/2025 DP-1033 / [id number] / [id number] documented as of this encounter Procedures Procedure Name Priority Date/Time Associated Diagnosis Comments BASIC METABOLIC PANEL Routine 04/11/2024 7:17 AM EST CBC Routine 04/11/2024 7:17 AM EST VANCOMYCIN RANDOM Timed 04/10/2024 7:0 7 AM EST BASIC METABOLIC PANEL Routine 04/10/2024 7:07 AM EST CBC Routine 04/10/2024 7:07 AM EST VANCOMYCIN PEAK Timed 04/09/2024 12:39 PM EST VANCOMYCIN RANDOM Timed 04/09/2024 6:4 3 AM EST BASIC METABOLIC PANEL Routine 04/09/2024 6:43 AM EST CBC Routine 04/09/2024 6:43 AM EST VANCOMYCIN RANDOM Timed 04/08/2024 11: 53 AM EST BASIC METABOLIC PANEL Routine 04/08/2024 7:20 AM EST CBC Routine 04/08/2024 7:20 AM EST ECHO, COMPLETE (2D), TRANS-THORACIC Routine 04/07/2024 9:22 AM EST Bacteremia of undetermined etiology MANUAL DIFFERENTIAL, CSF STAT 04/06/2024 11:36 PM EST CELL COUNT WITH DIFFERENTIAL, CSF STAT 04/06/2024 11:36 PM EST CELL COUNT, CSF STAT 04/06/2024 11:36 PM EST CULTURE, CSF, AEROBIC AND ANAEROBIC STAT 04/06/2024 11:36 PM EST PROTEIN, CSF STAT 04/06/2024 11:36 PM EST GLUCOSE, CSF STAT 04/06/2024 11:36 PM EST CULTURE, BLOOD Routine 04/06/2024 1:03 PM EST CULTURE, BLOOD Routine 04/06/2024 12:54 PM EST GLUCOSE METER, POINT OF CARE PEG 04/05/2024 2:29 PM EST XR INTRA-OP C-ARM CASE Routine 04/05/2024 2:28 PM EST GLUCOSE METER, POINT OF CARE PEG 04/05/2024 11:17 AM EST EXPLORATION OF SPINAL FUSION 04/05/2024 10:58 AM EST CSF leak CK Routine 04/05/2024 8:23 AM EST STAPH AUREUS PCR Routine 04/04/2024 9:45 AM EST DIFFERENTIAL, AUTOMATED Routine 04/04/2024 7:19 AM EST BASIC METABOLIC PANEL Routine 04/04/2024 7:19 AM EST CBC Routine 04/04/2024 7:19 AM EST PT INR Routine 04/04/2024 7:19 AM EST PHOSPHORUS Routine 04/04/2024 7:19 AM EST APTT Routine 04/04/2024 7:19 AM EST CBC Routine 04/04/2024 7:19 AM EST MAGNESIUM Routine 04/04/2024 7:19 AM EST XR CHEST 1 VIEW Routine 04/04/2024 7:09 AM EST Encounter for adjustment and management of vascular access device documented in this encounter Results * (ABNORMAL) CBC (04/11/2024 7:17 AM EST) WBC 9.39 4.00 - 10.80 K/uL 04/11/2024 7:55 AM EST [facility] RBC 4.13 4.50 - 5.25 M/uL 04/11/2024 7:55 AM EST [facility] HGB 12.6(L) 14.0 - 16.8 g/dL 04/11/2024 7:55 AM EST [facility] HCT 37.9(L) 40.0 - 48.4 % 04/11/2024 7:55 AM EST [facility] MCV 91.8 82.0 - 99.5 fL 04/11/2024 7:55 AM EST [facility] MCH 30.5 27.0 - 34.0 pg 04/11/2024 7:55 AM EST [facility] MCHC 33.2 32.0 - 36.0 g/dL 04/11/2024 7:55 AM EST [facility] RDW 12.7 11.5 - 15.5 % 04/11/2024 7:55 AM EST [facility] PLT 284 140 - 400 K/uL 04/11/2024 7:55 AM EST [facility] MPV 10.0 6.6 - 11.1 fL 04/11/2024 7:55 AM EST [facility] nRBCs 0 <=0 /100 WBCs 04/11/2024 7:55 AM EST [facility] Blood Venous blood specimen / Unknown Venipuncture / Unknown 04/11/2024 7:17 AM EST 04/11/2024 7:45 AM EST us Mike Cervantes PA-C LAB BLOOD ORDERABLES Final Result LABORATORY [facility] [place] [place] [address] [place] [address] * (ABNORMAL) BASIC METABOLIC PANEL (04/11/2024 7:17 AM EST) BUN 25(H) 6 - 20 mg/dL 04/11/2024 8:13 AM EST [facility] CREATININE 2.5(H) 0.6 - 1.2 mg/dL 04/11/2024 8:13 AM EST [facility] EGFR 30(L) >=60 mL/min 04/11/2024 8:13 AM EST [facility] Comment:eGFR is calculated b ased on the CKD-EPI 2020 equation. SODIUM 139 135 - 146 mmol/L 04/11/2024 8:13 AM EST [facility] POTASSIUM 3.8 3.5 - 5.1 mmol/L 04/11/2024 8:13 AM EST [facility] CHLORIDE 103 98 - 107 mmol/L 04/11/2024 8:13 AM EST [facility] CO2 22 22 - 32 mmol/L 04/11/2024 8:13 AM EST [facility] ANION GAP 14 7 - 15 mmol/L 04/11/2024 8:13 AM EST [facility] GLUCOSE 107 70 - 120 mg/dL 04/11/2024 8:13 AM EST [facility] CALCIUM 9.9 8.4 - 10.2 mg/dL 04/11/2024 8:13 AM EST [facility] Blood Venous blood specimen / Unknown Venipuncture / Unknown 04/11/2024 7:17 AM EST 04/11/2024 7:45 AM EST Mike Cervantes PA-C LAB BLOOD ORDERABLES Final Result LAB[facility]ATORY [facility] [address] [place] [address] * (ABNORMAL) CBC (04/10/2024 7:07 AM EST) WBC 10.05 4.00 - 10.80 K/uL 04/10/2024 7:56 AM EST [facility] RBC 3.87 4.50 - 5.25 M/uL 04/10/2024 7:56 AM EST [facility] HGB 11.9(L) 14.0 - 16.8 g/dL 04/10/2024 7:56 AM EST [facility] HCT 36.3(L) 40.0 - 48.4 % 04/10/2024 7:56 AM EST [facility] MCV 93.8 82.0 - 99.5 fL 04/10/2024 7:56 AM EST [facility] MCH 30.7 27.0 - 34.0 pg 04/10/2024 7:56 AM EST [facility] MCHC 32.8 32.0 - 36.0 g/dL 04/10/2024 7:56 AM EST [facility] RDW 12.9 11.5 - 15.5 % 04/10/2024 7:56 AM EST LABORATORY [facility] [place] [place] PLT 247 140 - 400 K/uL 04/10/2024 7:56 AM EST LABORATORY [facility] [place] [place] MPV 10.1 6.6 - 11.1 fL 04/10/2024 7:56 AM EST LABORATORY [facility] [place] [place] nRBCs 0 <=0 /100 WBCs 04/10/2024 7:56 AM EST LABORATORY [facility] [place] [place] Blood Venous blood specimen / Unknown Venipuncture / Unknown 04/10/2024 7:07 AM EST 04/10/2024 7:35 AM EST Mike Cervantes PA-C LAB BLOOD ORDERABLES Final Result LABORATORY [facility] [place] [place] [address] [place] [address] * (ABNORMAL) BASIC METABOLIC PANEL (04/10/2024 7:07 AM EST) BUN 23(H) 6 - 20 mg/dL 04/10/2024 8:13 AM EST LABORATORY [facility] [place] [place] CREATININE 2.5(H) 0.6 - 1.2 mg/dL 04/10/2024 8:13 AM EST LABORATORY [facility] [place] [place] EGFR 29(L) >=60 mL/min 04/10/2024 8:13 AM EST LABORATORY [facility] [place] [place] Comment:eGFR is calculated b ased on the CKD-EPI 2020 equation. SODIUM 137 135 - 146 mmol/L 04/10/2024 8:13 AM EST LABORATORY [facility] [place] [place] POTASSIUM 4.2 3.5 - 5.1 mmol/L 04/10/2024 8:13 AM EST [facility] CHLORIDE 103 98 - 107 mmol/L 04/10/2024 8:13 AM EST LABORATORY C CO2 23 22 - 32 mmol/L 04/10/2024 8:13 AM EST LABORATORY [facility] [place] [place] ANION GAP 11 7 - 15 mmol/L 04/10/2024 8:13 AM EST LABORATORY C GLUCOSE 113 70 - 120 mg/dL 04/10/2024 8:13 AM EST LABORATORY C CALCIUM 9.9 8.4 - 10.2 mg/dL 04/10/2024 8:13 AM EST [facility] Blood Venous blood specimen / Unknown Venipuncture / Unknown 04/10/2024 7:07 AM EST 04/10/2024 7:35 AM EST Mike Cervantes PA-C LAB BLOOD ORDERABLES Final Result Performing Organization Address [facility] de Phone Number [facility] [address] [place] [address] * VANCOMYCIN RANDOM (04/10/2024 7:07 AM EST) Vancomycin Random 28.0 10.0 - 40.0 ug/mL 04/10/2024 8:13 AM EST [facility] Blood Venous blood specimen / Unknown Venipuncture / Unknown 04/10/2024 7:07 AM EST 04/10/2024 7:35 AM EST Сергей Curtis MD LAB BLOOD ORDERABLES Final Re sult Performing Organization Address [facility] de Phone Number [facility] [address] [place] [address] * (ABNORMAL) VANCOMYCIN PEAK (04/09/2024 12:39 PM EST) Pathologist [facility] Vancomycin Peak 23.5(L) 30.0 - 40.0 ug/mL 04/09/2024 1:33 PM EST [facility] Blood Venous blood specimen / Unknown Venipuncture / Unknown 04/09/2024 12:39 PM EST 04/09/2024 12:58 PM EST Сергей Curtis MD LAB BLOOD ORDERABLES Final Re sult Performing Organization Address [facility] de Phone Number LABORATORY [facility] [place] [place] [address] [place] [address] * (ABNORMAL) CBC (04/09/2024 6:43 AM EST) WBC 12.17(H) 4.00 - 10.80 K/uL 04/09/2024 7:15 AM EST [facility] RBC 3.88 4.50 - 5.25 M/uL 04/09/2024 7:15 AM EST [facility] HGB 11.6(L) 14.0 - 16.8 g/dL 04/09/2024 7:15 AM EST [facility] HCT 36.1(L) 40.0 - 48.4 % 04/09/2024 7:15 AM EST [facility] MCV 93.0 82.0 - 99.5 fL 04/09/2024 7:15 AM EST [facility] MCH 29.9 27.0 - 34.0 pg 04/09/2024 7:15 AM EST [facility] MCHC 32.1 32.0 - 36.0 g/dL 04/09/2024 7:15 AM EST [facility] RDW 13.1 11.5 - 15.5 % 04/09/2024 7:15 AM EST [facility] PLT 254 140 - 400 K/uL 04/09/2024 7:15 AM EST [facility] MPV 10.1 6.6 - 11.1 fL 04/09/2024 7:15 AM EST [facility] nRBCs 0 <=0 /100 WBCs 04/09/2024 7:15 AM EST LABORATORY [facility] Blood Venous blood specimen / Unknown Venipuncture / Unknown 04/09/2024 6:43 AM EST 04/09/2024 6:55 AM EST Mike Cervantes PA-C LAB BLOOD ORDERABLES Final Result Performing Organization Address City/State/[facility] Co de Phone Number LABORATORY [facility] [place] [place] [address] [place] [address] * (ABNORMAL) BASIC METABOLIC PANEL (04/09/2024 6:43 AM EST) BUN 20 6 - 20 mg/dL 04/09/2024 7:28 AM EST [facility] CREATININE 2.4(H) 0.6 - 1.2 mg/dL 04/09/2024 7:28 AM EST [facility] EGFR 31(L) >=60 mL/min 04/09/2024 7:28 AM EST [facility] Comment:eGFR is calculated b ased on the CKD-EPI 2020 equation. SODIUM 134(L) 135 - 146 mmol/L 04/09/2024 7:28 AM EST [facility] POTASSIUM 3.7 3.5 - 5.1 mmol/L 04/09/2024 7:28 AM EST [facility] CHLORIDE 102 98 - 107 mmol/L 04/09/2024 7:28 AM EST [facility] CO2 19(L) 22 - 32 mmol/L 04/09/2024 7:28 AM EST [facility] ANION GAP 13 7 - 15 mmol/L 04/09/2024 7:28 AM EST [facility] GLUCOSE 111 70 - 120 mg/dL 04/09/2024 7:28 AM EST [facility] CALCIUM 9.6 8.4 - 10.2 mg/dL 04/09/2024 7:28 AM EST [facility] Blood Venous blood specimen / Unknown Venipuncture / Unknown 04/09/2024 6:43 AM EST 04/09/2024 6:55 AM EST Mike Cervantes PA-C LAB BLOOD ORDERABLES Final Result Performing Organization Address City/[facility]/ZIP Co de Phone Number LABORATORY [facility] [place] [place] [address] [place] [address] * VANCOMYCIN RANDOM (04/09/2024 6:43 AM EST) Vancomycin Random 15.9 10.0 - 40.0 ug/mL 04/09/2024 7:28 AM EST [facility] Blood Venous blood specimen / Unknown Venipuncture / Unknown 04/09/2024 6:43 AM EST 04/09/2024 6:55 AM EST Сергей Curtis MD LAB BLOOD ORDERABLES Final Re sult LABORATORY [facility] [place] [place] [address] [place] [address] * VANCOMYCIN RANDOM (04/08/2024 11:53 AM EST) Vancomycin Random 17.5 10.0 - 40.0 ug/mL 04/08/2024 1:22 PM EST [facility] Blood Venous blood specimen / Unknown Venipuncture / Unknown 04/08/2024 11:53 AM EST 04/08/2024 12:05 PM EST us Сергей Curtis MD LAB BLOOD ORDERABLES Final Re sult LABORATORY [facility] [address] [place] [address] * (ABNORMAL) CBC (04/08/2024 7:20 AM EST) [facility] WBC 13.94(H) 4.00 - 10.80 K/uL 04/08/2024 8:17 AM EST [facility] RBC 4.04 4.50 - 5.25 M/uL 04/08/2024 8:17 AM EST [facility] HGB 12.3(L) 14.0 - 16.8 g/dL 04/08/2024 8:17 AM EST [facility] HCT 38.0(L) 40.0 - 48.4 % 04/08/2024 8:17 AM EST [facility] MCV 94.1 82.0 - 99.5 fL 04/08/2024 8:17 AM EST [facility] MCH 30.4 27.0 - 34.0 pg 04/08/2024 8:17 AM EST [facility] MCHC 32.4 32.0 - 36.0 g/dL 04/08/2024 8:17 AM EST [facility] RDW 13.1 11.5 - 15.5 % 04/08/2024 8:17 AM EST [facility] PLT 254 140 - 400 K/uL 04/08/2024 8:17 AM EST [facility] MPV 10.6 6.6 - 11.1 fL 04/08/2024 8:17 AM EST [facility] nRBCs 0 <=0 /100 WBCs 04/08/2024 8:17 AM EST [facility] Blood Venous blood specimen / Unknown Venipuncture / Unknown 04/08/2024 7:20 AM EST 04/08/2024 7:45 AM EST us Mike Cervantes PA-C LAB BLOOD ORDERABLES Final Result LABORATORY [facility] [place] [place] [address] [place] [address] * (ABNORMAL) BASIC METABOLIC PANEL (04/08/2024 7:20 AM EST) BUN 19 6 - 20 mg/dL 04/08/2024 8:51 AM EST [facility] CREATININE 2.0(H) 0.6 - 1.2 mg/dL 04/08/2024 8:51 AM EST [facility] EGFR 39(L) >=60 mL/min 04/08/2024 8:51 AM EST [facility] Comment:eGFR is calculated b ased on the CKD-EPI 2020 equation. SODIUM 135 135 - 146 mmol/L 04/08/2024 8:51 AM EST [facility] POTASSIUM 4.0 3.5 - 5.1 mmol/L 04/08/2024 8:51 AM EST [facility] CHLORIDE 100 98 - 107 mmol/L 04/08/2024 8:51 AM EST [facility] CO2 21(L) 22 - 32 mmol/L 04/08/2024 8:51 AM EST [facility] ANION GAP 14 7 - 15 mmol/L 04/08/2024 8:51 AM EST [facility] GLUCOSE 105 70 - 120 mg/dL 04/08/2024 8:51 AM EST [facility] CALCIUM 9.5 8.4 - 10.2 mg/dL 04/08/2024 8:51 AM EST [facility] Blood Venous blood specimen / Unknown Venipuncture / Unknown 04/08/2024 7:20 AM EST 04/08/2024 7:45 AM EST Mike Cervantes PA-C LAB BLOOD ORDERABLES Final Result LABORATORY [facility] [place] [place] [address] [place] [address] * ECHO, COMPLETE (2D), TRANS-THORACIC (04/07/2024 9:22 AM EST) LEFT VENTRICULAR EJECTION FRACTION 55 % [facility] CARDIOLOGY 04/07/2024 8:29 AM EST Morris Frias MD ECHOCARDIOLOGY Final R esult [facility] * (ABNORMAL) MANUAL DIFFERENTIAL, CSF (04/06/2024 11:36 PM EST) Tube # 1 04/07/2024 12:55 AM EST [facility] Total Nucleated Cell Count, CSF 4,585 cells/uL 04/07/2024 12:55 AM EST [facility] Neutrophils % 95(H) 0 - 6 % 04/07/2024 12:55 AM EST [facility] Lymphocytes % 4(L) 40 - 80 % 04/07/2024 12:55 AM EST [facility] Monocytes % 1(L) 15 - 45 % 04/07/2024 12:55 AM EST [facility] Absolute Neutrophils 4,355.75 cells/uL 04/07/2024 12:55 AM EST [facility] Absolute Lymphocytes 183.40 cells/uL 04/07/2024 12:55 AM EST [facility] Absolute Monocytes 45.85 cells/uL 04/07/2024 12:55 AM EST [facility] Cerebrospinal Fluid Cerebrospinal fluid specimen / Unknown Non-blood Collection / Unknown 04/06/2024 11:36 PM EST 04/06/2024 11:50 PM EST Narrative [facility] - 04/07/2024 12:55 AM EST Some reference ranges and other method performance specifications have not been established for this fluid. The test results must be integrated into the clinical context for interpretation. us Morris Frias MD LAB FLUID AND STOOL ORD ERABLES Final Result [facility] [address] [place] [address] * (ABNORMAL) CELL COUNT, CSF (04/06/2024 11:36 PM EST) Tube Number, CSF 1 04/07/2024 12:31 AM EST [facility] Color, CSF Red(A) Colorless 04/07/2024 12:31 AM EST [facility] Clarity, CSF Cloudy(A) Clear 04/07/2024 12:31 AM EST [facility] Color, Supernatant CSF Yellow(A) Colorless 04/07/2024 12:31 AM EST [facility] Total Nucleated Cell Count, CSF 4,585(H) <5 cells/uL 04/07/2024 12:31 AM EST [facility] RBC, CSF 93,741(H) <5 cells/uL 04/07/2024 12:31 AM EST [facility] Cerebrospinal Fluid Cerebrospinal fluid specimen / Unknown Non-blood Collection / Unknown 04/06/2024 11:36 PM EST 04/06/2024 11:50 PM EST Narrative [facility] - 04/07/2024 12:31 AM EST Some reference ranges and other method performance specifications have not been established for this fluid. The test results must be integrated into the clinical context for interpretation. Morris Frias MD LAB FLUID AND STOOL ORD ERABLES Final Result Performing Organization Address [facility] Co de Phone Number LABORATORY [place] [address] [place] [address] * GLUCOSE, CSF (04/06/2024 11:36 PM EST) Glucose, CSF 59 45 - 70 mg/dL 04/07/2024 1:18 AM EST [facility] Cerebrospinal Fluid Cerebrospinal fluid specimen / Unknown Non-blood Collection / Unknown 04/06/2024 11:36 PM EST 04/06/2024 11:50 PM EST Narrative LABORATORY [facility] [place] [place] - 04/07/2024 1:18 AM EST Normal CSF Glucose concentration should be approximately 60% of plasma/serum glucose value. Morris Frias MD LAB FLUID AND STOOL ORD ERABLES Final Result Performing Organization Address [facility] Co de Phone Number LAB[facility]ATORY [facility] [place] [address] [place] [address] * (ABNORMAL) PROTEIN, CSF (04/06/2024 11:36 PM EST) Protein, CSF 122(H) 15 - 45 mg/dL 04/07/2024 1:18 AM EST LAB[facility]AT[facility] [place] [place] Cerebrospinal Fluid Cerebrospinal fluid specimen / Unknown Non-blood Collection / Unknown 04/06/2024 11:36 PM EST 04/06/2024 11:50 PM EST Morris Frias MD LAB FLUID AND STOOL ORD ERABLES Final Result Performing Organization Address [facility]/ZIP Co de Phone Number LAB[facility]ATORY [facility] [place] [place] [address] [place] [address] * CULTURE, BLOOD (04/06/2024 1:03 PM EST) Blood Culture Growth No growth 04/11/2024 2:01 PM EST [facility] [place] [place] Blood Venous blood specimen / Unknown Venipuncture / Unknown 04/06/2024 1:03 PM EST 04/06/2024 1:16 PM EST Benedict Dubon MD LAB MICRO - GENERAL ORDERABL ES Final Result Performing Organization Address City/[facility] Co de Phone Number LAB[facility]ATORY [facility] [place] [place] [address] [place] [address] * CULTURE, BLOOD (04/06/2024 12:54 PM EST) Pathologist [facility] Blood Culture Growth No growth 04/11/2024 2:01 PM EST [facility] [place] [place] Blood Venous blood specimen / Unknown Venipuncture / Unknown 04/06/2024 12:54 PM EST 04/06/2024 1:16 PM EST Benedict Dubon MD LAB MICRO - GENERAL ORDERABL ES Final Result Performing Organization Address City/[facility]/ZIP Co de Phone Number LAB[facility]ATORY [facility] [place] [place] [address] [place] [address] * GLUCOSE METER, POINT OF CARE (04/05/2024 2:29 PM EST) Pathologist [facility] GLUCOSE - POCT 89 70 - 120 mg/dL 04/05/2024 3:31 PM EST [employer] Blood Whole blood specimen / Unknown 04/05/2024 2:29 PM EST 04/05/2024 3:31 PM EST Сергей Curtis MD LAB POINT OF CARE TE ST DOCKED DEVICE UNSOLICITED RESULTS Final Result [facility] [address] [place] [address] * XR INTRA-OP C-ARM CASE (04/05/2024 2:28 PM EST) Narrative Scheduling, Silent - 04/05/2024 2:33 PM EST This procedure will not be read by a Radiologist. Please see operative note. us Morris Frias MD RADIOLOGY ([facility]) Final Result * GLUCOSE METER, POINT OF CARE (04/05/2024 11:17 AM EST) GLUCOSE - POCT 94 70 - 120 mg/dL 04/05/2024 11:28 AM EST [facility] Blood Whole blood specimen / Unknown 04/05/2024 11:17 AM EST 04/05/2024 11:28 AM EST Сергей Curtis MD LAB POINT OF CARE TE ST DOCKED DEVICE UNSOLICITED RESULTS Final Result Performing Organization Address City/[facility]/ZIP Co de Phone Number [facility] [address] [place] [address] * CK (04/05/2024 8:23 AM EST) CK 76 39 - 308 U/L 04/05/2024 9:04 AM EST [facility] Blood Venous blood specimen / Unknown Venipuncture / Unknown 04/05/2024 8:23 AM EST 04/05/2024 8:35 AM EST Tito De La Torre MD LAB BLOOD ORDERABLES Final Resul t [facility] [address] [place] [address] * STAPH AUREUS PCR (04/04/2024 9:45 AM EST) MRSA PCR Result Negative Negative 11:55 AM EST [facility] Comment:No Methicillin resis tant Staphylococcus aureus detected by PCR (amplified probe). Staphylococcus aureus PCR Result Negative Negative 04/04/2024 11:55 AM EST [facility] Comment:No Staphylococcus au reus detected by PCR (amplified probe). Upper Respiratory Swab of internal nose / Unknown Non-blood Collection / Unknown 04/04/2024 9:45 AM EST 04/04/2024 10:26 AM EST us Tito De La Torre MD LAB MICRO - GENERAL ORDERABLES F inal Result [facility]ATORY [facility] [address] [place] [address] * (ABNORMAL) DIFFERENTIAL, AUTOMATED (04/04/2024 7:19 AM EST) Pathologist [facility] WBC 11.93(H) 4.00 - 10.80 K/uL 04/04/2024 7:58 AM EST [facility] Neutrophils % 68.8 40.0 - 75.0 % 04/04/2024 7:58 AM EST [facility] Lymphocytes % 19.4 18.0 - 42.0 % 04/04/2024 7:58 AM EST [facility] Monocytes % 7.2 1.0 - 11.0 % 04/04/2024 7:58 AM EST [facility] Eosinophils % 2.8 0.0 - 6.0 % 04/04/2024 7:58 AM EST [facility] Basophils % 1.3 0.0 - 2.0 % 04/04/2024 7:58 AM EST [facility] Immature Granulocytes % 0.5 0.0 - 2.0 % 04/04/2024 7:58 AM EST [facility] Absolute Neutrophils 8.21(H) 1.80 - 7.70 K/uL 04/04/2024 7:58 AM EST [facility] Absolute Lymphocytes 2.32 1.00 - 4.80 K/ul 04/04/2024 7:58 AM EST [facility] Absolute Monocytes 0.86 0.00 - 1.10 K/uL 04/04/2024 7:58 AM EST [facility] Absolute Eosinophils 0.33 0.00 - 0.70 K/uL 04/04/2024 7:58 AM EST [facility] Absolute Basophils 0.15 0.00 - 0.20 K/uL 04/04/2024 7:58 AM EST [facility] Absolute Immature Granulocytes 0.06 0.00 - 0.20 K/uL 04/04/2024 7:58 AM EST [facility] Blood Venous blood specimen / Unknown Venipuncture / Unknown 04/04/2024 7:19 AM EST 04/04/2024 7:48 AM EST us Tito De La Torre MD LAB BLOOD ORDERABLES Final Resul t Performing Organization Address City/State/[facility] Co de Phone Number [facility] [address] [place] [address] * (ABNORMAL) CBC (04/04/2024 7:19 AM EST) WBC 11.93(H) 4.00 - 10.80 K/uL 04/04/2024 7:58 AM EST [facility] RBC 4.47 4.50 - 5.25 M/uL 04/04/2024 7:58 AM EST [facility] HGB 14.0 14.0 - 16.8 g/dL 04/04/2024 7:58 AM EST [facility] HCT 41.6 40.0 - 48.4 % 04/04/2024 7:58 AM EST [facility] MCV 93.1 82.0 - 99.5 fL 04/04/2024 7:58 AM EST [facility] MCH 31.3 27.0 - 34.0 pg 04/04/2024 7:58 AM EST [facility] MCHC 33.7 32.0 - 36.0 g/dL 04/04/2024 7:58 AM EST [facility] RDW 12.7 11.5 - 15.5 % 04/04/2024 7:58 AM EST [facility] PLT 327 140 - 400 K/uL 04/04/2024 7:58 AM EST [facility] MPV 9.9 6.6 - 11.1 fL 04/04/2024 7:58 AM EST [facility] nRBCs 0 <=0 /100 WBCs 04/04/2024 7:58 AM EST [facility] Blood Venous blood specimen / Unknown Venipuncture / Unknown 04/04/2024 7:19 AM EST 04/04/2024 7:48 AM EST us Tito De La Torre MD LAB BLOOD ORDERABLES Final Resul t Performing Organization Address City/[facility]/ZIP Co de Phone Number LAB[facility]ATORY [facility] [place] [place] [address] [place] [address] * PHOSPHORUS (04/04/2024 7:19 AM EST) Phosphorus 3.6 2.5 - 4.8 mg/dL 04/04/2024 8:15 AM EST [facility] Blood Venous blood specimen / Unknown Venipuncture / Unknown 04/04/2024 7:19 AM EST 04/04/2024 7:48 AM EST us Tito De La Torre MD LAB BLOOD ORDERABLES Final Resul t Performing Organization Address [facility] Co de Phone Number LAB[facility]ATORY [facility] [place] [place] [address] [place] [address] * MAGNESIUM (04/04/2024 7:19 AM EST) Magnesium 2.2 1.5 - 2.6 mg/dL 04/04/2024 8:15 AM EST [facility] Blood Venous blood specimen / Unknown Venipuncture / Unknown 04/04/2024 7:19 AM EST 04/04/2024 7:48 AM EST us Tito De La Torre MD LAB BLOOD ORDERABLES Final Resul t Performing Organization Address City/[facility] Co de Phone Number [facility]ORY [facility] [place] [place] [address] [place] [address] * APTT (04/04/2024 7:19 AM EST) aPTT 29 21 - 38 seconds 04/04/2024 8:08 AM EST [facility] Blood Venous blood specimen / Unknown Venipuncture / Unknown 04/04/2024 7:19 AM EST 04/04/2024 7:48 AM EST Narrative [facility] [place] [place] - 04/04/2024 8:08 AM EST Anticoagulation may affect testing. Refer to [employer] Test Catalog for a list of effects. Tito De La Torre MD LAB BLOOD ORDERABLES Final Resul t Performing Organization Address [facility] de Phone Number LAB[facility]ATORY [facility] [place] [place] [address] [place] [address] * PT INR (04/04/2024 7:19 AM EST) Prothrombin Time 13.6 11.6 - 15.2 seconds 04/04/2024 8:08 AM EST [facility] [place] [place] INR 1.0 0.8 - 1.2 04/04/2024 8:08 AM EST [facility] [place] [place] Blood Venous blood specimen / Unknown Venipuncture / Unknown 04/04/2024 7:19 AM EST 04/04/2024 7:48 AM EST Narrative [facility] [place] [place] - 04/04/2024 8:08 AM EST Warfarin Therapy INR: 2.0-3.0 conventional anticoagulation INR: 2.5-3.5 high intensity anticoagulation us Tito De La Torre MD LAB BLOOD ORDERABLES Final Resul t Performing Organization Address [facility] Phone Number LABORATORY [address] [address] * BASIC METABOLIC PANEL (04/04/2024 7:19 AM EST) BUN 18 6 - 20 mg/dL 04/04/2024 8:15 AM EST [facility] [place] [place] CREATININE 1.2 0.6 - 1.2 mg/dL 04/04/2024 8:15 AM EST [facility] [place] [place] EGFR 72 >=60 mL/min 04/04/2024 8:15 AM EST [facility] [place] [place] Comment:eGFR is calculated b ased on the CKD-EPI 2020 equation. SODIUM 138 135 - 146 mmol/L 04/04/2024 8:15 AM EST [facility] POTASSIUM 4.2 3.5 - 5.1 mmol/L 04/04/2024 8:15 AM EST [facility] CHLORIDE 102 98 - 107 mmol/L 04/04/2024 8:15 AM EST [facility] CO2 23 22 - 32 mmol/L 04/04/2024 8:15 AM EST [facility] ANION GAP 13 7 - 15 mmol/L 04/04/2024 8:15 AM EST [facility] GLUCOSE 99 70 - 120 mg/dL 04/04/2024 8:15 AM EST [facility] CALCIUM 9.9 8.4 - 10.2 mg/dL 04/04/2024 8:15 AM EST [facility] Blood Venous blood specimen / Unknown Venipuncture / Unknown 04/04/2024 7:19 AM EST 04/04/2024 7:48 AM EST us Tito De La Torre MD LAB BLOOD ORDERABLES Final Resul t [facility] [place] [place] [address] [place] [address] * XR CHEST 1 VIEW (04/04/2024 7:09 AM EST) Anatomical Region Laterality Modality Chest Computed Radiogr aphy 04/04/2024 8:50 AM EST Impressions 04/04/2024 8:47 AM EST IMPRESSION No acute finding Narrative 04/04/2024 8:47 AM EST EXAM XR CHEST 1 VIEW-04/04/2024 7:09 am HISTORY evaluate picc line COMPARISON None FINDINGS Lines and tubes: Right PICC line at the cavoatrial junction Lung volumes are normal. There is no focal consolidation. No large pleural effusion or pneumothorax. Cardiomediastinal silhouette is within normal limits. The osseous structures are intact. Procedure Note Gómez Mcfarlane MD - 04/04/2024 EXAM XR CHEST 1 VIEW-04/04/2024 7:09 am HISTORY evaluate picc line COMPARISON None FINDINGS Lines and tubes: Right PICC line at the cavoatrial junction Lung volumes are normal. There is no focal consolidation. No large pleural effusion or pneumothorax. Cardiomediastinal silhouette is within normal limits. The osseous structures are intact. IMPRESSION IMPRESSION No acute finding us Tito De La Torre MD RADIOLOGY ([facility]) Final Re sult documented in this encounter Visit Diagnoses Diagnosis CSF leak- Primary Other specified disorder of nervous system CSF leak Other specified disorder of nervous system Encounter for adjustment and management of vascular access device Bacteremia of undetermined etiology Bacteremia Deep incisional surgical site infection MRSA bacteremia Bacteremia MRSA bacteremia Bacteremia Deep incisional surgical site infection documented in this encounter Administered Medications Inactive Administered Medications - up to 3 most recent administrations Medication Order MAR Action Action Date Dose Rate Site Acetaminophen (Tylenol) tab 650 mg 650 mg, Oral, Q6H PRN Pain, Mild, Fever >38C(100.5F), Starting on Sun04/04/24 at 0709, Until Sun04/11/24 at 1550, Maximum of 4 grams (4000 mg) per day., Admission chlorhexidine gluconate cloth 2 % pad External, [id number], First dose on Sun04/04/24 at 1030, Until Discontinued, Applied to appropriate patients per business law instructor's recommendations FOLLOWING daily care. Given 04/11/2024 10:00 AM EST Given 04/10/2024 8:39 AM EST 1 Pad Given 04/09/2024 9:18 AM EST 1 Pad cyclobenzaprine (Flexeril) 5 mg tab 5 mg, Oral, TID(AM/NOON/HS), First dose on Sun04/04/24 at 1200, Until Discontinued Given 04/05/2024 5:58 AM EST 5 mg Given 04/04/2024 9:00 PM EST 5 mg Cyclobenzaprine (Flexeril) 5 mg tab 10 mg, Oral, HS, First dose on 04/05/24 at 1900, Until Discontinued Given 04/05/2024 7:58 PM EST 10 mg cyclobenzaprine (Flexeril) 5 mg tab 5 mg, Oral, ONCE, On Sun04/06/24 at 0530, For 1 dose Given 04/06/2024 5:34 AM EST 5 mg cyclobenzaprine (Flexeril) 5 mg tab 5 mg, Oral, TID PRN Muscle spasms, Starting on Sun04/06/24 at 1324, Until Sun04/08/24 at 0909 Given 04/08/2024 5:36 AM EST 5 mg Given 04/07/2024 2:32 PM EST 5 mg Given 04/06/2024 7:55 PM EST 5 mg cyclobenzaprine (Flexeril) tab 10 mg 10 mg, Oral, QHS, First dose (after last modification) on Sun04/07/24 at 2100, Until Discontinued Given 04/07/2024 9:07 PM EST 10 mg cyclobenzaprine (Flexeril) tab 10 mg 10 mg, Oral, TID(AM/NOON/HS), First dose (after last modification) on Sun04/08/24 at 1300, Until Discontinued Given 04/10/2024 12:12 PM EST 10 mg Given 04/10/2024 5:37 AM EST 10 mg Given 04/09/2024 9:06 PM EST 10 mg DAPTOmycin (Cubicin) inj 700 mg IV Push, Administer over 2 Minutes, Q24H, 14 doses, First dose on Sun04/04/24 at 1000, Last dose on Sun04/17/24 at 1000 Given 04/06/2024 10:10 AM EST 700 mg Given 04/05/2024 8:58 AM EST 700 mg Given 04/04/2024 9:43 AM EST 700 mg DAPTOmycin (Cubicin) inj 850 mg IV Push, Administer over 2 Minutes, Q24H, 42 doses, First dose (after last modification) on Sun04/07/24 at 1000, Last dose on Sun05/18/24 at 1000 Given 04/07/2024 11:29 AM EST 850 mg Docusate Sodium (Colace) cap 100 mg 100 mg, Oral, BID (.AM/PM), First dose on Sun04/04/24 at 0900, Until Discontinued, Hold for all loose stools, Admission Given 04/09/2024 9:18 AM EST 100 mg Given 04/08/2024 9:42 PM EST 100 mg Given 04/08/2024 7:37 AM EST 100 mg hEParin 100 UNIT/ML Lock Flush inj 300 Units 300 Units (3 mL), IV Push, PRN Other, Flush before discharge, Starting on Sun04/04/24 at 0950, Until Sun04/11/24 at 1550, For 1 dose, Prior to discharge, to each lumen hEParin inj 5,000 Units 5,000 Units, Subcutaneous, Q8H, First dose on Sun04/05/24 at 2200, Until Discontinued Given 04/11/2024 5:45 AM EST 5,000 Units Abdomen Right Lower Given 04/10/2024 9:40 PM EST 5,000 Units A bdomen Left Lower Given 04/10/2024 1:42 PM EST 5,000 Units A bdomen Right Lower home medication stored in pharmacy Daily(AM), First dose on Sun04/04/24 at 0900, Until Discontinued, Routine, when the patient is ready for discharge contact pharmacy HYDROmorphone (Dilaudid) inj 0.5 mg 0.5 mg, IV Push, Q15 MIN PRN Pain, Severe, Starting on 04/05/24 at 1535, Until 04/05/24 at 1555, For 2 doses, Administer only postop in PACU. Hold for respiratory rate less than 12. , PACU Given 04/05/2024 3:55 PM EST 0.5 mg Given 04/05/2024 3:39 PM EST 0.5 mg Linezolid (Zyvox) tab 600 mg 600 mg, Oral, Q12H, First dose on [place] 04/10/24 at 2100, Last dose on 04/20/24 at 2100, For 21 doses Given 04/11/2024 8:10 AM EST 600 mg Given 04/10/2024 9:40 PM EST 600 mg milk of magnesia (Mom) oral susp 30 mL 30 mL, Oral, Daily(AM), First dose on Sun04/06/24 at 0745, Until Discontinued Given 04/09/2024 9:18 AM EST 30 mL Given 04/08/2024 7:37 AM EST 30 mL Given 04/07/2024 8:13 AM EST 30 mL morphine sulfate inj 2 mg 2 mg, IV Push, Q4H PRN Pain, Breakthrough, Starting on 04/07/24 at 1618, Until Sun04/11/24 at 1550 Given 04/08/2024 5:35 AM EST 2 mg Given 04/08/2024 1:34 AM EST 2 mg Given 04/07/2024 9:32 PM EST 2 mg NSS infusion Intravenous, at 100 mL/hr, CONTINUOUS, Starting on 04/05/24 at 1915, Until 04/06/24 at 0742 New Bag 04/06/2024 4:36 AM EST 100 mL/hr New Bag 04/05/2024 7:18 PM EST 100 mL/hr NSS infusion Intravenous, at 75 mL/hr, CONTINUOUS, Starting on Sun04/06/24 at 0815, Until Sun04/06/24 at 1558 Rate Verify 04/06/2024 3:39 PM EST 75 mL/hr Restarted 04/06/2024 1:39 PM EST 75 mL/hr Rate Verify 04/06/2024 11:08 AM EST 75 mL/hr NSS infusion Intravenous, at 50 mL/hr, CONTINUOUS, Starting on Sun04/06/24 at 1630, Until Sun04/07/24 at 1230 Rate Verify 04/07/2024 6:11 AM EST 50 mL/hr New Bag 04/06/2024 5:01 PM EST 50 mL/hr Oral Hygiene: Mouth Swab with dentifrice Oral, PCHS, First dose on Sun04/04/24 at 1030, Until Discontinued, To be used with 1.5% hydrogen peroxide solution or 0.05% cetylpyridium chloride oral rinse Given 04/11/2024 9:00 AM EST Given 04/10/2024 1:00 PM EST Given 04/10/2024 9:00 AM EST oxyCODONE (Oxy IR) tab 5 mg 5 mg, Oral, Q4H PRN Pain, Moderate, Starting on 04/05/24 at 1835, Until Sun04/11/24 at 1550 Given 04/11/2024 9:33 AM EST 5 mg Given 04/09/2024 9:07 PM EST 5 mg Given 04/08/2024 9:33 PM EST 5 mg oxyCODONE (Roxicodone) oral syrup 7.5 mg 7.5 mg, Oral, Q6H PRN Pain, Severe, Starting on 04/05/24 at 1836, Until 04/07/24 at 1901 Given 04/07/2024 2:31 PM EST 7.5 mg Given 04/07/2024 5:08 AM EST 7.5 mg oxyCODONE (Roxicodone) oral syrup 7.5 mg 7.5 mg, Oral, Q4H PRN Pain, Severe, Starting on 04/07/24 at 1901, Until Sun04/11/24 at 1550 Given 04/09/2024 11:07 AM EST 7.5 mg Given 04/08/2024 7:37 AM EST 7.5 mg Given 04/08/2024 3:35 AM EST 7.5 mg pantoprazole (Protonix) tab 40 mg 40 mg, Oral, Daily(AM), First dose on Sun04/04/24 at 0930, Until Discontinued, This med should NOT be Crushed or Chewed Given 04/11/2024 8:10 AM EST 40 mg Given 04/10/2024 8:38 AM EST 40 mg Given 04/09/2024 9:18 AM EST 40 mg Polyethylene Glycol 3350 (Miralax) oral powder 17 g 17 g (1 Packet), Oral, ONCE, On Sun04/08/24 at 1145, For 1 dose, Mix in 8 oz of water, juice, soda, coffee, or tea. Given 04/08/2024 11:16 AM EST 17 g senna (Senokot) 2 Tablet 2 Tablet, Oral, Daily(AM), First dose on Sun04/04/24 at 0900, Until Discontinued, Admission Given 04/09/2024 9:18 AM EST 2 Tablets Given 04/08/2024 7:37 AM EST 2 Tablets Given 04/07/2024 8:13 AM EST 2 Tablets sodium chloride 0.9 % flush central line 10 mL 10 mL, IV Push, Q8H, First dose on Sun04/04/24 at 1400, Until Discontinued, TO UNUSED PORTS Do not flush if lock, PICC, or central line not in place; IV infusing or unable to flush. Given 04/11/2024 6:0 0 AM EST 10 mL Given 04/10/2024 10:00 PM EST 10 mL Given 04/10/2024 2:00 PM EST 10 mL sodium chloride 0.9 % flush/inj 10 mL 10 mL, IV Push, Q8H, First dose on Sun04/04/24 at 1400, Until Discontinued, To each lumen if no medications are ordered. Flush before and after all port access. Given 04/11/2024 6:00 AM EST 10 mL Given 04/10/2024 10:00 PM EST 10 mL Given 04/10/2024 2:00 PM EST 10 mL tiZANidine (Zanaflex) tab 4 mg 4 mg, Oral, TID 06;12;18, First dose (after last modification) on Sun04/10/24 at 2100, Until Discontinued Given 04/11/2024 8:10 AM EST 4 mg Given 04/10/2024 9:40 PM EST 4 mg Vancomycin (Vancocin) 1,250 mg in NSS 250 mL ivpb 1,250 mg, IV Piggyback, ONCE, 1 dose, On Sun04/09/24 at 0845 New Bag 04/09/2024 9:28 AM EST 1,250 mg 178.33 mL/hr Vancomycin (Vancocin) 1,250 mg in NSS 250 mL ivpb 1,250 mg, IV Piggyback, ONCE, 1 dose, On Sun04/09/24 at 2100 Rate Verify 04/09/2024 11:18 PM EST 833.3 mg/hr 178 mL/hr Rate Verify 04/09/2024 11:00 PM EST 833.3 mg/hr 178 mL/hr New Bag 04/09/2024 9:39 PM EST 1,250 mg 178.33 mL/hr Vancomycin (Vancocin) 1000 mg in NSS 250 mL ivpb LOCKED DOSE 1,000 mg, IV Piggyback, [id number], First dose on Sun04/08/24 at 0300, Until Discontinued New Bag 04/08/2024 3:04 AM EST 1,000 mg 255 mL/hr Vancomycin (Vancocin) 1000 mg in NSS 250 mL ivpb LOCKED DOSE 1,000 mg, IV Piggyback, ONCE, 1 dose, On Sun04/08/24 at 1545 New Bag 04/08/2024 3:35 PM EST 1,000 mg 255 mL/hr Vancomycin (Vancocin) 2,000 mg in NSS 500 mL ivpb 2,000 mg, IV Piggyback, ONCE, 1 dose, On Sun04/07/24 at 1345 New Bag 04/07/2024 3:06 PM EST 2,000 mg 265 mL/hr documented in this encounter Active and Recently Administered Medications Times are shown in EST. Scheduled Medication Order 04/09/2024 04/10/2024 04/11/2024 chlorhexidine gluconate cloth 2 % pad External, [id number], First dose on Sun04/04/24 at 1030, Until Discontinued, Applied to appropriate patients per business law instructor's recommendations FOLLOWING daily care. 0918 (Given - Provider: Leatha Decker RN) 0839 (Given - Provider: Linda Westbrook RN) 1000 (Given - Provider: Julienne Eric, DESTIN) cyclobenzaprine (Flexeril) tab 10 mg (CANCELED) 10 mg, Oral, TID(AM/NOON/HS), First dose (after last modification) on Sun04/08/24 at 1300, Until Discontinued 0554 (Given - Provider: Angela Drake, DESTIN)1107 (Given - Provider: Leatha Decker RN)2106 (Given - Provider: Angela Drake, DESTIN) 0537 (Given - Provider: Angela Drake RN)1212 (Given - Provider: Linda Westbrook RN) Docusate Sodium (Colace) cap 100 mg 100 mg, Oral, BID (.AM/PM), First dose on Sun04/04/24 at 0900, Until Discontinued, Hold for all loose stools, Admission 0918 (Given - Provider: Leatha Decker RN)2100 (Not Given - Provider: Angela Drake RN - Reason: Refused-Notify Provider - Comment: per pt , already had 5bm, Resident Morris Frias MD notifed) 0900 (Not Given - Provider: Linda Westbrook RN - Reason: Refused-Notify Provider)2140 (Not Given - Provider: Nicole Conner LPN - Reason: Parameter(s) Not Met) 0900 (Not Given - Provider: Julienne Eric RN - Reason: Refused-Notify Provider - Comment: Duane Campbell (Neurosurgery) notified via TT.) hEParin inj 5,000 Units 5,000 Units, Subcutaneous, Q8H, First dose on Sun04/05/24 at 2200, Until Discontinued 0553 (Given - Provider: Angela Drake RN)1426 (Given - Provider: Leatha Decker RN)2105 (Given - Provider: Angela Drake RN) 0536 (Given - Provider: Angela Drake RN)1342 (Given - Provider: Linda Westbrook RN)2140 (Given - Provider: Nicole Conner LPN) 0545 (Given - Provider: Nicole Conner LPN) home medication stored in pharmacy Daily(AM), First dose on Sun04/04/24 at 0900, Until Discontinued, Routine, when the patient is ready for discharge contact pharmacy 0900 (Order Check Addressed - Provider: Leatha Decker RN) 0900 (Order Check Addressed - Provider: Linda Westbrook RN) 0900 (Order Check Addressed - Provider: Julienne Eric, DESTIN) Linezolid (Zyvox) tab 600 mg 600 mg, Oral, Q12H, First dose on [place] 04/10/24 at 2100, Last dose on 04/20/24 at 2100, For 21 doses 2140 (Given - Provider: Nicole Conner LPN) 0810 (Given - Provider: Julienne Eric, DESTIN) milk of magnesia (Mom) oral susp 30 mL 30 mL, Oral, Daily(AM), First dose on Sun04/06/24 at 0745, Until Discontinued 0918 (Given - Provider: Leatha Decker RN) 0900 (Not Given - Provider: Linda Westbrook RN - Reason: Refused-Notify Provider) 0900 (Not Given - Provider: Julienne Eric RN - Reason: Refused-Notify Provider - Comment: Duane Campbell (Neurosurgery) notified via TT.) Oral Hygiene: Mouth Swab with dentifrice Oral, [facility], First dose on Sun04/04/24 at 1030, Until Discontinued, To be used with 1.5% hydrogen peroxide solution or 0.05% cetylpyridium chloride oral rinse 0900 (Given - Provider: Leatha Decker RN)1300 (Given - Provider: Leatha Decker RN)1800 (Given - Provider: Leatha Decker RN)2200 (Given - Provider: Angela Drake RN) 0900 (Given - Provider: Linda Westbrook RN)1300 (Given - Provider: Linda Westbrook RN)1800 (Not Given - Provider: Linda Westbrook RN - Reason: Other- Please add reason in Comments)2200 (Not Given - Provider: Nicole Conner LPN - Reason: Parameter(s) Not Met) 0900 (Given - Provider: Julienne Eric RN) pantoprazole (Protonix) tab 40 mg 40 mg, Oral, Daily(AM), First dose on Sun04/04/24 at 0930, Until Discontinued, This med should NOT be Crushed or Chewed 0918 (Given - Provider: Leatha Decker RN) 0838 (Given - Provider: Linda Westbrook RN) 0810 (Given - Provider: Julienne Eric, RN) senna (Senokot) 2 Tablet 2 Tablet, Oral, Daily(AM), First dose on Sun04/04/24 at 0900, Until Discontinued, Admission 0918 (Given - Provider: Leatha Decker RN) 0900 (Not Given - Provider: Linda Westbrook RN - Reason: Refused-Notify Provider) 0900 (Not Given - Provider: Julienne Eric RN - Reason: Refused-Notify Provider - Comment: Duane Campbell (Neurosurgery) notified via TT.) sodium chloride 0.9 % flush central line 10 mL 10 mL, IV Push, Q8H, First dose on Sun04/04/24 at 1400, Until Discontinued, TO UNUSED PORTS Do not flush if lock, PICC, or central line not in place; IV infusing or unable to flush. 0600 (Given - Provider: Angela Drake RN)1400 (Given - Provider: Leatha Decker RN)2200 (Given - Provider: Angela Drake, DESTIN) 0540 (Given - Provider: Angela Drake, DESTIN)1400 (Given - Provider: Linda Westbrook RN)2200 (Given - Provider: Nicole Conner LPN) 0600 (Given - Provider: Nicole Conner LPN) sodium chloride 0.9 % flush/inj 10 mL 10 mL, IV Push, Q8H, First dose on Sun04/04/24 at 1400, Until Discontinued, To each lumen if no medications are ordered. Flush before and after all port access. 0600 (Given - Provider: Angela Drake, DESTIN)1400 (Given - Provider: Leatha Decker, DESTIN)2200 (Given - Provider: Angela Drake, RN) 0600 (Given - Provider: Angela Drake RN - Comment: duplicate order, single lumen picc)1400 (Given - Provider: Linda Westbrook RN)2200 (Given - Provider: Nicole Conner LPN) 0600 (Given - Provider: Nicole Conner LPN) tiZANidine (Zanaflex) tab 4 mg 4 mg, Oral, TID 06;12;18, First dose (after last modification) on [place] 04/10/24 at 2100, Until Discontinued 214 (Given - Provider: Nicole Conner LPN) 0810 (Given - Provider: Julienne Eric RN) Vancomycin (Vancocin) 1,250 mg in NSS 250 mL ivpb (COMPLETED) 1,250 mg, IV Piggyback, ONCE, 1 dose, On Sun04/09/24 at 0845 0928 (New Bag - Provider: Leatha Decker RN) Vancomycin (Vancocin) 1,250 mg in NSS 250 mL ivpb (COMPLETED) 1,250 mg, IV Piggyback, ONCE, 1 dose, On Sun04/09/24 at 2100 2139 (New Bag - Provider: Angela Drake RN)2300 (Rate Verify - Provider: Angela Drake RN)2318 (Rate Verify - Provider: Angela Drake RN) PRN Medication Order 04/09/2024 04/10/2024 04/11/2024 Acetaminophen (Tylenol) tab 650 mg 650 mg, Oral, Q6H PRN Pain, Mild, Fever >38C(100.5F), Starting on Sun04/04/24 at 0709, Until Sun04/11/24 at 1550, Maximum of 4 grams (4000 mg) per day., Admission hEParin 100 UNIT/ML Lock Flush inj 300 Units 300 Units (3 mL), IV Push, PRN Other, Flush before discharge, Starting on Sun04/04/24 at 0950, Until Sun04/11/24 at 1550, For 1 dose, Prior to discharge, to each lumen morphine sulfate inj 2 mg 2 mg, IV Push, Q4H PRN Pain, Breakthrough, Starting on 04/07/24 at 1618, Until Sun04/11/24 at 1550 oxyCODONE (Oxy IR) tab 5 mg 5 mg, Oral, Q4H PRN Pain, Moderate, Starting on 04/05/24 at 1835, Until Sun04/11/24 at 1550 2107 (Given - Provider: Angela Draek RN) 0933 (Given - Provider: Julienne Eric RN) oxyCODONE (Roxicodone) oral syrup 7.5 mg 7.5 mg, Oral, Q4H PRN Pain, Severe, Starting on 04/07/24 at 1901, Until Sun04/11/24 at 1550 1107 (Given - Provider: Leatha Decker RN) documented in this encounter Advance Directives * Full Code (Latest Code Status on File) Date Activated Date Inactivated Comments 04/04/2024 7:10 AM 04/11/2024 3:50 PM This order re flects the patients wishes and were consensually agreed upon. Question Answer Comments Discussion of Advance Direct iona occurred with: Not Discussed due to patient's condition Care Teams Jack Frame Tender Relationship Specialty Start Date End Date Jasmine Fritz DO [address] [address] PCP - General Family Medicine 07/18/23 documented as of this encounter
--- OUTSIDE RECORDS SUMMARY | 2024-05-23 17:45 | External Medical Summary ---
Author Name Unknown Address Unknown Organization K0G:LAB[facility]ATORY [facility] [address] [place] [address] Laboratory Report Ordering Provider Test Date Status DIANE CUELLAR 04/12/2024 05:51:24 Final Observation Date Value Abnormality Reference (Units ) Status BUN 04/12/2024 05:51:24 25 Above high normal 6-20 (mg/dL) Final Creatinine 04/12/2024 05:51:24 2.5 Above high normal 0.6-1.2 (mg/dL) Final Glomerular filtration rate/1.73 sq M.predicted [Volume Rate/Area] in Serum, Plasma or Blood by Creatinine-based formula (CKD-EPI) 04/12/2024 05:51:24 29 Below low normal >=60 (mL/min) Final eGFR is calculated based on the CKD-EPI 2020 equation. Sodium 04/12/2024 05:51:24 138 135-146 (m mol/L) Final Potassium 04/12/2024 05:51:24 4.0 3.5-5.1 (m mol/L) Final Cl 04/12/2024 05:51:24 98 98-107 (mm ol/L) Final CO2 04/12/2024 05:51:24 22 22-32 (mmo l/L) Final Anion gap 04/12/2024 05:51:24 18 Above high normal 7- 15 (mmol/L) Final Glucose 04/12/2024 05:51:24 110 70-120 (mg /dL) Final Calcium 04/12/2024 05:51:24 10.3 Above high normal 8. 4-10.2 (mg/dL) Final Performing Location [facility] [address] [place] [address]
--- OUTSIDE RECORDS SUMMARY | 2024-05-23 17:45 | External Medical Summary ---
Author Name Unknown Address Unknown Organization K01:LABORATORY [facility] - [facility] [address] [place] [address] Laboratory Report Ordering Provider Test Date Status HUMPHREY DUARTE 04/09/2024 06:43:00 Final Observation Date Value Abnormality Reference (Units ) Status WBC, Total 04/09/2024 06:43:00 12.17 Above high normal 4.00-10.80 (K/uL) Final RBC 04/09/2024 06:43:00 3.88 4.50-5.25 (M/uL) Final Hemoglobin 04/09/2024 06:43:00 11.6 Below low normal 14.0-16.8 (g/dL) Final HCT 04/09/2024 06:43:00 36.1 Below low normal 40.0-48.4 (%) Final MCV 04/09/2024 06:43:00 93.0 82.0-99.5 (fL) Final MCH 04/09/2024 06:43:00 29.9 27.0-34.0 (pg) Final MCHC 04/09/2024 06:43:00 32.1 32.0-36.0 (g/dL) Final RDW 04/09/2024 06:43:00 13.1 11.5-15.5 (%) Final Platelets 04/09/2024 06:43:00 254 140-400 (K/uL) Final MPV 04/09/2024 06:43:00 10.1 6.6-11.1 (fL) Final Nucleated erythrocytes/100 leukocytes [Ratio] in Blood by Automated count 04/09/2024 06:43:00 0 <=0 (/100 WBCs) Final Performing Location LABORATORY [facility] - [address] [place] [address]
--- OUTSIDE RECORDS SUMMARY | 2024-05-23 17:45 | External Medical Summary | Summary of Care ---
Author Name Unknown Organization [facility] Address [address] [place] [address] Phone [phone] Care Team Providers Care Cataloging Assistant Name Role Phone LamJasmine caballero Primary Care Provider [phone] Reason for Visit * Reason Onset Date Comments Hospital Follow-Up 04/11/2024 2wk hd/fu gab/ Kirsten appt needed thanks rachell Encounter Details Date Type Department Care Team (Late st Contact Info) Description 04/11/2024 Telephone [facility] [place] [address] [place] [address] Kenneth Lee MD [address] [place] [address] Hospital Follow-Up (2wk hd/fu w/ Corbinne a... Allergies No known active allergiesdocumented as [...] Muscle spasms. 50 Tablet 1 04/11/2024 Active Linezolid 600 MG Oral Tablet (Zyvox) Take 1 Tablet by mouth in the morning and 1 Tablet before bedtime. Do all this for 9 days. 18 Tablet 04/11/2024 Active documented as of this encounter (statuses [...] encounter Miscellaneous Notes * Telephone Encounter - Becky Salmeron OSA - 04/11/2024 3:27 PM EST Spoke to patient and got a 2 week po appt scheduled for 04/22 at 100 as a video * Telephone Encounter - Rachell Mckenzie OSA - 04/11/2024 10:16 AM EST Order RETURN APPT [IP355] (Order [id number]) Kris Hernandez 04/04/2024 5:35 AM Admission Description: 53 year old male Department: AP4 [facility] [place] Patient Name: KRIS HERNANDEZ([id number]) Sex: Male : 1970 PCP: JASMINE PACE Center: [facility] Types of orders made on 04/11/2024: Communication, IP Discharge, IP Post Discharge , Lab, Medications Order Date:04/11/2024 Ordering User:KIM CAMPBELL [[id number]] Attending Provider:Saul Menjivar MD [[id number]] Authorizing Provider: Kim Campbell PA-C [[id number]] Department:AP4 [facility][[id number]] Order Specific Information Order: RETURN APPT [CUSTOM: IP355] Order #: [id number]: [id number] Priority: Routine Class: Nursing Unit Appt [...] Info) Description 04/22/2024 1:00 PM EST Telemedicine [facility] [address] [place] [address] Kenneth Lee MD [address] [place] [address] Scheduled Procedures Name Priority Associated [...] this encounter Medical Devices Implanted Type Area Fan Engine Engineer Device Identifier Shelf Expiration Date Model / Serial / Lot Duragen Plus 3x3 Dp 1033 Min5 - [id number] - [id number] Implanted:Qty : 1 on 04/05/2024 by Kenneth Lee MD [place] [facility] N/A: Spine Lumbar [employer] PAIGE [id number] 11/30/2025 DP-1033 / [id number] / [id number] documented as of this encounter Advance Directives * Full Code (Latest Code Status on File) Date Activated Date Inactivated Comments 04/04/2024 7:10 AM This order refl ects the patients wishes and were consensually agreed upon. Question Answer Comments Discussion of Advance Direct iona occurred with: Not Discussed due to patient's condition Care Teams Cataloging Assistant Relationship Specialty Start Date End Date Jasmine Pace DO [address] [address] PCP - General Family Medicine 07/18/23 documented as of this encounter
--- OUTSIDE RECORDS SUMMARY | 2024-05-23 17:45 | External Medical Summary ---
Author Name Unknown Address Unknown Organization K01:[facility]ORY [facility] - [address] [place] [address] Laboratory Report Ordering Provider Test Date Status HUMPHREY DUARTE 04/10/2024 07:07:00 Final Observation Date Value Abnormality Reference (Units ) Status WBC, Total 04/10/2024 07:07:00 10.05 4.00-10.80 (K/uL) Final RBC 04/10/2024 07:07:00 3.87 4.50-5.25 (M/uL) Final Hemoglobin 04/10/2024 07:07:00 11.9 Below low normal 14.0-16.8 (g/dL) Final HCT 04/10/2024 07:07:00 36.3 Below low normal 40.0-48.4 (%) Final MCV 04/10/2024 07:07:00 93.8 82.0-99.5 (fL) Final MCH 04/10/2024 07:07:00 30.7 27.0-34.0 (pg) Final MCHC 04/10/2024 07:07:00 32.8 32.0-36.0 (g/dL) Final RDW 04/10/2024 07:07:00 12.9 11.5-15.5 (%) Final Platelets 04/10/2024 07:07:00 247 140-400 (K/uL) Final MPV 04/10/2024 07:07:00 10.1 6.6-11.1 (fL) Final Nucleated erythrocytes/100 leukocytes [Ratio] in Blood by Automated count 04/10/2024 07:07:00 0 <=0 (/100 WBCs) Final Performing Location LAB[facility]ATORY [facility] - [address] [place] [address]
--- OUTSIDE RECORDS SUMMARY | 2024-05-23 17:45 | External Medical Summary ---
Author Name Unknown Address Unknown Organization K01:[facility] [place] [address] [place] [address] Laboratory Report Ordering Provider Test Date Status HUMPHREY DUARTE 04/09/2024 06:43:00 Final Observation Date Value Abnormality Reference (Units ) Status BUN 04/09/2024 06:43:00 20 6-20 (mg/dL) Final Creatinine 04/09/2024 06:43:00 2.4 Above high normal 0.6-1.2 (mg/dL) Final Glomerular filtration rate/1.73 sq M.predicted [Volume Rate/Area] in Serum, Plasma or Blood by Creatinine-based formula (CKD-EPI) 04/09/2024 06:43:00 31 Below low normal >=60 (mL/min) Final eGFR is calculated based on the CKD-EPI 2020 equation. Sodium 04/09/2024 06:43:00 134 Below low normal 135 -146 (mmol/L) Final Potassium 04/09/2024 06:43:00 3.7 3.5-5.1 (m mol/L) Final Cl 04/09/2024 06:43:00 102 98-107 (mm ol/L) Final CO2 04/09/2024 06:43:00 19 Below low normal 22- 32 (mmol/L) Final Anion gap 04/09/2024 06:43:00 13 7-15 (mmol /L) Final Glucose 04/09/2024 06:43:00 111 70-120 (mg /dL) Final Calcium 04/09/2024 06:43:00 9.6 8.4-10.2 ( mg/dL) Final Performing Location [facility] [place] [address] [place] [address]
--- OUTSIDE RECORDS SUMMARY | 2024-05-23 17:45 | External Medical Summary | Summary of Care ---
Author Name Unknown Organization [facility] Address [address] [place] [address] Phone [phone] Care Team Providers Care Folder Hand Name Role Phone Lam Jasmine Barth Primary Care Provider [phone] Reason for Visit * Reason Onset Date Comments Hospital Follow-Up 04/09/2024 4-6wk hd/fu a ppt needed thanks Addie Encounter Details Date Type Department Care Team (Late st Contact Info) Description 04/09/2024 Telephone Infectious Disease, [place] [address] [place] [address] Specified, Case No Resource [address] [place] [address] Hospital Follow-Up (4-6wk hd/fu appt neede... Allergies No known active allergiesdocumented as of this encounter (statuses as of 04/09/2024) Medications Meclizine HCl 25 MG Oral Tablet [...] Take WF and water. 60 Capsule 2 Suspended Ibuprofen 600 MG Oral Tablet (Motrin) Take 1 Tablet by mouth every 6 hours as needed. 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 documented as of this encounter (statuses as of 04/09/2024) Immunizations Name Administration Dates Next Due Seasonal [...] Author No 04/04/2024 5:36 AM Ashley Bell, RN * Are you blind or do [...] AM EST Order RETURN APPT [IP355] (Order [id number]) Kris Hernandez 04/04/2024 5:35 AM Admission Description: 53 year old male Department: AP4 IP [facility] Message Patient Name: KRIS HERNANDEZ([id number]) Sex: Male : 1970 PCP: JASMINE PACE Center: [facility] Types of orders made on 04/08/2024: IP Post Discharge , Lab, Medications Order Date:04/08/2024 Ordering User:HELDER WILSON [[id number]] Attending Provider:Saul Menjivar MD [[id number]] Authorizing Provider: Helder Wilson MD [[id number]] Department:AP4 [facility][[id number]] Order Specific Information Order: RETURN APPT [CUSTOM: IP355] Order #: [id number]: [id number] Priority: Routine Class: Nursing Unit Comment:Or [...] 02/06/2024 Colorectal Cancer Screening 02/05/2027 Diabetes Screening 04/08/2027 04/08/2024, 0 04/05/2024, 04/05/2024, Additional history exists DTap/Tdap Vaccines (2 - [...] this encounter Medical Devices Implanted Type Area Collar Sewer Device Identifier Shelf Expiration Date Model / Serial / Lot Duragen Plus 3x3 Dp 1033 Min5 - [id number] - [id number] Implanted:Qty : 1 on 04/05/2024 by Сергей Curtis MD at OR [facility] N/A: Spine Lumbar [employer] - is now [employer] PAIGE [id number] 11/30/2025 DP-1033 / [id number] / [id number] documented as of this encounter Advance Directives * Full Code (Latest Code Status on File) Date Activated Date Inactivated Comments 04/04/2024 7:10 AM This order refl ects the patients wishes and were consensually agreed upon. Question Answer Comments Discussion of Advance Direct iona occurred with: Not Discussed due to patient's condition Care Teams Folder Hand Relationship Specialty Start Date End Date Jasmine Pace DO [address] [address] PCP - General Family Medicine 07/18/23 documented as of this encounter
--- OUTSIDE RECORDS SUMMARY | 2024-05-23 17:45 | External Medical Summary ---
Author Name Unknown Address Unknown Organization K01:[facility] - [address] [place] [address] Laboratory Report Ordering Provider Test Date Status YOON ANGEL 04/06/2024 23:36:55 Final Observation Date Value Abnormality Reference (Units ) Status Protein, CSF 04/06/2024 23:36:55 122 Above high normal 15-45 (mg/dL) Final Performing Location [facility] - [address] [place] [address]
--- OUTSIDE RECORDS SUMMARY | 2024-05-23 17:45 | External Medical Summary | Summary of Care ---
Author Name Unknown Organization [facility] Address [address] [place] [address] Phone [phone] Care Team Providers Care Connie Cleaner Name Role Phone Melissa Fritz DO Primary Care Provider [phone] Reason for Visit * Auth/Cert Specialty Diagnoses / Procedures Referred By Vu t Referred To Contact Diagnoses CSF leak Saul Menjivar MD [address] [place] [address] Phone: tel: fax: [facility] [place] [address] [place] [address] Referral ID Status Reason Start Date Expiration Date Visits Re quested Visits Authorized [id number] Encounter Details Date Type Department Care Team (Latest Contact Info) Description 04/07/2024 7:51 AM EST - 04/07/2024 11:59 PM [facility] Hospital Encounter Cardiac Studies [facility] [address] [place], [place] [id number] Discharge Disposition: Home - Self Care Allergies No known active allergiesdocumented as of this encounter (statuses as of 04/08/2024) Medications Meclizine HCl 25 MG Oral Tablet [...] as of this encounter (statuses as of 04/08/2024) Active Problems Problem Noted Date Diagnosed Date MRSA bacteremia 04/07/2024 Deep incisional surgical site infection 04/07/19 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 documented as of this encounter (statuses as of 04/08/2024) Immunizations Name Administration Dates Next Due Seasonal [...] Ashley Bell RN documented in this encounter Plan of Treatment [...] this encounter Medical Devices Implanted Type Area Automobile Travel Club Counselor Device Identifier Shelf Expiration Date Model / Serial / Lot Duragen Plus 3x3 Dp 1033 Min5 - [id number] - [id number] Implanted:Qty : 1 on 04/05/2024 by Сергей Curtis MD at OR [place] N/A: Spine Lumbar [employer] PAIGE [id number] 11/30/2025 DP-1033 / [id number] / [id number] documented as of this encounter Procedures Procedure Name Priority Date/Time Associated Diagnosis Comments ECHO, COMPLETE (2D), TRANS-THORACIC Routine 04/07/2024 9:22 AM EST Bacteremia of undetermined etiology documented in this encounter Visit Diagnoses Diagnosis CSF leak- Primary Other specified disorder of nervous system documented in this encounter Administered Medications Inactive Administered Medications - up to 3 most recent administrations Medication Order MAR Action Action Date Dose Rate Site perflutren lipid microsphere inj SUSP 1.956 mg 1.956 mg, Intravenous, ONCE PRN Other, For Echo Only - Suboptimal Echo Images, Starting on Sun04/07/24 at 0858, Until Sun04/07/24 at 1057, For 2 hours, Administer IVP over 45 seconds, Cardiac Studies_HODHOVIndications:CSF leak Given 04/07/2024 8:59 AM EST 1.956 mg documented in this encounter Advance Directives * Full Code (Latest Code Status on File) Date Activated Date Inactivated Comments 04/04/2024 7:10 AM This order refl ects the patients wishes and were consensually agreed upon. Question Answer Comments Discussion of Advance Direct iona occurred with: Not Discussed due to patient's condition Care Teams Connie Cleaner Relationship Specialty Start Date End Date Melissa Fritz DO [address] [place] [address] PCP - General Family Medicine 07/18/23 documented as of this encounter
--- OUTSIDE RECORDS SUMMARY | 2024-05-23 17:45 | External Medical Summary ---
Author Name Unknown Address Unknown Organization K01:[facility] - [address] [place] [address] Laboratory Report Ordering Provider Test Date Status ROSA COOPER 04/10/2024 07:07:00 Final Observation Date Value Abnormality Reference (Units ) Status Vancomycin, level 04/10/2024 07:07:00 28.0 10 .0-40.0 (ug/mL) Final Performing Location [facility] - [address] [place] [address]
--- OUTSIDE RECORDS SUMMARY | 2024-05-23 17:45 | External Medical Summary ---
Author Name Unknown Address Unknown Organization K01:LABORATORY [facility] - [facility] [address] [place] [address] Laboratory Report Ordering Provider Test Date Status YOON ANGEL 04/06/2024 23:36:55 Final Some reference ranges and ot her method performance specifications have not been established for this fluid. The test results must be integrated into the clinical context for interpretation. Observation Date Value Abnormality Reference (Units ) Status Tube number of Cerebral spinal fluid 04/06/2024 23:36:55 1 Final CSF, color 04/06/2024 23:36:55 Red Abnormal Colorless Final CSF, clarity 04/06/2024 23:36:55 Cloudy Abnormal Clear Final Color of Spun Cerebral spinal fluid 04/06/2024 23:36:55 Yellow Abnormal Colorless Final Nucleated cells [#/volume] in Body fluid by Automated count 04/06/2024 23:36:55 4585 Above high normal <5 (cells/uL) Final Erythrocytes [#/volume] in Cerebral spinal fluid 04/06/2024 23:36:55 [address]06[address] Above high normal <5 (cells/uL) Final Performing Location LABORATORY [facility] - [facility] [place] [address]
--- OUTSIDE RECORDS SUMMARY | 2024-05-23 17:45 | External Medical Summary ---
Author Name Unknown Address Unknown Organization K01:LABORATORY [facility] - [address] [place] [address] Laboratory Report Ordering Provider Test Date Status STANLEYYOON 04/06/2024 23:36:55 Final Normal CSF Glucose concentra tion should be approximately 60% of plasma/serum glucose value.
null Observation Date Value Abnormality Reference (Units ) Status Glucose, CSF 04/06/2024 23:36:55 59 45-70 ( mg/dL) Final Performing Location [facility] - [address] [place] [address]
--- OUTSIDE RECORDS SUMMARY | 2024-05-23 17:45 | External Medical Summary ---
Author Name Unknown Address Unknown Organization K01:[facility] [place] [address] [place] [address] [place] [address] Laboratory Report Ordering Provider Test Date Status HUMPHREY DUARTE 04/08/2024 07:20:00 Final Observation Date Value Abnormality Reference (Units ) Status WBC, Total 04/08/2024 07:20:00 13.94 Above high normal 4.00-10.80 (K/uL) Final RBC 04/08/2024 07:20:00 4.04 4.50-5.25 (M/uL) Final Hemoglobin 04/08/2024 07:20:00 12.3 Below low normal 14.0-16.8 (g/dL) Final HCT 04/08/2024 07:20:00 38.0 Below low normal 40.0-48.4 (%) Final MCV 04/08/2024 07:20:00 94.1 82.0-99.5 (fL) Final MCH 04/08/2024 07:20:00 30.4 27.0-34.0 (pg) Final MCHC 04/08/2024 07:20:00 32.4 32.0-36.0 (g/dL) Final RDW 04/08/2024 07:20:00 13.1 11.5-15.5 (%) Final Platelets 04/08/2024 07:20:00 254 140-400 (K/uL) Final MPV 04/08/2024 07:20:00 10.6 6.6-11.1 (fL) Final Nucleated erythrocytes/100 leukocytes [Ratio] in Blood by Automated count 04/08/2024 07:20:00 0 <=0 (/100 WBCs) Final Performing Location [facility] [place] [address] [place] [address]
--- OUTSIDE RECORDS SUMMARY | 2024-05-23 17:45 | External Medical Summary ---
Author Name Unknown Address Unknown Organization K01:[facility] [place] [address] [place] [address] Laboratory Report Ordering Provider Test Date Status HUMPHREY DUARTE 04/11/2024 07:17:00 Final Observation Date Value Abnormality Reference (Units ) Status WBC, Total 04/11/2024 07:17:00 9.39 4.00-10.80 (K/uL) Final RBC 04/11/2024 07:17:00 4.13 4.50-5.25 (M/uL) Final Hemoglobin 04/11/2024 07:17:00 12.6 Below low normal 14.0-16.8 (g/dL) Final HCT 04/11/2024 07:17:00 37.9 Below low normal 40.0-48.4 (%) Final MCV 04/11/2024 07:17:00 91.8 82.0-99.5 (fL) Final MCH 04/11/2024 07:17:00 30.5 27.0-34.0 (pg) Final MCHC 04/11/2024 07:17:00 33.2 32.0-36.0 (g/dL) Final RDW 04/11/2024 07:17:00 12.7 11.5-15.5 (%) Final Platelets 04/11/2024 07:17:00 284 140-400 (K/uL) Final MPV 04/11/2024 07:17:00 10.0 6.6-11.1 (fL) Final Nucleated erythrocytes/100 leukocytes [Ratio] in Blood by Automated count 04/11/2024 07:17:00 0 <=0 (/100 WBCs) Final Performing Location [facility] [place] [address] [place] [address]
--- OUTSIDE RECORDS SUMMARY | 2024-05-23 17:45 | External Medical Summary ---
Author Name Unknown Address Unknown Organization K01:[facility] - [address] [place] [address] Laboratory Report Ordering Provider Test Date Status ROSA COOPER 04/08/2024 11:53:00 Final Observation Date Value Abnormality Reference (Units ) Status Vancomycin, level 04/08/2024 11:53:00 17.5 10 .0-40.0 (ug/mL) Final Performing Location LAB[facility] - [address] [place] [address]
--- OUTSIDE RECORDS SUMMARY | 2024-05-23 17:45 | External Medical Summary ---
Author Name Unknown Address Unknown Organization K01:[facility] - [address] [place] [address] [place] [address] Laboratory Report Ordering Provider Test Date Status YOON ANGEL 04/06/2024 23:36:55 Final Some reference ranges and ot her method performance specifications have not been established for this fluid. The test results must be integrated into the clinical context for interpretation. Observation Date Value Abnormality Reference (Units ) Status SYNC TUBE # CSF 04/06/2024 23:36:55 1 Final SYNC TOTAL NUCLEATED CELLS, CSF 04/06/2024 23:36:55 4585 (cells/uL) Final Neutrophils/100 leukocytes in Cerebral spinal fluid 04/06/2024 23:36:55 95 Above high normal 0-6 (%) Final Lymphocytes/100 leukocytes in Cerebral spinal fluid 04/06/2024 23:36:55 4 Below low normal 40-80 (%) Final Monocytes/100 leukocytes in Cerebral spinal fluid 04/06/2024 23:36:55 1 Below low normal 15-45 (%) Final Neutrophils [#/volume] in Cerebral spinal fluid 04/06/2024 23:36:55 4355.75 (cells/uL) Final Lymphocytes [#/volume] in Cerebral spinal fluid 04/06/2024 23:36:55 183.40 (cells/uL) Final Monocytes [#/volume] in Cerebral spinal fluid 04/06/2024 23:36:55 45.85 (cells/uL) Final Performing Location [facility] - [address] [place] [address]
--- OUTSIDE RECORDS SUMMARY | 2024-05-23 17:45 | External Medical Summary ---
Author Name Unknown Address Unknown Organization [id number]:LABORATORY [facility] [place] - [address] [place] [address] Laboratory Report Ordering Provider Test Date Status YOON ANGEL 04/06/2024 23:36:55 Final Observation Date Value Abnormality Reference (Units) Status Bacteria identified in Specimen by Culture 04/06/2024 23:36:55 No aerobic or anaerobic growth Final Gram Stain 04/06/2024 23:36:55 Many Polymorphonuclear leukocytes Abnormal Final Gram Stain 04/06/2024 23:36:55 No organisms seen Abnormal Final Test: Culture, CSF, Aerobic and Anaerobic
Specimen Source: CSF, Lumbar puncture
Specimen Type: Cerebrospinal Fluid
Specimen Date: 04/06/2024 2336
Result Date: 04/13/2024 1134
Result Status: Final result
Abnormal: Yes
Resulting Lab: [facility]ATORY [facility]
[address]
[place] [address]

CULTURE

No aerobic or anaerobic growth

STAIN

Many Polymorphonuclear leukocytes

No organisms seen

null Performing Location LAB[facility]ATORY [facility] - [address] [place] [address]
--- OUTSIDE RECORDS SUMMARY | 2024-05-23 17:45 | External Medical Summary ---
Author Name Unknown Address Unknown Organization K09:[place] [address] Laboratory Report Ordering Provider Test Date Status GERALD CORONA 04/17/2024 05:33:12 Final Observation Date Value Abnormality Reference (Units ) Status WBC, Total 04/17/2024 05:33:12 7.55 4.00-10.8 0 (K/uL) Final RBC 04/17/2024 05:33:12 4.07 4.50-5.25 (M/uL) Final Hemoglobin 04/17/2024 05:33:12 12.4 Below low normal 14 .0-16.8 (g/dL) Final HCT 04/17/2024 05:33:12 37.6 Below low normal 40. 0-48.4 (%) Final MCV 04/17/2024 05:33:12 92.4 82.0-99.5 (fL) Final MCH 04/17/2024 05:33:12 30.5 27.0-34.0 (pg) Final MCHC 04/17/2024 05:33:12 33.0 32.0-36.0 (g/dL) Final RDW 04/17/2024 05:33:12 13.7 11.5-15.5 (%) Final Platelets 04/17/2024 05:33:12 363 140-400 (K /uL) Final MPV 04/17/2024 05:33:12 9.7 6.6-11.1 ( fL) Final Performing Location [place] [address]
--- OUTSIDE RECORDS SUMMARY | 2024-05-23 17:45 | External Medical Summary ---
Author Name Unknown Address Unknown Organization K01:LABORATORY [facility] - [address] [place] [address] Laboratory Report Ordering Provider Test Date Status ROSA COOPER 04/09/2024 12:39:00 Final Peak level is to be drawn 90 minutes after the dose has finished infusing. Check with nursing for infusion completion time. Observation Date Value Abnormality Reference (Units ) Status Vancomycin, peak 04/09/2024 12:39:00 23.5 Below low nor mal 30.0-40.0 (ug/mL) Final Performing Location [facility] - [address] [place] [address]
--- OUTSIDE RECORDS SUMMARY | 2024-05-23 17:46 | External Medical Summary ---
Author Name Unknown Address Unknown Organization K01:LABORATORY [facility] [place] - [facility] [address] [facility] [address] Laboratory Report Ordering Provider Test Date Status ALO JUAREZ 04/04/2024 09:45:53 Final Observation Date Value Abnormality Reference (Units ) Status Staphylococcus aureus methicillin resistance SCCmec [Presence] in Nose by WILLIAM with probe detection 04/04/2024 09:45:53 Negative Negative Final No Methicillin resistant Sta phylococcus aureus detected by PCR (amplified probe). Methicillin susceptible Stap hylococcus aureus DNA [Presence] in Specimen by WILLIAM with probe detection 04/04/2024 09:45:53 Negative Negative Final No Staphylococcus aureus det ected by PCR (amplified probe). Performing Location LABORATORY [facility] - [address] [facility] [address]
--- OUTSIDE RECORDS SUMMARY | 2024-05-23 17:46 | External Medical Summary | Summary of Care ---
Author Name Unknown Organization [facility] Address [address] [place] [address] Phone [phone] Care Team Providers Care Baffle Mounter Name Role Phone Melissa Fritz DO Primary Care Provider [phone] Encounter Details Date Type Department Care Team (Latest Contact Info) Description 03/16/2024 9:50 PM EST - 03/16/2024 11:59 PM EST Hospital Encounter Radiology Film File [address], [place] [phone] Discharge Disposition: Home - Self Care Allergies No known active allergiesdocumented as of this encounter (statuses as of 04/02/2024) Medications Meclizine HCl 25 MG Oral Tablet [...] as of this encounter (statuses as of 04/02/2024) Active Problems No known active problems documented as of this encounter (statuses as of 04/02/2024) Immunizations Name Administration Dates Next Due Seasonal [...] PM EDT documented as of this encounter Plan of Treatment Upcoming Encounters Date Type Department Care Team (Late st Contact Info) Description 04/14/2024 11:20 AM EST Office Visit Family Practice [facility] [address] [address] Lindsay Wen CRNP [address] [address] Scheduled Procedures Name Priority Associated Diagnoses Date/Ti [...] Not on filedocumented as of this encounter Procedures Procedure Name Priority Date/Time Associated Diagnosis Comments RADIOLOGY EXAM - CT (IMAGES ONLY, NO REPORT) Routine 03/16/2024 9:50 PM EST documented in this encounter Results * RADIOLOGY EXAM - CT (IMAGES ONLY, NO REPORT) (03/16/2024 9:50 PM EST) 03/16/2024 9:48 PM EST Narrative Scheduling, Silent - 04/01/2024 8:39 AM EST This is an imaging study not interpreted or resulted by a [facility] or [employer] contracted radiologist. us Saul Menjivar MD RAD CT Final Resul t documented in this encounter Care Teams Baffle Mounter Relationship Specialty Start Date End Date Melissa Fritz DO [address] [place] [address] PCP - General Family Medicine 07/18/23 documented as of this encounter
--- OUTSIDE RECORDS SUMMARY | 2024-05-23 17:46 | External Medical Summary ---
Author Name Unknown Address Unknown Organization : Laboratory Report Ordering Provider Test Date Status ROSA COOPER 04/05/2024 11:17:12 Final Observation Date Value Abnormality Reference (Units ) Status Glucose Point of Care 04/05/2024 11:17:12 94 70-120 (mg/dL) Final Performing Location
--- OUTSIDE RECORDS SUMMARY | 2024-05-23 17:46 | External Medical Summary ---
Author Name Unknown Address Unknown Organization K01:LABORATORY [facility] [place] - [address] [place] [address] Laboratory Report Ordering Provider Test Date Status ALO JUAREZ 04/04/2024 07:19:00 Final Observation Date Value Abnormality Reference (Units ) Status WBC, Total 04/04/2024 07:19:00 11.93 Above high normal 4.00-10.80 (K/uL) Final RBC 04/04/2024 07:19:00 4.47 4.50-5.25 (M/uL) Final Hemoglobin 04/04/2024 07:19:00 14.0 14.0-16.8 (g/dL) Final HCT 04/04/2024 07:19:00 41.6 40.0-48.4 (%) Final MCV 04/04/2024 07:19:00 93.1 82.0-99.5 (fL) Final MCH 04/04/2024 07:19:00 31.3 27.0-34.0 (pg) Final MCHC 04/04/2024 07:19:00 33.7 32.0-36.0 (g/dL) Final RDW 04/04/2024 07:19:00 12.7 11.5-15.5 (%) Final Platelets 04/04/2024 07:19:00 327 140-400 (K/uL) Final MPV 04/04/2024 07:19:00 9.9 6.6-11.1 (fL) Final Nucleated erythrocytes/100 leukocytes [Ratio] in Blood by Automated count 04/04/2024 07:19:00 0 <=0 (/100 WBCs) Final Performing Location LABORATORY [facility] [place] - [address] [place] [address]
--- OUTSIDE RECORDS SUMMARY | 2024-05-23 17:46 | External Medical Summary | Summary of Care ---
Author Name Unknown Organization [facility] Address [address] [place] [address] Phone [phone] Care Team Providers Care Apron Operator Name Role Phone Melissa Fritz DO Primary Care Provider [phone] Encounter Details Date Type Department Care Team (Late st Contact Info) Description 03/16/2024 Orders Only Neurosurgery, [place] [address] [place], [place] [phone] Saul Menjivar MD [address], [place] [phone] Allergies No known active allergiesdocumented as of this encounter (statuses as of 04/01/2024) Medications Meclizine HCl 25 MG Oral Tablet [...] as of this encounter (statuses as of 04/01/2024) Active Problems No known active problems documented as of this encounter (statuses as of 04/01/2024) Immunizations Name Administration Dates Next Due Seasonal [...] AM EST Office Visit Family Practice [facility] [address] [address] Lindsay Wen CRNP [address] [address] Scheduled Procedures Name Priority Associated Diagnoses Date/Ti [...] interpreted or resulted by a [facility] or [employer] contracted radiologist. us Saul Menjivar MD RAD CT Final Resul t documented in this encounter Care Teams Apron Operator Relationship Specialty Start Date End Date Melissa Fritz DO [address] [place] [address] PCP - General Family Medicine 07/18/23 documented as of this encounter
--- OUTSIDE RECORDS SUMMARY | 2024-05-23 17:46 | External Medical Summary ---
Author Name Unknown Address Unknown Organization K01:LABORATORY [facility] [place] - [address] [place] [address] Laboratory Report Ordering Provider Test Date Status ALO JUAREZ 04/04/2024 07:19:00 Final Observation Date Value Abnormality Reference (Units ) Status BUN 04/04/2024 07:19:00 18 6-20 (mg/dL) Final Creatinine 04/04/2024 07:19:00 1.2 0.6-1.2 (mg/dL) Final Glomerular filtration rate/1.73 sq M.predicted [Volume Rate/Area] in Serum, Plasma or Blood by Creatinine-based formula (CKD-EPI) 04/04/2024 07:19:00 72 >=60 (mL/min) Final eGFR is calculated based on the CKD-EPI 2020 equation. Sodium 04/04/2024 07:19:00 138 135-146 (m mol/L) Final Potassium 04/04/2024 07:19:00 4.2 3.5-5.1 (m mol/L) Final Cl 04/04/2024 07:19:00 102 98-107 (mm ol/L) Final CO2 04/04/2024 07:19:00 23 22-32 (mmo l/L) Final Anion gap 04/04/2024 07:19:00 13 7-15 (mmol /L) Final Glucose 04/04/2024 07:19:00 99 70-120 (mg /dL) Final Calcium 04/04/2024 07:19:00 9.9 8.4-10.2 ( mg/dL) Final Performing Location LABORATORY [facility] [place] - [address] [place] [address]
--- OUTSIDE RECORDS SUMMARY | 2024-05-23 17:46 | External Medical Summary | Summary of Care ---
Author Name Unknown Organization [facility] Address [address] [place] [address] Phone [phone] Care Team Providers Care Police Reserves Commander Name Role Phone Melissa Fritz DO Primary Care Provider [phone] Encounter Details Date Type Department Care Team (Latest Contact Info) Description 03/17/2024 1:50 AM EST - 03/17/2024 11:59 PM EST Hospital Encounter Radiology Film File [address] [place], [place] [phone] Discharge Disposition: Home - Self Care Allergies [...] 11:20 AM EST Office Visit Family Practice [facility] [address] [address] Lindsay Wen CRNP [address] [address] Scheduled Procedures Name Priority Associated Diagnoses Date/Ti [...] Date/Time Associated Diagnosis Comments RADIOLOGY EXAM - MRI (IMAGES ONLY, NO REPORT) Routine 03/17/2024 1:50 AM EST documented in this encounter Results * RADIOLOGY EXAM - MRI (IMAGES ONLY, NO REPORT) (03/17/2024 1:50 AM EST) 03/17/2024 1:47 AM EST Narrative Scheduling, Silent - 04/01/2024 8:42 AM EST This is an imaging study not interpreted or resulted by a [facility] or [employer] contracted radiologist. us Saul Menjivar MD RAD MRI-MRA Final Resul t documented in this encounter Care Teams Police Reserves Commander Relationship Specialty Start Date End Date Melissa Fritz DO [address] [place] [address] PCP - General Family Medicine 07/18/23 documented as of this encounter
--- OUTSIDE RECORDS SUMMARY | 2024-05-23 17:46 | External Medical Summary ---
Author Name Unknown Address Unknown Organization K01:LABORATORY [facility] [place] - [address] [place] [address] Laboratory Report Ordering Provider Test Date Status TRAVON LAMBERTLEAH 04/06/2024 12:54:00 Final Observation Date Value Abnormality Reference (Units ) Status Bacteria identified in Specimen by Culture 04/06/2024 12:54:00 No growth Final Test: Culture, Blood
Spe cimen Source: Blood, Venous
Specimen Type: Blood
Specimen Date: 04/06/2024 1254
Result Date: 04/11/2024 1401
Result Status: Final result
Resulting Lab: [facility]
[address]
[place] [address]

CULTURE

No growth

null Performing Location [facility] - [address] [place] [address]
--- OUTSIDE RECORDS SUMMARY | 2024-05-23 17:46 | External Medical Summary ---
Author Name Unknown Address Unknown Organization K01:[facility] - [address] [place] [address] Laboratory Report Ordering Provider Test Date Status TRAVON LAMBERTLEAH 04/06/2024 13:03:00 Final Observation Date Value Abnormality Reference (Units ) Status Bacteria identified in Specimen by Culture 04/06/2024 13:03:00 No growth Final Test: Culture, Blood (Site 2 )
Specimen Source: Blood, Venous
Specimen Type: Blood
Specimen Date: 04/06/2024 1303
Result Date: 04/11/2024 1401
Result Status: Final result
Resulting Lab: [facility]
[address]
[place] [address]

CULTURE

No growth

null Performing Location [facility] - [address] [place] [address]
--- OUTSIDE RECORDS SUMMARY | 2024-05-23 17:46 | External Medical Summary ---
Author Name Unknown Address Unknown Organization : Laboratory Report Ordering Provider Test Date Status ROSA COOPER 04/05/2024 14:29:24 Final Observation Date Value Abnormality Reference (Units ) Status Glucose Point of Care 04/05/2024 14:29:24 89 70-120 (mg/dL) Final Performing Location
--- OUTSIDE RECORDS SUMMARY | 2024-05-23 17:46 | External Medical Summary | Summary of Care ---
Author Name Unknown Organization [facility] Address [address] [place] [address] Phone [phone] Care Team Providers Care Music Producer Name Role Phone Melissa Fritz DO Primary Care Provider [phone] Encounter Details Date Type Department Care Team (Late st Contact Info) Description 03/17/2024 Orders Only Neurosurgery, [place] [address] [place], [place] [phone] Saul Menjivar MD [address] [place], [place] [phone] Allergies No known active allergiesdocumented as of [...] 11:20 AM EST Office Visit Family Practice [facility] [address] [address] Lindsay Wen CRNP [address] [address] Scheduled Procedures Name Priority Associated Diagnoses Date/Ti [...] interpreted or resulted by a [facility] or [employer] contracted radiologist. us Saul Menjivar MD RAD MRI-MRA Final Resul t documented in this encounter Care Teams Music Producer Relationship Specialty Start Date End Date Melissa Fritz DO [address] [place] [address] PCP - General Family Medicine 07/18/23 documented as of this encounter
--- OUTSIDE RECORDS SUMMARY | 2024-05-23 17:46 | External Medical Summary ---
Author Name Unknown Address Unknown Organization K01:[facility]ORY [facility] [place] [address] [place] [address] Laboratory Report Ordering Provider Test Date Status ALO JUAREZ 04/04/2024 07:19:00 Final Observation Date Value Abnormality Reference (Units ) Status SYNC LEUKOCYTES IN BLOOD BY AUTOMATED COUNT 04/04/2024 07:19:00 11.93 Above high normal 4.00-10.80 (K/uL) Final Segs 04/04/2024 07:19:00 68.8 40.0-75.0 (%) Final Lymphs % 04/04/2024 07:19:00 19.4 18.0-42.0 (%) Final Monos 04/04/2024 07:19:00 7.2 1.0-11.0 (%) Final Eosinophils 04/04/2024 07:19:00 2.8 0.0-6.0 (%) Final Basos 04/04/2024 07:19:00 1.3 0.0-2.0 (%) Final Immature Granulocyte, Percent 04/04/2024 07:19:00 0.5 0.0-2.0 (%) Final Absolute Segs 04/04/2024 07:19:00 8.21 Above high normal 1.80-7.70 (K/uL) Final Lymphs, absolute 04/04/2024 07:19:00 2.32 1.00-4.80 (K/ul) Final Monos, Abs 04/04/2024 07:19:00 0.86 0.00-1.10 (K/uL) Final Eos, Abs 04/04/2024 07:19:00 0.33 0.00-0.70 (K/uL) Final Basos, Abs 04/04/2024 07:19:00 0.15 0.00-0.20 (K/uL) Final Immature Granulocytes, Number 04/04/2024 07:19:00 0.06 0.00-0.20 (K/uL) Final Performing Location [facility] [place] [address] [facility] [address]
--- OUTSIDE RECORDS SUMMARY | 2024-05-23 17:46 | External Medical Summary | Summary of Care ---
Author Name Unknown Organization [facility] Address [address] [place] [address] Phone [phone] Care Team Providers Care Early Childhood Educator Aide Name Role Phone Melissa Fritz DO Primary Care Provider [phone] Encounter Details Date Type Department Care Team (Late st Contact Info) Description 03/14/2024 Orders Only Neurosurgery, [place] [address] [place], [place] [phone] Saul Menjivar MD [address] [place], [place] [phone] Allergies No known active allergiesdocumented as of [...] 11:20 AM EST Office Visit Family Practice [facility] [address] [address] Lindsay Wen CRNP [address] [address] Scheduled Procedures Name Priority Associated Diagnoses Date/Ti [...] - MRI (IMAGES ONLY, NO REPORT) Routine 03/14/2024 3:40 PM EST documented in this encounter Results * RADIOLOGY EXAM - MRI (IMAGES ONLY, NO REPORT) (03/14/2024 3:40 PM EST) 03/14/2024 3:37 PM EST Narrative Scheduling, Silent - 04/01/2024 8:40 AM EST This is an imaging study not interpreted or resulted by a [facility] or [employer] contracted radiologist. us Saul Menjivar MD RAD MRI-MRA Final Resul t documented in this encounter Care Teams Early Childhood Educator Aide Relationship Specialty Start Date End Date Melissa Fritz DO [address] [place] [address] PCP - General Family Medicine 07/18/23 documented as of this encounter
--- OUTSIDE RECORDS SUMMARY | 2024-05-23 17:46 | External Medical Summary ---
Author Name Unknown Address Unknown Organization K01:[facility] - [address] [place] [address] Laboratory Report Ordering Provider Test Date Status ALO JUAREZ 04/04/2024 07:19:00 Final Observation Date Value Abnormality Reference (Units ) Status Phosphate 04/04/2024 07:19:00 3.6 2.5-4.8 (m g/dL) Final Performing Location [facility] - [address] [place] [address]
--- OUTSIDE RECORDS SUMMARY | 2024-05-23 17:46 | External Medical Summary ---
Author Name Unknown Address Unknown Organization K01:LABORATORY [facility] [place] - [address] [place] [address] Laboratory Report Ordering Provider Test Date Status ALO JUAREZ 04/04/2024 07:19:00 Final Anticoagulation may affect t esting. Refer to [employer] Test Catalog for a list of effects. Observation Date Value Abnormality Reference (Units ) Status aPTT panel - Platelet poor plasma 04/04/2024 07:19:00 29 21-38 (seconds) Final Performing Location LABORATORY [facility] [place] - [address] [place] [address]
--- OUTSIDE RECORDS SUMMARY | 2024-05-23 17:46 | External Medical Summary | Summary of Care ---
Author Name Unknown Organization [facility] Address [address] [place] [address] Phone [phone] Care Team Providers Care Optical Assistant Name Role Phone Melissa Fritz DO Primary Care Provider [phone] Encounter Details Date Type Department Care Team (Latest Contact Info) Description 03/14/2024 3:40 PM EST - 03/14/2024 11:59 PM EST Hospital Encounter Radiology Film File [address] [place], [place] [phone] Discharge Disposition: Home - Self Care Allergies [...] 11:20 AM EST Office Visit Family Practice [facility] [address] [address] Lindsay Wen CRNP [address] [address] Scheduled Procedures Name Priority Associated Diagnoses Date/Ti [...] interpreted or resulted by a [facility] or [employer] contracted radiologist. us Saul Menjivar MD RAD MRI-MRA Final Resul t documented in this encounter Care Teams Optical Assistant Relationship Specialty Start Date End Date Melissa Fritz DO [address] [place] [address] PCP - General Family Medicine 07/18/23 documented as of this encounter
--- NOTE | 2024-05-23 18:09 | Electrocardiogram Report ---
Test Reason : Blood Pressure : */* mmHG Vent. Rate : 126 BPM Atrial Rate : 127 BPM P-R Int : 100 ms QRS Dur : 74 ms QT Int : 298 ms P-R-T Axes : 71 62 58 degrees QTcB Int : 431 ms Sinus tachycardia Minimal voltage criteria for LVH, may be normal variant Borderline ECG When compared with ECG of 15-Apr-2023 11:27, Vent. rate has increased by 44 bpm Confirmed by Joe Briscoe ([id number]) on 05/23/2024 6:08:34 PM Referred By: Confirmed By: Joe Briscoe
[2024-05-23] MEDS ORDERED: POLYETHYLENE (MIRALAX) 17 GM PACK PO PRN (20:30)
[2024-05-23] MEDS ORDERED: MAGNESIUM HYDROXIDE SUSP 30 ML UDC PO PRN (20:30)
[2024-05-23] MEDS ORDERED: ONDANSETRON INJ 2 MG/ML 2 ML VIAL IV PRN (20:30)
[2024-05-23] MEDS: ACETAMINOPHEN 325 MG TAB PO PRN (21:20)
--- NOTE | 2024-05-23 21:20 | Communication Note ---
Date of Service: May 23, 2024 Dr. Dumont and I spoke over the phone [facility] Dr. Dubon knows the patient and his quite well as he has seen him previously. IV Rocephin and IV daptomycin stopped. IV vancomycin now ordered per Dr. Dubon's recommendation. Given absence of back pain/discomfort, there is no indication for spinal imaging at this time. Dr. Dubon mentioned he will be in contact with the patient and his over the weekend.
[2024-05-23] MEDS ORDERED: VANCOMYCIN CONSULT ACTIVE PRN (21:21)
[2024-05-23] MEDS: HEPARIN SOD 5,000 UNIT/0.5 ML VIAL SQ SCH (21:21)
[2024-05-23] MEDS ORDERED: VANCOMYCIN HCL 1,250 MG in SODIUM CHLORIDE 0.9% 250 ML IV SCH (21:30)
[2024-05-23] MEDS: ADVANCED PROBIOTIC 625 MG CAPSULE PO SCH (22:45)
[2024-05-23] MEDS: VANCOMYCIN HCL 1,750 MG in SODIUM CHLORIDE 0.9% 500 ML IV STA (22:45)
[2024-05-24 06:08] LABS: Basophils # (auto) 0.06 K/uL (0.00-0.20); Basophils % (auto) 0.5 %; Eosinophils # (auto) 0.36 K/uL (0.00-0.50); Hematocrit (blood only) 34.4 % (42.0-52.0); Hemoglobin 11.4 g/dl (14.0-18.0); Immature Granulocytes # (auto) 0.05 K/uL (0.01-0.20); Immature Granulocytes % (auto) 0.4 %; Lymphocytes # (auto) 1.41 K/uL (1.20-3.40); Lymphocytes % (auto) 11.8 %; Mean Corpuscular Hemoglobin 29.8 pg (25.0-34.0); Mean Corpuscular Hgb Conc 33.1 g/dL (32.0-36.0); Mean Corpuscular Volume 90.1 fL (80.0-100.0); Monocytes # (auto) 1.02 K/uL (0.11-0.59); Monocytes % (auto) 8.5 %; Neutrophils # (auto) 9.05 K/uL (1.40-6.50); Neutrophils % (auto) 75.8 %; Platelet Count 272 K/uL (130-400); RDW Coefficient of Variation 14.3 % (11.5-14.5); RDW Standard Deviation 47.2 fL (36.4-46.3); Red Blood Count 3.82 M/uL (4.70-6.10); White Blood Count 11.95 K/ul (4.8-10.8)
[2024-05-24 06:11] LABS: BUN Creatinine Ratio 17.6 (10-20); Calcium 9.3 mg/dl (8.6-10.3); Creatinine Clr Calc Pharmacy 70.6 ml/min; Magnesium 1.7 mg/dl (1.7-2.4); Phosphorus 3.6 mg/dl (2.5-4.9); Potassium 4.1 mmol/L (3.5-5.1)
--- NOTE | 2024-05-24 08:15 | Hospitalist Progress Note ---
Date of Service May 24, 2024 Assessment & Plan (1) Cellulitis of right upper extremity: (2) Depression: (3) GERD (gastroesophageal reflux disease): (4) History of microdiscectomy: (5) Hx MRSA infection: (6) Headache: Plan Kris Celaya is a 53y/o M with PMH significant for GERD, depression, tobacco use disorder and MRSA bacteremia 2/2 deep incisional wound infection s/p L4-L5 microdiscectomy in February 2024 who presented to the ED for evaluation via recommendation by his PCP as he has developed erythema around the site where his PICC line was recently removed on 05/18/24. Headache: H/O Microdiscetomy: H/O MRSA Bacteremia: Recent Historical Events * -Underwent microdiscectomy on 02/27/24 with an orthopedic spinal surgeon down in [place], [place] at [facility]; complicated with a CSF leak * -03/25 tx from [facility] --> [facility]: underwent another spinal procedure * -04/04/24-04/11/24 admitted to [facility] for wound exploration on 04/[address] Curtis (neurosurgery) - wound washout, L4 laminectomy, L5 cystectomy, dural repair and replaced lumbar drain which was removed. * -Bacteremia secondary to wound bed infection. 05/18/24 Completed abx course of PO Zyvox and IV Daptomycin * -ECHO 04/07/24 with LVEF of 55 to 59% and no overt evidence of valvular vegetations or perivalvular abscesses. * -05/18/24 Completed abx course of PO Zyvox and IV Daptomycin * -PICC Line removed 05/18/24 Leukocytosis in ED 17.58--> today 11.95. Procal negative. UA and Biofire negative. Point tenderness with radiation to lumbar region starting at L2-3 on examination. generalized STAFFORD without nuchal rigidity or visual disturbance reported during ROS In ED started on IV Dapto + IV Rocephin; Per ID reccs after consult; switched to IV Vancomycin;continue Blood cultures pending MRI thoroacolumbar ordered; may need to consider transfer to [facility] Pt missed scheduled neurosurgery f/u d/t poor weather Cellulitis of RUE: Leukocytosis in ED 17.58--> today 11.95. Procal negative. UA and Biofire negative. Erythema surrounding recent RUE PICC site; removed on 05/18. No tip culture sent. On examination, inner aspect of RUE erythematous without swelling/drainage. Two streaks of lymphangitis and erythema from tegaderm Venous doppler US of RUE negative for DVT; probably reactive phlebitis in the basilic vein CXR negative In ED started on IV Dapto + IV Rocephin; Per ID reccs; switched to IV Vancomycin. RUE MRI performed and negative for osteomyelitis Depression: Chronic Takes Effexor; continue GERD: Chronic continue PPI Disposition: DVT Prophylaxis: SQ Heparin Code Status: FULL CODE PCP: Melissa Fritz DO I spent a total of 61 minutes coordinating, documenting, and providing care for this patient excluding time spent inthe performance of separately billed services or time spent by another provider/QHP. Admission and Anticipated Discharge Date Admission Date: May 23, 2024 Subjective Pt is sitting in his hospital bed in no apparent distress. He is complaining intermittently about having a headache that he describes as a 'pressure being 'all over', but does not report it going into his occipital region. He reports positional pain. He says that he had 'chills' but thinks he was just cold. He denies visutal or auditory changes, chest pain, palpitations, SOB, N/V/D, peripheral neuropathy, recent falls, loss of bowel or bladder function. Please see plan of care for further details. Review of Systems Review of Systems: Neuro: (-) Falls, trauma, slurred speech HEENT: (+) STAFFORD, (-) nuchal rigidity, dizziness, dysphagia, visual or auditory changes. CV: (-) CP, palpitations, swelling Resp: (-) SOB GI: (-) appetite changes, N/V/D, bowel changes : (-) urinary changes Skin: (-) rashes Psych: (-) anxiety, depression Physical Exam Physical Exam: Neuro: AAOx4, PERRLA, no aphagia, memory changes, CNII-XII grossly intact HEENT: head normocephalic, moist mucus membranes CV: S1/S2, (-) M/G/R, (-) edema, cap refill < 3 seconds Resp: Lungs CTA in all fajardo. On RA GI: Abdomen S/NT/ND, Ax4 bowel sounds, (-) CVA tenderness Musculoskeletal: 5/5 B/L UE strength, 5/5 B/L LE strength. No gait disturbance. (+) spinal point tenderness L4-T3 radiating into lumbar region Skin: (-) rashes , (-) erythema. Bulging area above his old surgical incision site; reports this is unchanged. Psych: euthymic mood Results & Data Results & Data Vital Signs (Past 12 Hours) Vital Signs Temp Pulse Pulse Resp BP BP Pulse Ox 05/24/24 07:59 104 H 05/24/24 04:42 36.9 C 100 H 18 102/57 L 98 05/24/24 00:51 36.6 C 94 H 22 137/71 97 05/23/24 21:40 36.6 C 98 H 12 134/74 100 05/23/24 21:40 36.6 C 98 H 12 134/74 100 05/23/24 20:30 05/23/24 20:25 98 H 05/23/24 20:18 93 H 15 103/65 99 Pulse Ox O2 Del Method O2 Del Method 05/24/24 07:59 05/24/24 04:42 Room Air 05/24/24 00:51 Room Air 05/23/24 21:40 Room Air 05/23/24 21:40 Room Air 05/23/24 20:30 100 Room Air 05/23/24 20:25 05/23/24 20:18 Room Air Laboratory Results Short CBC 05/23/24 05/24/24 Range/Units 13:26 05:39 WBC 17.58 H 11.95 H (4.8-10.8) K/ul Hgb 13.5 L 11.4 L (14.0-18.0) g/dl Hct 40.0 L 34.4 L (42.0-52.0) % Plt Count 342 272 (130-400) K/uL BMP 05/23/24 05/24/24 13:26 05:39 Sodium 135 L 139 Potassium 4.0 4.1 Chloride 105 110 H Carbon Dioxide 21 24 BUN 23 22 Creatinine 1.37 1.25 Glucose 112 H 110 H Calcium 10.9 H 9.3 Liver Function 05/23/24 Range/Units 13:26 Total Bilirubin 0.7 (0.2-1.0) mg/dl AST 20 (13-39) U/L ALT 33 (7-52) U/L Alkaline Phosphatase 69 (34-104) U/L Albumin 4.6 (3.4-5.0) gm/dl Urine 05/23/24 Range/Units 16:03 Urine Color Yellow Urine Appearance Clear (Clear) Urine pH 5.5 (4.5-7.5) Ur Specific [place] 1.013 (1.000-1.030) Urine Protein Negative (Negative) Urine Glucose (UA) Negative (Negative) (2) Depression Depression Type: unspecified Qualified Code(s): F32.A - Depression, unspecified (3) GERD (gastroesophageal reflux disease) Esophagitis presence: esophagitis presence not specified Qualified Code(s): K21.9 - Gastro-esophageal reflux disease without esophagitis
[2024-05-24] MEDS: VANCOMYCIN HCL 1,000 MG/270 ML BAG IV SCH (09:31)
[2024-05-24] MEDS: MULTIVITAMIN TAB PO SCH (09:33)
[2024-05-24] MEDS: PANTOprazole 40 MG TAB PO SCH (09:33)
[2024-05-24] MEDS: VENLAFAXINE HCL XR 75 MG CAPXR PO SCH (09:33)
--- NOTE | 2024-05-24 11:33 | Pharmacy Report ---
Pharmacy PK ABX Note - Date of Service May 24, 2024 - Assessment and Plan Assessment * 53 year old M receiving vancomycin for cellulitis 2nd recent his PICC line (removed on 05/18/24). PICC was for MSRA bacteremia 2/2 deep incisional wound infection. Completed full antibiotic course including po linezolid and IV daptomycin on 05/18/24. Now w erythema surrounding the site where his PICC line was recently removed Plan Vancomycin * Loading dose: 1750 mg IV x 1 * Maintenance dose: 1000 mg IV every 12 hours * Regimen is predicted to achieve target AUC/PROSPER of 400-600 mg/L.hr * Random level ordered for 05/25 AM Pharmacy will continue to follow and will adjust dose/frequency as necessary. Thank you. Pharmacy has transitioned to AUC monitoring for vancomycin. AUC/PROSPER is the preferred PK/PD target and is associated with decreased risk of nephrotoxicity compared to traditional trough targets.
[2024-05-24] MEDS: oxyCODONE HCL IR 5 MG TAB (IMMEDIATE RELEASE) PO PRN (11:53)
--- NOTE | 2024-05-24 13:41 | Magnetic Resonance Report ---
EXAM: MR humerus RT wo con CLINICAL HISTORY: R/o osteomyelitis RUE TECHNIQUE: Multiplanar and multipulse sequence imaging of right humerus including shoulder joint without contrast was performed. COMPARISON: None. FINDINGS: Bones: Normal alignment of the humerus. No fractures or dislocations. No lytic or sclerotic lesions. No bone marrow edema or contusions. Joints: Normal appearance of the shoulder and elbow joints. No joint effusions or significant degenerative changes. Articular surfaces are smooth without erosions or osteophyte formation. Muscles: Normal appearance of the surrounding musculature. No muscle atrophy or abnormal signal changes. Tendons and Ligaments: Increased fluid around the extra-articular portion of the long head of biceps brachii within the bicipital groove representing tenosynovitis. Neurovascular Structures: Normal appearance of the visualized neurovascular structures. No evidence of compression or abnormal signal changes. Soft Tissues: Normal appearance of the soft tissues surrounding the humerus. No abnormal masses, fluid collections, or signs of inflammation. IMPRESSION: 1. Normal MRI of the humerus without contrast. 2. No evidence of osteomyelitis. Electronically signed by Oriana Gustafson 05-24-2024 13:40 PM
[2024-05-24] MEDS ORDERED: cefTRIAXone SODIUM 2,000 MG/50 ML BAG IV SCH (15:00)
[2024-05-24] MEDS ORDERED: DAPTOmycin 450 MG in SYRINGE 0 ML IV SCH (16:00)
[2024-05-24] MEDS: GADOBUTROL 30ML VIAL IV ONE (16:00)
--- NOTE | 2024-05-24 18:04 | Magnetic Resonance Report ---
EXAM: MR lumbar spine wo/w con CLINICAL HISTORY: R/o discitis/osteomyelitis TECHNIQUE: MRI of the lumbar spine was performed with and without the administration of intravenous contrast. Sequences obtained include sagittal T1-weighted, T2-weighted, STIR (Short Tau Inversion Recovery), and axial T2-weighted sequences. COMPARISON: 03/17/2024. FINDINGS: Vertebral Alignment: Evidence of L4 spinolaminectomy. Interval regression of the operative bed collection, now measuring 36 X 47 mm ( compared to 58 x 56 cm) Vertebral Bodies and Intervertebral Discs: Normal vertebral body height, no fracture identified. Pathological process is seen at L4-L5 opposing vertebral end plates with increased water content of the intervening disc space. Associated enhancing sheet like pre/bilateral paravertebral soft tissue measuring about 12 mm at maximum thickness. [id number] analysis: T12-L1: There is no significant disc pathology. No spinal canal stenosis. No neural foraminal stenosis.No ligamentum flavum hypertrophy and facet joint arthropathy. L1-L2: There is no significant disc pathology. No spinal canal stenosis. No neural foraminal stenosis.No ligamentum flavum hypertrophy and facet joint arthropathy. L2-L3: There is no significant disc pathology. No spinal canal stenosis. No neural foraminal stenosis.No ligamentum flavum hypertrophy and facet joint arthropathy. L3-L4: There is no significant disc pathology. No spinal canal stenosis. No neural foraminal stenosis.No ligamentum flavum hypertrophy and facet joint arthropathy. L4-L5: There is 3mm posteri bilateral disc bulge indenting the theca, mildly encroaching on both exit neural foramina and mildly compressing the extitng nerve roots. L5-S1: There is mild diffuse disc bulge, and bilateral facet arthropathy is noted causing mild canal and bilateral mild neural foraminal narrowing with indentation of bilateral exiting nerve roots. Type II Modic endplate changes noted. Spinal Cord and Nerve Roots: Conus medullaris terminates at the L1 level without abnormality. Clumping of the cauda equina nerve roots is likely arachnoiditis. Soft Tissues: Paraspinal soft tissues appear normal without evidence of mass lesions. IMPRESSION: 1. Redemonstration of signs of operative intervention. 2. Interval regression of the operative bed collection. 3. 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 It has been progressed since the last study. 4. Clumping of the cauda equina nerve roots is likely arachnoiditis. [id number]. Stable L4-L5 /[id number] L5-S1 disc bulges. /OBX.5.1.2/OBX.5.1 Electronically signed by Oriana Gustafson 05-24-2024 6:03 PM
--- NOTE | 2024-05-24 18:09 | Magnetic Resonance Report ---
EXAM: MR thoracic spine wo/w con CLINICAL HISTORY: r/o discitis/osteomyelitis TECHNIQUE: MRI of the thoracic spine was performed with and without intravenous contrast administration. 9 ml gadavist injected. Sequences obtained include pre-contrast and post-contrast T1-weighted, T2-weighted, STIR (Short Tau Inversion Recovery), and axial T2-weighted sequences. COMPARISON: None. FINDINGS: Vertebrae: Normal alignment of the thoracic vertebrae. No fractures, lytic or sclerotic lesions. Normal bone marrow signal intensity. Mild anterolateral osteophytosis of the thoracic vertebral end plates. Intervertebral Discs: Mild desiccation of the thoracic discs is evident by reduced bright T2 signal. No evidence of disc herniation, or bulging. Spinal Canal and Neural Foramina: Spinal canal is of normal caliber with no evidence of spinal stenosis. Neural foramina are patent bilaterally at all levels. No evidence of nerve root compression. Facet Joints: Normal appearance of the facet joints. No evidence of facet arthropathy or significant degenerative changes. Level by level analysis: C7-T1: No significant disc pathology. Normal ligamentum flava morphology, no arthropathy of the facet joints, and no significant spinal canal stenosis. T1-T2: No significant disc pathology. Normal ligamentum flava morphology, no arthropathy of the facet joints, and no significant spinal canal stenosis. T2-T3: No significant disc pathology. Normal ligamentum flava morphology, no arthropathy of the facet joints, and no significant spinal canal stenosis. T3-T4: No significant disc pathology. Normal ligamentum flava morphology, no arthropathy of the facet joints, and no significant spinal canal stenosis. T4-T5: No significant disc pathology. Normal ligamentum flava morphology, no arthropathy of the facet joints, and no significant spinal canal stenosis. T5-T6: No significant disc pathology. Normal ligamentum flava morphology, no arthropathy of the facet joints, and no significant spinal canal stenosis. T6-T7: No significant disc pathology. Normal ligamentum flava morphology, no arthropathy of the facet joints, and no significant spinal canal stenosis. T7-T8: No significant disc pathology. Normal ligamentum flava morphology, no arthropathy of the facet joints, and no significant spinal canal stenosis. T8-T9: No significant disc pathology. Normal ligamentum flava morphology, no arthropathy of the facet joints, and no significant spinal canal stenosis. T9-T10: No significant disc pathology. Normal ligamentum flava morphology, no arthropathy of the facet joints, and no significant spinal canal stenosis. T10-T11: No significant disc pathology. Normal ligamentum flava morphology, no arthropathy of the facet joints, and no significant spinal canal stenosis. T11-T12: No significant disc pathology. Normal ligamentum flava morphology, no arthropathy of the facet joints, and no significant spinal canal stenosis. Soft Tissues: Normal appearance of the paraspinal soft tissues. No abnormal masses, fluid collections, or signs of inflammation. Thoracic Kyphosis: Normal thoracic kyphosis without abnormal curvature. Post-Contrast Findings: No abnormal enhancement of the vertebral bodies or intervertebral discs. Spinal Cord and Nerve Roots: Spinal cord demonstrates normal signal intensity and caliber throughout the thoracic spine. No evidence of intrinsic cord lesions, syrinx, or abnormal signal changes. No evidence of cord compression or intradural pathology. Nerve roots appear unremarkable bilaterally. IMPRESSION: 1. No fractures, lytic or sclerotic lesions. 2. No intraspinal masses or areas of pathological enhancement. 3. Mild spondylodegenrative changes . Electronically signed by Oriana Gustafson 05-24-2024 6:07 PM
[2024-05-24] MEDS: CYCLOBENZAPRINE HCL 10 MG TAB PO PRN (21:14)
--- NOTE | 2024-05-24 22:54 | Communication Note ---
Date of Service: May 24, 2024
[2024-05-25 05:46] LABS: Basophils # (auto) 0.07 K/uL (0.00-0.20); Basophils % (auto) 0.9 %; Eosinophils # (auto) 0.52 K/uL (0.00-0.50); Eosinophils % (auto) 6.5 %; Hematocrit (blood only) 34.4 % (42.0-52.0); Hemoglobin 11.3 g/dl (14.0-18.0); Immature Granulocytes # (auto) 0.05 K/uL (0.01-0.20); Immature Granulocytes % (auto) 0.6 %; Lymphocytes % (auto) 26.1 %; Mean Corpuscular Hemoglobin 29.3 pg (25.0-34.0); Mean Corpuscular Hgb Conc 32.8 g/dL (32.0-36.0); Mean Corpuscular Volume 89.1 fL (80.0-100.0); Mean Platelet Volume 9.9 fL (9.4-12.4); Monocytes # (auto) 0.79 K/uL (0.11-0.59); Monocytes % (auto) 9.8 %; Neutrophils # (auto) 4.52 K/uL (1.40-6.50); Neutrophils % (auto) 56.1 %; Platelet Count 293 K/uL (130-400); RDW Coefficient of Variation 14.5 % (11.5-14.5); RDW Standard Deviation 47.1 fL (36.4-46.3); Red Blood Count 3.86 M/uL (4.70-6.10); White Blood Count 8.05 K/ul (4.8-10.8)
[2024-05-25 05:58] LABS: BUN Creatinine Ratio 11.6 (10-20); Calcium 9.5 mg/dl (8.6-10.3); Creatinine Clr Calc Pharmacy 79.6 ml/min; Potassium 3.7 mmol/L (3.5-5.1)
--- NOTE | 2024-05-25 07:05 | Hospitalist Progress Note ---
Date of Service May 25, 2024 Assessment & Plan (1) Cellulitis of right upper extremity: (2) Depression: (3) GERD (gastroesophageal reflux disease): (4) History of microdiscectomy: (5) Hx MRSA infection: (6) Headache: Plan Kris Celaya is a 53y/o M with PMH significant for GERD, depression, tobacco use disorder and MRSA bacteremia 2/2 deep incisional wound infection s/p L4-L5 microdiscectomy in February 2024 who presented to the ED for evaluation via recommendation by his PCP as he has developed erythema around the site where his PICC line was recently removed on 05/18/24. Headache: H/O Microdiscetomy: H/O MRSA Bacteremia: Recent Historical Events * -Underwent microdiscectomy on 02/27/24 with an orthopedic spinal surgeon down in [place], [place] at [facility]; complicated with a CSF leak * -03/25 tx from [facility] --> [facility] [address]: underwent another spinal procedure * -04/04/24-04/11/24 admitted to [facility] for wound exploration on 04/[address] Curtis (neurosurgery) - wound washout, L4 laminectomy, L5 cystectomy, dural repair and replaced lumbar drain which was removed. * -Bacteremia secondary to wound bed infection. 05/18/24 Completed abx course of PO Zyvox and IV Daptomycin * -ECHO 04/07/24 with LVEF of 55 to 59% and no overt evidence of valvular vegetations or perivalvular abscesses. * -05/18/24 Completed abx course of PO Zyvox and IV Daptomycin * -PICC Line removed 05/18/24 Leukocytosis in ED 17.58--> today 11.95. Procal negative. UA and Biofire negative. Point tenderness with radiation to lumbar region starting at L2-3 on examination. generalized STAFFORD without nuchal rigidity or visual disturbance reported during ROS In ED started on IV Dapto + IV Rocephin; Per ID reccs after consult; switched to IV Vancomycin;continue Blood cultures pending 05/24: MRI Lumbar Spine revealed Redemonstration of signs of operative intervention. 2. Interval regression of the operative bed collection. 3. 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 It has been progressed since the last study. 4. Clumping of the cauda equina nerve roots is likely arachnoiditis. Discussed with orthospine who recommended transfer for further evaluation of possible progressing discitis. Called transfer center and s/w Dr. De Jesus (neurosurgery) who said that patient would benefit for transfer to [facility] for possible percutaneous biopsy. Pt was accepted by Hospitalist team; Dr. Donte Miramontes is the receiving care physician. Transfer paperwork completed; discharge completed outside of medications and discharge order. Discussed with ID; recommended continuation of IV vanco for transfer. Likely transfer pending bed availability Friday 05/26. Cellulitis of RUE: Leukocytosis in ED 17.58--> today 11.95. Procal negative. UA and Biofire negative. Erythema surrounding recent RUE PICC site; removed on 05/18. No tip culture sent. On examination, inner aspect of RUE erythematous without swelling/drainage. Two streaks of lymphangitis and erythema from tegaderm Venous doppler US of RUE negative for DVT; probably reactive phlebitis in the basilic vein CXR negative In ED started on IV Dapto + IV Rocephin; Per ID reccs; switched to IV Vancomycin. RUE MRI performed and negative for osteomyelitis Depression: Chronic Takes Effexor; continue GERD: Chronic continue PPI Disposition: DVT Prophylaxis: SQ Heparin Code Status: FULL CODE PCP: Melissa Fritz DO PENDING TRANSFER TO [facility] JENNIFER: Discussed with ID; recommended continuation of IV vanco for transfer. Likely transfer pending bed availability Friday 05/26. I spent a total of 63 minutes coordinating, documenting, and providing care for this patient excluding time spent inthe performance of separately billed services or time spent by another provider/QHP. Admission and Anticipated Discharge Date Admission Date: May 23, 2024 Subjective Pt is sitting in his hospital bed in no apparent distress. HIs headache remains that he describes as a 'pressure being 'all over', but does not report it going into his occipital region. He denies visual or auditory changes, chest pain, palpitations, SOB, N/V/D, peripheral neuropathy, recent falls, loss of bowel or bladder function. Please see plan of care for further details regarding transfer to [facility]. Review of Systems Review of Systems: Neuro: (-) Falls, trauma, slurred speech HEENT: (+) STAFFORD, (-) nuchal rigidity, dizziness, dysphagia, visual or auditory changes. CV: (-) CP, palpitations, swelling Resp: (-) SOB GI: (-) appetite changes, N/V/D, bowel changes : (-) urinary changes Skin: (-) rashes Psych: (-) anxiety, depression Physical Exam Physical Exam: Neuro: AAOx4, PERRLA, no aphagia, memory changes, CNII-XII grossly intact HEENT: head normocephalic, moist mucus membranes CV: S1/S2, (-) M/G/R, (-) edema, cap refill < 3 seconds Resp: Lungs CTA in all fajardo. On RA GI: Abdomen S/NT/ND, Ax4 bowel sounds, (-) CVA tenderness Musculoskeletal: 5/5 B/L UE strength, 5/5 B/L LE strength. No gait disturbance. (+) spinal point tenderness L4-T3 radiating into lumbar region Skin: (-) rashes , (-) erythema. Bulging area above his old surgical incision site; reports this is unchanged. Psych: euthymic mood Results & Data Results & Data Vital Signs (Past 12 Hours) Vital Signs Temp Pulse Pulse Resp BP Pulse Ox O2 Del Method 05/25/24 03:40 36.7 C 72 18 125/74 98 Room Air 05/24/24 23:32 36.7 C 83 18 106/66 98 Room Air 05/24/24 21:46 86 05/24/24 20:37 98 H 05/24/24 20:28 36.7 C 81 18 128/73 98 Room Air Laboratory Results Short CBC 05/25/24 Range/Units 05:09 WBC 8.05 (4.8-10.8) K/ul Hgb 11.3 L (14.0-18.0) g/dl Hct 34.4 L (42.0-52.0) % Plt Count 293 (130-400) K/uL BMP 05/25/24 05:09 Sodium 139 Potassium 3.7 Chloride 109 H Carbon Dioxide 23 BUN 14 Creatinine 1.21 Glucose 98 Calcium 9.5 (2) Depression Depression Type: unspecified Qualified Code(s): F32.A - Depression, unspecified (3) GERD (gastroesophageal reflux disease) Esophagitis presence: esophagitis presence not specified Qualified Code(s): K21.9 - Gastro-esophageal reflux disease without esophagitis
--- NOTE | 2024-05-25 08:39 | Consultation ---
Date of Consultation May 25, 2024 Assessment & Plan (1) Discitis of lumbar region: Patient has had complicated postoperative course since his initial surgery in [place] in February 2024. He has had multiple procedures in [place] and then in [place] since. He has also had CSF leak and deep wound infection/bacteremia. He is now admitted to [facility] is because of right upper extremity swelling and erythema where his PICC line was (recently discontinued). Thoracic and lumbar MRI imaging has been reviewed. Regarding his arachnoiditis this can be managed conservatively with pain control. THis is most likely result of his CSF leak. No acute intervention warranted at this time regarding arachnoiditis. More pressing issue is developing discitis at the L4-5 level. The recommendation is transfer back to [place]/tertiary care center where they have infectious disease to follow along and where treating surgeon (Dr. Curtis) is located as he is still in his post operative period. History of Present Illness Reason for Consultation: Arachnoiditis Attending Physician: Chari Tan MD History of Present Illness This is a 53-year-old gentleman who presented to the emergency room on May 23 with complaints of right arm swelling. He has had recent right PICC line removal secondary to bacteremia and MRSA. . pt 's hx significant for - L4-L5 microdiscectomy on 02/27/24 with an orthopedic spinal surgeon down in [place], [place] at [facility]. This was complicated by the development of a CSF leak. Then underwent another spinal procedure back at [facility] in early March 2024 after being transferred from [facility]. This was complicated by MSRA bacteremia 2/2 deep incisional wound infection. Patient was then admitted at [facility] in March 2024 before ultimately being transferred to [facility] for further evaluation and management. Was admitted at [facility] from 04/04/24 to 04/11/2024. Underwent wound exploration on 04/05/[address] Сергей Curtis [neurosurgery]. Procedure entailed wound washout, L4 laminectomy, L5 laminectomy, L5 medial cystectomy, dural repair. Completed full antibiotic course including po linezolid and IV daptomycin on 05/18/24. PICC line removed on 05/18/24. Allergies Allergy/AdvReac Type Severity Reaction Status Date / Time No Known Allergies Allergy Verified 05/23/24 15:48 Home Medications Medication Instructions Recorded Confirmed Type pantoprazole 40 mg tablet,delayed 40 mg PO QAM 03/16/24 05/23/24 History release cyclobenzaprine 10 mg tablet 10 mg PO TID PRN Muscle Spasm 03/31/24 05/23/24 H istory oxycodone 5 mg tablet 5 mg PO Q4H PRN Pain 04/24/24 05/23/24 History acetaminophen 500 mg tablet 1,000 mg PO Q6H PRN Pain 05/23/24 05/23/24 History multivitamin with minerals-folic 1 tab PO QAM 05/23/24 05/23/24 History acid 200 mcg chewable tablet (Multivitamin Gummies) venlafaxine 75 mg capsule,extended 75 mg PO QAM 05/23/24 05/23/24 History release 24 hr Patient History Medical History Frequent headaches Surgical History History of lumbar surgery Social History Smoking Status: Former smoker Tobacco Type: Cigarettes Cigarettes Per Day: 1/2 pack; Second Hand Exposure: Yes; Do You Dip or Chew Tobacco: No; Hx Alcohol Use: Yes Alcohol type: beer, wine and hard liquor Hx Substance Use: No Preferred Language: Malaysian Communication Ability: Effective Surfboard Designer Required: No Beliefs That Will Affect Care: None Current Living Situation: Spouse and Family Current Living Situation Comment: lives at home with and daughter Feels Safe at Home: Yes Assistive Devices: Brace/Splint/Immobilizer and Walker Review of Systems Review of Systems: All systems reviewed & are unremarkable except as noted in HPI & below Physical Exam Physical Exam: Chart review Results & Data Vital Signs (Past 12 Hours) Vital Signs Temp Pulse Pulse Resp BP Pulse Ox O2 Del Method 05/25/24 08:00 36.6 C 78 19 117/76 98 Room Air 05/25/24 07:26 79 05/25/24 03:40 36.7 C 72 18 125/74 98 Room Air 05/24/24 23:32 36.7 C 83 18 106/66 98 Room Air 05/24/24 21:46 86 Diagnostic Findings [place], [place] [phone] Magnetic Resonance Report Patient: JACOBO HERNANDEZ Admit Date: 05/23/24 MR#: [id number] Address1: [address] [place] [address] Acct ID:[id number] Address2: Date: 1970 [facility] Zip: [place] [address] Age: 53 Location: [facility] Sex: M Room/Bed: [facility] 1-7 Att Phy: Chari Tan MD Diagnosis: RUE CELLULITIS S/P PICC LINE REMOVAL Sarah Phy: Melissa Fritz DO Service Date: 05/24/24 Fam Phy: Interpreting Phy: Oriana Gustafson MDAdmit Phy: Chaparro Dumont MD Ordering Phy: DANIEL Connors cc: ~ EXAM: MR thoracic spine wo/w con CLINICAL HISTORY: r/o discitis/osteomyelitis TECHNIQUE: MRI of the thoracic spine was performed with and without intravenous contrast administration. 9 ml gadavist injected. Sequences obtained include pre-contrast and post-contrast T1-weighted, T2-weighted, STIR (Short Tau Inversion Recovery), and axial T2-weighted sequences. COMPARISON: None. FINDINGS: Vertebrae: Normal alignment of the thoracic vertebrae. No fractures, lytic or sclerotic lesions. Normal bone marrow signal intensity. Mild anterolateral osteophytosis of the thoracic vertebral end plates. Intervertebral Discs: Mild desiccation of the thoracic discs is evident by reduced bright T2 signal. No evidence of disc herniation, or bulging. Spinal Canal and Neural Foramina: Spinal canal is of normal caliber with no evidence of spinal stenosis. Neural foramina are patent bilaterally at all levels. No evidence of nerve root compression. Facet Joints: Normal appearance of the facet joints. No evidence of facet arthropathy or significant degenerative changes. Level by level analysis: C7-T1: No significant disc pathology. Normal ligamentum flava morphology, no arthropathy of the facet joints, and no significant spinal canal stenosis. T1-T2: No significant disc pathology. Normal ligamentum flava morphology, no arthropathy of the facet joints, and no significant spinal canal stenosis. T2-T3: No significant disc pathology. Normal ligamentum flava morphology, no arthropathy of the facet joints, and no significant spinal canal stenosis. T3-T4: No significant disc pathology. Normal ligamentum flava morphology, no arthropathy of the facet joints, and no significant spinal canal stenosis. T4-T5: No significant disc pathology. Normal ligamentum flava morphology, no arthropathy of the facet joints, and no significant spinal canal stenosis. T5-T6: No significant disc pathology. Normal ligamentum flava morphology, no arthropathy of the facet joints, and no significant spinal canal stenosis. T6-T7: No significant disc pathology. Normal ligamentum flava morphology, no arthropathy of the facet joints, and no significant spinal canal stenosis. T7-T8: No significant disc pathology. Normal ligamentum flava morphology, no arthropathy of the facet joints, and no significant spinal canal stenosis. T8-T9: No significant disc pathology. Normal ligamentum flava morphology, no arthropathy of the facet joints, and no significant spinal canal stenosis. T9-T10: No significant disc pathology. Normal ligamentum flava morphology, no arthropathy of the facet joints, and no significant spinal canal stenosis. T10-T11: No significant disc pathology. Normal ligamentum flava morphology, no arthropathy of the facet joints, and no significant spinal canal stenosis. T11-T12: No significant disc pathology. Normal ligamentum flava morphology, no arthropathy of the facet joints, and no significant spinal canal stenosis. Soft Tissues: Normal appearance of the paraspinal soft tissues. No abnormal masses, fluid collections, or signs of inflammation. Thoracic Kyphosis: Normal thoracic kyphosis without abnormal curvature. Post-Contrast Findings: No abnormal enhancement of the vertebral bodies or intervertebral discs. Spinal Cord and Nerve Roots: Spinal cord demonstrates normal signal intensity and caliber throughout the thoracic spine. No evidence of intrinsic cord lesions, syrinx, or abnormal signal changes. No evidence of cord compression or intradural pathology. Nerve roots appear unremarkable bilaterally. IMPRESSION: 1. No fractures, lytic or sclerotic lesions. 2. No intraspinal masses or areas of pathological enhancement. 3. Mild spondylodegenrative changes . Electronically signed by Oriana Gustafson 05-24-2024 6:07 PM Dictated: 05/24/24 1523 Transcribed: [facility], [place] [phone] Magnetic Resonance Report Patient: JACOBO HERNANDEZ Admit Date: 05/23/24 MR#: [id number] Address1: [address] [place] [address] Acct ID:[id number] Address2: Date: 1970 [facility] Zip: [place] [address] Age: 53 Location: [facility] Sex: M Room/Bed: [facility] 1-7 Att Phy: Chari Tan MD Diagnosis: RUE CELLULITIS S/P PICC LINE REMOVAL Sarah Phy: Melissa Fritz Service Date: 05/24/24 Fam Phy: Interpreting Phy: Oriana Gustafson MDAdmit Phy: Chaparro Dumont MD Ordering Phy: DANIEL Connors cc: ~ EXAM: MR lumbar spine wo/w con CLINICAL HISTORY: R/o discitis/osteomyelitis TECHNIQUE: MRI of the lumbar spine was performed with and without the administration of intravenous contrast. Sequences obtained include sagittal T1-weighted, T2-weighted, STIR (Short Tau Inversion Recovery), and axial T2-weighted sequences. COMPARISON: 03/17/2024. FINDINGS: Vertebral Alignment: Evidence of L4 spinolaminectomy. Interval regression of the operative bed collection, now measuring 36 X 47 mm ( compared to 58 x 56 cm) Vertebral Bodies and Intervertebral Discs: Normal vertebral body height, no fracture identified. Pathological process is seen at L4-L5 opposing vertebral end plates with increased water content of the intervening disc space. Associated enhancing sheet like pre/bilateral paravertebral soft tissue measuring about 12 mm at maximum thickness. Requa-ik-[id number] analysis: T12-L1: There is no significant disc pathology. No spinal canal stenosis. No neural foraminal stenosis.No ligamentum flavum hypertrophy and facet joint arthropathy. L1-L2: There is no significant disc pathology. No spinal canal stenosis. No neural foraminal stenosis.No ligamentum flavum hypertrophy and facet joint arthropathy. L2-L3: There is no significant disc pathology. No spinal canal stenosis. No neural foraminal stenosis.No ligamentum flavum hypertrophy and facet joint arthropathy. L3-L4: There is no significant disc pathology. No spinal canal stenosis. No neural foraminal stenosis.No ligamentum flavum hypertrophy and facet joint arthropathy. L4-L5: There is 3mm posteri bilateral disc bulge indenting the theca, mildly encroaching on both exit neural foramina and mildly compressing the extitng nerve roots. L5-S1: There is mild diffuse disc bulge, and bilateral facet arthropathy is noted causing mild canal and bilateral mild neural foraminal narrowing with indentation of bilateral exiting nerve roots. Type II Modic endplate changes noted. Spinal Cord and Nerve Roots: Conus medullaris terminates at the L1 level without abnormality. Clumping of the cauda equina nerve roots is likely arachnoiditis. Soft Tissues: Paraspinal soft tissues appear normal without evidence of mass lesions. IMPRESSION: 1. Redemonstration of signs of operative intervention. 2. Interval regression of the operative bed collection. 3. 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 It has been progressed since the last study. 4. Clumping of the cauda equina nerve roots is likely arachnoiditis. OBX.[id number].5.1.15. Stable L4-L5 /OBX.5.1.1OBX.5.1.2 L5-S1 disc bulges. /OBX.5.1.2/OBX.5.1 Electronically signed by Oriana Gustafson 05-24-2024 6:03 PM Dictated: 05/24/24 1523 Transcribed:
--- NOTE | 2024-05-25 09:42 | Pharmacy Report ---
Pharmacy PK ABX Note - Date of Service May 25, 2024 - Assessment and Plan Assessment * 53 year old M receiving vancomycin for cellulitis 2nd recent his PICC line (removed on 05/18/24). PICC was for MSRA bacteremia 2/2 deep incisional wound infection. Completed full antibiotic course including po linezolid and IV daptomycin on 05/18/24. Now w erythema surrounding the site where his PICC line was recently removed * SCr elevated 2 days ago, but stable x24 hours Plan Vancomycin * Target AUC/PROSPER of 400-600 mg/L.hr * Random level of 15.8 mcg/mL is associated with a therapeutic AUC of 501 mg/L.hr * Continue same maintenance dose: 1000 mg IV every 12 hours * Random level ordered for 05/27 AM Pharmacy will continue to follow and will adjust dose/frequency as necessary. Thank you. Pharmacy has transitioned to AUC monitoring for vancomycin. AUC/PROSPER is the preferred PK/PD target and is associated with decreased risk of nephrotoxicity compared to traditional trough targets.
[2024-05-25] MEDS: VANCOMYCIN LEVEL ONE (19:19)
[2024-05-26 05:15] VITALS: RESP 16; O2SAT 98
--- NOTE | 2024-05-26 07:00 | Hospitalist Progress Note ---
Date of Service May 26, 2024 Assessment & Plan (1) Cellulitis of right upper extremity: (2) Depression: (3) GERD (gastroesophageal reflux disease): (4) History of microdiscectomy: (5) Hx MRSA infection: (6) Headache: Plan Kris Celaya is a 53y/o M with PMH significant for GERD, depression, tobacco use disorder and MRSA bacteremia 2/2 deep incisional wound infection s/p L4-L5 microdiscectomy in February 2024 who presented to the ED for evaluation via recommendation by his PCP as he has developed erythema around the site where his PICC line was recently removed on 05/18/24. Headache: H/O Microdiscetomy: H/O MRSA Bacteremia: Recent Historical Events * -Underwent microdiscectomy on 02/27/24 with an orthopedic spinal surgeon down in [place] at [facility]; complicated with a CSF leak * -03/25 tx from [facility] --> [facility]: underwent another spinal procedure * -04/04/24-04/11/24 admitted to [facility] for wound exploration on 04/[address] Curtis (neurosurgery) - wound washout, L4 laminectomy, L5 cystectomy, dural repair and replaced lumbar drain which was removed. * -Bacteremia secondary to wound bed infection. 05/18/24 Completed abx course of PO Zyvox and IV Daptomycin * -ECHO 04/07/24 with LVEF of 55 to 59% and no overt evidence of valvular vegetations or perivalvular abscesses. * -05/18/24 Completed abx course of PO Zyvox and IV Daptomycin * -PICC Line removed 05/18/24 Leukocytosis in ED 17.58--> today 11.95. Procal negative. UA and Biofire negative. Point tenderness with radiation to lumbar region starting at L2-3 on examination. generalized STAFFORD without nuchal rigidity or visual disturbance reported during ROS In ED started on IV Dapto + IV Rocephin; Per ID reccs after consult; switched to IV Vancomycin;continue Blood cultures pending 05/24: MRI Lumbar Spine revealed Redemonstration of signs of operative intervention. 2. Interval regression of the operative bed collection. 3. 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 It has been progressed since the last study. 4. Clumping of the cauda equina nerve roots is likely arachnoiditis. Discussed with orthospine who recommended transfer for further evaluation of possible progressing discitis. Called transfer center and s/w Dr. De Jesus (neurosurgery) who said that patient would benefit for transfer to [facility] for possible percutaneous biopsy. Pt was accepted by Hospitalist team; Dr. Donte Miramontes is the receiving care physician. Transfer paperwork completed; discharge completed outside of medications and discharge order. Discussed with ID; recommended continuation of IV vanco for transfer. Likely transfer pending bed availability Friday 05/26. Cellulitis of RUE: Leukocytosis in ED 17.58--> today 11.95. Procal negative. UA and Biofire negative. Erythema surrounding recent RUE PICC site; removed on 05/18. No tip culture sent. On examination, inner aspect of RUE erythematous without swelling/drainage. Two streaks of lymphangitis and erythema from tegaderm Venous doppler US of RUE negative for DVT; probably reactive phlebitis in the basilic vein CXR negative In ED started on IV Dapto + IV Rocephin; Per ID reccs; switched to IV Vancomycin. RUE MRI performed and negative for osteomyelitis Depression: Chronic Takes Effexor; continue GERD: Chronic continue PPI Disposition: DVT Prophylaxis: SQ Heparin Code Status: FULL CODE PCP: Melissa Fritz DO PENDING TRANSFER TO [facility] JENNIFER: Discussed with ID; recommended continuation of IV vanco for transfer. Likely transfer pending bed availability Friday 05/26. I spent a total of 63 minutes coordinating, documenting, and providing care for this patient excluding time spent inthe performance of separately billed services or time spent by another provider/QHP. Admission and Anticipated Discharge Date Admission Date: May 23, 2024 Results & Data Results & Data Vital Signs (Past 12 Hours) Vital Signs Temp Pulse Pulse Resp BP Pulse Ox O2 Del Method 05/26/24 04:10 36.6 C 77 16 119/75 98 Room Air 05/25/24 23:02 36.4 C L 70 18 113/68 97 Room Air 05/25/24 22:34 74 05/25/24 19:26 36.7 C 83 18 122/79 99 Room Air (2) Depression Depression Type: unspecified Qualified Code(s): F32.A - Depression, unspecified (3) GERD (gastroesophageal reflux disease) Esophagitis presence: esophagitis presence not specified Qualified Code(s): K21.9 - Gastro-esophageal reflux disease without esophagitis
[2024-05-26 07:22] LABS: Hematocrit (blood only) 35.5 % (42.0-52.0); Hemoglobin 11.6 g/dl (14.0-18.0); Mean Corpuscular Hemoglobin 29.2 pg (25.0-34.0); Mean Corpuscular Hgb Conc 32.7 g/dL (32.0-36.0); Mean Corpuscular Volume 89.4 fL (80.0-100.0); Mean Platelet Volume 9.9 fL (9.4-12.4); Platelet Count 314 K/uL (130-400); RDW Coefficient of Variation 14.2 % (11.5-14.5); RDW Standard Deviation 46.4 fL (36.4-46.3); Red Blood Count 3.97 M/uL (4.70-6.10); White Blood Count 7.89 K/ul (4.8-10.8)
[2024-05-26 08:28] LABS: Calcium 9.9 mg/dl (8.6-10.3); Magnesium 1.9 mg/dl (1.7-2.4)
[2024-05-26 08:33] LABS: BUN Creatinine Ratio 12.6 (10-20); Creatinine Clr Calc Pharmacy 80.9 ml/min
--- NOTE | 2024-05-26 11:15 | Infectious Disease Consult ---
Date of Service May 26, 2024 Telehealth Information I performed this visit using a real-time telehealth connection between my location and the patients location ([facility]). After connecting through interactive tele-video, patient was identified by name and date of and/or wristband check.Patient (or authorized healthcare housing management representative) was informed that this was a telemedicine visit and it was being conducted confidentially over secure lines. My office door was closed and no one else was present in the room with me.Patient (or authorized healthcare housing management representative) provided consent to proceed with the visit, expressed an understanding of privacy and security of the telemedicine visit, and gave permission to have a hospital housing management representative in the room in order to assist with the visit and to conduct portions of the visit, as needed. I informed the patient (or authorized healthcare housing management representative) that I reviewed their record and presented the opportunity for them to ask any questions regarding the visit today. The patient agreed to participate. History of Present Illness History of Present Illness PMH significant for GERD, depression, tobacco use disorder and MRSA bacteremia 2/2 deep incisional wound infection s/p L4-L5 microdiscectomy in February 2024 Patient is a 53 year old male presenting to [facility] at request of PCP to have PICC line insertion site evaluated for concerns of cellulitis after removal on 05/18. Patient known to this ID service, as was recently admitted to [facility] on 04/04/2024. Pt underwent L4-5 microdiscectomy on 02/26 in [place] which was complicated by CSF leak which was discovered 2 weeks later. Pt presented to [facility] with 03/19 Bclx with MRSA bacteremia and placed on Daptomycin IV therapy. MRI at this admission showing evidence of L4 surgical laminectomy with an extraspinal fluid collection measuring 10.9 x 8.2 mm, surgical site subcutaneous tissue shows a faintly-enhancing fluid collection measuring 9 x 9 x 33 mm subsequently transferred back to [facility] in [place] for patch of CSF leak. Appears that patient again returned to [facility] after this procedure due to persistent STAFFORD and further CSF leak from lumbar surgical site. Pt unable to be seen further by the [place] practice and was subsequently transferred to [facility]. Now s/p 04/05/24 OR with Neurosurgery for L4-5 laminectomy, L5 medial facetectomy, washout and dura leak repair- of note there was a significant amount of CSF present on initial opening of the prior surgical site. CSF studies with neutrophilic predominance, 04/06 CSF culture without bacterial growth, no organisms seen, many PMSs. Opted to treat for a total of 6 weeks due to concern for vertebral OM and concomitant CSF infection. Was initially on IV vancomycin but developed MATTY, so was given initial therapy with Linezolid for HEAD OF DIGITAL penetration with conversion to Daptomycin after two weeks to complete therapy. Patient completed IV therapy on 05/18 and had PICC line removed. PCP with concern that there was redness at the insertion site and subsequently told to be evaluated at [facility] for evaluation. Thus far, patient is hemodynamically stable, afebrile, on room air, wbc 17.58. 05/23 Bclx with no growth to date. Doppler Right UE negative. 05/24 MRI of R. humerus with no abnormality. 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 Progressed since the last study. Of note last CRP 10 1.10. Placed on Vancomycin IV therapy. Hospital medicine has called [facility] transfer center and as per neurosurgery would benefit from transfer for possible percutaneous biopsy. Allergies Allergy/AdvReac Type Severity Reaction Status Date / Time No Known Allergies Allergy Verified 05/23/24 15:48 Home Medications Medication Instructions Recorded Confirmed Type pantoprazole 40 mg tablet,delayed 40 mg PO QAM 03/16/24 05/23/24 History release cyclobenzaprine 10 mg tablet 10 mg PO TID PRN Muscle Spasm 03/31/24 05/23/24 History oxycodone 5 mg tablet 5 mg PO Q4H PRN Pain 04/24/24 05/23/24 History acetaminophen 500 mg tablet 1,000 mg PO Q6H PRN Pain 05/23/24 05/23/24 History multivitamin with minerals-folic 1 tab PO QAM 05/23/24 05/23/24 History acid 200 mcg chewable tablet (Multivitamin Gummies) venlafaxine 75 mg capsule,extended 75 mg PO QAM 05/23/24 05/23/24 History release 24 hr Patient History Medical History Frequent headaches Surgical History History of lumbar surgery Social History Smoking Status: Former smoker Tobacco Type: Cigarettes Cigarettes Per Day: 1/2 pack; Second Hand Exposure: Yes; Do You Dip or Chew Tobacco: No; Hx Alcohol Use: Yes Alcohol type: beer, wine and hard liquor Hx Substance Use: No Preferred Language: Croatian Communication Ability: Effective Rfid Strategist Required: No Beliefs That Will Affect Care: None Current Living Situation: Spouse and Family Current Living Situation Comment: lives at home with and daughter Feels Safe at Home: Yes Assistive Devices: Brace/Splint/Immobilizer and Walker Results & Data Vital Signs (Past 12 Hours) Vital Signs Temp Pulse Pulse Resp BP Pulse Ox O2 Del Method 05/26/24 10:51 36.6 C 84 16 128/78 98 Room Air 05/26/24 07:33 70 16 129/73 98 Room Air 05/26/24 05:46 72 05/26/24 04:10 36.6 C 77 16 119/75 98 Room Air
--- NOTE | 2024-05-26 14:10 | Discharge Summary ---
Discharge Summary Date of Service May 26, 2024 Principal Dx & Hospital Course #1 = Principal Diagnosis (1) Arachnoiditis: (2) Spondylodiscitis: Kris Celaya is a 53y/o M with PMH significant for GERD, depression, tobacco use disorder and MRSA bacteremia 2/2 deep incisional wound infection s/p L4-L5 microdiscectomy in February 2024 who presented to the ED for evaluation on 05/23/24 via recommendation by his PCP after he developed erythema around the site where his PICC line was recently removed on 05/18/24. Underwent L4-L5 microdiscectomy on 02/27/24 with an orthopedic spinal surgeon down in [place] at [facility]. This was complicated by the development of a CSF leak. Then underwent another spinal procedure back at [facility] in early March 2024 after being transferred from [facility]. This was complicated by MSRA bacteremia 2/2 deep incisional wound infection. Patient was then seen and evaluated by our service back in late March 2024 before ultimately being transferred to [facility] for further evaluation and management. Was admitted at [facility] from 04/04/24 to 04/11/2024. Underwent wound exploration on 04/05/[address] Сергей Curtis [neurosurgery]. Procedure entailed wound washout, L4 laminectomy, L5 laminectomy, L5 medial cystectomy, dural repair and placement of a lumbar drain. Lumbar drain removed prior to discharge. Completed full antibiotic course including po linezolid and IV daptomycin on 05/18/24. PICC line removed on 05/18/24. Leukocytosis on admission with WBC count of 17k. UA and respiratory BioFire panel both negative. Procalcitonin negative. Head CT negative. S/p IV daptomycin + IV Rocephin in ED. Continued on IV vancomycin per ID's recommendation on admission. Noted generalized STAFFORD w/o nuchal rigidity or visual disturbance. Also noted point tenderness with radiation to the distant lumbar region starting at L2-L3 on examination. Thoracic and lumbar spine MRIs obtained. Thoracic spine MRI grossly unremarkable with mild spondylodegenerative changes. Lumbar spine MRI c/f pathological L4-L5 spondylodiscitis (progressed since last study) and clumping of the cauda equina nerve roots representing likely arachnoiditis. Suspect presenting leukocytosis 2/2 underlying spondylodiscitis rather than suspected reactive phlebitis as per below. Orthopedic spinal surgery consulted. Conservative management with PRN pain control for arachnoiditis. More pressing issue is progressing discitis --> recommended transfer to [facility] for further evaluation of progressing spondylodiscitis. Previous MAREN called transfer center and s/w Dr. De Jesus [neurosurgery] who said that patient would benefit for transfer to [facility] for possible percutaneous biopsy. Discussed with ID. Recommended continuation of IV vancomycin for transfer to [facility]. Blood cultures NGTD. Leukocytosis resolved. Patient accepted by hospitalist team at [facility] - accepting physician is Dr. Donte Miramontes. S/w transfer center today --> planning transfer to [facility] later this afternoon/early evening. (3) Phlebitis: Initially presented with erythema surrounding the site where his PICC line was recently removed from the inner aspect of his RUE on 05/18/24. No evidence of DVT on RUE venous Doppler ultrasound in the ED. CXR negative. Initially there was concern for RUE cellulitis given leukocytosis on admission, however suspect this was probably reactive phlebitis of the basilic vein and likely his leukocytosis was secondary to the above. MRI of the R humerus was unremarkable; negative for osteomyelitis. (4) Depression: Chronic, stable. Continue venlafaxine. (5) GERD (gastroesophageal reflux disease): Chronic, stable. Continue PPI. DVT Prophylaxis: SQ Heparin Code Status: FULL CODE PCP: Melissa Fritz DO Disposition: Transfer to [facility] for further evaluation and management of his progressing L4-L5 spondylodiscitis. Patient seen in collaboration with Dr. Tan. Please see addendum. I spent a total of 60 minutes coordinating, documenting, and providing care for this patient excluding time spent in the performance of separately billed services or time spent by another provider/QHP. This included personally reviewing all current laboratories and imaging studies, medical reconciliation, outpatient chart review and discussion with specialists. This chart was completed in part utilizing Speech Voice Recognition Software. Grammatical errors, random word insertions, pronoun errors, and incomplete sentences are an occasional consequence of this system due to software limitations, ambient noise, and hardware issues. Any formal questions or concerns about the content, text, or information contained within the body of this dictation should be directly addressed to the provider for clarification. Notes For Next Care Provider On IV vancomycin per ID's recommendation for L4-L5 spondylodiscitis. Medication Changes From Visit No changes made to home medications prior to transfer. Admission HPI Per Admitting Provider Kris Celaya is a 53y/o M with PMH significant for GERD, depression, tobacco use disorder and MRSA bacteremia 2/2 deep incisional wound infection s/p L4-L5 microdiscectomy in February 2024 who presented to the ED for evaluation via recommendation by his PCP as he has developed erythema around the site where his PICC line was recently removed on 05/18/24. History obtained from the patient, at bedside, discussion with ED provider and associated chart review. Patient seen at bedside in ED with Dr. Dumont. Underwent L4-L5 microdiscectomy on 02/27/24 with an orthopedic spinal surgeon down in [place] at [facility]. This was complicated by the development of a CSF leak. Then underwent another spinal procedure back at [facility] in early March 2024 after being transferred from [facility]. This was complicated by MSRA bacteremia 2/2 deep incisional wound infection. Patient was then seen and evaluated by our service back in late March 2024 before ultimately being transferred to [facility] for further evaluation and management. Was admitted at [facility] from 04/04/24 to 04/11/2024. Underwent wound exploration on 04/05/[address] Сергей Curtis [neurosurgery]. Procedure entailed wound washout, L4 laminectomy, L5 laminectomy, L5 medial cystectomy, dural repair and placement of a lumbar drain. Lumbar drain removed prior to discharge. Completed full antibiotic course including po linezolid and IV daptomycin on 05/18/24. PICC line removed on 05/18/24. Now patient coming in with erythema surrounding the site where his PICC line was recently removed from the inner aspect of his RUE. No reported fevers. Does endorse chills. Noted some erythematous streaking down the inferior portion of his RUE below his PICC line site. No drainage from the area where his PICC line was inserted. Did have Tegaderm over this area as well as bandages however it has been openly exposed for over 24 hours now. Has been applying Vaseline to this area but nothing else. Has not noticed that this area is warm to touch but does endorse tenderness with palpation of the region. Also with intermittent headaches however they are much milder than the ones he experienced with his CSF leak as per above. Rates headache pain 2 out of 10 on evaluation. Admission Exam Per Admitting Provider Pt is alert oriented, answers appropriately. Lungs are CTAB, hearts sounds regular. Abdomen soft, nontender. Scar on pt's back looks well healed, nontender, nonedematous, without any drainage, no significant erythema noted. pt is moving extremities. Skin is warm and dry. Discharge Exam General: WD/WN, vitals as above, NAD, sitting up in bed, very pleasant. A+O x 3. at bedside. HEENT: Normocephalic, atraumatic. Conjunctivae normal, anicteric sclerae. External ear and nose normal, oropharynx normal. Respiratory: Normal respiratory effort, lungs clear to auscultation, no wheeze/rales/rhonchi. No accessory muscle use. Cardiovascular: Regular rate, rhythm, normal peripheral pulses, no BLE edema. Abdomen/GI: Normal bowel sounds, soft, nondistended, nontender to palpation in all quadrants. Extremities/Musculoskeletal: Extremities motor strength intact. + TTP in lower lumbar spinal region. Neurologic: No overt focal deficits, CN's II-XI not formally tested but appear grossly intact bilaterally. Skin: Resolution of erythema on inner aspect of RUE where PICC line recently removed/no drainage. Updated Medication List Medication Instructions Recorded Confirmed Type pantoprazole 40 mg tablet,delayed 40 mg PO QAM 03/16/24 05/23/24 History release cyclobenzaprine 10 mg tablet 10 mg PO TID PRN Muscle Spasm 03/31/24 05/23/24 History oxycodone 5 mg tablet 5 mg PO Q4H PRN Pain 04/24/24 05/23/24 History acetaminophen 500 mg tablet 1,000 mg PO Q6H PRN Pain 05/23/24 05/23/24 History multivitamin with minerals-folic 1 tab PO QAM 05/23/24 05/23/24 History acid 200 mcg chewable tablet (Multivitamin Gummies) venlafaxine 75 mg capsule,extended 75 mg PO QAM 05/23/24 05/23/24 History release 24 hr Hospital Stay Data Consultations 05/23/24 16:08 ED Decision to Admit Stat 05/23/24 16:33 Consult Infectious Diseases Routine 05/25/24 07:33 Consult Orthopedic Spine Surgery Routine Diagnostic Imagining Performed 05/23/24 13:06 CT head/brain wo con Stat 05/23/24 13:09 US venous doppler UE RT Stat 05/24/24 11:42 MRI Arm [MR humerus RT wo con] Routine 05/24/24 14:18 MRI Lumbar Spine [MR lumbar spine wo/w con] Routine MRI Thoracic [MR thoracic spine wo/w con] Routine Pending Results Patient Have Any Pending Studies at Discharge: No Discharge Instructions Given to Patient (Per Discharging Provider) Jerrell Lanier presented to the [facility] ([facility]) by the recommendation of your PCP as you developed redness around the site where your PICC line was removed on 05/18/2024. A right upper extremity MRI was performed and negative for osteomyelitis. You also expressed that you were having headaches. Your PMH is significant for history of a complicated microdiscectomy, MRSA bacteremia and lengthy antibiotic course. You underwent a L4-L5 microdiscectomy on 02/27/2024 with an orthopedic spinal surgeon down in [place] at [facility]. This was complicated by the development of a CSF leak. Then you underwent another spinal procedure back at [facility] in early March 2024 after being transferred from [facility]. This was complicated by MSRA bacteremia due to a deep incisional wound infection. You were then seen and evaluated by our service back in late March 2024 before ultimately being transferred to [facility] for further evaluation and management. You were admitted at [facility] from 04/04/2024 to 04/11/2024. You underwent wound exploration on 04/05/[address] Сергей Curtis [neurosurgery]. Procedure entailed wound washout, L4 laminectomy, L5 laminectomy, L5 medial cystectomy, dural repair and placement of a lumbar drain (removed prior to discharge). You completed a full antibiotic course including po linezolid and IV daptomycin on 05/18/24. Your most recent echocardiogram from 04/07/24 showed an LVEF of 55 to 59% and no overt evidence of valvular vegetations or perivalvular abscesses. On examination you had point tenderness with radiation to lumbar region starting at L2-L3 on examination. Your lab work indicated leukocytosis 17.58k which improved to 7.89k today. Blood cultures with NO GROWTH TO DATE. Given the point tenderness you were experiencing on physical examination, a thoracolumbar spine MRI was ordered and revealed the followin. Redemonstration of signs of operative intervention. 2. Interval regression of the operative bed collection. 3. 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 It has been progressed since the last study. 4. Clumping of the cauda equina nerve roots is likely arachnoiditis. You were seen and evaluated by orthopedic spinal surgery whom recommended transfer to [facility] for further evaluation and management of your L4-L5 spondylodiscitis. Your case was also discussed with infectious disease whom recommended continuation of IV vancomycin pending transfer to [facility]. MEDICATION CHANGES: 1. You will continue receiving IV vancomycin unless otherwise determined at [facility]. SUMMARY OF ADDITIONAL TEST RESULTS: 05/23: Chest X-ray: FINDINGS: Single view chest demonstrates no acute cardiopulmonary process. There is no airspace opacity or pleural effusion. Heart and pulmonary vascularity are unremarkable. IMPRESSION: No acute process 05/23: Head CT: FINDINGS: CT findings are stable. There continues to be no intra-axial or extra- axial fluid collection, hemorrhage, or mass. The ventricles and sulci are age- appropriate with no midline shift. Bone windows are negative. IMPRESSION: Stable exam; no acute intracranial process identified. 05/23 Venous Doppler Study: FINDINGS: There is no evidence of DVT in the right upper extremity. The major deep venous channels are patent and compressible with one exception and that is the basilic vein which has thick tony and is noncompressible. However, there is flow identified within the basilic vein. IMPRESSION: No evidence of DVT. Probable reactive phlebitis in the basilic vein. 05/24: Humerus MRI: IMPRESSION: 1. Normal MRI of the humerus without contrast. 2. No evidence of osteomyelitis PENDING FINAL TEST RESULTS: Preliminary blood cultures with NGTD x 48 hours. OTHER INSTRUCTIONS Seek medical attention if you have: * temperature above 101F * chest pain or trouble breathing * abdominal pain, nausea, vomiting * diarrhea, dark stools or bloody stools * any unanswered questions or concerns Call 911 if symptoms are severe. Please take good care of yourself! It has been a pleasure taking care of you. If you have any questions regarding your recent hospitalization please contact [facility] and request Mindi Wheeler @ [phone]. Total Time Total Time Spent Total Time Spent (In Minutes): 60
[2024-05-26 16:30] VITALS: BP 135/85; PULSE 93; TEMP 98.6
[2024-05-27] MEDS ORDERED: VANCOMYCIN LEVEL ONE (07:30)
== END 2024-05-26 20:00 | disposition short-term general hospital (02) | DRG 602 ==
LOC: ED 12:46 → EDINP 17:23 → SUATTDRO 17:23 → EDINP 20:31 → 2N 05-24 20:00